=== PATIENT | female | born 1935 | race Caucasian/White ===

== ENCOUNTER 2020-02-10 10:46 | Observation (INO) | payer MEDICARE, OTHER ==
[2020-02-10 11:34] LABS: CHLORIDE,CL 101 mmol/L (98-107); SODIUM,NA 139 mmol/L (136-145)
--- NOTE | 2020-02-10 13:31 | EDM.PDOC ---
ED HPI GENERAL MEDICAL PROBLEM - General Chief Complaint: Respiratory Problem Stated Complaint: cough Time Seen by Provider: 02/10/20 11:10 Source of Information: Reports: Patient History Limitations: Reports: No Limitations - History of Present Illness INITIAL COMMENTS - FREE TEXT/NARRATIVE: Patient comes to ER with complaint of chest tightness, increased nasal congestion, and fatigue. Has been seen several times for this by [facility]. No change in symptoms despite two rounds of Zpack. Has nebs at home and notices no change in chest tightness when she uses them. Complains that she easily gets fatigued with activity. Is currently moving and is trying to transport and unload boxes. Notices that phlegm is greenish. Sometimes a bit brownish when it comes from her nose. Upon extensive questioning it was found that patient has a long history of fatigue that goes back years. She admits being encouraged by her Hand Ironer to "start oxygen" but her pride kept her from doing so. She feels that this is due to chronic cardiac issues but denies being told she had COPD. Was a smoker years ago. COPD like change noted on previous chest xray. She also has - Related Data Allergies Allergy/AdvReac Type Severity Reaction Status Date / Time dog dander Allergy Other Verified 02/10/20 11:04 grass pollen-perennial rye, Allergy Other Verified 02/10/20 11:05 standar tree and shrub pollen Allergy congestion Verified 02/10/20 11:04 amiodarone AdvReac Severe Hypotension, Verified 02/10/20 11:04 Shortness of breaath flecainide AdvReac Severe shortness Verified 02/10/20 11:04 of breath,severe hypotention Home Meds: Home Meds Acetaminophen with Codeine [Acetaminophen-Cod #3] 1 tab PO Q4H PRN 02/10/20 [ History] Albuterol Sulfate 1 vial INH QID PRN 02/10/20 [History] Apixaban [Eliquis] 5 mg PO BID 02/10/20 [History] Benzonatate 100 mg PO TID PRN 02/10/20 [History] Brimonidine Tartrate/Timolol [Combigan 0.2%-0.5% Eye Drops] 1 drop EYEBOTH BID 02/10/20 [History] Cholecalciferol (Vitamin D3) [Vitamin D3] 2,000 unit PO DAILY 02/10/20 [History] Cyanocobalamin (Vitamin B12) [Vitamin B12] 1,000 mcg IJ Q30D 02/10/20 [History] Cyclobenzaprine [Flexeril] 1 tab PO TID PRN 02/10/20 [History] Diphenoxylate HCl/Atropine [Lomotil] 1 tab PO Q6H PRN 02/10/20 [History] Fluorometholone [Fluorometholone 0.1% Ophth Susp] 1 drop EYEBOTH DAILY 02/10/20 [History] Hyoscyamine [Levsin] 0.125 mg PO Q4HR PRN 02/10/20 [History] Latanoprost [Xalatan] 2.5 ml EYEBOTH BEDTIME 02/10/20 [History] Levothyroxine [Synthroid] 50 mcg PO DAILY 02/10/20 [History] Lutein 20 mg PO DAILY 02/10/20 [History] Lutein/Minerals/Vit A,C & E [Ocuvite] 1 tab PO DAILY 02/10/20 [History] Metoprolol Tartrate 50 mg PO BID 02/10/20 [History] Nitroglycerin 0.4 mg SL ASDIRECTED PRN 02/10/20 [History] Non-Formulary Medication [NF Drug] 1 applic TOP TU02/10/20 [History] amLODIPine [Norvasc] 10 mg PO DAILY 02/10/20 [History] atorvaSTATin [Lipitor] 10 mg PO DAILY 02/10/20 [History] cycloSPORINE [Restasis Multidose] 1 drop EYEBOTH BID 02/10/20 [History] estradioL [Estradiol] 1 mg PO DAILY 02/10/20 [History] methylPREDNISolone [Medrol] 12 mg PO Q2D 02/10/20 [History] methylPREDNISolone [Methylprednisolone] 4 mg PO Q2D 02/10/20 [History] Past Medical History HEENT History: Reports: Glaucoma Cardiovascular History: Reports: Afib, CAD, High Cholesterol, Hypertension, Stents, Other (See Below) (Raynaud's Disease) Gastrointestinal History: Reports: Irritable Bowel Syndrome Genitourinary History: Reports: Other (See Below) (night time frequency) Musculoskeletal History: Reports: Other (See Below) (Polymyalgia Rheumatica) Endocrine/Metabolic History: Reports: Hypothyroidism Hematologic History: Reports: B12 Deficiency Immunologic History: Reports: Other (See Below) (environmental allergies) Social & Family History - Tobacco Use Smoking Status *Q: Former Smoker - Caffeine Use Caffeine Use: Reports: Coffee - Alcohol Use Alcohol Use History: No Alcohol Use Frequency: Rarely - Recreational Drug Use Recreational Drug Use: No Drug Use in Last 12 Months: No ED ROS GENERAL - Review of Systems Review Of Systems: See Below Constitutional: Reports: Fatigue, Other (Patient says that she can get chills/ low temp elevation from her PMR. Fatigue has been present for years. Worse over last month. Says usual temp is 97. Notes that she has been 99 at times. ) . Denies: Chills, Night Sweats, Diaphoresis, Decreased Appetite, Weight Loss, Weight Gain HEENT: Reports: Glasses, Hearing Loss (hearing on right not as good as used to be), Rhinitis, Sinus Problem (congestion/no pain complaint). Denies: Ear Discharge, Ear Pain, Eye Discharge, Eye Pain, Nosebleed, Throat Pain, Throat Swelling, Vertigo, Vision Change Respiratory: Reports: Shortness of Breath (Long standing/for years. Mild worse last month), Cough (minimal), Other (reports increased mucus after she wakes up in AMs and clears throat. Otherwise no additional mucus issues from chest rest of day). Denies: Wheezing, Pleuritic Chest Pain, Sputum, Hemoptysis Cardiovascular: Denies: Chest Pain, Blood Pressure Problem, Dyspnea on Exertion , Edema, Lightheadedness, Palpitations, PND, Syncope Endocrine: Reports: No Symptoms GI/Abdominal: Reports: Other (no acute changes. Has chronic issues with IBS/ unchanged pattern) : Reports: No Symptoms Musculoskeletal: Reports: Other (No acute changes from baseline) Skin: Reports: Other (no acute changes) Neurological: Reports: Other (no focal one sided changes). Denies: Confusion, Dizziness, Headache, Paresthesia, Tingling, Trouble Speaking, Change in Speech Psychiatric: Reports: No Symptoms Hematologic/Lymphatic: Reports: No Symptoms ED EXAM, GENERAL - Physical Exam Exam: See Below Exam Limited By: No Limitations General Appearance: Alert, WD/WN, No Apparent Distress Eye Exam: Bilateral Eye: EOMI, PERRL Ears: Normal External Exam, Normal Canal, Hearing Grossly Normal, Normal TMs Nose: No: Nasal Deformity, Nasal Swelling, Nasal Drainage Throat/Mouth: Normal Lips, Normal Oropharynx, Normal Voice, No Airway Compromise Head: Atraumatic, Normocephalic Neck: Supple, Full Range of Motion, Other (questionable small firm/tender posterior chain lymph node right vs muscle spasm) Respiratory/Chest: No Respiratory Distress, Lungs Clear, Normal Breath Sounds, No Accessory Muscle Use Cardiovascular: Regular Rate, Rhythm, No Edema, No Murmur GI/Abdominal: Normal Bowel Sounds, Soft, Non-Tender, No Distention (Female) Exam: Deferred Rectal (Female) Exam: Deferred Back Exam: No: CVA Tenderness (L), CVA Tenderness (R), Muscle Spasm, Paraspinal Tenderness, Vertebral Tenderness Extremities: Non-Tender, Normal Capillary Refill Neurological: Alert, Oriented, Normal Cognition, No Motor/Sensory Deficits Psychiatric: Normal Affect, Normal Mood Skin Exam: Warm, Dry, Intact, Normal Color Course - Orders/Labs/Meds Orders: Active Orders 24 hr Category Date Time Status Chest 2V [CR] Stat Exams 02/10/20 11:06 Taken CORONAVIRUS COVID-19 PCR PHL Stat Lab 02/10/20 12:10 Received Labs: Laboratory Tests 02/10/20 02/10/20 02/10/20 Range/Units 11:15 11:15 11:15 WBC 12.0 H (4.0-10.2) K/uL RBC 3.94 (3.77-5.09) M/uL Hgb 12.9 (11.7-15.5) g/dL Hct 39.8 (34.0-46.0) % MCV 101.0 H (84.0-98.0) fL MCH 32.7 (28.2-33.3) pg MCHC 32.4 (31.7-36.0) g/dL RDW 14.7 H (11.2-14.1) % Plt Count 247 (150-350) K/uL Neut % (Auto) 83.7 H (45.0-80.0) % Lymph % (Auto) 8.7 L (10.0-50.0) % [place] % (Auto) 6.3 (2.0-14.0) % Eos % (Auto) 1.0 (0.0-5.0) % Baso % (Auto) 0.3 (0.0-2.0) % Neut # (Auto) 10.06 H (1.40-7.00) K/uL Lymph # (Auto) 1.04 (0.50-3.50) K/uL [place] # (Auto) 0.75 (0.00-1.00) K/uL Eos # (Auto) 0.12 (0.00-0.50) K/uL Baso # (Auto) 0.03 (0.00-0.20) K/uL Sodium 139 (136-145) mmol/L Potassium 3.6 (3.5-5.1) mmol/L Chloride 101 (98-107) mmol/L Carbon Dioxide 27.4 (21.0-32.0) mmol/L BUN 16 (7-18) mg/dL Creatinine 1.03 (0.51-1.17) mg/dL Est Cr Clr Drug Dosing TNP Estimated GFR (MDRD) 51 mL/min Glucose 131 H (74-106) mg/dL Lactic Acid 2.6 H (0.4-2.0) mmol/L Calcium 8.6 (8.5-10.1) mg/dL Magnesium (1.8-2.4) mg/dL Total Bilirubin 0.7 (0.2-1.0) mg/dL AST 18 (15-37) U/L ALT 25 (12-78) U/L Alkaline Phosphatase 42 L (46-116) IU/L Total Protein 7.2 (6.4-8.2) g/dL Albumin 3.3 L (3.4-5.0) g/dL Specimen Type Urine Color Urine Appearance Urine pH (5.0-9.0) Ur Specific [place] (1.005-1.030) Urine Protein (NEGATIVE) mg/dL Urine Glucose (UA) (NEGATIVE) mg/dL Urine Ketones (NEGATIVE) mg/dL Urine Occult Blood (NEGATIVE) Urine Nitrite (NEGATIVE) Urine Bilirubin (NEGATIVE) Urine Urobilinogen (0.2-1.0) E.U./dL Ur Leukocyte Esterase (NEGATIVE) Urine RBC /HPF Urine WBC /HPF Ur Epithelial Cells /LPF Urine Bacteria (NONE TO FEW) /HPF Urine Yeast (NEGATIVE) /HPF 02/10/20 02/10/20 Range/Units 11:15 12:37 WBC (4.0-10.2) K/uL RBC (3.77-5.09) M/uL Hgb (11.7-15.5) g/dL Hct (34.0-46.0) % MCV (84.0-98.0) fL MCH (28.2-33.3) pg MCHC (31.7-36.0) g/dL RDW (11.2-14.1) % Plt Count (150-350) K/uL Neut % (Auto) (45.0-80.0) % Lymph % (Auto) (10.0-50.0) % [place] % (Auto) (2.0-14.0) % Eos % (Auto) (0.0-5.0) % Baso % (Auto) (0.0-2.0) % Neut # (Auto) (1.40-7.00) K/uL Lymph # (Auto) (0.50-3.50) K/uL [place] # (Auto) (0.00-1.00) K/uL Eos # (Auto) (0.00-0.50) K/uL Baso # (Auto) (0.00-0.20) K/uL Sodium (136-145) mmol/L Potassium (3.5-5.1) mmol/L Chloride (98-107) mmol/L Carbon Dioxide (21.0-32.0) mmol/L BUN (7-18) mg/dL Creatinine (0.51-1.17) mg/dL Est Cr Clr Drug Dosing Estimated GFR (MDRD) mL/min Glucose (74-106) mg/dL Lactic Acid (0.4-2.0) mmol/L Calcium (8.5-10.1) mg/dL Magnesium 1.8 (1.8-2.4) mg/dL Total Bilirubin (0.2-1.0) mg/dL AST (15-37) U/L ALT (12-78) U/L Alkaline Phosphatase (46-116) IU/L Total Protein (6.4-8.2) g/dL Albumin (3.4-5.0) g/dL Specimen Type Urinvoid Urine Color Yellow Urine Appearance Clear Urine pH 6.0 (5.0-9.0) Ur Specific [place] 1.020 (1.005-1.030) Urine Protein Trace H (NEGATIVE) mg/dL Urine Glucose (UA) Negative (NEGATIVE) mg/dL Urine Ketones Negative (NEGATIVE) mg/dL Urine Occult Blood Negative (NEGATIVE) Urine Nitrite Negative (NEGATIVE) Urine Bilirubin Negative (NEGATIVE) Urine Urobilinogen 0.2 (0.2-1.0) E.U./dL Ur Leukocyte Esterase Negative (NEGATIVE) Urine RBC Not seen /HPF Urine WBC Not seen /HPF Ur Epithelial Cells Moderate H /LPF Urine Bacteria Rare (NONE TO FEW) /HPF Urine Yeast Moderate H (NEGATIVE) /HPF - Radiology Interpretation Free Text/Narrative:: Chest xray shows calcified breast implants, COPD. No acute changes noted when compared to previous films from two weeks ago. No obvious focal changes suggestive of pneumonia. - Re-Assessments/Exams Free Text/Narrative Re-Assessment/Exam: 02/10/20 13:58 WBC 12 Lactic acid 2.6 Nonfocal exam. It appears that although the patient perceives her chest tightness and fatigue to be worse this past month, that these symptoms have been long standing in nature. Cannot exclude viral illness causing exacerbation of patient's chronic cardio/pulmonary issues. COPD could also be a cause of noted mild increase in lactic acid. Covid 19 testing performed given her pattern of complaints. Plan at this time is to admit to observation. Will observe patient's O2 saturation levels with ambulation to see if hypoxemia is contributing to her perceived decreased exercise tolerance. Telemetry. Will add DuoNebs to see if this is helpful with chest tightness complaint. Given the elevated Lactic acid/ mild elevation of WBC and persistent respiratory symptoms will cover patient with course of Doxy, although again she could be experiencing a viral trigger for her complaints. Departure - Departure Time of Disposition: 14:08 Disposition: Refer to Observation Condition: Good Clinical Impression: Chest tightness Fatigue Qualifiers: Fatigue type: unspecified Qualified Code(s): R53.83 - Other fatigue - Discharge Information *PRESCRIPTION DRUG MONITORING PROGRAM REVIEWED*: Not Applicable *COPY OF PRESCRIPTION DRUG MONITORING REPORT IN PATIENT SEB: Not Applicable Referrals: Linh Bishop PA-C [Primary Care Provider] - - Problem List & Annotations (1) Chest tightness SNOMED Code(s): 68360674 Code(s): R07.89 - OTHER CHEST PAIN Status: Acute Priority: High Current Visit: Yes Annotation/Comment:: One month history of increased chest tightness. No specific cough complaint. Changes consistent with COPD noted on xray. No focal specific findings per Radiology however. No change s/p Z-pack. No change with neb treatments. (2) Fatigue SNOMED Code(s): 43585468 Code(s): R53.83 - OTHER FATIGUE Status: Chronic Priority: Medium Current Visit: Yes Annotation/Comment:: Reports history of chronic fatigue that goes back "years". Recently worse over the last month per patient. Qualifiers: Fatigue type: unspecified Qualified Code(s): R53.83 - Other fatigue (3) Sinus congestion SNOMED Code(s): 02732812 Code(s): R09.81 - NASAL CONGESTION Status: Acute Priority: Medium Current Visit: Yes Annotation/Comment:: Present for approx one month. Recently worse over the last few days. No change with ZPack x2 (4) Polymyalgia rheumatica SNOMED Code(s): 62959008 Code(s): M35.3 - POLYMYALGIA RHEUMATICA Status: Chronic Priority: Low Current Visit: No Annotation/Comment:: Stable per patient (5) Irritable bowel syndrome SNOMED Code(s): 98820593 Code(s): K58.9 - IRRITABLE BOWEL SYNDROME WITHOUT DIARRHEA Status: Chronic Priority: Low Current Visit: No Annotation/Comment:: Stable per patient Qualifiers: Irritable bowel syndrome type: with diarrhea Qualified Code(s): K58.0 - Irritable bowel syndrome with diarrhea (6) Glaucoma SNOMED Code(s): 66769266 Code(s): H40.9 - UNSPECIFIED GLAUCOMA Status: Chronic Priority: Low Current Visit: No Annotation/Comment:: Stable per patient Qualifiers: Glaucoma type: unspecified (7) CAD (coronary artery disease) SNOMED Code(s): 70033952 Code(s): I25.10 - ATHSCL HEART DISEASE OF [place] CORONARY ARTERY W/O ANG PCTRS Status: Chronic Priority: Low Current Visit: No Annotation/Comment :: history of stent. Stable per patient Qualifiers: [place] vs. transplanted heart: [place] heart Associated angina: with stable angina (8) Raynauds syndrome SNOMED Code(s): 118219775 Code(s): I73.00 - RAYNAUD'S SYNDROME WITHOUT GANGRENE Status: Chronic Current Visit: Yes (9) Afib SNOMED Code(s): 85837934 Code(s): I48.91 - UNSPECIFIED ATRIAL FIBRILLATION Status: Chronic Priority: Low Current Visit: No Annotation/Comment:: Stable per pt. No report of palpitations/chest pain Qualifiers: Atrial fibrillation type: unspecified Qualified Code(s): I48.91 - Unspecified atrial fibrillation (10) Hyperlipidemia SNOMED Code(s): 83893170 Code(s): E78.5 - HYPERLIPIDEMIA, UNSPECIFIED Status: Chronic Priority: Low Current Visit: No Annotation/Comment:: Under therapy/stable per patient Qualifiers: Hyperlipidemia type: unspecified Qualified Code(s): E78.5 - Hyperlipidemia , unspecified (11) Hypertension SNOMED Code(s): 09029066 Code(s): I10 - ESSENTIAL (PRIMARY) HYPERTENSION Status: Chronic Priority : Low Current Visit: No Annotation/Comment:: Stable per patient Qualifiers: Hypertension type: essential hypertension Qualified Code(s): I10 - Essential (primary) hypertension (12) Hypothyroid SNOMED Code(s): 11375628 Code(s): E03.9 - HYPOTHYROIDISM, UNSPECIFIED Status: Chronic Priority: Low Current Visit: No Annotation/Comment:: Stable per patient Qualifiers: Hypothyroidism type: unspecified Qualified Code(s): E03.9 - Hypothyroidism , unspecified - My Orders Last 24 Hours: My Active Orders 02/10/20 11:06 Chest 2V [CR] Stat 02/10/20 12:10 CORONAVIRUS COVID-19 PCR PHL Stat - Assessment/Plan Admission H&P: Please use this note as an admission H&P Last 24 Hours: My Active Orders 02/10/20 11:06 Chest 2V [CR] Stat 02/10/20 12:10 CORONAVIRUS COVID-19 PCR PHL Stat Assessment:: as above. Stable for general supervision on observation Plan: As above. Observe overnight. Telemetry. Pulse ox check with ambulation to look for desaturation with activity. Small amount fluids/recheck lactic acid tomorrow. Start Doxy.
[2020-02-10] MEDS ORDERED: Cyclobenzaprine 10 MG Tab PO PRN (14:42)
[2020-02-10] MEDS ORDERED: Hyoscyamine 0.125 MG Tab.SL PO PRN (14:42)
[2020-02-10] MEDS ORDERED: Benzonatate 100 MG Cap PO PRN (14:42)
[2020-02-10] MEDS ORDERED: Atropine/Diphenoxylate 0.025-2.5 MG Tab PO PRN (15:00)
[2020-02-10] MEDS ORDERED: Nitroglycerin 0.4 MG Tab.SL SL PRN (15:00)
[2020-02-10] MEDS ORDERED: Acetaminophen/Codeine 300-30 MG Tab PO PRN (15:00)
[2020-02-10] MEDS: Albuterol/Ipratropium 3.0-0.5 MG/3 ML Neb Soln NEB SCH ×2 (15:41→19:41)
[2020-02-10] MEDS: Apixaban 5 MG Tab PO SCH (17:33)
[2020-02-10] MEDS: Doxycycline 100 MG Cap PO SCH (17:33)
[2020-02-10] MEDS: TIMOLOL EYEBOTH SCH (17:38)
[2020-02-10] MEDS: BRIMONIDINE TARTRATE EYEBOTH SCH (17:38)
[2020-02-10] MEDS: CYCLOSPORINE EYEBOTH SCH (17:39)
[2020-02-10] MEDS: Metoprolol Tartrate 50 MG Tab PO SCH (17:39)
[2020-02-10] MEDS ORDERED: Sodium Chloride 0.9% 500 ML IV SCH (19:45)
[2020-02-10] MEDS ORDERED: predniSONE 20 MG Tab PO ONE (20:00)
[2020-02-10] MEDS ORDERED: Latanoprost 0.005% Ophth Soln 2.5 ML Bottle EYEBOTH SCH (20:00)
[2020-02-11] MEDS ORDERED: Sodium Chloride 0.9% 250 ML IV SCH (01:15)
[2020-02-11] MEDS: Albuterol/Ipratropium 3.0-0.5 MG/3 ML Neb Soln NEB SCH ×2 (04:26→07:35)
[2020-02-11] MEDS: TIMOLOL EYEBOTH SCH (07:34)
[2020-02-11] MEDS: CYCLOSPORINE EYEBOTH SCH (07:34)
[2020-02-11] MEDS: BRIMONIDINE TARTRATE EYEBOTH SCH (07:34)
[2020-02-11] MEDS: Metoprolol Tartrate 50 MG Tab PO SCH (07:39)
[2020-02-11] MEDS: Doxycycline 100 MG Cap PO SCH (07:39)
[2020-02-11] MEDS: Apixaban 5 MG Tab PO SCH (07:40)
[2020-02-11] MEDS ORDERED: Levothyroxine 50 MCG Tab PO SCH (08:00)
[2020-02-11] MEDS ORDERED: Estradiol 1 MG Tab PO SCH (08:00)
[2020-02-11] MEDS ORDERED: amLODIPine 5 MG Tab PO SCH (08:00)
[2020-02-11] MEDS ORDERED: atorvaSTATin 10 MG Tab PO SCH (08:00)
[2020-02-11] MEDS ORDERED: FLUOROMETHOLONE 0.1% EYEBOTH SCH ×2 (08:00→12:00)
[2020-02-11 08:03] LABS: CHLORIDE,CL 104 mmol/L (98-107); SODIUM,NA 138 mmol/L (136-145)
--- NOTE | 2020-02-11 12:13 | PCM.DCSUM1 ---
Discharge Summary - Hospital Course Brief History: Patient admitted to observation due to complaints of fatigue/ ongoing URI symptoms. Diagnosis: Stroke: No - Discharge Data Discharge Date: 02/11/20 Discharge Disposition: Home, Self-Care 01 Condition: Good - Referral to Home Health Primary Care Physician: Linh Bishop PA-C - Discharge Diagnosis/Problem(s) (1) Hypoxemia SNOMED Code(s): 873416594 ICD Code: R09.02 - HYPOXEMIA Status: Chronic Priority: High Current Visit: Yes Problem Details: Patient noted to decrease to 92% with ambulation when on room air. Desats to high 80s noted overnight while she was sleeping. O2 NC at 1L started around 0100. Suspect chronic hypoxia is contributing to patient's ongoing complaints of fatigue/activity intolerance. She is reluctant to start NC O2, suspect due to vanity concerns and per self report. Long time spent encouraging her to start the O2 at night as was recommended by her nuclear physicist a few years back. PRN use during daytime. To continue to follow up closely with primary provider. (2) Dehydration SNOMED Code(s): 88180389 ICD Code: E86.0 - DEHYDRATION Status: Acute Priority: Medium Current Visit: Yes Problem Details: Suspect a degree of dehydration contributed to patient feeling poorly. Small IV bolus followed by some maintenance fluid given overnight. Elevated WBC and Lactic acid corrected to normal levels today. Patient admits that she spends most of her time moving/dealing with boxes and is not good about self care/staying hydrated. Good self care encouraged during discharge review. (3) Chest tightness SNOMED Code(s): 48731908 ICD Code: R07.89 - OTHER CHEST PAIN Status: Acute Priority: High Current Visit: Yes Problem Details: Improved today per patient. Only mild tightness at times. One month history of increased chest tightness. No specific cough complaint. Changes consistent with COPD noted on xray. No focal specific findings per Radiology however. No change s/p Z-pack. No change with neb treatments. Will continue patient on Doxy after discharge. Covid testing was performed in ER and results are pending. (4) Fatigue SNOMED Code(s): 82967788 ICD Code: R53.83 - OTHER FATIGUE Status: Chronic Priority: Medium Current Visit: Yes Problem Details: Reports history of chronic fatigue that goes back "years". Recently worse over the last month per patient. Per above, suspect a portion of this is due to chronic lowgrade hypoxemia. Also mild dehydration. Qualifiers: Fatigue type: unspecified Qualified Code(s): R53.83 - Other fatigue (5) Sinus congestion SNOMED Code(s): 85750178 ICD Code: R09.81 - NASAL CONGESTION Status: Acute Priority: Medium Current Visit: Yes Problem Details: Present for approx one month. Recently worse over the last few days. No change with ZPack x2 To observe for changes (6) Polymyalgia rheumatica SNOMED Code(s): 68481940 ICD Code: M35.3 - POLYMYALGIA RHEUMATICA Status: Chronic Priority: Low Current Visit: No Problem Details: Stable per patient (7) Irritable bowel syndrome SNOMED Code(s): 93018751 ICD Code: K58.9 - IRRITABLE BOWEL SYNDROME WITHOUT DIARRHEA Status: Chronic Priority: Low Current Visit: No Problem Details: Stable per patient Qualifiers: Irritable bowel syndrome type: with diarrhea Qualified Code(s): K58.0 - Irritable bowel syndrome with diarrhea (8) Glaucoma SNOMED Code(s): 33977551 ICD Code: H40.9 - UNSPECIFIED GLAUCOMA Status: Chronic Priority: Low Current Visit: No Problem Details: Stable per patient Qualifiers: Glaucoma type: unspecified (9) CAD (coronary artery disease) SNOMED Code(s): 12569695 ICD Code: I25.10 - ATHSCL HEART DISEASE OF [place] CORONARY ARTERY W/O ANG PCTRS Status: Chronic Priority: Low Current Visit: No Problem Details: history of stent. Stable per patient Qualifiers: [place] vs. transplanted heart: [place] heart Associated angina: with stable angina (10) Raynauds syndrome SNOMED Code(s): 109523522 ICD Code: I73.00 - RAYNAUD'S SYNDROME WITHOUT GANGRENE Status: Chronic Current Visit: Yes (11) Afib SNOMED Code(s): 88778187 ICD Code: I48.91 - UNSPECIFIED ATRIAL FIBRILLATION Status: Chronic Priority: Low Current Visit: No Problem Details: Stable per pt. No report of palpitations/chest pain Qualifiers: Atrial fibrillation type: unspecified Qualified Code(s): I48.91 - Unspecified atrial fibrillation (12) Hyperlipidemia SNOMED Code(s): 84098103 ICD Code: E78.5 - HYPERLIPIDEMIA, UNSPECIFIED Status: Chronic Priority: Low Current Visit: No Problem Details: Under therapy/stable per patient Qualifiers: Hyperlipidemia type: unspecified Qualified Code(s): E78.5 - Hyperlipidemia , unspecified (13) Hypertension SNOMED Code(s): 60203412 ICD Code: I10 - ESSENTIAL (PRIMARY) HYPERTENSION Status: Chronic Priority : Low Current Visit: No Problem Details: Stable per patient Qualifiers: Hypertension type: essential hypertension Qualified Code(s): I10 - Essential (primary) hypertension (14) Hypothyroid SNOMED Code(s): 90005578 ICD Code: E03.9 - HYPOTHYROIDISM, UNSPECIFIED Status: Chronic Priority: Low Current Visit: No Problem Details: Stable per patient Qualifiers: Hypothyroidism type: unspecified Qualified Code(s): E03.9 - Hypothyroidism , unspecified - Patient Summary/Data Hospital Course: Patient monitored by telemetry. Labs repeated after she received IV fluids. WBC/Lactic acid elevations resolved. Vital signs stable. Patient's sense of fatigue greatly improved this morning. Was noted to desaturate to high 80s on room air while sleeping, and down to 92% during ambulation. Corrected easily on 1 liter of O2 via NC. Patient would like to go home. Time spent encouraging her to utilize home O2, something which she has refused to consider for several years despite her Screen Printer Helper's recommendations. Given her significant improvement with the fluids and O2, she appears to be ok with using the home O2 at least at night. Also will work up keeping hydrated a bit better. O2 order for home O2 faxed and patient should get O2 delivered hopefully today. Will also continue Doxy course. Patient cautioned that her congestion could very likely be viral given her history and failure of ZPacks to provide improvement. Recommended that she avoid any additional antibiotics if congestion persists unless she has clear decompensation/fevers/etc. - Patient Instructions Diet: Usual Diet as Tolerated Activity: As Tolerated Driving: May Drive Today Showering/Bathing: May Shower Notify Provider of: Fever Other/Special Instructions: Follow up with your regular provider. Start the O2 at night, try 1L per min. Use it as needed during the day. Stay hydrated. See if your fatigue improves! Follow up as needed if you have sudden worsening problems. - Discharge Plan *PRESCRIPTION DRUG MONITORING PROGRAM REVIEWED*: Not Applicable *COPY OF PRESCRIPTION DRUG MONITORING REPORT IN PATIENT SEB: Not Applicable Prescriptions/Med Rec: Doxycycline [Vibramycin] 100 mg PO BID #12 cap Home Medications: Home Meds Acetaminophen with Codeine [Acetaminophen-Cod #3] 1 tab PO Q4H PRN 02/10/20 [ History] Albuterol Sulfate 1 vial INH QID PRN 02/10/20 [History] Apixaban [Eliquis] 5 mg PO BID 02/10/20 [History] Benzonatate 100 mg PO TID PRN 02/10/20 [History] Brimonidine Tartrate/Timolol [Combigan 0.2%-0.5% Eye Drops] 1 drop EYEBOTH BID 02/10/20 [History] Cholecalciferol (Vitamin D3) [Vitamin D3] 2,000 unit PO DAILY 02/10/20 [History] Cyanocobalamin (Vitamin B12) [Vitamin B12] 1,000 mcg IJ Q30D 02/10/20 [History] Cyclobenzaprine [Flexeril] 1 tab PO TID PRN 02/10/20 [History] Diphenoxylate HCl/Atropine [Lomotil] 1 tab PO Q6H PRN 02/10/20 [History] Fluorometholone [Fluorometholone 0.1% Ophth Susp] 1 drop EYEBOTH DAILY 02/10/20 [History] Hyoscyamine [Levsin] 0.125 mg PO Q4HR PRN 02/10/20 [History] Latanoprost [Xalatan] 2.5 ml EYEBOTH BEDTIME 02/10/20 [History] Levothyroxine [Synthroid] 50 mcg PO DAILY 02/10/20 [History] Lutein 20 mg PO DAILY 02/10/20 [History] Lutein/Minerals/Vit A,C & E [Ocuvite] 1 tab PO DAILY 02/10/20 [History] Metoprolol Tartrate 50 mg PO BID 02/10/20 [History] Nitroglycerin 0.4 mg SL ASDIRECTED PRN 02/10/20 [History] Non-Formulary Medication [NF Drug] 1 applic TOP TUSA 02/10/20 [History] amLODIPine [Norvasc] 10 mg PO DAILY 02/10/20 [History] atorvaSTATin [Lipitor] 10 mg PO DAILY 02/10/20 [History] cycloSPORINE [Restasis Multidose] 1 drop EYEBOTH BID 02/10/20 [History] estradioL [Estradiol] 1 mg PO DAILY 02/10/20 [History] methylPREDNISolone [Medrol] 12 mg PO Q2D 02/10/20 [History] methylPREDNISolone [Methylprednisolone] 4 mg PO Q2D 02/10/20 [History] Doxycycline [Vibramycin] 100 mg PO BID #12 cap 02/11/20 [Rx] Forms: ED Department Discharge Referrals: Linh Bishop PA-C [Primary Care Provider] - - Discharge Summary/Plan Comment DC Time >30 min.: No - General Info Date of Service: 02/11/20 Admission Dx/Problem (Free Text: Chest tightness, elevated Lactic acid/wbc, fatigue Subjective Update: Feels much better today. More energy. Chest tightness improved. Functional Status: Reports: Pain Controlled, Tolerating Diet, Ambulating, Urinating. Denies: New Symptoms - Review of Systems General: Reports: Fatigue (much improved). Denies: Fever, Malaise, Chills, Night Sweats, Appetite HEENT: Reports: Glasses, Post Nasal Drip, Sinus Congestion, Rhinitis. Denies: Ear Pain, Eye Pain, Headaches, Sore Throat, Visual Changes Pulmonary: Reports: No Symptoms. Denies: Shortness of Breath, Pleuritic Chest Pain, Cough, Sputum, Hemoptysis, Wheezing Cardiovascular: Reports: Dyspnea on Exertion, Other (mild anterior chest "tightness" at times). Denies: Chest Pain, Palpitations, Orthopnea, PND, Edema , Lightheadedness Gastrointestinal: Denies: Abdominal Pain, Constipation, Diarrhea, Difficulty Swallowing, Melena, Nausea, Vomiting Genitourinary: Reports: No Symptoms Musculoskeletal: Reports: Other (no acute changes from baseline) Skin: Reports: Bruising (forearms) Neurological: Reports: No Symptoms Psychiatric: Reports: No Symptoms - Patient Data Vitals - Most Recent: Last Vital Signs Temp 36.5 C 02/11/20 06:00 Pulse 92 02/11/20 07:39 Resp 16 02/11/20 06:00 BP 140/72 02/11/20 07:40 Pulse Ox 96 02/11/20 06:00 Weight - Most Recent: 72.575 kg I&O - Last 24 hours: Intake & Output 02/10/20 02/11/2002/10/20 22:59 06:59 14:59 Intake Total 1250 300 Output Total 500 1200 Balance -500 50 300 Lab Results - Last 24 hrs: Laboratory Results - last 24 hr 02/10/20 02/10/20 02/11/20 Range/Units 11:15 12:37 07:31 WBC (4.0-10.2) K/uL RBC (3.77-5.09) M/uL Hgb (11.7-15.5) g/dL Hct (34.0-46.0) % MCV (84.0-98.0) fL MCH (28.2-33.3) pg MCHC (31.7-36.0) g/dL RDW (11.2-14.1) % Plt Count (150-350) K/uL Neut % (Auto) (45.0-80.0) % Lymph % (Auto) (10.0-50.0) % [place] % (Auto) (2.0-14.0) % Eos % (Auto) (0.0-5.0) % Baso % (Auto) (0.0-2.0) % Neut # (Auto) (1.40-7.00) K/uL Lymph # (Auto) (0.50-3.50) K/uL [place] # (Auto) (0.00-1.00) K/uL Eos # (Auto) (0.00-0.50) K/uL Baso # (Auto) (0.00-0.20) K/uL D-Dimer, Quantitative (0-400) ng/mL Sodium (136-145) mmol/L Potassium (3.5-5.1) mmol/L Chloride (98-107) mmol/L Carbon Dioxide (21.0-32.0) mmol/L BUN (7-18) mg/dL Creatinine (0.51-1.17) mg/dL Est Cr Clr Drug Dosing mL/min Estimated GFR (MDRD) mL/min Glucose (74-106) mg/dL Lactic Acid 1.5 (0.4-2.0) mmol/L Calcium (8.5-10.1) mg/dL Magnesium 1.8 (1.8-2.4) mg/dL NT-Pro-B Natriuret Pep (0-125) pg/mL Specimen Type Urinvoid Urine Color Yellow Urine Appearance Clear Urine pH 6.0 (5.0-9.0) Ur Specific [place] 1.020 (1.005-1.030) Urine Protein Trace H (NEGATIVE) mg/dL Urine Glucose (UA) Negative (NEGATIVE) mg/dL Urine Ketones Negative (NEGATIVE) mg/dL Urine Occult Blood Negative (NEGATIVE) Urine Nitrite Negative (NEGATIVE) Urine Bilirubin Negative (NEGATIVE) Urine Urobilinogen 0.2 (0.2-1.0) E.U./dL Ur Leukocyte Esterase Negative (NEGATIVE) Urine RBC Not seen /HPF Urine WBC Not seen /HPF Ur Epithelial Cells Moderate H /LPF Urine Bacteria Rare (NONE TO FEW) /HPF Urine Yeast Moderate H (NEGATIVE) /HPF 02/11/20 02/11/20 02/11/20 Range/Units 07:31 07:31 07:31 WBC 9.5 (4.0-10.2) K/uL RBC 3.59 L (3.77-5.09) M/uL Hgb 11.8 (11.7-15.5) g/dL Hct 35.9 (34.0-46.0) % MCV 100.0 H (84.0-98.0) fL MCH 32.9 (28.2-33.3) pg MCHC 32.9 (31.7-36.0) g/dL RDW 14.4 H (11.2-14.1) % Plt Count 218 (150-350) K/uL Neut % (Auto) 88.9 H (45.0-80.0) % Lymph % (Auto) 7.5 L (10.0-50.0) % [place] % (Auto) 3.5 (2.0-14.0) % Eos % (Auto) 0.0 (0.0-5.0) % Baso % (Auto) 0.1 (0.0-2.0) % Neut # (Auto) 8.48 H (1.40-7.00) K/uL Lymph # (Auto) 0.72 (0.50-3.50) K/uL [place] # (Auto) 0.33 (0.00-1.00) K/uL Eos # (Auto) 0.00 (0.00-0.50) K/uL Baso # (Auto) 0.01 (0.00-0.20) K/uL D-Dimer, Quantitative < 100 (0-400) ng/mL Sodium 138 (136-145) mmol/L Potassium 3.8 (3.5-5.1) mmol/L Chloride 104 (98-107) mmol/L Carbon Dioxide 24.4 (21.0-32.0) mmol/L BUN 16 (7-18) mg/dL Creatinine 0.87 (0.51-1.17) mg/dL Est Cr Clr Drug Dosing 40.37 mL/min Estimated GFR (MDRD) > 60 mL/min Glucose 132 H (74-106) mg/dL Lactic Acid (0.4-2.0) mmol/L Calcium 8.5 (8.5-10.1) mg/dL Magnesium (1.8-2.4) mg/dL NT-Pro-B Natriuret Pep 1418 H (0-125) pg/mL Specimen Type Urine Color Urine Appearance Urine pH (5.0-9.0) Ur Specific [place] (1.005-1.030) Urine Protein (NEGATIVE) mg/dL Urine Glucose (UA) (NEGATIVE) mg/dL Urine Ketones (NEGATIVE) mg/dL Urine Occult Blood (NEGATIVE) Urine Nitrite (NEGATIVE) Urine Bilirubin (NEGATIVE) Urine Urobilinogen (0.2-1.0) E.U./dL Ur Leukocyte Esterase (NEGATIVE) Urine RBC /HPF Urine WBC /HPF Ur Epithelial Cells /LPF Urine Bacteria (NONE TO FEW) /HPF Urine Yeast (NEGATIVE) /HPF Med Orders - Current: Current Medications Acetaminophen/Codeine Phosphate (Tylenol With Codeine No.3 300mg/30mg) 1 tab PO Q4H PRN PRN Reason: Pain Albuterol/Ipratropium (Duoneb 3.0-0.5 Mg/3 Ml) 3 ml NEB Q6HRRT [facility] Last Admin: 02/11/20 07:35 Dose: 3 ml Amlodipine Besylate (Norvasc) 10 mg PO DAILY [facility] Last Admin: 02/11/20 07:40 Dose: 10 mg Apixaban (Eliquis) 5 mg PO BID [facility] Last Admin: 02/11/20 07:40 Dose: 5 mg Atorvastatin Calcium (Lipitor) 10 mg PO DAILY [facility] Last Admin: 02/11/20 07:39 Dose: 10 mg Benzonatate (Tessalon Perles) 100 mg PO TID PRN PRN Reason: Cough Cyclobenzaprine HCl (Flexeril) 10 mg PO TID PRN PRN Reason: Spasms Last Admin: 02/10/20 23:23 Dose: 5 mg Diphenoxylate HCl/Atropine (Lomotil 0.025-2.5 Mg) 1 tab PO Q6H PRN PRN Reason: Diarrhea Last Admin: 02/11/20 07:35 Dose: 1 tab Doxycycline Hyclate (Vibramycin) 100 mg PO BID [facility] Last Admin: 02/11/20 07:39 Dose: 100 mg Estradiol (Estradiol) 1 mg PO DAILY [facility] Last Admin: 02/11/20 07:39 Dose: 1 mg Hyoscyamine (Hyomax-Sl) 0.125 mg PO Q4HR PRN PRN Reason: IBS Sodium Chloride (Normal Saline) 500 mls @ 100 mls/hr IV ASDIRECTED [facility] Last Admin: 02/10/20 20:19 Dose: 100 mls/hr Sodium Chloride (Normal Saline) 250 mls @ 50 mls/hr IV ASDIRECTED [facility] Last Admin: 02/11/20 01:33 Dose: 50 mls/hr Latanoprost (Xalatan 0.005% Ophth Soln) 2.5 ml EYEBOTH BEDTIME [facility] Last Admin: 02/10/20 20:16 Dose: 1 drop Levothyroxine Sodium (Synthroid) 50 mcg PO DAILY [facility] Last Admin: 02/11/20 07:40 Dose: 50 mcg Methylprednisolone (Medrol) 12 mg PO Q2D [facility] Methylprednisolone (Medrol) 4 mg PO Q2D [facility] Last Admin: 02/11/20 07:46 Dose: 4 mg Metoprolol Tartrate (Lopressor) 50 mg PO BID [facility] Last Admin: 02/11/20 07:39 Dose: 50 mg Nitroglycerin (Nitrostat) 0.4 mg SL ASDIRECTED PRN PRN Reason: Chest Pain Brimonidine Tartrate /Timolol [Combigan 0 .2%-0.5% Eye Drop 1 drop EYEBOTH BID [facility] Last Admin: 02/11/20 07:34 Dose: 1 drop Cyclosporine [ (Restasis Ophth Drops) 1 drop EYEBOTH BID [facility] Last Admin: 02/11/20 07:34 Dose: 1 drop Fluorometholone 0.1% (Ophth Soln) 1 drop EYEBOTH DAILY@1200 [facility] Last Admin: 02/11/20 11:35 Dose: 1 drop Discontinued Medications Fluorometholone 0.1% (Ophth Soln) 1 drop EYEBOTH DAILY [facility] Prednisone (Prednisone) 40 mg PO ONETIME ONE Stop: 02/10/20 20:01 Last Admin: 02/10/20 20:16 Dose: 40 mg - Exam Quality Assessment: Reports: Supplemental Oxygen, DVT Prophylaxis (Chronic anticoagulation) General: Reports: Alert, Oriented, Cooperative, No Acute Distress HEENT: Reports: Pupils Equal, Pupils Reactive, EOMI, Mucous Membr. Moist/[place] Neck: Reports: Supple Lungs: Reports: Clear to Auscultation, Normal Respiratory Effort, Decreased Breath Sounds (throughout). Denies: Crackles, Rales, Rhonchi, Rub, Stridor Cardiovascular: Reports: Irregular Rhythm. Denies: No Murmurs GI/Abdominal Exam: Normal Bowel Sounds, Soft, Non-Tender, No Distention (Female) Exam: Deferred Rectal (Female) Exam: Deferred Back Exam: Denies: CVA Tenderness (L), CVA Tenderness (R), Muscle Spasm, Paraspinal Tenderness, Vertebral Tenderness Extremities: Normal Range of Motion, Non-Tender, Normal Capillary Refill, Pedal Edema (minimal) Skin: Reports: Warm, Dry, Intact, Ecchymosis (scattered) Neurological: Reports: No New Focal Deficit Psy/Mental Status: Reports: Alert, Normal Affect, Normal Mood
== END 2020-02-11 13:10 | disposition home or self-care (01) ==
LOC: LL.ED 10:46 → LL.MS 12:24 → UNDOADMOB 12:24 → LL.MS 14:37
PROVIDERS: ADMIT Emergency Medicine; ATTEND Emergency Medicine
DX: R09.02 Hypoxemia (principal); R07.89 Other chest pain; R53.83 Other fatigue; R09.81 Nasal congestion; M35.3 Polymyalgia rheumatica; J44.9 Chronic obstructive pulmonary disease, unspecified; K58.9 Irritable bowel syndrome, unspecified; H40.9 Unspecified glaucoma; I25.10 Atherosclerotic heart disease of native coronary artery without angina pectoris; E78.00 Pure hypercholesterolemia, unspecified; I10 Essential (primary) hypertension; I73.00 Raynaud's syndrome without gangrene; E03.9 Hypothyroidism, unspecified; I48.91 Unspecified atrial fibrillation; E78.5 Hyperlipidemia, unspecified; E86.0 Dehydration; Z79.899 Other long term (current) drug therapy; Z95.5 Presence of coronary angioplasty implant and graft; Z88.8 Allergy status to other drugs, medicaments and biological substances; Z87.891 Personal history of nicotine dependence; Z79.890 Hormone replacement therapy
CPT/HCPCS: 36415; 71046; 80048; 80053; 81001; 83605; 83735; 83880; 85025; 85379; 94640; 96360; 96361; 99285-25; A9270-GY; G0378; J7040; J7050; J7620-GY; U0002

== ENCOUNTER 2020-03-06 16:55 | Inpatient (IN) | payer MEDICARE, OTHER ==
--- NOTE | 2020-03-06 17:47 | EDM.PDOC ---
ED HPI GENERAL MEDICAL PROBLEM - General Chief Complaint: General Stated Complaint: nausea, weak/dizzy Time Seen by Provider: 03/06/20 17:15 Source of Information: Reports: Patient History Limitations: Reports: No Limitations - History of Present Illness INITIAL COMMENTS - FREE TEXT/NARRATIVE: Patient comes to ER with complaint of GI issues that started last Friday, 5 days ago. Initially had nausea/emesis/loose stools. Reports that diarrhea resolved. Continues to have nausea/emesis, cannot keep some of her PO intake down. Body aches/headache. Chills. Headache. Neck feels a bit stiff. Was seen in ER February 10 for SOB/respiratory complaints that had not responded to multiple [employer] rounds. Unremarkable chest xray at that time. Found to hypoxemia and sent home on home O2. She did also receive a course of Doxy to cover for potential bacterial respiratory involvement and says she had finished the Doxy before the GI symptoms had started. No other med changes. Negative Covid testing at time of admission. Unable to say if she has lost weight. Urine looks a bit darker today. Has dizziness when she gets up to ambulate. Has weakness/fatigue but this is something that she reported when she was seen last month and it has been a chronic issue as of late. Reports no emesis today. Main reason she called EMS appears to be the lightheaded complaint. Unable to perform ADLs due to weakness/lightheadedness. Recently moved into an apartment at [facility] and lives alone. - Related Data Allergies Allergy/AdvReac Type Severity Reaction Status Date / Time dog dander Allergy Other Verified 03/06/20 17:07 grass pollen-perennial rye, Allergy Other Verified 03/06/20 17:07 standar tree and shrub pollen Allergy congestion Verified 03/06/20 17:07 amiodarone AdvReac Severe Hypotension, Verified 03/06/20 17:07 Shortness of breaath flecainide AdvReac Severe shortness Verified 03/06/20 17:07 of breath,severe hypotention Home Meds: Home Meds Acetaminophen with Codeine [Acetaminophen-Cod #3] 1 tab PO Q4H PRN 02/10/20 [ History] Albuterol Sulfate 1 vial INH QID PRN 02/10/20 [History] Apixaban [Eliquis] 5 mg PO BID 02/10/20 [History] Benzonatate 100 mg PO TID PRN 02/10/20 [History] Brimonidine Tartrate/Timolol [Combigan 0.2%-0.5% Eye Drops] 1 drop EYEBOTH BID 02/10/20 [History] Cholecalciferol (Vitamin D3) [Vitamin D3] 2,000 unit PO DAILY 02/10/20 [History] Cyanocobalamin (Vitamin B12) [Vitamin B12] 1,000 mcg IJ Q30D 02/10/20 [History] Cyclobenzaprine [Flexeril] 1 tab PO TID PRN 02/10/20 [History] Diphenoxylate HCl/Atropine [Lomotil] 1 tab PO Q6H PRN 02/10/20 [History] Fluorometholone [Fluorometholone 0.1% Ophth Susp] 1 drop EYEBOTH DAILY 02/10/20 [History] Hyoscyamine [Levsin] 0.125 mg PO Q4HR PRN 02/10/20 [History] Latanoprost [Xalatan] 2.5 ml EYEBOTH BEDTIME 02/10/20 [History] Levothyroxine [Synthroid] 50 mcg PO DAILY 02/10/20 [History] Lutein 20 mg PO DAILY 02/10/20 [History] Lutein/Minerals/Vit A,C & E [Ocuvite] 1 tab PO DAILY 02/10/20 [History] Metoprolol Tartrate 50 mg PO BID 02/10/20 [History] Nitroglycerin 0.4 mg SL ASDIRECTED PRN 02/10/20 [History] Non-Formulary Medication [NF Drug] 1 applic TOP 02/10/20 [History] amLODIPine [Norvasc] 10 mg PO DAILY 02/10/20 [History] atorvaSTATin [Lipitor] 10 mg PO DAILY 02/10/20 [History] cycloSPORINE [Restasis Multidose] 1 drop EYEBOTH BID 02/10/20 [History] estradioL [Estradiol] 1 mg PO DAILY 02/10/20 [History] methylPREDNISolone [Medrol] 12 mg PO Q2D 02/10/20 [History] methylPREDNISolone [Methylprednisolone] 4 mg PO Q2D 02/10/20 [History] Doxycycline [Vibramycin] 100 mg PO BID #12 cap 02/11/20 [Rx] Past Medical History HEENT History: Reports: Glaucoma Cardiovascular History: Reports: Afib, CAD, High Cholesterol, Hypertension, Stents, Other (See Below) Respiratory History: Reports: COPD, Other (See Below) Other Respiratory History: recent bronchitis Gastrointestinal History: Reports: Irritable Bowel Syndrome Musculoskeletal History: Reports: Other (See Below) (polymyalgia rheumatica/ Raynauds) Endocrine/Metabolic History: Reports: Hypothyroidism Hematologic History: Reports: B12 Deficiency Social & Family History - Tobacco Use Smoking Status *Q: Former Smoker Years of Tobacco use: 37 Packs/Tins Daily: 1 Used Tobacco, but Quit: Yes Month/Year Tobacco Last Used: not sure of month but quit in 1991 - Caffeine Use Caffeine Use: Reports: Coffee - Recreational Drug Use Recreational Drug Use: No ED ROS GENERAL - Review of Systems Review Of Systems: See Below Constitutional: Reports: Chills, Malaise, Weakness, Fatigue, Decreased Appetite. Denies: Night Sweats, Diaphoresis HEENT: Reports: Glasses. Denies: Ear Pain, Eye Discharge, Rhinitis, Sinus Problem, Throat Pain, Throat Swelling, Vertigo, Vision Change Respiratory: Reports: Shortness of Breath (chronic, worse in the last few months , improved when placed on oxygen last admission). Denies: Wheezing, Pleuritic Chest Pain, Cough, Sputum, Hemoptysis Cardiovascular: Reports: Dyspnea on Exertion (chronic), Lightheadedness. Denies : Chest Pain, Edema, Palpitations, Syncope GI/Abdominal: Reports: Diarrhea, Decreased Appetite, Nausea, Vomiting. Denies: Abdominal Pain, Bloody Stool, Difficulty Swallowing, Distension, Hematemesis, Hematochezia : Denies: Dysuria, Flank Pain, Frequency, Hematuria, Pain, Urgency Musculoskeletal: Reports: Other (has osteoarthritis. Increased recent achiness , neck feels a bit tight but has history of cervical degeneration) Skin: Reports: No Symptoms Neurological: Reports: Dizziness, Headache, Difficulty Walking (feels dizzy when standing). Denies: Change in Speech, Gait Disturbance Psychiatric: Reports: No Symptoms ED EXAM, GENERAL - Physical Exam Exam: See Below Exam Limited By: No Limitations General Appearance: Alert, WD/WN, No Apparent Distress Eye Exam: Bilateral Eye: EOMI, PERRL Ears: Normal External Exam, Hearing Grossly Normal Nose: No: Nasal Deformity, Nasal Swelling, Nasal Drainage Throat/Mouth: Normal Lips, Normal Voice, No Airway Compromise Head: Atraumatic, Normocephalic Neck: Normal Inspection, Supple, Non-Tender, Full Range of Motion Respiratory/Chest: No Respiratory Distress, Lungs Clear, No Accessory Muscle Use , Chest Non-Tender, Decreased Breath Sounds (throughout) Cardiovascular: Regular Rate, Rhythm, No Edema, No Murmur GI/Abdominal: Soft, Non-Tender, Abnormal Bowel Sounds (decreased throughout). No: Guarding, Rigid, Rebound, Tender (Female) Exam: Deferred Rectal (Female) Exam: Deferred Back Exam: No: CVA Tenderness (L), CVA Tenderness (R), Muscle Spasm, Paraspinal Tenderness, Vertebral Tenderness Extremities: Non-Tender, No Pedal Edema, Slow Capillary Refill (3-4 seconds) Neurological: Alert, Oriented, Normal Cognition, No Motor/Sensory Deficits Psychiatric: Normal Affect, Normal Mood Skin Exam: Warm, Dry, Intact, Normal Color Course - Vital Signs Last Recorded V/S: Last Vital Signs Temp 37.1 C 03/06/20 16:57 Pulse 85 03/06/20 16:57 Resp 20 03/06/20 16:57 BP 153/76 H 03/06/20 16:57 Pulse Ox 94 L 03/06/20 16:57 - Orders/Labs/Meds Orders: Active Orders 24 hr Category Date Time Status Abdomen Series w Chest 1V [CR] Stat Exams 03/06/20 17:40 Taken CORONAVIRUS COVID-19 PCR PHL Routine Lab 03/06/20 17:40 Ordered UA W/MICROSCOPIC [URIN] Stat Lab 03/06/20 17:38 Ordered Labs: Laboratory Tests 03/06/20 03/06/20 03/06/20 Range/Units 17:40 17:40 17:50 WBC 7.9 (4.0-10.2) K/uL RBC 4.00 (3.77-5.09) M/uL Hgb 13.0 (11.7-15.5) g/dL Hct 39.9 (34.0-46.0) % MCV 99.8 H (84.0-98.0) fL MCH 32.5 (28.2-33.3) pg MCHC 32.6 (31.7-36.0) g/dL RDW 14.2 H (11.2-14.1) % Plt Count 231 (150-350) K/uL Neut % (Auto) 72.6 (45.0-80.0) % Lymph % (Auto) 13.6 (10.0-50.0) % Lynn % (Auto) 11.6 (2.0-14.0) % Eos % (Auto) 1.9 (0.0-5.0) % Baso % (Auto) 0.3 (0.0-2.0) % Neut # (Auto) 5.75 (1.40-7.00) K/uL Lymph # (Auto) 1.08 (0.50-3.50) K/uL Lynn # (Auto) 0.92 (0.00-1.00) K/uL Eos # (Auto) 0.15 (0.00-0.50) K/uL Baso # (Auto) 0.02 (0.00-0.20) K/uL ESR 46 H (0-42) mm/hr Sodium (136-145) mmol/L Potassium (3.5-5.1) mmol/L Chloride (98-107) mmol/L Carbon Dioxide (21.0-32.0) mmol/L BUN (7-18) mg/dL Creatinine (0.51-1.17) mg/dL Est Cr Clr Drug Dosing mL/min Estimated GFR (MDRD) mL/min Glucose (74-106) mg/dL Lactic Acid (0.4-2.0) mmol/L Calcium (8.5-10.1) mg/dL Magnesium (1.8-2.4) mg/dL Total Bilirubin (0.2-1.0) mg/dL AST (15-37) U/L ALT (12-78) U/L Alkaline Phosphatase (46-116) IU/L C-Reactive Protein 5.2 H (<=0.9) mg/dL NT-Pro-B Natriuret Pep (0-125) pg/mL Total Protein (6.4-8.2) g/dL Albumin (3.4-5.0) g/dL 03/06/20 03/06/20 Range/Units 17:50 17:50 WBC (4.0-10.2) K/uL RBC (3.77-5.09) M/uL Hgb (11.7-15.5) g/dL Hct (34.0-46.0) % MCV (84.0-98.0) fL MCH (28.2-33.3) pg MCHC (31.7-36.0) g/dL RDW (11.2-14.1) % Plt Count (150-350) K/uL Neut % (Auto) (45.0-80.0) % Lymph % (Auto) (10.0-50.0) % Lynn % (Auto) (2.0-14.0) % Eos % (Auto) (0.0-5.0) % Baso % (Auto) (0.0-2.0) % Neut # (Auto) (1.40-7.00) K/uL Lymph # (Auto) (0.50-3.50) K/uL Lynn # (Auto) (0.00-1.00) K/uL Eos # (Auto) (0.00-0.50) K/uL Baso # (Auto) (0.00-0.20) K/uL ESR (0-42) mm/hr Sodium 139 (136-145) mmol/L Potassium 3.2 L (3.5-5.1) mmol/L Chloride 100 (98-107) mmol/L Carbon Dioxide 25.7 (21.0-32.0) mmol/L BUN 17 (7-18) mg/dL Creatinine 0.86 (0.51-1.17) mg/dL Est Cr Clr Drug Dosing 40.55 mL/min Estimated GFR (MDRD) > 60 mL/min Glucose 93 (74-106) mg/dL Lactic Acid 1.4 (0.4-2.0) mmol/L Calcium 8.9 (8.5-10.1) mg/dL Magnesium 1.5 L (1.8-2.4) mg/dL Total Bilirubin 0.6 (0.2-1.0) mg/dL AST 25 (15-37) U/L ALT 30 (12-78) U/L Alkaline Phosphatase 68 (46-116) IU/L C-Reactive Protein (<=0.9) mg/dL NT-Pro-B Natriuret Pep 1029 H (0-125) pg/mL Total Protein 6.9 (6.4-8.2) g/dL Albumin 2.9 L (3.4-5.0) g/dL - Re-Assessments/Exams Free Text/Narrative Re-Assessment/Exam: 03/06/20 18:39 Baseline labs and chest/abdominal films requested. Normal WBC/Lactic Decreased K and Mg CRP 5.9 ProBNP 1029 Afebrile/vital signs stable. Chest xray shows no acute changes/infiltrates. No evidence of obstruction on abdominal films. Plan is to admit patient for further evaluation and treatment of dizziness/ weakness (unable to perform ADLs), Mag and K replacement, and rehydration. She complains of not feeling well overall over the last few months. Will plan to have PT and OT evaluate patient Friday. Covid 19 testing performed. UA request pending. Suspect CRP elevated due to patient's PMR history, she says this is not an unusual number for her. Departure - Departure Time of Disposition: 19:24 Disposition: Admitted As Inpatient 65 Clinical Impression: Dehydration, Hypokalemia, Hypomagnesemia, Dizziness, Weakness, Vomiting and diarrhea - Discharge Information *PRESCRIPTION DRUG MONITORING PROGRAM REVIEWED*: Not Applicable *COPY OF PRESCRIPTION DRUG MONITORING REPORT IN PATIENT SEB: Not Applicable Referrals: Linh Bishop PA-C [Primary Care Provider] - Forms: ED Department Discharge Sepsis Event Note - Evaluation Sepsis Screening Result: No Definite Risk - Focused Exam Vital Signs: Vital Signs Temp Pulse Resp BP Pulse Ox 03/06/20 16:57 37.1 C 85 20 153/76 H 94 L Date Exam was Performed: 03/06/20 Time Exam was Performed: 19:20 - Problem List & Annotations (1) Vomiting and diarrhea SNOMED Code(s): 975119601 Code(s): R11.10 - VOMITING, UNSPECIFIED; R19.7 - DIARRHEA, UNSPECIFIED Status: Acute Priority: High Current Visit: Yes Onset Date: ~03/02/20 Annotation/Comment:: Pt reports voming and diarrhea that started last week. None today however. Non-bloody per description. Observe. (2) Dehydration SNOMED Code(s): 13978310 Code(s): E86.0 - DEHYDRATION Status: Acute Priority: Medium Current Visit: Yes Annotation/Comment:: Secondary to emesis/diarrhea and decreased PO intake since last week. Will give IV fluids but with caution secondary to patient's age and concerns for potential fluid overload. (3) Dizziness SNOMED Code(s): 930068405, 633243726 Code(s): R42 - DIZZINESS AND GIDDINESS Status: Acute Priority: High Current Visit: Yes Annotation/Comment:: Patient reports lightheadedness/ dizziness when she tries to get up and walk/perform ADLs. Dehydration, low Magnesium, and viral infection may all be contributing to this. Observe for improvement/initiate IV fluid replacement as well as Mag replacement. (4) Hypokalemia SNOMED Code(s): 89091978 Code(s): E87.6 - HYPOKALEMIA Status: Acute Priority: Medium Current Visit: Yes Annotation/Comment:: Initiate replacement (5) Hypomagnesemia SNOMED Code(s): 004521457 Code(s): E83.42 - HYPOMAGNESEMIA Status: Acute Priority: High Current Visit: Yes Annotation/Comment:: IV Mag replacement ordered. (6) Weakness SNOMED Code(s): 18266929 Code(s): R53.1 - WEAKNESS Status: Acute Priority: Medium Current Visit : Yes Annotation/Comment:: Patient has not been feeling like usual self for several months. Reports worsening weakness since GI issues started last week. (7) Irritable bowel syndrome SNOMED Code(s): 58454823 Code(s): K58.9 - IRRITABLE BOWEL SYNDROME WITHOUT DIARRHEA Status: Chronic Priority: Low Current Visit: Yes Annotation/Comment:: Stable per patient , however cannot rule out as contributing factor to current GI complaints. Qualifiers: Irritable bowel syndrome type: with diarrhea Qualified Code(s): K58.0 - Irritable bowel syndrome with diarrhea (8) Polymyalgia rheumatica SNOMED Code(s): 94010682 Code(s): M35.3 - POLYMYALGIA RHEUMATICA Status: Chronic Priority: Low Current Visit: No Annotation/Comment:: Stable per patient (9) Glaucoma SNOMED Code(s): 42201613 Code(s): H40.9 - UNSPECIFIED GLAUCOMA Status: Chronic Priority: Low Current Visit: No Annotation/Comment:: Stable per patient Qualifiers: Glaucoma type: unspecified (10) CAD (coronary artery disease) SNOMED Code(s): 95337964 Code(s): I25.10 - ATHSCL HEART DISEASE OF [place] CORONARY ARTERY W/O ANG PCTRS Status: Chronic Priority: Low Current Visit: No Annotation/Comment :: history of stent. Stable per patient Qualifiers: [place] vs. transplanted heart: [place] heart Associated angina: with stable angina (11) Raynauds syndrome SNOMED Code(s): 345024215 Code(s): I73.00 - RAYNAUD'S SYNDROME WITHOUT GANGRENE Status: Chronic Current Visit: No (12) Afib SNOMED Code(s): 83189161 Code(s): I48.91 - UNSPECIFIED ATRIAL FIBRILLATION Status: Chronic Priority: Low Current Visit: No Annotation/Comment:: Stable per pt. No report of palpitations/chest pain Qualifiers: Atrial fibrillation type: unspecified Qualified Code(s): I48.91 - Unspecified atrial fibrillation (13) Hyperlipidemia SNOMED Code(s): 24536650 Code(s): E78.5 - HYPERLIPIDEMIA, UNSPECIFIED Status: Chronic Priority: Low Current Visit: No Annotation/Comment:: Under therapy/stable per patient Qualifiers: Hyperlipidemia type: unspecified Qualified Code(s): E78.5 - Hyperlipidemia , unspecified (14) Hypertension SNOMED Code(s): 69735716 Code(s): I10 - ESSENTIAL (PRIMARY) HYPERTENSION Status: Chronic Priority : Low Current Visit: No Annotation/Comment:: Stable per patient/observe trends. Qualifiers: Hypertension type: essential hypertension Qualified Code(s): I10 - Essential (primary) hypertension (15) Hypothyroid SNOMED Code(s): 42768012 Code(s): E03.9 - HYPOTHYROIDISM, UNSPECIFIED Status: Chronic Priority: Low Current Visit: No Annotation/Comment:: Stable per patient. TSH requested. Qualifiers: Hypothyroidism type: unspecified Qualified Code(s): E03.9 - Hypothyroidism , unspecified (16) Hypoxemia SNOMED Code(s): 104014457 Code(s): R09.02 - HYPOXEMIA Status: Chronic Priority: Low Current Visit : Yes Annotation/Comment:: Recent initiation of home O2 during last admission after patient observed to have chronic hypoxia that was worse at night. Suspect chronic hypoxia was contributing to patient's ongoing complaints of fatigue/activity intolerance and her Utilization Management Rn had recommended home use in past but this was refused by the patient. Observe for changes/patterns. - Problem List Review Problem List Initiated/Reviewed/Updated: Yes - My Orders Last 24 Hours: My Active Orders 03/06/20 17:38 UA W/MICROSCOPIC [URIN] Stat 03/06/20 17:40 Abdomen Series w Chest 1V [CR] Stat CORONAVIRUS COVID-19 PCR PHL Routine - Assessment/Plan Admission H&P: Please use this note as an admission H&P Last 24 Hours: My Active Orders 03/06/20 17:38 UA W/MICROSCOPIC [URIN] Stat 03/06/20 17:40 Abdomen Series w Chest 1V [CR] Stat CORONAVIRUS COVID-19 PCR PHL Routine Assessment:: as above Plan: as above. Will work towards rehydrating patient and replacement of K and Mg and see if this helps with patient's complaints and ability to perform ADLs safely. Will have PT and OT evaluate patient tomorrow. Anticipate 3 day stay while performing the above and making certain levels remain stable/patient able to tolerate PO intake.
[2020-03-06 18:17] LABS: CHLORIDE,CL 100 mmol/L (98-107); SODIUM,NA 139 mmol/L (136-145)
[2020-03-06] MEDS ORDERED: Sodium Chloride 0.9% 10 ML Syringe FLUSH PRN (19:53)
[2020-03-06] MEDS ORDERED: Sodium Chloride 0.9% 1,000 ML IV SCH (20:00)
[2020-03-06] MEDS ORDERED: Cyclobenzaprine 10 MG Tab PO PRN (20:20)
[2020-03-06] MEDS ORDERED: Nitroglycerin 0.4 MG Tab.SL SL PRN (20:20)
[2020-03-06] MEDS ORDERED: Acetaminophen/Codeine 300-30 MG Tab PO PRN (20:20)
[2020-03-06] MEDS ORDERED: Potassium Chloride 20 MEQ Tab.ER PO ONE (21:00)
[2020-03-06] MEDS: Meclizine 25 MG Tab PO SCH (21:08)
[2020-03-06] MEDS ORDERED: Hyoscyamine 0.125 MG Tab.SL SL PRN (21:21)
[2020-03-06] MEDS: RESTASIS EYEBOTH SCH (21:27)
[2020-03-06] MEDS: BRIMONIDINE TARTRATE EYEBOTH SCH (21:27)
[2020-03-06] MEDS: TIMOLOL EYEBOTH SCH (21:27)
[2020-03-06] MEDS: OPTH EYEBOTH SCH (21:27)
[2020-03-06] MEDS: GENTEAL EYEBOTH SCH (21:28)
[2020-03-06] MEDS: Latanoprost 0.005% Ophth Soln 2.5 ML Bottle**OWN MED EYEBOTH SCH (21:28)
[2020-03-06] MEDS: Ondansetron 4 MG/2 ML SDV IVPUSH PRN (21:44)
[2020-03-07] MEDS: Meclizine 25 MG Tab PO SCH ×4 (05:02→20:13)
[2020-03-07] MEDS ORDERED: Potassium Chloride 20 MEQ Tab.ER PO ONE ×3 (07:00→16:00)
[2020-03-07] MEDS: OPTH EYEBOTH SCH ×2 (08:10→17:12)
[2020-03-07] MEDS: Levothyroxine 50 MCG Tab PO SCH (08:10)
[2020-03-07] MEDS: TIMOLOL EYEBOTH SCH ×2 (08:10→17:12)
[2020-03-07] MEDS: BRIMONIDINE TARTRATE EYEBOTH SCH ×2 (08:10→17:12)
[2020-03-07] MEDS: RESTASIS EYEBOTH SCH ×2 (08:11→17:14)
[2020-03-07] MEDS: atorvaSTATin 10 MG Tab PO SCH (08:12)
[2020-03-07] MEDS: Estradiol 1 MG Tab PO SCH (08:12)
[2020-03-07] MEDS: Apixaban 5 MG Tab PO SCH ×2 (08:12→17:13)
[2020-03-07] MEDS: Atropine/Diphenoxylate 0.025-2.5 MG Tab PO SCH (08:13)
[2020-03-07] MEDS: Metoprolol Tartrate 50 MG Tab PO SCH ×2 (08:13→17:13)
[2020-03-07] MEDS: Cholecalciferol (Vitamin D3) 25 MCG Tab PO SCH (08:14)
[2020-03-07] MEDS: amLODIPine 5 MG Tab PO SCH (08:14)
[2020-03-07] MEDS: FLUOROMETHOLONE EYEBOTH SCH (11:38)
[2020-03-07] MEDS ORDERED: Acetaminophen 325 MG Tab ONE (12:30)
[2020-03-07] MEDS ORDERED: Acetaminophen 325 MG Tab PO PRN (12:30)
[2020-03-07] MEDS ORDERED: Sodium Chloride 0.9% 250 ML IV SCH (15:30)
--- NOTE | 2020-03-07 15:30 | PCM.PN ---
- General Info Date of Service: 03/07/20 Admission Dx/Problem (Free Text): Patient admitted for further evaluation of dizziness/generalized weakness/low Mag/dehydration after experiencing nausea/emesis/diarrhea for around 5 days. Difficulties performing ADLs at home. Overall has not felt like usual self for last two months per self report. Negative Covid testing last month. Subjective Update: Still has nausea off and on, especially with eating. Able to tolerate some water and jello today and feels that the jello didn't sit in her stomach for too long and seemed to move through well. No emesis or bowel movement since admission. No new complaints/changes. Functional Status: Reports: Pain Controlled, Tolerating Diet (clear liquids), Ambulating (with assistance), Urinating. Denies: New Symptoms - Review of Systems General: Reports: Weakness, Fatigue, Appetite (poor). Denies: Fever, Chills, Night Sweats HEENT: Reports: Glasses. Denies: Headaches, Sinus Congestion, Sore Throat, Rhinitis, Visual Changes Pulmonary: Denies: Shortness of Breath, Pleuritic Chest Pain, Cough, Sputum, Hemoptysis, Wheezing Cardiovascular: Reports: Dyspnea on Exertion (chronic), Lightheadedness. Denies : Chest Pain, Palpitations, Orthopnea, PND Gastrointestinal: Reports: Abdominal Pain (long standing issues with IBS, discomfort experienced over last 5 days has improved today), Decreased Appetite , Diarrhea (none since admission), Flatus, Nausea, Vomiting (none since admission). Denies: Difficulty Swallowing, Hematochezia, Melena Genitourinary: Reports: No Symptoms Musculoskeletal: Reports: Other (has general achiness/hx osteoarthritis, does not report any acute changes.) Skin: Reports: Bruising (from IVs/ADLs) Neurological: Reports: Dizziness, Difficulty Walking (needs assistance), Weakness (generalized). Denies: Confusion, Headache, Numbness, Paresthesia, Seizure, Syncope, Trouble Speaking, Change in Speech Psychiatric: Reports: No Symptoms - Patient Data Vitals - Most Recent: Last Vital Signs Temp 36.5 C 03/07/20 11:40 Pulse 78 03/07/20 11:40 Resp 16 03/07/20 11:40 BP 119/63 03/07/20 11:40 Pulse Ox 94 L 03/07/20 11:40 Weight - Most Recent: 72.575 kg I&O - Last 24 Hours: Intake & Output 03/07/20 03/07/20 03/07/20 06:59 14:59 22:59 Intake Total 1542 770 Output Total 300 350 Balance 1242 420 Lab Results Last 24 Hours: Laboratory Results - last 24 hr 03/06/20 03/06/20 03/06/20 Range/Units 17:40 17:40 17:50 WBC 7.9 (4.0-10.2) K/uL RBC 4.00 (3.77-5.09) M/uL Hgb 13.0 (11.7-15.5) g/dL Hct 39.9 (34.0-46.0) % MCV 99.8 H (84.0-98.0) fL MCH 32.5 (28.2-33.3) pg MCHC 32.6 (31.7-36.0) g/dL RDW 14.2 H (11.2-14.1) % Plt Count 231 (150-350) K/uL Neut % (Auto) 72.6 (45.0-80.0) % Lymph % (Auto) 13.6 (10.0-50.0) % [place] % (Auto) 11.6 (2.0-14.0) % Eos % (Auto) 1.9 (0.0-5.0) % Baso % (Auto) 0.3 (0.0-2.0) % Neut # (Auto) 5.75 (1.40-7.00) K/uL Lymph # (Auto) 1.08 (0.50-3.50) K/uL [place] # (Auto) 0.92 (0.00-1.00) K/uL Eos # (Auto) 0.15 (0.00-0.50) K/uL Baso # (Auto) 0.02 (0.00-0.20) K/uL ESR 46 H (0-42) mm/hr Sodium (136-145) mmol/L Potassium (3.5-5.1) mmol/L Chloride (98-107) mmol/L Carbon Dioxide (21.0-32.0) mmol/L BUN (7-18) mg/dL Creatinine (0.51-1.17) mg/dL Est Cr Clr Drug Dosing mL/min Estimated GFR (MDRD) mL/min Glucose (74-106) mg/dL Lactic Acid (0.4-2.0) mmol/L Calcium (8.5-10.1) mg/dL Magnesium (1.8-2.4) mg/dL Total Bilirubin (0.2-1.0) mg/dL AST (15-37) U/L ALT (12-78) U/L Alkaline Phosphatase (46-116) IU/L C-Reactive Protein 5.2 H (<=0.9) mg/dL NT-Pro-B Natriuret Pep (0-125) pg/mL Total Protein (6.4-8.2) g/dL Albumin (3.4-5.0) g/dL TSH, Ultra Sensitive (0.358-3.740) mIU/mL Specimen Type Urine Color Urine Appearance Urine pH (5.0-9.0) Ur Specific [place] (1.005-1.030) Urine Protein (NEGATIVE) mg/dL Urine Glucose (UA) (NEGATIVE) mg/dL Urine Ketones (NEGATIVE) mg/dL Urine Occult Blood (NEGATIVE) Urine Nitrite (NEGATIVE) Urine Bilirubin (NEGATIVE) Urine Urobilinogen (0.2-1.0) E.U./dL Ur Leukocyte Esterase (NEGATIVE) Urine RBC /HPF Urine WBC /HPF Ur Epithelial Cells /LPF Other Crystals /HPF Urine Bacteria (NONE TO FEW) /HPF Urinalysis Comment 03/06/20 03/06/20 03/06/20 Range/Units 17:50 17:50 19:52 WBC (4.0-10.2) K/uL RBC (3.77-5.09) M/uL Hgb (11.7-15.5) g/dL Hct (34.0-46.0) % MCV (84.0-98.0) fL MCH (28.2-33.3) pg MCHC (31.7-36.0) g/dL RDW (11.2-14.1) % Plt Count (150-350) K/uL Neut % (Auto) (45.0-80.0) % Lymph % (Auto) (10.0-50.0) % [place] % (Auto) (2.0-14.0) % Eos % (Auto) (0.0-5.0) % Baso % (Auto) (0.0-2.0) % Neut # (Auto) (1.40-7.00) K/uL Lymph # (Auto) (0.50-3.50) K/uL [place] # (Auto) (0.00-1.00) K/uL Eos # (Auto) (0.00-0.50) K/uL Baso # (Auto) (0.00-0.20) K/uL ESR (0-42) mm/hr Sodium 139 (136-145) mmol/L Potassium 3.2 L (3.5-5.1) mmol/L Chloride 100 (98-107) mmol/L Carbon Dioxide 25.7 (21.0-32.0) mmol/L BUN 17 (7-18) mg/dL Creatinine 0.86 (0.51-1.17) mg/dL Est Cr Clr Drug Dosing 40.55 mL/min Estimated GFR (MDRD) > 60 mL/min Glucose 93 (74-106) mg/dL Lactic Acid 1.4 (0.4-2.0) mmol/L Calcium 8.9 (8.5-10.1) mg/dL Magnesium 1.5 L (1.8-2.4) mg/dL Total Bilirubin 0.6 (0.2-1.0) mg/dL AST 25 (15-37) U/L ALT 30 (12-78) U/L Alkaline Phosphatase 68 (46-116) IU/L C-Reactive Protein (<=0.9) mg/dL NT-Pro-B Natriuret Pep 1029 H (0-125) pg/mL Total Protein 6.9 (6.4-8.2) g/dL Albumin 2.9 L (3.4-5.0) g/dL TSH, Ultra Sensitive 0.382 (0.358-3.740) mIU/mL Specimen Type Urine Color Urine Appearance Urine pH (5.0-9.0) Ur Specific [place] (1.005-1.030) Urine Protein (NEGATIVE) mg/dL Urine Glucose (UA) (NEGATIVE) mg/dL Urine Ketones (NEGATIVE) mg/dL Urine Occult Blood (NEGATIVE) Urine Nitrite (NEGATIVE) Urine Bilirubin (NEGATIVE) Urine Urobilinogen (0.2-1.0) E.U./dL Ur Leukocyte Esterase (NEGATIVE) Urine RBC /HPF Urine WBC /HPF Ur Epithelial Cells /LPF Other Crystals /HPF Urine Bacteria (NONE TO FEW) /HPF Urinalysis Comment 03/06/20 Range/Units 20:30 WBC (4.0-10.2) K/uL RBC (3.77-5.09) M/uL Hgb (11.7-15.5) g/dL Hct (34.0-46.0) % MCV (84.0-98.0) fL MCH (28.2-33.3) pg MCHC (31.7-36.0) g/dL RDW (11.2-14.1) % Plt Count (150-350) K/uL Neut % (Auto) (45.0-80.0) % Lymph % (Auto) (10.0-50.0) % [place] % (Auto) (2.0-14.0) % Eos % (Auto) (0.0-5.0) % Baso % (Auto) (0.0-2.0) % Neut # (Auto) (1.40-7.00) K/uL Lymph # (Auto) (0.50-3.50) K/uL [place] # (Auto) (0.00-1.00) K/uL Eos # (Auto) (0.00-0.50) K/uL Baso # (Auto) (0.00-0.20) K/uL ESR (0-42) mm/hr Sodium (136-145) mmol/L Potassium (3.5-5.1) mmol/L Chloride (98-107) mmol/L Carbon Dioxide (21.0-32.0) mmol/L BUN (7-18) mg/dL Creatinine (0.51-1.17) mg/dL Est Cr Clr Drug Dosing mL/min Estimated GFR (MDRD) mL/min Glucose (74-106) mg/dL Lactic Acid (0.4-2.0) mmol/L Calcium (8.5-10.1) mg/dL Magnesium (1.8-2.4) mg/dL Total Bilirubin (0.2-1.0) mg/dL AST (15-37) U/L ALT (12-78) U/L Alkaline Phosphatase (46-116) IU/L C-Reactive Protein (<=0.9) mg/dL NT-Pro-B Natriuret Pep (0-125) pg/mL Total Protein (6.4-8.2) g/dL Albumin (3.4-5.0) g/dL TSH, Ultra Sensitive (0.358-3.740) mIU/mL Specimen Type [place]rin[place]ad Urine Color Yellow Urine Appearance Cloudy Urine pH 5.5 (5.0-9.0) Ur Specific [place] >= 1.030 (1.005-1.030) Urine Protein Negative (NEGATIVE) mg/dL Urine Glucose (UA) Negative (NEGATIVE) mg/dL Urine Ketones 40 H (NEGATIVE) mg/dL Urine Occult Blood Negative (NEGATIVE) Urine Nitrite Negative (NEGATIVE) Urine Bilirubin Negative (NEGATIVE) Urine Urobilinogen 0.2 (0.2-1.0) E.U./dL Ur Leukocyte Esterase Negative (NEGATIVE) Urine RBC 0-5 /HPF Urine WBC 0-5 /HPF Ur Epithelial Cells Moderate H /LPF Other Crystals /HPF Urine Bacteria Many H (NONE TO FEW) /HPF Urinalysis Comment Med Orders - Current: Current Medications Acetaminophen (Tylenol) 650 mg PO Q6H PRN PRN Reason: Pain/Fever Last Admin: 03/07/20 12:36 Dose: 650 mg Acetaminophen/Codeine Phosphate (Tylenol With Codeine No.3 300mg/30mg) 1 tab PO Q4H PRN PRN Reason: Pain Amlodipine Besylate (Norvasc) 10 mg PO DAILY [facility] Last Admin: 03/07/20 08:14 Dose: 10 mg Apixaban (Eliquis) 5 mg PO BID [facility] Last Admin: 03/07/20 08:12 Dose: 5 mg Atorvastatin Calcium (Lipitor) 10 mg PO DAILY [facility] Last Admin: 03/07/20 08:12 Dose: 10 mg Cholecalciferol (Vitamin D3) 50 mcg PO DAILY [facility] Last Admin: 03/07/20 08:14 Dose: 50 mcg Cyclobenzaprine HCl (Flexeril) 10 mg PO TID PRN PRN Reason: Spasms Diphenoxylate HCl/Atropine (Lomotil 0.025-2.5 Mg) 1 tab PO DAILY [facility] Last Admin: 03/07/20 08:13 Dose: 1 tab Estradiol (Estradiol) 1 mg PO DAILY [facility] Last Admin: 03/07/20 08:12 Dose: 1 mg Hyoscyamine (Hyomax-Sl) 0.125 mg SL Q4H PRN PRN Reason: IBS Sodium Chloride (Normal Saline) 1,000 mls @ 75 mls/hr IV ASDIRECTED [facility] Last Admin: 03/06/20 21:23 Dose: 75 mls/hr Sodium Chloride (Normal Saline) 250 mls @ 50 mls/hr IV ASDIRECTED [facility] Magnesium Sulfate/Dextrose 1 (gm/ Premix) 100 mls @ 100 mls/hr IV ONETIME ONE Stop: 03/08/20 07:59 Latanoprost (Xalatan 0.005% Oph Soln) 0 ml EYEBOTH BEDTIME [facility] Last Admin: 03/06/20 21:28 Dose: 1 drop Levothyroxine Sodium (Synthroid) 50 mcg PO ACBREAKFAST [facility] Last Admin: 03/07/20 08:10 Dose: 50 mcg Meclizine HCl (Antivert) 25 mg PO Q6H [facility] Last Admin: 03/07/20 08:15 Dose: 25 mg Methylprednisolone (Medrol) 12 mg PO Q2D@0800 [facility] Methylprednisolone (Medrol) 4 mg PO Q2D@0800 [facility] Last Admin: 03/07/20 08:14 Dose: 4 mg Metoprolol Tartrate (Lopressor) 50 mg PO BID [facility] Last Admin: 03/07/20 08:13 Dose: 50 mg Nitroglycerin (Nitrostat) 0.4 mg SL ASDIRECTED PRN PRN Reason: Chest Pain Brimonidine Tartrate /Timolol 0.2%-0.5% Opth DropPtom 1 drop EYEBOTH BID [facility] Last Admin: 03/07/20 08:10 Dose: 1 drop RestasisOwn Med 1 drop EYEBOTH BID [facility] Last Admin: 03/07/20 08:11 Dose: 1 drop FluorometholoneOwn (Med) 1 drop EYEBOTH DAILY@1200 [facility] Last Admin: 03/07/20 11:38 Dose: 1 drop Genteal OintOwn (Med) 1 each EYEBOTH BEDTIME [facility] Last Admin: 03/06/20 21:28 Dose: 1 each Ondansetron HCl (Zofran) 4 mg IVPUSH Q6H PRN PRN Reason: Nausea/Vomiting Last Admin: 03/06/20 21:44 Dose: 4 mg Potassium Chloride (Klor-Con M20) 20 meq PO ONETIME ONE Stop: 03/07/20 16:01 Sodium Chloride (Saline Flush) 10 ml FLUSH ASDIRECTED PRN PRN Reason: Keep Vein Open Last Admin: 03/06/20 21:44 Dose: 10 ml Discontinued Medications Acetaminophen (Tylenol) Confirm Administered Dose 650 mg .ROUTE .STK-MED ONE Stop: 03/07/20 12:31 Last Admin: 03/07/20 12:36 Dose: Not Given Magnesium Sulfate/Dextrose 1 (gm/ Premix) 100 mls @ 100 mls/hr IV ONETIME ONE Stop: 03/06/20 20:59 Last Admin: 03/06/20 21:08 Dose: 100 mls/hr Magnesium Sulfate/Dextrose 1 (gm/ Premix) 100 mls @ 100 mls/hr IV ONETIME ONE Stop: 03/07/20 07:59 Last Admin: 03/07/20 08:07 Dose: 100 mls/hr Non-Formulary Medication (Nf Drug) 1 each EYEBOTH BEDTIME [facility] Potassium Chloride (Klor-Con M20) 40 meq PO ONETIME ONE Stop: 03/06/20 21:01 Last Admin: 03/06/20 21:08 Dose: 40 meq Potassium Chloride (Klor-Con M20) 20 meq PO ONETIME ONE Stop: 03/07/20 07:01 Last Admin: 03/07/20 08:09 Dose: 20 meq Potassium Chloride (Klor-Con M20) 20 meq PO ONETIME ONE Stop: 03/07/20 11:01 Last Admin: 03/07/20 11:37 Dose: 20 meq - Exam Quality Assessment: Supplemental Oxygen, DVT Prophylaxis (on Eliquis, has TEDs) General: Alert, Oriented, Cooperative, No Acute Distress HEENT: Pupils Equal, Pupils Reactive, EOMI, Mucous Membr. Moist/[place] Neck: Supple Lungs: Clear to Auscultation, Normal Respiratory Effort Cardiovascular: Regular Rate, Regular Rhythm GI/Abdominal Exam: Normal Bowel Sounds, Soft, No Distention, No Abnormal Bruit, Tender (Patient did not voice any complaints when abdomen palpated). No: Guarding, Rigid, Rebound (Female) Exam: Deferred Back Exam: No: CVA Tenderness (L), CVA Tenderness (R), Muscle Spasm, Paraspinal Tenderness, Vertebral Tenderness Extremities: Normal Range of Motion, Non-Tender, Normal Capillary Refill Skin: Warm, Dry Neurological: No New Focal Deficit Psy/Mental Status: Alert, Normal Affect, Normal Mood Sepsis Event Note - Evaluation Sepsis Screening Result: No Definite Risk - Focused Exam Vital Signs: Vital Signs Temp Pulse Pulse Resp BP BP Pulse Ox 03/07/20 11:40 36.5 C 78 16 119/63 94 L 03/07/20 08:14 149/82 H 03/07/20 08:13 86 149/82 H 03/07/20 05:03 36.2 C 61 20 127/62 96 Date Exam was Performed: 03/07/20 Time Exam was Performed: 15:24 - Problem List & Annotations (1) Vomiting and diarrhea SNOMED Code(s): 487800607 Code(s): R11.10 - VOMITING, UNSPECIFIED; R19.7 - DIARRHEA, UNSPECIFIED Status: Acute Priority: High Current Visit: Yes Onset Date: ~03/02/20 Annotation/Comment:: Pt reports voming and diarrhea that started last week. None yesterday nor today. Non-bloody per description. Observe. Zofran ordered. Still with intermittent nausea (2) Weakness SNOMED Code(s): 64136757 Code(s): R53.1 - WEAKNESS Status: Acute Priority: Medium Current Visit : Yes Annotation/Comment:: Patient has not been feeling like usual self for several months. Reports worsening weakness since GI issues started last week. (3) Dehydration SNOMED Code(s): 07058474 Code(s): E86.0 - DEHYDRATION Status: Acute Priority: Medium Current Visit: Yes Annotation/Comment:: Secondary to emesis/diarrhea and decreased PO intake since last week. UA obtained after patient received IV fluids. Concentrated/Ketones noted. Continuing IV fluids but with caution secondary to patient's age and concerns for potential fluid overload. (4) Dizziness SNOMED Code(s): 203027588, 674626070 Code(s): R42 - DIZZINESS AND GIDDINESS Status: Acute Priority: High Current Visit: Yes Annotation/Comment:: Patient reports lightheadedness/ dizziness when she tries to get up and walk/perform ADLs. Dehydration, low Magnesium, and viral infection may all be contributing to this. PT evaluated patient and notes patient unsteady moving about room and benefits from standby assist. Observe for improvement/initiate IV fluid replacement/Meclizine as well as Mag replacement. (5) Hypokalemia SNOMED Code(s): 78413458 Code(s): E87.6 - HYPOKALEMIA Status: Acute Priority: Medium Current Visit: Yes Annotation/Comment:: Initiated replacement. Recheck level this afternoon and tomorrow. (6) Hypomagnesemia SNOMED Code(s): 618974717 Code(s): E83.42 - HYPOMAGNESEMIA Status: Acute Priority: High Current Visit: Yes Annotation/Comment:: IV Mag replacement ordered. (7) Irritable bowel syndrome SNOMED Code(s): 04447580 Code(s): K58.9 - IRRITABLE BOWEL SYNDROME WITHOUT DIARRHEA Status: Chronic Priority: Low Current Visit: Yes Qualifiers: Irritable bowel syndrome type: with diarrhea Qualified Code(s): K58.0 - Irritable bowel syndrome with diarrhea Annotation/Comment:: Stable per patient, however cannot rule out as contributing factor to current GI complaints. (8) Polymyalgia rheumatica SNOMED Code(s): 47189023 Code(s): M35.3 - POLYMYALGIA RHEUMATICA Status: Chronic Priority: Low Current Visit: No Annotation/Comment:: Stable per patient (9) Glaucoma SNOMED Code(s): 99343624 Code(s): H40.9 - UNSPECIFIED GLAUCOMA Status: Chronic Priority: Low Current Visit: No Qualifiers: Glaucoma type: unspecified Annotation/Comment:: Stable per patient (10) CAD (coronary artery disease) SNOMED Code(s): 93288542 Code(s): I25.10 - ATHSCL HEART DISEASE OF [place] CORONARY ARTERY W/O ANG PCTRS Status: Chronic Priority: Low Current Visit: No Qualifiers: [place] vs. transplanted heart: [place] heart Associated angina: with stable angina Annotation/Comment:: history of stent. Stable per patient (11) Raynauds syndrome SNOMED Code(s): 922358829 Code(s): I73.00 - RAYNAUD'S SYNDROME WITHOUT GANGRENE Status: Chronic Current Visit: No (12) Afib SNOMED Code(s): 18271372 Code(s): I48.91 - UNSPECIFIED ATRIAL FIBRILLATION Status: Chronic Priority: Low Current Visit: No Qualifiers: Atrial fibrillation type: unspecified Qualified Code(s): I48.91 - Unspecified atrial fibrillation Annotation/Comment:: Stable per pt. No report of palpitations/chest pain (13) Hyperlipidemia SNOMED Code(s): 84025460 Code(s): E78.5 - HYPERLIPIDEMIA, UNSPECIFIED Status: Chronic Priority: Low Current Visit: No Qualifiers: Hyperlipidemia type: unspecified Qualified Code(s): E78.5 - Hyperlipidemia , unspecified Annotation/Comment:: Under therapy/stable per patient (14) Hypertension SNOMED Code(s): 37006818 Code(s): I10 - ESSENTIAL (PRIMARY) HYPERTENSION Status: Chronic Priority : Low Current Visit: No Qualifiers: Hypertension type: essential hypertension Qualified Code(s): I10 - Essential (primary) hypertension Annotation/Comment:: Stable per patient/observe trends. (15) Hypothyroid SNOMED Code(s): 02034773 Code(s): E03.9 - HYPOTHYROIDISM, UNSPECIFIED Status: Chronic Priority: Low Current Visit: No Qualifiers: Hypothyroidism type: unspecified Qualified Code(s): E03.9 - Hypothyroidism , unspecified Annotation/Comment:: Stable per patient. TSH requested. (16) Hypoxemia SNOMED Code(s): 358280547 Code(s): R09.02 - HYPOXEMIA Status: Chronic Priority: Low Current Visit : Yes Annotation/Comment:: Recent initiation of home O2 during last admission after patient observed to have chronic hypoxia that was worse at night. Suspect chronic hypoxia was contributing to patient's ongoing complaints of fatigue/activity intolerance and her [employer] had recommended home use in past but this was refused by the patient. Observe for changes/patterns. - Problem List Review Problem List Initiated/Reviewed/Updated: Yes - My Orders Last 24 Hours: My Active Orders 03/06/20 17:40 Abdomen Series w Chest 1V [CR] Stat CORONAVIRUS COVID-19 PCR PHL Routine 03/06/20 19:53 Patient Status [ADT] Routine Height and Weight [RC] DAILY May Shower [RC] ASDIRECTED Oxygen Therapy [RC] PRN Up With Assistance [RC] ASDIRECTED VTE/DVT Education [RC] PER UNIT ROUTINE Vital Signs [RC] Q6HR OT Evaluation and Treatment [CONS] Routine PT Evaluation and Treatment [CONS] Routine Ondansetron [Zofran] 4 mg IVPUSH Q6H PRN Sodium Chloride 0.9% [Saline Flush] 10 ml FLUSH ASDIRECTED PRN Saline Lock Insert [OM.PC] Routine Resuscitation Status Routine 03/06/20 19:56 Intake and Output [RC] 06,14,22 Pulse Oximetry [RC] PRN 03/06/20 19:57 Antiembolic Hose [OM.PC] Per Unit Routine 03/06/20 19:58 Antiembolic Devices [RC] 08,20 03/06/20 20:00 Sodium Chloride 0.9% [Normal Saline] 1,000 ml IV ASDIRECTED 03/06/20 20:08 Oxygen Therapy [RC] 2300 03/06/20 20:09 Communication Order [RC] ROUTINE 03/06/20 20:20 Acetaminophen/Codeine [Tylenol with Codeine No.3 300MG/30MG] 1 tab PO Q4H PRN Cyclobenzaprine [Flexeril] 10 mg PO TID PRN Nitroglycerin [Nitrostat] 0.4 mg SL ASDIRECTED PRN 03/06/20 20:55 Non-Formulary Medication [NF Drug] 1 each EYEBOTH BEDTIME 03/06/20 21:00 Meclizine [Antivert] 25 mg PO Q6H 03/06/20 21:09 Latanoprost [Xalatan 0.005% Ophth Soln] 0 ml EYEBOTH BEDTIME 03/06/20 21:15 Brimonidine Tartrate/Timolol [Combigan 0.2%-0.5% Eye Drops] 1 drop EYEBOTH BID cycloSPORINE [Restasis Multidose] 1 drop EYEBOTH BID 03/06/20 21:21 Hyoscyamine [Hyomax-SL] 0.125 mg SL Q4H PRN 03/07/20 07:30 Levothyroxine [Synthroid] 50 mcg PO ACBREAKFAST 03/07/20 08:00 Apixaban [Eliquis] 5 mg PO BID Atropine/Diphenoxylate [Lomotil 0.025-2.5 MG] 1 tab PO DAILY Cholecalciferol (Vitamin D3) [Vitamin D3] 50 mcg PO DAILY Metoprolol Tartrate [Lopressor] 50 mg PO BID amLODIPine [Norvasc] 10 mg PO DAILY atorvaSTATin [Lipitor] 10 mg PO DAILY estradioL 1 mg PO DAILY methylPREDNISolone [Medrol] 4 mg PO Q2D@0800 03/07/20 12:00 Fluorometholone 1 drop EYEBOTH DAILY@1200 03/07/20 12:30 Acetaminophen [Tylenol] 650 mg PO Q6H PRN 03/07/20 15:30 Sodium Chloride 0.9% @ 50 MLS/HR(250ml) Sodium Chloride 0.9% [Normal Saline] 250 ml IV ASDIRECTED 03/07/20 16:00 Potassium Chloride [Klor-Con M20] 20 meq PO ONETIME ONE 03/07/20 Breakfast Clear Liquid Diet [DIET] 03/08/20 05:11 COMPREHENSIVE METABOLIC PN,CMP [CHEM] AM MAGNESIUM [CHEM] AM 03/08/20 05:15 CBC WITH AUTO DIFF [HEME] AM 03/08/20 07:00 Magnesium Sulfate/D5W [Magnesium Sulfate in D5W 100 Premix] 1 gm Premix Bag 1 bag IV ONETIME 03/08/20 08:00 methylPREDNISolone [Medrol] 12 mg PO Q2D@0800 - Assessment Assessment:: as above. Patient noted by PT to be a bit unstable and benefitting from standby assist. Also noted patient's BP trended downward the longer she was up and standing/walking. UA finally obtained and reflected dehydration and lack of PO intake via elevated specific gravity and ketones. Patient unable to advance past jello/ clear liquids for intake but does feel that her GI symptoms are improving. W - Plan Plan:: Continue IV fluids/rate decreased to 50ml/hr. Continue to observe for changes and improvement in area of PO intake/appetite. Continue to have PT/OT see patient and observe for improvement/assess for patient safety at home performing ADLs alone. Recheck Mg/K/basic labs in AM and assess response to IV fluids and Mg/K supplementation. Anticipate discharge home possibly tomorrow or day after depending on clinical course. Given patient's age and her living alone there are concerns for safe functioning at home if weakness/dizziness continues.
[2020-03-07] MEDS ORDERED: Sodium Chloride 0.9% 1,000 ML IV SCH (16:00)
[2020-03-07] MEDS ORDERED: Non-Formulary Medication 1 Each EYEBOTH SCH (20:00)
[2020-03-07] MEDS: Latanoprost 0.005% Ophth Soln 2.5 ML Bottle**OWN MED EYEBOTH SCH (20:13)
[2020-03-07] MEDS: Ondansetron 4 MG/2 ML SDV IVPUSH PRN (20:13)
[2020-03-07] MEDS: GENTEAL EYEBOTH SCH (20:14)
[2020-03-08] MEDS: Meclizine 25 MG Tab PO SCH ×2 (02:20→08:51)
[2020-03-08] MEDS ORDERED: Potassium Chloride 20 MEQ Tab.ER PO ONE (07:00)
[2020-03-08 07:43] LABS: CHLORIDE,CL 109 mmol/L (98-107); SODIUM,NA 142 mmol/L (136-145)
[2020-03-08] MEDS: atorvaSTATin 10 MG Tab PO SCH (08:51)
[2020-03-08] MEDS: Atropine/Diphenoxylate 0.025-2.5 MG Tab PO SCH (08:51)
[2020-03-08] MEDS: Estradiol 1 MG Tab PO SCH (08:51)
[2020-03-08] MEDS: Apixaban 5 MG Tab PO SCH (08:51)
[2020-03-08] MEDS: Levothyroxine 50 MCG Tab PO SCH (08:51)
[2020-03-08] MEDS: Cholecalciferol (Vitamin D3) 25 MCG Tab PO SCH (08:51)
[2020-03-08] MEDS: TIMOLOL EYEBOTH SCH (08:53)
[2020-03-08] MEDS: RESTASIS EYEBOTH SCH (08:53)
[2020-03-08] MEDS: BRIMONIDINE TARTRATE EYEBOTH SCH (08:53)
[2020-03-08] MEDS: OPTH EYEBOTH SCH (08:53)
[2020-03-08] MEDS: Metoprolol Tartrate 50 MG Tab PO SCH (09:06)
[2020-03-08] MEDS: amLODIPine 5 MG Tab PO SCH (09:06)
--- NOTE | 2020-03-08 11:53 | PCM.DCSUM1 ---
Discharge Summary - Hospital Course Brief History: Patient admitted for evaluation and treatment of weakness, low Mg , low K, and dizziness after having vomiting and diarrhea over multiple days. Diagnosis: Stroke: No - Discharge Data Discharge Date: 03/08/20 Discharge Disposition: Home, Self-Care 01 Condition: Good - Referral to Home Health Primary Care Physician: Linh Bishop PA-C - Discharge Diagnosis/Problem(s) (1) Vomiting and diarrhea SNOMED Code(s): 679222838 ICD Code: R11.10 - VOMITING, UNSPECIFIED; R19.7 - DIARRHEA, UNSPECIFIED Status: Acute Priority: High Current Visit: Yes Onset Date: ~03/02/20 Problem Details: Pt reports vomiting and diarrhea that started last week. None observed sinde admittion. Non-bloody per description. Zofran ordered. Diet advanced as tolerated. Doing well with PO intake as of today. One episode loose stools but she attributes it to her usual IBS issues. (2) Weakness SNOMED Code(s): 95403796 ICD Code: R53.1 - WEAKNESS Status: Chronic Priority: Medium Current Visit: Yes Problem Details: Patient has not been feeling like usual self for several months. Reports worsening weakness since GI issues started last week. Has improved over course of stay. Recommended to patient referral to [facility] to see Internal Med for review of her concerns and further planning as needed. She does not like to wear home O2 during daily activities as it is cumbersome. Noted to have O2 sats in low 80s while ambulating during last admission. Suspect that hypoxemia may be contributing to her weakness and general malaise symptoms. (3) Dehydration SNOMED Code(s): 62386818 ICD Code: E86.0 - DEHYDRATION Status: Acute Priority: Medium Current Visit: Yes Problem Details: Secondary to emesis/diarrhea and decreased PO intake since last week. UA obtained after patient received IV fluids. Concentrated/Ketones noted. IV fluids given with caution secondary to patient's age and concerns for potential fluid overload. (4) Dizziness SNOMED Code(s): 308133406, 832298292 ICD Code: R42 - DIZZINESS AND GIDDINESS Status: Acute Priority: High Current Visit: Yes Problem Details: Patient reported lightheadedness/ dizziness when she tries to get up and walk/perform ADLs. Dehydration, low Magnesium, not wanting to wear home O2, and viral infection may have all contributed to this. Much improved today per patient during rounding. Will continue her on prn Meclizine after discharge. (5) Hypokalemia SNOMED Code(s): 30633760 ICD Code: E87.6 - HYPOKALEMIA Status: Acute Priority: Medium Current Visit: Yes Problem Details: Initiated replacement. Normalized level as of today (6) Hypomagnesemia SNOMED Code(s): 733268995 ICD Code: E83.42 - HYPOMAGNESEMIA Status: Acute Priority: High Current Visit: Yes Problem Details: low normal level acheived today. (7) Irritable bowel syndrome SNOMED Code(s): 59546756 ICD Code: K58.9 - IRRITABLE BOWEL SYNDROME WITHOUT DIARRHEA Status: Chronic Priority: Low Current Visit: Yes Problem Details: Stable per patient, however cannot rule out as contributing factor to current GI complaints. Qualifiers: Irritable bowel syndrome type: with diarrhea Qualified Code(s): K58.0 - Irritable bowel syndrome with diarrhea (8) Polymyalgia rheumatica SNOMED Code(s): 12077881 ICD Code: M35.3 - POLYMYALGIA RHEUMATICA Status: Chronic Priority: Low Current Visit: No Problem Details: Stable per patient. CRP 5.2, ESR 46. Patient says these are not unusual numbers for her. (9) Glaucoma SNOMED Code(s): 75895869 ICD Code: H40.9 - UNSPECIFIED GLAUCOMA Status: Chronic Priority: Low Current Visit: No Problem Details: Stable per patient Qualifiers: Glaucoma type: unspecified Laterality: unspecified laterality Qualified Code(s): H40.9 - Unspecified glaucoma (10) CAD (coronary artery disease) SNOMED Code(s): 57732044 ICD Code: I25.10 - ATHSCL HEART DISEASE OF [place] CORONARY ARTERY W/O ANG PCTRS Status: Chronic Priority: Low Current Visit: No Problem Details: history of stent. Stable per patient Qualifiers: [place] vs. transplanted heart: [place] heart Associated angina: with stable angina (11) Raynauds syndrome SNOMED Code(s): 682485893 ICD Code: I73.00 - RAYNAUD'S SYNDROME WITHOUT GANGRENE Status: Chronic Current Visit: No (12) Afib SNOMED Code(s): 02069410 ICD Code: I48.91 - UNSPECIFIED ATRIAL FIBRILLATION Status: Chronic Priority: Low Current Visit: No Problem Details: Stable per pt. No report of palpitations/chest pain Qualifiers: Atrial fibrillation type: unspecified Qualified Code(s): I48.91 - Unspecified atrial fibrillation (13) Hyperlipidemia SNOMED Code(s): 86084792 ICD Code: E78.5 - HYPERLIPIDEMIA, UNSPECIFIED Status: Chronic Priority: Low Current Visit: No Problem Details: Under therapy/stable per patient Qualifiers: Hyperlipidemia type: unspecified Qualified Code(s): E78.5 - Hyperlipidemia , unspecified (14) Hypertension SNOMED Code(s): 81385856 ICD Code: I10 - ESSENTIAL (PRIMARY) HYPERTENSION Status: Chronic Priority : Low Current Visit: No Problem Details: Stable per patient/observe trends. Qualifiers: Hypertension type: essential hypertension Qualified Code(s): I10 - Essential (primary) hypertension (15) Hypothyroid SNOMED Code(s): 19218455 ICD Code: E03.9 - HYPOTHYROIDISM, UNSPECIFIED Status: Chronic Priority: Low Current Visit: No Problem Details: Stable per patient. TSH requested. Qualifiers: Hypothyroidism type: unspecified Qualified Code(s): E03.9 - Hypothyroidism , unspecified (16) Hypoxemia SNOMED Code(s): 936901997 ICD Code: R09.02 - HYPOXEMIA Status: Chronic Priority: Low Current Visit: Yes Problem Details: Recent initiation of home O2 during last admission after patient observed to have chronic hypoxia that was worse at night. Suspect chronic hypoxia was contributing to patient's ongoing complaints of fatigue/activity intolerance and her [employer] had recommended home use in past but this was refused by the patient. Observe for changes/ patterns. - Patient Summary/Data Consults: Consultations 03/06/20 19:53 OT Evaluation and Treatment [CONS] Routine PT Evaluation and Treatment [CONS] Routine Hospital Course: Patient's nausea slowly improved. IV fluids given to help correct dehydration. Mg and K replacement given. Covid testing performed as precaution given GI complaints. Patient had negative test in January. Results pending but low suspicion for Covid at this time. No return of emesis. Dizziness improved significantly by second day of admission. Given how well she is currently doing/feeling and her ability to take PO foods and fluids well, ok for her to be discharged home. Extensive precautions reviewed. She was again encouraged to use her home O2 for support during her ADLs/general activities to see if this helps improve her feeling of not being her usual self over the past 3 months. Recommend she have her local provider refer to her to Internal Medicine to review her concerns and recommend additional evaluation/testing as needed. Patient is to follow up otherwise as needed if any additional problems/ concerns. arise. - Patient Instructions Diet: Anti-Inflammatory Activity: As Tolerated Showering/Bathing: May Shower Notify Provider of: Fever, Nausea and/or Vomiting Other/Special Instructions: Wear your oxygen if you are active and see if wearing it helps solve some of the general feeling that you have been having over the past few months of "not feeling like yourself"! Start taking Magnesium at night. Avoid taking it in the morning with your thyroid medication. Your magnesium is low and this can contribute to dizziness/muscle cramps/weakness. Follow up with your clinic and get a referral to Internal Med at [facility] so that your concerns can be reviewed and see if they have any other suggestions/ideas. Meclizine is [id number], take one tab every 6-8 hours as needed for dizziness as needed. Follow up otherwise as needed if you have new problems/concerns. Consider elimination diet to see if your IBS symptoms can be improved. - Discharge Plan *PRESCRIPTION DRUG MONITORING PROGRAM REVIEWED*: Not Applicable *COPY OF PRESCRIPTION DRUG MONITORING REPORT IN PATIENT SEB: Not Applicable Prescriptions/Med Rec: Magnesium Oxide 500 mg PO BEDTIME #30 tablet Meclizine HCl 25 mg PO ASDIRECTED PRN #50 tablet PRN Reason: Dizziness Home Medications: Home Meds Acetaminophen with Codeine [Acetaminophen-Cod #3] 1 tab PO Q4H PRN 02/10/20 [ History] Apixaban [Eliquis] 5 mg PO BID 02/10/20 [History] Brimonidine Tartrate/Timolol [Combigan 0.2%-0.5% Eye Drops] 1 drop EYEBOTH BID 02/10/20 [History] Cholecalciferol (Vitamin D3) [Vitamin D3] 2,000 unit PO DAILY 02/10/20 [History] Cyanocobalamin (Vitamin B12) [Vitamin B12] 1,000 mcg IJ Q30D 02/10/20 [History] Cyclobenzaprine [Flexeril] 1 tab PO TID PRN 02/10/20 [History] Diphenoxylate HCl/Atropine [Lomotil] 1 tab PO DAILY 02/10/20 [History] Fluorometholone [Fluorometholone 0.1% Ophth Susp] 1 drop EYEBOTH DAILY@1200 [History] Hyoscyamine [Levsin] 0.125 mg PO Q4HR PRN 02/10/20 [History] Latanoprost [Xalatan] 1 drop EYEBOTH BEDTIME 02/10/20 [History] Levothyroxine [Synthroid] 50 mcg PO DAILY 02/10/20 [History] Lutein 20 mg PO DAILY 02/10/20 [History] Lutein/Minerals/Vit A,C & E [Ocuvite] 1 tab PO DAILY 02/10/20 [History] Metoprolol Tartrate 50 mg PO BID 02/10/20 [History] Nitroglycerin 0.4 mg SL ASDIRECTED PRN 02/10/20 [History] Non-Formulary Medication [NF Drug] 1 applic TOP TU02/10/20 [History] amLODIPine [Norvasc] 10 mg PO DAILY 02/10/20 [History] atorvaSTATin [Lipitor] 10 mg PO DAILY 02/10/20 [History] cycloSPORINE [Restasis Multidose] 1 drop EYEBOTH BID 02/10/20 [History] estradioL [Estradiol] 1 mg PO DAILY 02/10/20 [History] methylPREDNISolone [Medrol] 12 mg PO Q2D@0800 02/10/20 [History] methylPREDNISolone [Methylprednisolone] 4 mg PO Q2D@0800 02/10/20 [History] Magnesium Oxide 500 mg PO BEDTIME #30 tablet 03/08/20 [Rx] Meclizine HCl 25 mg PO ASDIRECTED PRN #50 tablet 03/08/20 [Rx] Non-Formulary Medication [NF Drug] 1 each EYEBOTH BEDTIME each 03/08/20 [Rx] Oxygen Therapy Mode: Nasal Cannula Oxygen Flow Rate (L/min): 1 Patient Handouts: Ondansetron injection, Hypomagnesemia, Magnesium Sulfate injection, Dehydration, Adult, [id number] Forms: ED Department Discharge Referrals: Linh Bishop PA-C [Primary Care Provider] - - Discharge Summary/Plan Comment DC Time >30 min.: Yes (Waiting for PT to see patient/Senior bus to take pt home) - General Info Date of Service: 03/08/20 Admission Dx/Problem (Free Text: Patient admitted for further evaluation of dizziness/generalized weakness/low Mag/dehydration after experiencing nausea/emesis/diarrhea for around 5 days. Difficulties performing ADLs at home. Overall has not felt like usual self for last two months per self report. Negative Covid testing last month. Subjective Update: Dizziness improved. Still has the general feeling of less energy but that has been going on for a long time/months. She feels much improved since being seen in ER. Tolerating food. Able to get up and do ADLs more easily. Functional Status: Reports: Pain Controlled, Tolerating Diet, Ambulating, Urinating. Denies: New Symptoms - Review of Systems General: Reports: Fatigue (long standing). Denies: Fever, Malaise, Chills, Night Sweats HEENT: Reports: Glasses. Denies: Headaches, Sinus Congestion, Sore Throat, Rhinitis Pulmonary: Reports: Shortness of Breath (chronic/improves when using her O2). Denies: Pleuritic Chest Pain, Cough, Sputum, Hemoptysis, Wheezing Cardiovascular: Reports: Dyspnea on Exertion (chronic), Lightheadedness (much improved). Denies: Chest Pain, Palpitations, Edema Gastrointestinal: Reports: Diarrhea (chronic IBS issues, single episode loose stool this morning. ). Denies: Abdominal Pain, Constipation, Decreased Appetite , Difficulty Swallowing, Hematochezia, Nausea, Vomiting Genitourinary: Reports: No Symptoms Musculoskeletal: Reports: Other (no acute changes from baseline) Skin: Denies: Rash Neurological: Reports: Dizziness (improved), Weakness (improved). Denies: Confusion, Headache, Paresthesia, Seizure, Syncope, Change in Speech, Gait Disturbance - Patient Data Vitals - Most Recent: Last Vital Signs Temp 36.3 C 03/08/20 08:00 Pulse 79 03/08/20 09:06 Resp 20 03/08/20 08:00 BP 132/70 03/08/20 09:06 Pulse Ox 92 L 03/08/20 08:00 Weight - Most Recent: 72.575 kg I&O - Last 24 hours: Intake & Output 03/07/20 03/08/20 03/08/20 22:59 06:59 14:59 Intake Total 1820 793 Output Total 800 300 Balance 1020 493 Lab Results - Last 24 hrs: Laboratory Results - last 24 hr 03/07/20 03/08/20 03/08/20 Range/Units 14:55 07:15 07:15 WBC 6.7 (4.0-10.2) K/uL RBC 3.35 L (3.77-5.09) M/uL Hgb 10.9 L D (11.7-15.5) g/dL Hct 34.4 (34.0-46.0) % MCV 102.7 H (84.0-98.0) fL MCH 32.5 (28.2-33.3) pg MCHC 31.7 (31.7-36.0) g/dL RDW 14.3 H (11.2-14.1) % Plt Count 253 (150-350) K/uL Neut % (Auto) 66.2 (45.0-80.0) % Lymph % (Auto) 17.1 (10.0-50.0) % Ritchie % (Auto) 13.1 (2.0-14.0) % Eos % (Auto) 3.3 (0.0-5.0) % Baso % (Auto) 0.3 (0.0-2.0) % Neut # (Auto) 4.46 (1.40-7.00) K/uL Lymph # (Auto) 1.15 (0.50-3.50) K/uL Ritchie # (Auto) 0.88 (0.00-1.00) K/uL Eos # (Auto) 0.22 (0.00-0.50) K/uL Baso # (Auto) 0.02 (0.00-0.20) K/uL Sodium 142 (136-145) mmol/L Potassium 5.8 H* D 4.4 (3.5-5.1) mmol/L Chloride 109 H (98-107) mmol/L Carbon Dioxide 23.5 (21.0-32.0) mmol/L BUN 13 (7-18) mg/dL Creatinine 0.83 (0.51-1.17) mg/dL Est Cr Clr Drug Dosing 42.32 mL/min Estimated GFR (MDRD) > 60 mL/min Glucose 94 (74-106) mg/dL Calcium 8.3 L (8.5-10.1) mg/dL Magnesium 1.8 (1.8-2.4) mg/dL Total Bilirubin 0.4 (0.2-1.0) mg/dL AST 25 (15-37) U/L ALT 26 (12-78) U/L Alkaline Phosphatase 60 (46-116) IU/L Total Protein 6.1 L (6.4-8.2) g/dL Albumin 2.6 L (3.4-5.0) g/dL Med Orders - Current: Current Medications Acetaminophen (Tylenol) 650 mg PO Q6H PRN PRN Reason: Pain/Fever Last Admin: 03/07/20 12:36 Dose: 650 mg Acetaminophen/Codeine Phosphate (Tylenol With Codeine No.3 300mg/30mg) 1 tab PO Q4H PRN PRN Reason: Pain Amlodipine Besylate (Norvasc) 10 mg PO DAILY [facility] Last Admin: 03/08/20 09:06 Dose: 10 mg Apixaban (Eliquis) 5 mg PO BID [facility] Last Admin: 03/08/20 08:51 Dose: 5 mg Atorvastatin Calcium (Lipitor) 10 mg PO DAILY [facility] Last Admin: 03/08/20 08:51 Dose: 10 mg Cholecalciferol (Vitamin D3) 50 mcg PO DAILY [facility] Last Admin: 03/08/20 08:51 Dose: 50 mcg Cyclobenzaprine HCl (Flexeril) 10 mg PO TID PRN PRN Reason: Spasms Diphenoxylate HCl/Atropine (Lomotil 0.025-2.5 Mg) 1 tab PO DAILY [facility] Last Admin: 03/08/20 08:51 Dose: 1 tab Estradiol (Estradiol) 1 mg PO DAILY [facility] Last Admin: 03/08/20 08:51 Dose: 1 mg Hyoscyamine (Hyomax-Sl) 0.125 mg SL Q4H PRN PRN Reason: IBS Last Admin: 03/07/20 20:13 Dose: 0.125 mg Sodium Chloride (Normal Saline) 1,000 mls @ 50 mls/hr IV ASDIRECTED [facility] Last Admin: 03/07/20 15:50 Dose: 50 mls/hr Latanoprost (Xalatan 0.005% Ophth Soln) 0 ml EYEBOTH BEDTIME [facility] Last Admin: 03/07/20 20:13 Dose: 1 drop Levothyroxine Sodium (Synthroid) 50 mcg PO ACBREAKFAST [facility] Last Admin: 03/08/20 08:51 Dose: 50 mcg Meclizine HCl (Antivert) 25 mg PO Q6H [facility] Last Admin: 03/08/20 08:51 Dose: 25 mg Methylprednisolone (Medrol) 12 mg PO Q2D@0800 [facility] Last Admin: 03/08/20 08:50 Dose: 12 mg Methylprednisolone (Medrol) 4 mg PO Q2D@0800 [facility] Last Admin: 03/07/20 08:14 Dose: 4 mg Metoprolol Tartrate (Lopressor) 50 mg PO BID [facility] Last Admin: 03/08/20 09:06 Dose: 50 mg Nitroglycerin (Nitrostat) 0.4 mg SL ASDIRECTED PRN PRN Reason: Chest Pain Brimonidine Tartrate /Timolol 0.2%-0.5% Opth DropPtom 1 drop EYEBOTH BID [facility] Last Admin: 03/08/20 08:53 Dose: 1 drop RestasisOwn Med 1 drop EYEBOTH BID [facility] Last Admin: 03/08/20 08:53 Dose: 1 drop FluorometholoneOwn (Med) 1 drop EYEBOTH DAILY@1200 [facility] Last Admin: 03/07/20 11:38 Dose: 1 drop Genteal OintOwn (Med) 1 each EYEBOTH BEDTIME [facility] Last Admin: 03/07/20 20:14 Dose: 1 each Ondansetron HCl (Zofran) 4 mg IVPUSH Q6H PRN PRN Reason: Nausea/Vomiting Last Admin: 03/07/20 20:13 Dose: 4 mg Sodium Chloride (Saline Flush) 10 ml FLUSH ASDIRECTED PRN PRN Reason: Keep Vein Open Last Admin: 03/06/20 21:44 Dose: 10 ml Discontinued Medications Acetaminophen (Tylenol) Confirm Administered Dose 650 mg .ROUTE .STK-MED ONE Stop: 03/07/20 12:31 Last Admin: 03/07/20 12:36 Dose: Not Given Magnesium Sulfate/Dextrose 1 (gm/ Premix) 100 mls @ 100 mls/hr IV ONETIME ONE Stop: 03/06/20 20:59 Last Admin: 03/06/20 21:08 Dose: 100 mls/hr Sodium Chloride (Normal Saline) 1,000 mls @ 75 mls/hr IV ASDIRECTED [facility] Last Admin: 03/06/20 21:23 Dose: 75 mls/hr Magnesium Sulfate/Dextrose 1 (gm/ Premix) 100 mls @ 100 mls/hr IV ONETIME ONE Stop: 03/07/20 07:59 Last Admin: 03/07/20 08:07 Dose: 100 mls/hr Magnesium Sulfate/Dextrose 1 (gm/ Premix) 100 mls @ 100 mls/hr IV ONETIME ONE Stop: 03/08/20 07:59 Non-Formulary Medication (Nf Drug) 1 each EYEBOTH BEDTIME [facility] Potassium Chloride (Klor-Con M20) 40 meq PO ONETIME ONE Stop: 03/06/20 21:01 Last Admin: 03/06/20 21:08 Dose: 40 meq Potassium Chloride (Klor-Con M20) 20 meq PO ONETIME ONE Stop: 03/07/20 07:01 Last Admin: 03/07/20 08:09 Dose: 20 meq Potassium Chloride (Klor-Con M20) 20 meq PO ONETIME ONE Stop: 03/07/20 11:01 Last Admin: 03/07/20 11:37 Dose: 20 meq Potassium Chloride (Klor-Con M20) 20 meq PO ONETIME ONE Stop: 03/07/20 16:01 Last Admin: 03/07/20 15:45 Dose: 20 meq Potassium Chloride (Klor-Con M20) 20 meq PO ONETIME ONE Stop: 03/08/20 07:01 - Exam Quality Assessment: Reports: Supplemental Oxygen (has PRN O2 for daytime, not wearing it currently) General: Reports: Alert, Oriented, Cooperative, No Acute Distress HEENT: Reports: Pupils Equal, Pupils Reactive, EOMI, Mucous Membr. Moist/[place] Neck: Reports: Supple Lungs: Reports: Normal Respiratory Effort, Other (minimal rales left lower lateral lung) Cardiovascular: Reports: Regular Rate, Regular Rhythm GI/Abdominal Exam: Normal Bowel Sounds, Soft, Non-Tender, No Distention (Female) Exam: Deferred Rectal (Female) Exam: Deferred Back Exam: Denies: CVA Tenderness (L), CVA Tenderness (R), Muscle Spasm, Paraspinal Tenderness, Vertebral Tenderness Extremities: Non-Tender, Normal Capillary Refill Skin: Reports: Warm, Dry Neurological: Reports: No New Focal Deficit Psy/Mental Status: Reports: Alert, Normal Affect, Normal Mood
[2020-03-08] MEDS: FLUOROMETHOLONE EYEBOTH SCH (13:02)
== END 2020-03-08 14:40 | disposition home or self-care (01) | DRG 641 ==
LOC: LL.ED 16:55 → UNDOADMIN 19:28 → LL.MS 19:28
PROVIDERS: ADMIT Emergency Medicine; ATTEND Emergency Medicine
DX: R42 Dizziness and giddiness (principal); E86.0 Dehydration; E87.6 Hypokalemia; R53.1 Weakness; E83.42 Hypomagnesemia; R11.2 Nausea with vomiting, unspecified; K58.0 Irritable bowel syndrome with diarrhea; M35.3 Polymyalgia rheumatica; H40.9 Unspecified glaucoma; I25.119 Atherosclerotic heart disease of native coronary artery with unspecified angina pectoris; I48.91 Unspecified atrial fibrillation; E78.5 Hyperlipidemia, unspecified; I25.10 Atherosclerotic heart disease of native coronary artery without angina pectoris; I10 Essential (primary) hypertension; R09.02 Hypoxemia; E03.9 Hypothyroidism, unspecified; J44.9 Chronic obstructive pulmonary disease, unspecified; E53.8 Deficiency of other specified B group vitamins; I73.00 Raynaud's syndrome without gangrene; Z91.09 Other allergy status, other than to drugs and biological substances; Z88.8 Allergy status to other drugs, medicaments and biological substances; Z91.048 Other nonmedicinal substance allergy status; Z79.01 Long term (current) use of anticoagulants; Z79.890 Hormone replacement therapy; Z99.81 Dependence on supplemental oxygen; Z79.899 Other long term (current) drug therapy; Z95.5 Presence of coronary angioplasty implant and graft; Z87.891 Personal history of nicotine dependence
CPT/HCPCS: 36415; 74022; 80053; 81001; 83605; 83735; 83880; 84132; 84443; 85025; 85652; 86140; 97110-GP; 97162-GP; 97530-GP; 99285-25; A9270-GY; J2405; J3475; J7030; U0002

== ENCOUNTER 2020-11-24 04:23 | Observation (INO) | payer MEDICARE, OTHER ==
[2020-11-24] MEDS ORDERED: Lactated Ringers 1,000 ML IV ONE (04:48)
[2020-11-24] MEDS ORDERED: Ondansetron 4 MG/2 ML SDV IVPUSH ONE (04:48)
--- NOTE | 2020-11-24 04:48 | EDM.PDOC ---
ED HPI GENERAL MEDICAL PROBLEM - General Chief Complaint: Gastrointestinal Problem Stated Complaint: N/V/D Time Seen by Provider: 11/24/20 04:45 Source of Information: Reports: Patient, EMS, Old Records ([facility] EMR. No paper hospital chart available.). Denies: EMS Notes Reviewed (Not available at time of dictation) History Limitations: Reports: No Limitations - History of Present Illness INITIAL COMMENTS - FREE TEXT/NARRATIVE: Patient was brought to the emergency room via ambulance with hospice liaison accompaniment with varnish finisher placed showing atrial fibrillation with mild tachycardia but no other treatment prior to arrival. Patient does have a 2-day history of progressive nausea and emesis with about 6 watery bowel movements per day and at least 4 emeses per day with no known exposure to infection, food poisoning, etc. She did receive her first COVID-19 immunization on 11/16/2020 and has been following the safety precautions. No recent history of abdominal pain, heartburn, melena, gross hematochezia, or any food intolerance, including fatty foods, etc.. The patient also denies any recent fever, cough, wheezing, dyspnea, etc.. The patient denies any chest pain/pressure, heart flutter, orthopnea, diaphoresis, paresthesias, recent decreased exercise tolerance, or any other anginal-type symptoms, although she has been having some dizziness and borderline orthostasis secondary to her abdominal complaints as above and possible secondary dehydration. Note that she was not able to take any of her medications yesterday with some mild anorexia during that time. She denies any specific pain or discomfort. Onset: Gradual Onset Date: 11/22/20 Duration: Getting Worse, Intermittent Location: Reports: Other (No pain) Quality: Reports: Same as Previous Episode Severity: Severe Improves with: Reports: None Worsens with: Reports: None Context: Reports: Other (As above). Denies: Sick Contact, Trauma Associated Symptoms: Reports: Loss of Appetite, Nausea/Vomiting, Weakness. Denies: Confusion, Chest Pain, Cough, Diaphoresis, Fever/Chills, Headaches, Malaise, Rash, Seizure, Shortness of Breath, Syncope Treatments GROUP THERAPIST: Reports: Other (see below) (None) - Related Data Allergies Allergy/AdvReac Type Severity Reaction Status Date / Time dog dander Allergy Other Verified 11/24/20 04:25 grass pollen-perennial rye, Allergy Other Verified 11/24/20 04:25 standar tree and shrub pollen Allergy congestion Verified 11/24/20 04:25 amiodarone AdvReac Severe Hypotension, Verified 11/24/20 04:25 Shortness of breaath flecainide AdvReac Severe shortness Verified 11/24/20 04:25 of breath,severe hypotention Home Meds: Home Meds Acetaminophen with Codeine [Acetaminophen-Cod #3] 1 tab PO Q4H PRN 02/10/20 [History] Apixaban [Eliquis] 5 mg PO BID 02/10/20 [History] Brimonidine Tartrate/Timolol [Combigan 0.2%-0.5% Eye Drops] 1 drop EYEBOTH BID 02/10/20 [History] Cholecalciferol (Vitamin D3) [Vitamin D3] 2,000 unit PO DAILY 02/10/20 [History] Cyanocobalamin (Vitamin B12) [Vitamin B12] 1,000 mcg IJ Q30D 02/10/20 [History] Cyclobenzaprine [Flexeril] 1 tab PO TID PRN 02/10/20 [History] Diphenoxylate HCl/Atropine [Lomotil] 1 tab PO DAILY 02/10/20 [History] Fluorometholone [Fluorometholone 0.1% Ophth Susp] 1 drop EYEBOTH DAILY@1200 02/10/20 [History] Hyoscyamine [Levsin] 0.125 mg PO Q4HR PRN 02/10/20 [History] Latanoprost [Xalatan] 1 drop EYEBOTH BEDTIME 02/10/20 [History] Levothyroxine [Synthroid] 50 mcg PO DAILY 02/10/20 [History] Lutein 20 mg PO DAILY 02/10/20 [History] Lutein/Minerals/Vit A,C & E [Ocuvite] 1 tab PO DAILY 02/10/20 [History] Metoprolol Tartrate 50 mg PO BID 02/10/20 [History] Nitroglycerin 0.4 mg SL ASDIRECTED PRN 02/10/20 [History] Non-Formulary Medication [NF Drug] 1 applic TOP TUSA 02/10/20 [History] amLODIPine [Norvasc] 10 mg PO DAILY 02/10/20 [History] atorvaSTATin [Lipitor] 10 mg PO DAILY 02/10/20 [History] cycloSPORINE [Restasis Multidose] 1 drop EYEBOTH BID 02/10/20 [History] estradioL [Estradiol] 1 mg PO DAILY 02/10/20 [History] methylPREDNISolone [Medrol] 12 mg PO DAILY 02/10/20 [History] Magnesium Oxide 500 mg PO BEDTIME #30 tablet 03/08/20 [Rx] Meclizine HCl 25 mg PO ASDIRECTED PRN #50 tablet 03/08/20 [Rx] Non-Formulary Medication [NF Drug] 1 each EYEBOTH BEDTIME each 03/08/20 [Rx] Sertraline [Zoloft] 25 mg PO DAILY 11/24/20 [History] Past Medical History HEENT History: Reports: Allergic Rhinitis, Cataract, Glaucoma, Impaired Vision, Other (See Below). Denies: Hard of Hearing, Macular Degeneration, Retinal Detachment Other HEENT History: Dry eye syndrome. Patient wears glasses. Cardiovascular History: Reports: Afib, CAD, High Cholesterol, Hypertension, PTCA, Other (See Below). Denies: Aneurysm, Arrhythmia, Blood Clots/VTE/DVT, Cardiomyopathy, Heart Failure, Heart Murmur, OK, PVD, Stents, Syncope Other Cardiovascular History: Patient denies previous stent with only PTCA performed as below. She is not certain whether she had an OK. Respiratory History: Reports: Bronchitis, Recurrent, COPD, Intubation, Previous, Other (See Below). Denies: Asthma, Intubation, Difficult, PE, Pneumothorax, Sleep Apnea, TB Gastrointestinal History: Reports: Cholelithiasis, Chronic Diarrhea, Colon Polyp, Diverticulosis, GI Bleed, Hemorrhoids, Irritable Bowel Syndrome, Other (See Below). Denies: Celiac Disease, Fecal Incontinence, Gastritis, GERD, Hepatitis, Inflammatory Bowel Disease, Jaundice, PUD Other Gastrointestinal History: Lower GI bleed of unknown etiology in 2019 with colonoscopy performed as below. Genitourinary History: Reports: Urinary Incontinence, Other (See Below). Denies: Acute Renal Failure, Chronic Renal Insuffiency, Renal Calculus, Retention, Urinary, STD, UTI, Recurrent CAD DESIGNER DRAFTER History: Reports: Dysfunctional Uterine Bleeding, , Spontaneous . Denies: Endometriosis, Fibroids : 3 Para: 2 LMP (Approximate): Other (See Below) Other CAD DESIGNER DRAFTER History: Surgical menopause as below. SAB during first trimester requiring D&C. Otherwise, full term without complications during pregnancies or deliveries Musculoskeletal History: Reports: Arthritis (Any broken bones in the past), Back Pain, Chronic, Fracture, Osteoarthritis, Osteoporosis, Other (See Below). Denies: Amputation, Gout, RA, SLE Other Musculoskeletal History: Right foot fracture. Right thumb fracture in about 2018. Polymyalgia rheumatica. Scoliosis. Neurological History: Reports: Headaches, Chronic. Denies: Alzheimers Disease, Cerebral Aneurysms, Concussion, CVA, Head Trauma, Migraines, MS, Parkinson's, Seizure, TIA, Vertigo Psychiatric History: Reports: Anxiety, Depression. Denies: Abuse, Victim of, ADD, ADHD, Addiction, Dementia, Psych Hospitalization(s), PTSD, Suicide Attempt, Suicidal Ideation Endocrine/Metabolic History: Reports: Hypokalemia, Hypomagnesemia, Hypothyroidism, Osteopenia, Osteoporosis. Denies: Diabetes, Gestational, Diabetes, Type I, Diabetes, Type II, Diabetes Mellitus, Type 3c, IDDM, Obesity/BMI 30+ Hematologic History: Reports: Anemia, B12 Deficiency, Blood Transfusion(s), Other (See Below). Denies: Iron Deficiency Other Hematologic History: Anemia with first with transfusion in 1956. Immunologic History: Reports: Immunosuppression, Other (See Below). 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 Oncologic (Cancer) History: Reports: Basal Cell Carcinoma, Other (See Below). Denies: Breast, Cervix, Hodgkin's Lymphoma, Leukemia, Lymphoma, Malignant Melanoma, Non-Hodgkin's Lymphoma, Ovarian, Squamous Cell Carcinoma, Uterine Other Oncologic History: Basal cell carcinoma of the nose in 2014. Dermatologic History: Denies: Eczema, Psoriasis - Infectious Disease History Infectious Disease History: Reports: Chicken Pox, Measles, Rubella. Denies: C- Difficile, Meningitis, Mononucleosis, MRSA, Mumps, Novel Coronavirus, Pertussis (Whooping Cough), Rheumatic Fever, Scarlet Fever, Shingles, TB, VRE - Past Surgical History HEENT Surgical History: Reports: Adenoidectomy, Cataract Surgery, Laser Surgery, Oral Surgery, Tonsillectomy, Other (See Below). Denies: Eye Surgery, LASIK, Myringotomy w Tube(s), Naso-Sinus Surgery Other HEENT Surgeries/Procedures: Tonsillectomy and adenoidectomy in 195. Bilateral cataract surgery in 2003. [place] teeth extraction. Bilateral ocular laser treatments x6 secondary to her glaucoma. Right upper lid ptosis repair in September 2018 with bilateral repair in 2001. Cardiovascular Surgical History: Reports: Percutaneous Transluminal Angioplasty, Other (See Below). Denies: Coronary Artery Stent, Varicose Other Cardiovascular Surgeries/Procedures: PTCA x1 in 1998 with patient denying previous stent placement at that time. Respiratory Surgical History: Reports: None. Denies: Thoracentesis GI Surgical History: Reports: Appendectomy, Cholecystectomy, Colonoscopy, Polypectomy, Other (See Below). Denies: EGD, Hernia, Abdominal, Hernia, Inguinal, Hernia Repair/Other Other GI Surgeries/Procedures: Laparoscopic cholecystectomy in 2000. Last colonoscopy on 02/05/2019 with polypectomy at that time. Incidental appendectomy at time of hysterectomy as below. Female Surgical History: Reports: Breast Implant, D&C, Dilitation & Evacuation, Hysterectomy, Other (See Below). Denies: Section, Salpingo-Oophorectomy Other Female Surgeries/Procedures: Bilateral breast implants in 1966. D&C secondary to SAB. Incomplete hysterectomy secondary to dysfunctional bleeding in 1970. Endocrine Surgical History: Denies: Thyroid Biopsy Neurological Surgical History: Reports: None. Denies: C-Spine, Discectomy, Laminectomy, Lumbar Spine, Sacral Spine, Spinal Fusion, Vertebroplasty Musculoskeletal Surgical History: Reports: Carpal Tunnel, Other (See Below). Denies: Ganglion Cyst, Joint Replacement, ORIF, Shoulder Surgery Other Musculoskeletal Surgeries/Procedures:: Right carpal tunnel release in 1978. Oncologic Surgical History: Reports: None. Denies: Biopsy of Breast Dermatological Surgical History: Reports: Skin Biopsy, Other (See Below) Other Dermatological Surgeries/Procedures: Excision of basal cell carcinoma from the nose in about 2014. Removal of lipoma from the mid chest region in 2013. - Past Imaging History Past Imaging History: Reports: Angiography (1998), Holter Monitor (March 2020) Social & Family History - Family History HEENT: Reports: Macular Degeneration, Other (See Below). Denies: Glaucoma, Retinal Detachment Other HEENT Family History: Father, brother, and sisters x2 with macular degeneration. Cardiac: Reports: Aneurysm ( anything like that), Bypass, CAD, Heart Murmur, Heart Valve Replacement, High Cholesterol, Hypertension, OK, Stent, Other (See Below). Denies: Afib (Okay anybody with emphysema or asthma in the family), Arrhythmia, Blood Clots/VTE/DVT, Syncope Other Cardiac Family History: Mother with 2 previous CABGs with history of recurrent MIs with fatal OK at age 84. Father with history of CABG with history of recurrent MIs. Brother with several CABGs and MIs. Sister with valve replacement. Brother with CABG and aortic dissection in his 60s. Brother with OK and PTCA/stent in his 50s. Hypertension hyperlipidemia and siblings x6. Respiratory: Reports: None. Denies: Asthma, COPD, PE, Pneumothorax, Sleep Apnea GI: Reports: None. Denies: Celiac Disease, Cholelithiasis, Colon Polyps, GERD, GI bleed, Inflammatory Bowel Disease, Irritable Bowel Syndrome, PUD : Reports: None. Denies: Renal Calculus, Renal Disease/Insufficiency OBGYN: Reports: None. Denies: Endometriosis, Recurrent Spontaneous Musculoskeletal: Reports: None. Denies: Arthritis, Gout, Osteoarthritis, RA, SLE Neurological: Reports: CVA, Migraines, Parkinson's, Other (See Below). Denies: Alzheimers Disease, Cerebral Aneurysms, Dementia, MS, Seizure, TIA Other Neurological Family History: Sister with migraines. Father with fatal CVA at age 82. Brothers x2 with Parkinson's disease. Psychiatric: Reports: None. Denies: Abuse, Victim of, ADD, ADHD, Anxiety, Depression, Psych Hospitalization(s), Psychosis, Suicide Attempt Endocrine/Metabolic: Reports: Diabetes, type II, Obesity/MBI 30+, Other (See Below). Denies: Diabetes, Type I, Diabetes Mellitus, Type 3c, Hypothyroidism Other Endocrine/Metabolic Family History: Brother with morbid obesity and AODM. Hematologic: Reports: None. Denies: Anemia, SLE Immunologic: Reports: None. Denies: AIDS, HIV, SLE Dermatologic: Reports: None. Denies: Eczema, Psoriasis Oncologic: Reports: Thyroid, Other (See Below). Denies: Breast, Cervix, Colon, Hodgkin's Lymphoma, Leukemia, Lymphoma, Ovarian, Skin, Uterine Other Oncologic Family History: Mother with rectal cancer. Sister with multiple myeloma. Sister with thyroid cancer at age 15. - Tobacco Use Tobacco Use Within Last Twelve Months: Cigarettes Years of Tobacco use: 37 Packs/Tins Daily: 1 Packs/Tins Daily Comment: Started smoking at age 20 with brief periods of maximum use of 3 packs/day during her divorce. Used Tobacco, but Quit: Yes Smoking Cessation Information Provided To Patient: No Second Hand Smoke Exposure: No Second Hand Smoke Education Provided: No - Caffeine Use Caffeine Use: Reports: Coffee (1 cup/day), Tea (Occasional cup). Denies: Energy Drinks, Soda - Alcohol Use Alcohol Use History: Yes Days Per Week of Alcohol Use: 0 Number of Drinks Per Day: 1 Number of Drinks Per Day Comment: Once per month usually mixed drinks. No previous DWIs, problems with alcohol abuse, etc. 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 (You can do it I called) ED EXAM, GI/ABD - Physical Exam Exam: See Below Exam Limited By: No Limitations General Appearance: Alert, WD/WN, No Apparent Distress Eyes: Bilateral: Normal Appearance (No nystagmus or vertigo. The patient did not bring her glasses.), EOMI (PERRLA) Ears: Normal External Exam, Normal Canal, Hearing Grossly Normal, Normal TMs Nose: Normal Inspection, Normal Mucosa, No Blood Throat/Mouth: Normal Lips, Normal Teeth, Normal Gums, Normal Voice, No Airway Compromise. No: Normal Oropharynx (Mild dry oral mucosa), Dysphagia, Perioral Cyanosis Head: Atraumatic, Normocephalic. No: Facial Swelling, Facial Tenderness, Sinus Tenderness Neck: Supple, Non-Tender, Full Range of Motion, Carotid Bruit (Mild bilateral). No: Lymphadenopathy (L), Lymphadenopathy (R), Thyromegaly Respiratory/Chest: No Respiratory Distress, Lungs Clear, Normal Breath Sounds, No Accessory Muscle Use, Chest Non-Tender. No: Pleural Rub, Retractions Cardiovascular: Normal Peripheral Pulses, No Edema, No Gallop, No JVD, No Murmur, No Rub, Tachycardia (Mild), Irregularly Irregular. No: Gallop/S3, Gallop/S4, Friction Rub GI/Abdominal Exam: Normal Bowel Sounds, Soft, Non-Tender, No Organomegaly, No Distention, No Abnormal Bruit, No Mass, Pelvis Stable. No: Guarding (Female) Exam: Deferred Rectal (Female) Exam: Deferred Back Exam: Full Range of Motion, Other (Mild to moderate scoliosis). No: CVA Tenderness (L), CVA Tenderness (R), Muscle Spasm, Paraspinal Tenderness, Vertebral Tenderness Extremities: Normal Range of Motion, Non-Tender, No Pedal Edema, Normal Capillary Refill, Other (Mild to moderate diffuse ecchymosis on arms and legs). No: Pedal Edema, Leigh's Sign Neurological: Alert, Oriented, CN II-XII Intact, Normal Cognition, Normal Gait, Normal Reflexes (Negative Babinski's), No Motor/Sensory Deficits Psychiatric: Normal Affect, Normal Mood Skin Exam: Warm, Dry, Intact, Normal Color, No Rash, Ecchymosis (As above). No: Diaphoretic, Petechiae, Wound/Incision Lymphatic: No Adenopathy Course - Vital Signs Last Recorded V/S: Last Vital Signs Temp 36.5 C 11/24/20 04:25 Pulse 103 H 11/24/20 04:45 Resp 17 11/24/20 06:12 BP 138/62 11/24/20 06:12 Pulse Ox 100 11/24/20 06:12 Vital Signs - 24 hr 11/24/20 11/24/20 11/24/20 04:25 04:35 04:45 Temperature [ 36.5 C Oral] Pulse, 105 H 108 H 103 H Peripheral [ Pulse Oximetry] Respiratory 17 17 17 Rate Blood Pressure 113/52 L 142/78 H 121/67 [Right Upper Arm] O2 Sat by Pulse 100 99 98 Oximetry 11/24/20 11/24/20 11/24/20 05:35 05:45 06:00 Temperature [ Oral] Pulse, Peripheral [ Pulse Oximetry] Respiratory 17 18 15 Rate Blood Pressure 143/82 H 134/68 143/69 H [Right Upper Arm] O2 Sat by Pulse 100 99 100 Oximetry 11/24/20 06:12 Temperature [ Oral] Pulse, Peripheral [ Pulse Oximetry] Respiratory 17 Rate Blood Pressure 138/62 [Right Upper Arm] O2 Sat by Pulse 100 Oximetry - Orders/Labs/Meds Orders: Active Orders 24 hr Category Date Time Status Cardiac Monitoring [RC] . DIRECTED Care 11/24/20 04:55 Active Peripheral IV Care [RC] . DIRECTED Care 11/24/20 04:49 Active Nothing Per Oral Diet [DIET] Diet 11/24/20 Breakfast Active Abdomen Series w Chest 1V [CR] Stat Exams 11/24/20 04:48 Taken CORONAVIRUS COVID-19 ANTONI [MOLEC] Stat Lab 11/24/20 05:00 Received CULTURE BLOOD [BC] Stat Lab 11/24/20 04:55 Received CULTURE BLOOD [BC] Stat Lab 11/24/20 05:15 Received CULTURE URINE [RM] Stat Lab 11/24/20 04:48 Ordered UA W/MICROSCOPIC [URIN] Stat Lab 11/24/20 04:48 Ordered Sodium Chloride 0.9% [Saline Flush] Med 11/24/20 04:48 Active 10 ml FLUSH ASDIRECTED PRN Blood Culture x2 Reflex Set [OM.PC] Urgent Oth 11/24/20 04:48 Ordered Isolation [COMM] Routine Oth 11/24/20 04:44 Active Obtain Past Medical Record [OM.PC] Urgent Oth 11/24/20 04:48 Active Peripheral IV Insertion Adult [OM.PC] Stat Oth 11/24/20 04:48 Ordered Resuscitation Status Stat Resus Stat 11/24/20 04:48 Ordered Medication Orders Sodium Chloride (Saline Flush) 10 ml FLUSH ASDIRECTED PRN PRN Reason: Keep Vein Open Last Admin: 11/24/20 05:10 Dose: 10 ml Documented by: [email or web address] Labs: Laboratory Tests 11/24/20 11/24/20 11/24/20 Range/Units 04:55 04:55 04:55 WBC 8.1 (4.0-10.2) K/uL RBC 4.55 (3.77-5.09) M/uL Hgb 14.8 D (11.7-15.5) g/dL Hct 44.3 (34.0-46.0) % MCV 97.4 (84.0-98.0) fL MCH 32.5 (28.2-33.3) pg MCHC 33.4 (31.7-36.0) g/dL RDW 14.3 H (11.2-14.1) % Plt Count 232 D (150-350) K/uL Neut % (Auto) 73.0 (45.0-80.0) % Lymph % (Auto) 18.9 (10.0-50.0) % [place] % (Auto) 7.3 (2.0-14.0) % Eos % (Auto) 0.4 (0.0-5.0) % Baso % (Auto) 0.4 (0.0-2.0) % Neut # (Auto) 5.91 (1.40-7.00) K/uL Lymph # (Auto) 1.53 (0.50-3.50) K/uL [place] # (Auto) 0.59 (0.00-1.00) K/uL Eos # (Auto) 0.03 (0.00-0.50) K/uL Baso # (Auto) 0.03 (0.00-0.20) K/uL PT 10.1 (9.5-12.0) SEC INR 1.0 APTT 24.1 L (24.5-32.8) SEC Sodium (136-145) mmol/L Potassium (3.5-5.1) mmol/L Chloride (98-107) mmol/L Carbon Dioxide (21.0-32.0) mmol/L BUN (7-18) mg/dL Creatinine (0.51-1.17) mg/dL Est Cr Clr Drug Dosing mL/min Estimated GFR (MDRD) mL/min Glucose (74-106) mg/dL Lactic Acid 2.5 H (0.4-2.0) mmol/L Uric Acid (2.6-7.2) mg/dL Calcium (8.5-10.1) mg/dL Magnesium (1.8-2.4) mg/dL Total Bilirubin (0.2-1.0) mg/dL AST (15-37) U/L ALT (12-78) U/L Alkaline Phosphatase (46-116) IU/L Total Protein (6.4-8.2) g/dL Albumin (3.4-5.0) g/dL Amylase (25-115) U/L Lipase (73-393) U/L SARS-CoV-2 Ag (Rapid) (NEGATIVE) 11/24/20 Range/Units 05:00 WBC (4.0-10.2) K/uL RBC (3.77-5.09) M/uL Hgb (11.7-15.5) g/dL Hct (34.0-46.0) % MCV (84.0-98.0) fL MCH (28.2-33.3) pg MCHC (31.7-36.0) g/dL RDW (11.2-14.1) % Plt Count (150-350) K/uL Neut % (Auto) (45.0-80.0) % Lymph % (Auto) (10.0-50.0) % [place] % (Auto) (2.0-14.0) % Eos % (Auto) (0.0-5.0) % Baso % (Auto) (0.0-2.0) % Neut # (Auto) (1.40-7.00) K/uL Lymph # (Auto) (0.50-3.50) K/uL [place] # (Auto) (0.00-1.00) K/uL Eos # (Auto) (0.00-0.50) K/uL Baso # (Auto) (0.00-0.20) K/uL PT (9.5-12.0) SEC INR APTT (24.5-32.8) SEC Sodium 134 L (136-145) mmol/L Potassium 2.9 L* (3.5-5.1) mmol/L Chloride 96 L (98-107) mmol/L Carbon Dioxide 20.7 L (21.0-32.0) mmol/L BUN 22 H (7-18) mg/dL Creatinine 1.43 H (0.51-1.17) mg/dL Est Cr Clr Drug Dosing 25.41 mL/min Estimated GFR (MDRD) 35 mL/min Glucose 136 H (74-106) mg/dL Lactic Acid (0.4-2.0) mmol/L Uric Acid 7.1 (2.6-7.2) mg/dL Calcium 8.7 (8.5-10.1) mg/dL Magnesium 2.0 (1.8-2.4) mg/dL Total Bilirubin 1.1 H (0.2-1.0) mg/dL AST 24 (15-37) U/L ALT 33 (12-78) U/L Alkaline Phosphatase 84 (46-116) IU/L Total Protein 6.9 (6.4-8.2) g/dL Albumin 3.1 L (3.4-5.0) g/dL Amylase 77 (25-115) U/L Lipase 63 L (73-393) U/L SARS-CoV-2 Ag (Rapid) Negative (NEGATIVE) Blood cultures x2 were collected. Microbiology 11/24/20 05:34 Stool Occult Blood (AKOSUA) - Final Stool / Feces 11/24/20 05:00 Influenza Type A Antigen Screen - Final Nasal, Left NEGATIVE INFLUENZA A VIRUS AG REFERENCE RANGE: NEGATIVE Influenza Type B Antigen Screen - Final NEGATIVE INFLUENZA B VIRUS AG REFERENCE RANGE: NEGATIVE Hemoccult was positive Meds: Medications Generic Name Dose Route Start Last Admin Trade Name Freq PRN Reason Stop Dose Admin Sodium Chloride 10 ml 11/24/20 04:48 11/24/20 05:10 Saline Flush FLUSH 10 ml ASDIRECTED PRN Administration Keep Vein Open Discontinued Medications Generic Name Dose Route Start Last Admin Trade Name Freq PRN Reason Stop Dose Admin Lactated Ringer's 1,000 mls @ 999 mls/hr 11/24/20 04:48 11/24/20 05:10 Ringers, Lactated IV 11/24/20 05:48 999 mls/hr .BOLUS ONE Administration Ondansetron HCl 4 mg 11/24/20 04:48 11/24/20 05:10 Zofran IVPUSH 11/24/20 04:49 4 mg ONETIME ONE Administration - Radiology Interpretation Free Text/Narrative:: 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 Acute abdominal x-rays shows evidence of bilateral breast implants, moderate osteoarthritis, osteoporosis, and moderate scoliosis with no free air, fluid levels, ileus, obstruction, pulmonary infiltrates, CHF, cardiomegaly, pneumothorax, etc. Surgical clips noted in right upper quadrant consistent with previous cholecystectomy. Departure - Departure Time of Disposition: 06:30 Disposition: Refer to Observation Condition: Good Clinical Impression: Dehydration, Hypokalemia, Hypoalbuminemia, Renal insufficiency, Elevated lactic acid level, Mixed anxiety depressive disorder Afib Qualifiers: Atrial fibrillation type: unspecified chronic Qualified Code(s): I48.20 - Chronic atrial fibrillation, unspecified CAD (coronary artery disease) Qualifiers: Coronary Disease-Associated Artery/Lesion type: [place] artery [place] vs. transplanted heart: [place] heart Associated angina: without angina Qualified Code(s): I25.10 - Atherosclerotic heart disease of [place] coronary artery without angina pectoris Hypertension Qualifiers: Hypertension type: essential hypertension Qualified Code(s): I10 - Essential (primary) hypertension Hypothyroid Qualifiers: Hypothyroidism type: acquired Qualified Code(s): E03.9 - Hypothyroidism, unspecified Osteoarthritis Qualifiers: Osteoarthritis location: multiple joints Osteoarthritis type: primary Qualified Code(s): M89.49 - Other hypertrophic osteoarthropathy, multiple sites Nausea & vomiting Qualifiers: Vomiting type: unspecified Vomiting Intractability: non-intractable Qualified Code(s): R11.2 - Nausea with vomiting, unspecified - Discharge Information *PRESCRIPTION DRUG MONITORING PROGRAM REVIEWED*: Not Applicable *COPY OF PRESCRIPTION DRUG MONITORING REPORT IN PATIENT SEB: Not Applicable Sepsis Event Note (ED) - Focused Exam Vital Signs: Vital Signs Temp Pulse Resp BP Pulse Ox 11/24/20 06:12 17 138/62 100 11/24/20 06:00 15 143/69 H 100 11/24/20 05:45 18 134/68 99 11/24/20 05:35 17 143/82 H 100 11/24/20 04:45 103 H 17 121/67 98 11/24/20 04:35 108 H 17 142/78 H 99 11/24/20 04:25 36.5 C 105 H 17 113/52 L 100 - Problem List & Annotations (1) Dehydration SNOMED Code(s): 68192188 Code(s): E86.0 - DEHYDRATION Status: Acute Priority: High Current Visit: No Annotation/Comment:: Secondary to emesis/diarrhea and decreased PO intake during the last 2 days the patient has had some orthostatic type symptoms, dizziness, and probable dehydration. 1 L lactated Ringer's IV bolus initiated in the emergency room. Continue IV hydration during this hospitalization. No known exposure to infection or food poisoning. (2) Elevated lactic acid level SNOMED Code(s): 0936404 Code(s): R79.89 - OTHER SPECIFIED ABNORMAL FINDINGS OF BLOOD CHEMISTRY Status: Acute Priority: High Current Visit: Yes Onset Date: 11/24/20 Annotation/Comment:: Likely secondary to dehydration. Blood cultures x2 were drawn. IV fluids given as above. No indication for antibiotics at this time. (3) Nausea & vomiting SNOMED Code(s): 26905657 Code(s): R11.2 - NAUSEA WITH VOMITING, UNSPECIFIED Status: Chronic Priority: High Current Visit: No Onset Date: ~11/22/20 Annotation/Comment:: As above. Initial COVID-19 screen was negative with patient receiving her initial COVID-19 immunization last week as above. Possible viral GE. Note Hemoccult positive stools. Observe closely. Qualifiers: Vomiting type: unspecified Vomiting Intractability: non-intractable Qualified Code(s): R11.2 - Nausea with vomiting, unspecified (4) Osteoarthritis SNOMED Code(s): 906251864 Code(s): M19.90 - UNSPECIFIED OSTEOARTHRITIS, UNSPECIFIED SITE Status: Chronic Priority: Medium Current Visit: No Annotation/Comment:: Stable by history with no history of fall or other injury. Note history of polymyalgia rheumatica. Qualifiers: Osteoarthritis location: multiple joints Osteoarthritis type: primary Qualified Code(s): M89.49 - Other hypertrophic osteoarthropathy, multiple sites (5) Afib SNOMED Code(s): 35137321 Code(s): I48.91 - UNSPECIFIED ATRIAL FIBRILLATION Status: Chronic Priority: Medium Current Visit: No Annotation/Comment:: No history of chest pain or anginal type symptoms. Patient did miss her Eliquis yesterday. 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 Observe for now. Qualifiers: Atrial fibrillation type: unspecified chronic Qualified Code(s): I48.20 - Chronic atrial fibrillation, unspecified; I48.2 - Chronic atrial fibrillation (6) CAD (coronary artery disease) SNOMED Code(s): 58026094 Code(s): I25.10 - ATHSCL HEART DISEASE OF [place] CORONARY ARTERY W/O ANG PCTRS Status: Chronic Priority: Medium Current Visit: No Annotation/Comment:: No chest pain or anginal type symptoms. Qualifiers: Coronary Disease-Associated Artery/Lesion type: [place] artery [place] vs. transplanted heart: [place] heart Associated angina: without angina Qualified Code(s): I25.10 - Atherosclerotic heart disease of [place] coronary artery without angina pectoris (7) Hypertension SNOMED Code(s): 63878436 Code(s): I10 - ESSENTIAL (PRIMARY) HYPERTENSION Status: Chronic Priority: Medium Current Visit: No Annotation/Comment:: Stable vitals in the emergency room. Observe closely during this hospitalization. Qualifiers: Hypertension type: essential hypertension Qualified Code(s): I10 - Essential (primary) hypertension (8) Hypothyroid SNOMED Code(s): 52079710 Code(s): E03.9 - HYPOTHYROIDISM, UNSPECIFIED Status: Chronic Priority: Medium Current Visit: No Annotation/Comment:: Stable per patient with no current symptoms. Qualifiers: Hypothyroidism type: acquired Qualified Code(s): E03.9 - Hypothyroidism, unspecified (9) Hypokalemia SNOMED Code(s): 46485551 Code(s): E87.6 - HYPOKALEMIA Status: Acute Priority: Medium Current Visit: No Annotation/Comment:: IV lactated Ringer's initiated in the emergency room as above. Continue potassium supplementation during this hospitalization including both initial IV and oral supplementation. Patient will be kept on clear liquids for now secondary to her recurrent nausea and emesis, however improved symptoms prior to admission. (10) Hypoalbuminemia SNOMED Code(s): 927206678 Code(s): E88.09 - OTH DISORDERS OF PLASMA-PROTEIN METABOLISM, NEC Status: Acute Priority: Medium Current Visit: Yes Onset Date: 11/24/20 Annotation/Comment:: Observe for now (11) Renal insufficiency SNOMED Code(s): 500405854, 296607452 Code(s): N28.9 - DISORDER OF KIDNEY AND URETER, UNSPECIFIED Status: Acute Priority: Medium Current Visit: Yes Onset Date: 11/24/20 Annotation/Comment:: Newly diagnosed likely secondary to current illness and dehydration. IV fluids as above. - Problem List Review Problem List Initiated/Reviewed/Updated: Yes - My Orders Last 24 Hours: My Active Orders 11/24/20 04:44 Isolation [COMM] Routine 11/24/20 04:48 Abdomen Series w Chest 1V [CR] Stat CULTURE URINE [RM] Stat UA W/MICROSCOPIC [URIN] Stat Sodium Chloride 0.9% [Saline Flush] 10 ml FLUSH ASDIRECTED PRN Blood Culture x2 Reflex Set [OM.PC] Urgent Obtain Past Medical Record [OM.PC] Urgent Peripheral IV Insertion Adult [OM.PC] Stat Resuscitation Status Stat 11/24/20 04:49 Peripheral IV Care [RC] . DIRECTED 11/24/20 04:55 Cardiac Monitoring [RC] . DIRECTED CULTURE BLOOD [BC] Stat 11/24/20 05:00 CORONAVIRUS COVID-19 ANTONI [MOLEC] Stat 11/24/20 05:15 CULTURE BLOOD [BC] Stat 11/24/20 Breakfast Nothing Per Oral Diet [DIET] - Assessment/Plan Admission H&P: Please use this note as an admission H&P Last 24 Hours: My Active Orders 11/24/20 04:44 Isolation [COMM] Routine 11/24/20 04:48 Abdomen Series w Chest 1V [CR] Stat CULTURE URINE [RM] Stat UA W/MICROSCOPIC [URIN] Stat Sodium Chloride 0.9% [Saline Flush] 10 ml FLUSH ASDIRECTED PRN Blood Culture x2 Reflex Set [OM.PC] Urgent Obtain Past Medical Record [OM.PC] Urgent Peripheral IV Insertion Adult [OM.PC] Stat Resuscitation Status Stat 11/24/20 04:49 Peripheral IV Care [RC] . DIRECTED 11/24/20 04:55 Cardiac Monitoring [RC] . DIRECTED CULTURE BLOOD [BC] Stat 11/24/20 05:00 CORONAVIRUS COVID-19 ANTONI [MOLEC] Stat 11/24/20 05:15 CULTURE BLOOD [BC] Stat 11/24/20 Breakfast Nothing Per Oral Diet [DIET] Assessment:: As above Plan: As above. Extensive precautions were given to the patient, who is in agreement with the treatment plan. The patient will require about 3-4 days of inpatient/acute care secondary to multiple health problems as above. [facility] physician assumes care later this morning.
[2020-11-24] MEDS: Sodium Chloride 0.9% 10 ML Syringe FLUSH PRN (05:10)
[2020-11-24 05:19] LABS: CORONAVIRUS COVID-19 AG NEGATIVE (NEGATIVE)
[2020-11-24 05:21] LABS: CHLORIDE,CL 96 mmol/L (98-107); SODIUM,NA 134 mmol/L (136-145)
[2020-11-24 05:30] LABS: PTT,PARTIAL THROMBOPLSTIN TIME 24.1 SEC (24.5-32.8)
[2020-11-24] MEDS ORDERED: Acetaminophen 325 MG Tab PO PRN (06:36)
[2020-11-24] MEDS ORDERED: D5 1/2 NS w/ 40 mEq/L KCl 1,000 ML IV SCH (06:45)
[2020-11-24] MEDS ORDERED: Famotidine 20 MG/2 ML SDV IVPUSH SCH (06:45)
[2020-11-24] MEDS: Metoprolol Tartrate 50 MG Tab PO SCH ×2 (07:40→18:01)
[2020-11-24] MEDS: Hyoscyamine 0.125 MG Tab.SL SL PRN ×3 (07:41→19:57)
[2020-11-24] MEDS: atorvaSTATin 10 MG Tab PO SCH (07:41)
[2020-11-24] MEDS: Estradiol 1 MG Tab PO SCH (07:41)
[2020-11-24] MEDS: Atropine/Diphenoxylate 0.025-2.5 MG Tab PO SCH (07:41)
[2020-11-24] MEDS: amLODIPine 5 MG Tab PO SCH (07:41)
[2020-11-24] MEDS: Cholecalciferol (Vitamin D3) 25 MCG Tab PO SCH (07:41)
[2020-11-24] MEDS: Beta-Carotene (Vitamin A) w/Vitamin C & E plus Minerals Tab PO SCH (07:42)
[2020-11-24] MEDS: Sertraline 25 MG Tab PO SCH (07:42)
[2020-11-24] MEDS: Levothyroxine 50 MCG Tab PO SCH (07:42)
[2020-11-24] MEDS: Potassium Chloride 20 MEQ Tab.ER PO SCH ×3 (07:42→18:01)
[2020-11-24] MEDS: Apixaban 5 MG Tab PO SCH ×2 (07:42→18:01)
[2020-11-24] MEDS: Sodium Chloride 0.9% 10 ML Syringe FLUSH SCH ×2 (07:43→19:16)
[2020-11-24] MEDS ORDERED: Timolol Maleate 0.5% Ophth Soln 5 ML Bottle EYEBOTH SCH (08:00)
[2020-11-24] MEDS ORDERED: Non-Formulary Medication 1 Each (Lutein [Lutein] 20 MG) PO SCH (08:00)
[2020-11-24] MEDS ORDERED: Brimonidine 0.2% Ophth Soln 5 ML Bottle EYEBOTH SCH (08:00)
[2020-11-24] MEDS ORDERED: Non-Formulary Medication 1 Each (Cyclosporine [Restasis Multidose] 1 DROP) EYEBOTH SCH (08:00)
[2020-11-24] MEDS ORDERED: FLUOROMETHOLONE EYEBOTH SCH (12:00)
[2020-11-24] MEDS: FLUOROMETHOLONE 0.1% EYEBOTH SCH (12:10)
[2020-11-24] MEDS: COMBIGAN EYEBOTH SCH (18:01)
[2020-11-24] MEDS: Magnesium Oxide 400 MG Tab PO SCH (19:16)
[2020-11-24] MEDS: Latanoprost 0.005% Ophth Soln 2.5 ML Bottle EYEBOTH SCH (19:17)
[2020-11-24] MEDS ORDERED: Non-Formulary Medication 1 Each EYEBOTH SCH (20:00)
[2020-11-24] MEDS: Temazepam 15 MG Cap PO PRN (22:28)
[2020-11-25] MEDS: Ondansetron 4 MG/2 ML SDV IVPUSH PRN ×3 (01:06→15:43)
[2020-11-25] MEDS ORDERED: Non-Formulary Medication 1 Each TOP SCH (06:29)
[2020-11-25] MEDS: Famotidine 20 MG/2 ML SDV IVPUSH SCH (07:52)
[2020-11-25] MEDS: Pantoprazole 40 MG Vial IVPUSH SCH ×2 (07:52→19:08)
[2020-11-25] MEDS: Atropine/Diphenoxylate 0.025-2.5 MG Tab PO SCH (07:52)
[2020-11-25] MEDS: atorvaSTATin 10 MG Tab PO SCH (07:52)
[2020-11-25] MEDS: Levothyroxine 50 MCG Tab PO SCH (07:52)
[2020-11-25] MEDS: Estradiol 1 MG Tab PO SCH (07:53)
[2020-11-25] MEDS: Metoprolol Tartrate 50 MG Tab PO SCH ×2 (07:53→18:00)
[2020-11-25] MEDS: Cholecalciferol (Vitamin D3) 25 MCG Tab PO SCH (07:54)
[2020-11-25] MEDS: Sertraline 25 MG Tab PO SCH (07:54)
[2020-11-25] MEDS: Beta-Carotene (Vitamin A) w/Vitamin C & E plus Minerals Tab PO SCH (07:54)
[2020-11-25] MEDS: Potassium Chloride 20 MEQ Tab.ER PO SCH ×3 (07:54→18:00)
[2020-11-25] MEDS: Apixaban 5 MG Tab PO SCH ×2 (07:54→18:00)
[2020-11-25] MEDS: amLODIPine 5 MG Tab PO SCH (07:55)
[2020-11-25] MEDS: Sodium Chloride 0.9% 10 ML Syringe FLUSH SCH ×2 (07:56→19:08)
[2020-11-25] MEDS: COMBIGAN EYEBOTH SCH ×2 (07:56→18:00)
--- NOTE | 2020-11-25 09:33 | PCM.PN ---
- General Info Date of Service: 11/25/20 Subjective Update: Feels better but still not eating much Did have a normal bowel movement last PM No fever - Review of Systems Pulmonary: Reports: No Symptoms Cardiovascular: Reports: No Symptoms Gastrointestinal: Reports: Abdominal Pain, Decreased Appetite, Nausea Genitourinary: Reports: No Symptoms - Patient Data Vitals - Most Recent: Last Vital Signs Temp 97.2 F 11/25/20 07:51 Pulse 81 11/25/20 07:53 Resp 20 11/25/20 07:51 BP 148/79 H 11/25/20 07:55 Pulse Ox 92 L 11/25/20 07:51 Weight - Most Recent: 160 lb I&O - Last 24 Hours: Intake & Output 11/24/20 11/25/20 11/25/20 18:59 02:59 10:59 Intake Total 180 400 Output Total 200 Balance 180 200 Lab Results Last 24 Hours: Laboratory Results - last 24 hr 11/24/20 11/25/20 11/25/20 Range/Units 05:00 03:45 07:45 WBC (4.0-10.2) K/uL RBC (3.77-5.09) M/uL Hgb (11.7-15.5) g/dL Hct (34.0-46.0) % MCV (84.0-98.0) fL MCH (28.2-33.3) pg MCHC (31.7-36.0) g/dL RDW (11.2-14.1) % Plt Count (150-350) K/uL Neut % (Auto) (45.0-80.0) % Lymph % (Auto) (10.0-50.0) % [place] % (Auto) (2.0-14.0) % Eos % (Auto) (0.0-5.0) % Baso % (Auto) (0.0-2.0) % Neut # (Auto) (1.40-7.00) K/uL Lymph # (Auto) (0.50-3.50) K/uL [place] # (Auto) (0.00-1.00) K/uL Eos # (Auto) (0.00-0.50) K/uL Baso # (Auto) (0.00-0.20) K/uL Sodium (136-145) mmol/L Potassium (3.5-5.1) mmol/L Chloride (98-107) mmol/L Carbon Dioxide (21.0-32.0) mmol/L BUN (7-18) mg/dL Creatinine (0.51-1.17) mg/dL Est Cr Clr Drug Dosing mL/min Estimated GFR (MDRD) mL/min Glucose (74-106) mg/dL Lactic Acid 0.8 (0.4-2.0) mmol/L Calcium (8.5-10.1) mg/dL Magnesium (1.8-2.4) mg/dL Total Bilirubin (0.2-1.0) mg/dL AST (15-37) U/L ALT (12-78) U/L Alkaline Phosphatase (46-116) IU/L Total Protein (6.4-8.2) g/dL Albumin (3.4-5.0) g/dL Specimen Type Urinvoid Urine Color Yellow Urine Appearance Clear Urine pH 6.5 (5.0-9.0) Ur Specific [place] 1.010 (1.005-1.030) Urine Protein Negative (NEGATIVE) mg/dL Urine Glucose (UA) Negative (NEGATIVE) mg/dL Urine Ketones Negative (NEGATIVE) mg/dL Urine Occult Blood Trace-intact H (NEGATIVE) Urine Nitrite Negative (NEGATIVE) Urine Bilirubin Negative (NEGATIVE) Urine Urobilinogen 0.2 (0.2-1.0) E.U./dL Ur Leukocyte Esterase Negative (NEGATIVE) Urine RBC 0-5 /HPF Urine WBC 0-5 /HPF Ur Epithelial Cells Few /LPF Urine Bacteria Few (NONE TO FEW) /HPF Urine Yeast Few H (NEGATIVE) /HPF SARS-CoV-2 RNA (ANTONI) Negative (NEGATIVE) 11/25/20 11/25/20 Range/Units 07:45 07:45 WBC 9.7 (4.0-10.2) K/uL RBC 3.63 L (3.77-5.09) M/uL Hgb 11.7 D (11.7-15.5) g/dL Hct 36.5 (34.0-46.0) % MCV 100.6 H D (84.0-98.0) fL MCH 32.2 (28.2-33.3) pg MCHC 32.1 (31.7-36.0) g/dL RDW 14.3 H (11.2-14.1) % Plt Count 198 (150-350) K/uL Neut % (Auto) 85.6 H (45.0-80.0) % Lymph % (Auto) 7.5 L (10.0-50.0) % [place] % (Auto) 6.5 (2.0-14.0) % Eos % (Auto) 0.3 (0.0-5.0) % Baso % (Auto) 0.1 (0.0-2.0) % Neut # (Auto) 8.33 H (1.40-7.00) K/uL Lymph # (Auto) 0.73 (0.50-3.50) K/uL [place] # (Auto) 0.63 (0.00-1.00) K/uL Eos # (Auto) 0.03 (0.00-0.50) K/uL Baso # (Auto) 0.01 (0.00-0.20) K/uL Sodium 136 (136-145) mmol/L Potassium 4.0 (3.5-5.1) mmol/L Chloride 102 (98-107) mmol/L Carbon Dioxide 23.0 (21.0-32.0) mmol/L BUN 17 (7-18) mg/dL Creatinine 1.01 (0.51-1.17) mg/dL Est Cr Clr Drug Dosing 35.98 mL/min Estimated GFR (MDRD) 52 mL/min Glucose 93 (74-106) mg/dL Lactic Acid (0.4-2.0) mmol/L Calcium 8.4 L (8.5-10.1) mg/dL Magnesium 1.9 (1.8-2.4) mg/dL Total Bilirubin 0.7 (0.2-1.0) mg/dL AST 18 (15-37) U/L ALT 25 (12-78) U/L Alkaline Phosphatase 67 (46-116) IU/L Total Protein 6.1 L (6.4-8.2) g/dL Albumin 2.7 L (3.4-5.0) g/dL Specimen Type Urine Color Urine Appearance Urine pH (5.0-9.0) Ur Specific [place] (1.005-1.030) Urine Protein (NEGATIVE) mg/dL Urine Glucose (UA) (NEGATIVE) mg/dL Urine Ketones (NEGATIVE) mg/dL Urine Occult Blood (NEGATIVE) Urine Nitrite (NEGATIVE) Urine Bilirubin (NEGATIVE) Urine Urobilinogen (0.2-1.0) E.U./dL Ur Leukocyte Esterase (NEGATIVE) Urine RBC /HPF Urine WBC /HPF Ur Epithelial Cells /LPF Urine Bacteria (NONE TO FEW) /HPF Urine Yeast (NEGATIVE) /HPF SARS-CoV-2 RNA (ANTONI) (NEGATIVE) [place] Results Last 24 Hours: Microbiology 11/24/20 04:55 Aerobic Blood Culture - Preliminary Blood - Venous NO GROWTH AFTER 1 DAY Anaerobic Blood Culture - Preliminary NO GROWTH AFTER 1 DAY 11/24/20 05:15 Aerobic Blood Culture - Preliminary Blood - Venous - Lab Draw NO GROWTH AFTER 1 DAY Anaerobic Blood Culture - Preliminary NO GROWTH AFTER 1 DAY 11/24/20 05:34 Stool Occult Blood ([place]) - Final Stool / Feces 11/24/20 05:00 Influenza Type A Antigen Screen - Final Nasal, Left NEGATIVE INFLUENZA A VIRUS AG REFERENCE RANGE: NEGATIVE Influenza Type B Antigen Screen - Final NEGATIVE INFLUENZA B VIRUS AG REFERENCE RANGE: NEGATIVE Med Orders - Current: Current Medications Acetaminophen (Tylenol) 650 mg PO Q4H PRN PRN Reason: Pain Amlodipine Besylate (Norvasc) 10 mg PO DAILY [facility] Last Admin: 11/25/20 07:55 Dose: 10 mg Documented by: Apixaban (Eliquis) 5 mg PO BID [facility] Last Admin: 11/25/20 07:54 Dose: 5 mg Documented by: Atorvastatin Calcium (Lipitor) 10 mg PO DAILY [facility] Last Admin: 11/25/20 07:52 Dose: 10 mg Documented by: Cholecalciferol (Vitamin D3) 50 mcg PO DAILY [facility] Last Admin: 11/25/20 07:54 Dose: 50 mcg Documented by: Diphenoxylate HCl/Atropine (Lomotil 0.025-2.5 Mg) 1 tab PO DAILY [facility] Last Admin: 11/25/20 07:52 Dose: 1 tab Documented by: Estradiol (Estradiol) 1 mg PO DAILY [facility] Last Admin: 11/25/20 07:53 Dose: 1 mg Documented by: Famotidine (Pepcid) 20 mg IVPUSH Q24H [facility] Last Admin: 11/25/20 07:52 Dose: 20 mg Documented by: Hyoscyamine (Hyomax-Sl) 0.125 mg SL Q4HR PRN PRN Reason: IBS Last Admin: 11/24/20 19:57 Dose: 0.125 mg Documented by: Latanoprost (Xalatan 0.005% Ophth Soln) 0 ml EYEBOTH BEDTIME [facility] Last Admin: 11/24/20 19:17 Dose: Not Given Documented by: Levothyroxine Sodium (Synthroid) 50 mcg PO DAILY [facility] Last Admin: 11/25/20 07:52 Dose: 50 mcg Documented by: Magnesium Oxide (Magnesium Oxide) 400 mg PO BEDTIME [facility] Last Admin: 11/24/20 19:16 Dose: 400 mg Documented by: Methylprednisolone (Medrol) 12 mg PO DAILY [facility] Last Admin: 11/25/20 07:52 Dose: 12 mg Documented by: Metoprolol Tartrate (Lopressor) 50 mg PO BID [facility] Last Admin: 11/25/20 07:53 Dose: 50 mg Documented by: Multivitamins/Minerals (Prosight) 1 tab PO DAILY [facility] Last Admin: 11/25/20 07:54 Dose: 1 tab Documented by: Non-Formulary Medication (Cyclosporine [Restasis Multidose]) 1 drop EYEBOTH BID [facility] Non-Formulary Medication (Lutein [Lutein]) 20 mg PO DAILY [facility] Ondansetron HCl (Zofran) 4 mg IVPUSH Q6H PRN PRN Reason: Nausea/Vomiting Last Admin: 11/25/20 08:04 Dose: 4 mg Documented by: Pantoprazole Sodium (Protonix Iv) 40 mg IVPUSH Q12H [facility] Last Admin: 11/25/20 07:52 Dose: 40 mg Documented by: Combigan ( Brimonidine-Tomolol 0.2-0.5%) Ophth Drops 0 each EYEBOTH BID [facility] Last Admin: 11/25/20 07:56 Dose: 1 each Documented by: Fluorometholone 0.1% (Ophth Drops) 0 each EYEBOTH DAILY@1200 [facility] Last Admin: 11/24/20 12:10 Dose: 1 each Documented by: Potassium Chloride (Klor-Con M20) 20 meq PO TID [facility] Last Admin: 11/25/20 07:54 Dose: 20 meq Documented by: Sertraline HCl (Zoloft) 25 mg PO DAILY [facility] Last Admin: 11/25/20 07:54 Dose: 25 mg Documented by: Sodium Chloride (Saline Flush) 10 ml FLUSH ASDIRECTED PRN PRN Reason: Keep Vein Open Last Admin: 11/24/20 05:10 Dose: 10 ml Documented by: Sodium Chloride (Saline Flush) 10 ml FLUSH Q12HR [facility] Last Admin: 11/25/20 07:56 Dose: 10 ml Documented by: Temazepam (Restoril) 15 mg PO DAILY@2000 PRN PRN Reason: Insomnia Last Admin: 11/24/20 22:28 Dose: 15 mg Documented by: Discontinued Medications Brimonidine Tartrate (Alphagan 0.2% Ophth Soln) 0 ml EYEBOTH BID [facility] Last Admin: 11/24/20 07:50 Dose: Not Given Documented by: Famotidine (Pepcid) 20 mg IVPUSH Q24H [facility] Last Admin: 11/24/20 07:42 Dose: 20 mg Documented by: Lactated Ringer's (Ringers, Lactated) 1,000 mls @ 999 mls/hr IV .BOLUS ONE Stop: 11/24/20 05:48 Last Admin: 11/24/20 05:10 Dose: 999 mls/hr Documented by: Potassium Chloride/Dextrose/Sod Cl (D5 1/2 Ns W/ 40 Meq/L Kcl) 1,000 mls @ 100 mls/hr IV ASDIRECTED [facility] Last Admin: 11/24/20 07:43 Dose: 100 mls/hr Documented by: Non-Formulary Medication (Fluorometholone) 1 drop EYEBOTH DAILY@1200 [facility] Non-Formulary Medication (Nf Drug) each TOP TUSA [facility] Non-Formulary Medication (Nf Drug) 1 each EYEBOTH BEDTIME [facility] Ondansetron HCl (Zofran) 4 mg IVPUSH ONETIME ONE Stop: 11/24/20 04:49 Last Admin: 11/24/20 05:10 Dose: 4 mg Documented by: Timolol Maleate (Timoptic 0.5% Ophth Soln) 0 ml EYEBOTH BID [facility] Last Admin: 11/24/20 07:50 Dose: Not Given Documented by: - Exam General: Alert, Oriented Neck: Supple Lungs: Clear to Auscultation Cardiovascular: Regular Rate GI/Abdominal Exam: Soft, Non-Tender Sepsis Event Note - Evaluation Sepsis Screening Result: No Definite Risk - Focused Exam Vital Signs: Vital Signs Temp Temp Pulse Pulse Resp BP BP 11/25/20 07:55 148/79 H 11/25/20 07:53 81 148/79 H 11/25/20 07:51 97.2 F 81 20 148/79 H 11/25/20 04:00 98.1 F 82 18 143/71 H 11/25/20 01:07 97.3 F 82 15 139/59 L 11/24/20 22:29 97.3 F 81 16 121/62 Pulse Ox 11/25/20 07:55 11/25/20 07:53 11/25/20 07:51 92 L 11/25/20 04:00 98 11/25/20 01:07 93 L 11/24/20 22:29 94 L - Problem List Review Problem List Initiated/Reviewed/Updated: Yes - My Orders Last 24 Hours: My Active Orders 11/24/20 12:00 Patient's Own Medication [Ptom] 0 each EYEBOTH DAILY@1200 11/24/20 18:00 Patient's Own Medication [Ptom] 0 each EYEBOTH BID 11/25/20 Breakfast [place] Diet [DIET] - Assessment Assessment:: Imp: N/V/D - Plan Plan:: Plan: Advance diet as tolerated
[2020-11-25] MEDS: FLUOROMETHOLONE 0.1% EYEBOTH SCH (11:44)
[2020-11-25] MEDS: Sodium Chloride 0.9% 10 ML Syringe FLUSH PRN (15:43)
[2020-11-25] MEDS: Magnesium Oxide 400 MG Tab PO SCH (19:08)
[2020-11-25] MEDS: Latanoprost 0.005% Ophth Soln 2.5 ML Bottle EYEBOTH SCH (19:10)
[2020-11-25] MEDS: Temazepam 15 MG Cap PO PRN (20:06)
[2020-11-26] MEDS ORDERED: Meclizine 25 MG Tab PO PRN (07:58)
[2020-11-26] MEDS: Cholecalciferol (Vitamin D3) 25 MCG Tab PO SCH (08:21)
[2020-11-26] MEDS: Apixaban 5 MG Tab PO SCH (08:21)
[2020-11-26] MEDS: Ondansetron 4 MG/2 ML SDV IVPUSH PRN (08:21)
[2020-11-26] MEDS: Estradiol 1 MG Tab PO SCH (08:21)
[2020-11-26] MEDS: Levothyroxine 50 MCG Tab PO SCH (08:21)
[2020-11-26] MEDS: Pantoprazole 40 MG Vial IVPUSH SCH (08:21)
[2020-11-26] MEDS: atorvaSTATin 10 MG Tab PO SCH (08:21)
[2020-11-26] MEDS: Famotidine 20 MG/2 ML SDV IVPUSH SCH (08:21)
[2020-11-26] MEDS: Beta-Carotene (Vitamin A) w/Vitamin C & E plus Minerals Tab PO SCH (08:21)
[2020-11-26] MEDS: amLODIPine 5 MG Tab PO SCH (08:21)
[2020-11-26] MEDS: Sodium Chloride 0.9% 10 ML Syringe FLUSH SCH (08:21)
[2020-11-26] MEDS: Sertraline 25 MG Tab PO SCH (08:21)
[2020-11-26] MEDS: Potassium Chloride 20 MEQ Tab.ER PO SCH (08:22)
[2020-11-26] MEDS: Metoprolol Tartrate 50 MG Tab PO SCH (08:22)
[2020-11-26] MEDS: Atropine/Diphenoxylate 0.025-2.5 MG Tab PO SCH (08:22)
[2020-11-26] MEDS: COMBIGAN EYEBOTH SCH (08:26)
--- NOTE | 2020-11-26 09:13 | PCM.DCSUM1 ---
Discharge Summary - Hospital Course Free Text/Narrative:: Pt admitted with N/V?D Symptoms have improved Tolerating diet Ambulating independently Diagnosis: Stroke: No - Discharge Data Discharge Date: 11/26/20 Discharge Disposition: Home, Self-Care 01 Condition: Good - Referral to Home Health Primary Care Physician: Kenyatta Jimenez NP - Discharge Diagnosis/Problem(s) (1) Dehydration SNOMED Code(s): 29392277 ICD Code: E86.0 - DEHYDRATION Status: Acute Priority: High Current Visit: No Problem Details: Secondary to emesis/diarrhea and decreased PO intake during the last 2 days the patient has had some orthostatic type symptoms, dizziness, and probable dehydration. 1 L lactated Ringer's IV bolus initiated in the emergency room. Continue IV hydration during this h ospitalization. No known exposure to infection or food poisoning. (2) Dizziness SNOMED Code(s): 739782979, [id number] ICD Code: R42 - DIZZINESS AND GIDDINESS Status: Acute Priority: High Current Visit: No Problem Details: Patient reported lightheadedness/dizziness when she tries to get up and walk/perform ADLs. Dehydration, low Magnesium, not wanting to wear home O2, and viral infection may have all contributed to this. Much improved today per patient during rounding. Will continue her on prn Meclizine after discharge. (3) Hypokalemia SNOMED Code(s): 54881567 ICD Code: E87.6 - HYPOKALEMIA Status: Acute Priority: Medium Current Visit: No Problem Details: IV lactated Ringer's initiated in the emergency room as above. Continue potassium supplementation during this hospitalization including both initial IV and oral supplementation. Patient will be kept on clear liquids for now secondary to her recurrent nausea and emesis, however improved symptoms prior to admission. (4) Vomiting and diarrhea SNOMED Code(s): 104193057 ICD Code: R11.10 - VOMITING, UNSPECIFIED; R19.7 - DIARRHEA, UNSPECIFIED Status: Acute Priority: High Current Visit: No Onset Date: ~03/02/20 Problem Details: Pt reports vomiting and diarrhea that started last week. None observed sinde admittion. Non-bloody per description. Zofran ordered. Diet advanced as tolerated. Doing well with PO intake as of today. One episode loose stools but she attributes it to her usual IBS issues. - Patient Instructions Diet: Regular Diet as Tolerated Activity: As Tolerated Notify Provider of: Increased Pain, Nausea and/or Vomiting - Discharge Plan *PRESCRIPTION DRUG MONITORING PROGRAM REVIEWED*: Not Applicable *COPY OF PRESCRIPTION DRUG MONITORING REPORT IN PATIENT SEB: Not Applicable Home Medications: Home Meds Acetaminophen with Codeine [Acetaminophen-Cod #3] 1 tab PO Q4H PRN 02/10/20 [History] Apixaban [Eliquis] 5 mg PO BID 02/10/20 [History] Brimonidine Tartrate/Timolol [Combigan 0.2%-0.5% Eye Drops] 1 drop EYEBOTH BID 02/10/20 [History] Cholecalciferol (Vitamin D3) [Vitamin D3] 2,000 unit PO DAILY 02/10/20 [History] Cyanocobalamin (Vitamin B12) [Vitamin B12] 1,000 mcg IJ Q30D 02/10/20 [History] Cyclobenzaprine [Flexeril] 1 tab PO TID PRN 02/10/20 [History] Diphenoxylate HCl/Atropine [Lomotil] 1 tab PO DAILY 02/10/20 [History] Fluorometholone [Fluorometholone 0.1% Ophth Susp] 1 drop EYEBOTH DAILY@1200 02/10/20 [History] Hyoscyamine [Levsin] 0.125 mg PO Q4HR PRN 02/10/20 [History] Latanoprost [Xalatan] 1 drop EYEBOTH BEDTIME 02/10/20 [History] Levothyroxine [Synthroid] 50 mcg PO DAILY 02/10/20 [History] Lutein 20 mg PO DAILY 02/10/20 [History] Lutein/Minerals/Vit A,C & E [Ocuvite] 1 tab PO DAILY 02/10/20 [History] Metoprolol Tartrate 50 mg PO BID 02/10/20 [History] Nitroglycerin 0.4 mg SL ASDIRECTED PRN 02/10/20 [History] Non-Formulary Medication [NF Drug] 1 applic TOP TUSA 02/10/20 [History] amLODIPine [Norvasc] 10 mg PO DAILY 02/10/20 [History] atorvaSTATin [Lipitor] 10 mg PO DAILY 02/10/20 [History] cycloSPORINE [Restasis Multidose] 1 drop EYEBOTH BID 02/10/20 [History] estradioL [Estradiol] 1 mg PO DAILY 02/10/20 [History] methylPREDNISolone [Medrol] 12 mg PO DAILY 02/10/20 [History] Magnesium Oxide 500 mg PO BEDTIME #30 tablet 03/08/20 [Rx] Meclizine HCl 25 mg PO ASDIRECTED PRN #50 tablet 03/08/20 [Rx] Non-Formulary Medication [NF Drug] 1 each EYEBOTH BEDTIME each 03/08/20 [Rx] Sertraline [Zoloft] 25 mg PO DAILY 11/24/20 [History] Forms: ED Department Discharge Referrals: Kenyatta Jimenez, [employer] ASSIST[employer] PROFESSOR [Primary Care Provider] - - Discharge Summary/Plan Comment DC Time >30 min.: No Discharge Summary/Plan Comment: Rx Zofran 8 mg ODT One pill every 8 hours for N/V - General Info Date of Service: 11/26/20 Admission Dx/Problem (Free Text: Admitted with N/V/D and hypokalemia - Review of Systems General: Reports: Weakness HEENT: Reports: No Symptoms Pulmonary: Reports: No Symptoms Cardiovascular: Reports: No Symptoms Gastrointestinal: Reports: Nausea, Vomiting Musculoskeletal: Reports: No Symptoms Neurological: Reports: Dizziness - Patient Data Vitals - Most Recent: Last Vital Signs Temp 97.5 F 11/26/20 08:00 Pulse 78 11/26/20 08:22 Resp 20 11/26/20 08:00 BP 133/68 11/26/20 08:22 Pulse Ox 90 L 11/26/20 08:00 Weight - Most Recent: 166 lb I&O - Last 24 hours: Intake & Output 11/25/20 11/26/20 11/26/20 18:59 02:59 10:59 Intake Total 600 250 Output Total 300 300 200 Balance 300 -300 50 Lab Results - Last 24 hrs: Laboratory Results - last 24 hr 11/25/20 Range/Units 07:45 Sodium 136 (136-145) mmol/L Potassium 4.0 (3.5-5.1) mmol/L Chloride 102 (98-107) mmol/L Carbon Dioxide 23.0 (21.0-32.0) mmol/L BUN 17 (7-18) mg/dL Creatinine 1.01 (0.51-1.17) mg/dL Est Cr Clr Drug Dosing 35.98 mL/min Estimated GFR (MDRD) 52 mL/min Glucose 93 (74-106) mg/dL Calcium 8.4 L (8.5-10.1) mg/dL Magnesium 1.9 (1.8-2.4) mg/dL Total Bilirubin 0.7 (0.2-1.0) mg/dL AST 18 (15-37) U/L ALT 25 (12-78) U/L Alkaline Phosphatase 67 (46-116) IU/L Total Protein 6.1 L (6.4-8.2) g/dL Albumin 2.7 L (3.4-5.0) g/dL AKOSUA Results - Last 24 hrs: Microbiology 11/25/20 03:45 Urine Culture - Final Urine, Clean Catch MIXED BEBETO SUGGESTIVE OF CONTAMINATION. 11/24/20 04:55 Aerobic Blood Culture - Preliminary Blood - Venous NO GROWTH AFTER 2 DAYS Anaerobic Blood Culture - Preliminary NO GROWTH AFTER 2 DAYS 11/24/20 05:15 Aerobic Blood Culture - Preliminary Blood - Venous - Lab Draw NO GROWTH AFTER 2 DAYS Anaerobic Blood Culture - Preliminary NO GROWTH AFTER 2 DAYS Med Orders - Current: Current Medications Acetaminophen (Tylenol) 650 mg PO Q4H PRN PRN Reason: Pain Amlodipine Besylate (Norvasc) 10 mg PO DAILY [facility] Last Admin: 11/26/20 08:21 Dose: 10 mg Documented by: Apixaban (Eliquis) 5 mg PO BID [facility] Last Admin: 11/26/20 08:21 Dose: 5 mg Documented by: Atorvastatin Calcium (Lipitor) 10 mg PO DAILY [facility] Last Admin: 11/26/20 08:21 Dose: 10 mg Documented by: Cholecalciferol (Vitamin D3) 50 mcg PO DAILY [facility] Last Admin: 11/26/20 08:21 Dose: 50 mcg Documented by: Diphenoxylate HCl/Atropine (Lomotil 0.025-2.5 Mg) 1 tab PO DAILY [facility] Last Admin: 11/26/20 08:22 Dose: 1 tab Documented by: Estradiol (Estradiol) 1 mg PO DAILY [facility] Last Admin: 11/26/20 08:21 Dose: 1 mg Documented by: Famotidine (Pepcid) 20 mg IVPUSH Q24H [facility] Last Admin: 11/26/20 08:21 Dose: 20 mg Documented by: Hyoscyamine (Hyomax-Sl) 0.125 mg SL Q4HR PRN PRN Reason: IBS Last Admin: 11/24/20 19:57 Dose: 0.125 mg Documented by: Latanoprost (Xalatan 0.005% Ophth Soln) 0 ml EYEBOTH BEDTIME [facility] Last Admin: 11/25/20 19:10 Dose: Not Given Documented by: Levothyroxine Sodium (Synthroid) 50 mcg PO DAILY [facility] Last Admin: 11/26/20 08:21 Dose: 50 mcg Documented by: Magnesium Oxide (Magnesium Oxide) 400 mg PO BEDTIME [facility] Last Admin: 11/25/20 19:08 Dose: 400 mg Documented by: Meclizine HCl (Antivert) 25 mg PO DAILY PRN PRN Reason: Dizziness Methylprednisolone (Medrol) 12 mg PO DAILY [facility] Last Admin: 11/26/20 08:22 Dose: 12 mg Documented by: Metoprolol Tartrate (Lopressor) 50 mg PO BID [facility] Last Admin: 11/26/20 08:22 Dose: 50 mg Documented by: Multivitamins/Minerals (Prosight) 1 tab PO DAILY [facility] Last Admin: 11/26/20 08:21 Dose: 1 tab Documented by: Non-Formulary Medication (Cyclosporine [Restasis Multidose]) 1 drop EYEBOTH BID [facility] Non-Formulary Medication (Lutein [Lutein]) 20 mg PO DAILY [facility] Ondansetron HCl (Zofran) 4 mg IVPUSH Q6H PRN PRN Reason: Nausea/Vomiting Last Admin: 11/26/20 08:21 Dose: 4 mg Documented by: Pantoprazole Sodium (Protonix Iv) 40 mg IVPUSH Q12H [facility] Last Admin: 11/26/20 08:21 Dose: 40 mg Documented by: Combigan ( Brimonidine-Tomolol 0.2-0.5%) Ophth Drops 0 each EYEBOTH BID [facility] Last Admin: 11/26/20 08:26 Dose: 1 each Documented by: Fluorometholone 0.1% (Ophth Drops) 0 each EYEBOTH DAILY@1200 [facility] Last Admin: 11/25/20 11:44 Dose: 1 each Documented by: Potassium Chloride (Klor-Con M20) 20 meq PO TID [facility] Last Admin: 11/26/20 08:22 Dose: 20 meq Documented by: Sertraline HCl (Zoloft) 25 mg PO DAILY [facility] Last Admin: 11/26/20 08:21 Dose: 25 mg Documented by: Sodium Chloride (Saline Flush) 10 ml FLUSH ASDIRECTED PRN PRN Reason: Keep Vein Open Last Admin: 11/25/20 15:43 Dose: 10 ml Documented by: Sodium Chloride (Saline Flush) 10 ml FLUSH Q12HR [facility] Last Admin: 11/26/20 08:21 Dose: 10 ml Documented by: Temazepam (Restoril) 15 mg PO DAILY@2000 PRN PRN Reason: Insomnia Last Admin: 11/25/20 20:06 Dose: 15 mg Documented by: Discontinued Medications Brimonidine Tartrate (Alphagan 0.2% Ophth Soln) 0 ml EYEBOTH BID [facility] Last Admin: 11/24/20 07:50 Dose: Not Given Documented by: Famotidine (Pepcid) 20 mg IVPUSH Q24H [facility] Last Admin: 11/24/20 07:42 Dose: 20 mg Documented by: Lactated Ringer's (Ringers, Lactated) 1,000 mls @ 999 mls/hr IV .BOLUS ONE Stop: 11/24/20 05:48 Last Admin: 11/24/20 05:10 Dose: 999 mls/hr Documented by: Potassium Chloride/Dextrose/Sod Cl (D5 1/2 Ns W/ 40 Meq/L Kcl) 1,000 mls @ 100 mls/hr IV ASDIRECTED [facility] Last Admin: 11/24/20 07:43 Dose: 100 mls/hr Documented by: Non-Formulary Medication (Fluorometholone) 1 drop EYEBOTH DAILY@1200 [facility] Non-Formulary Medication (Nf Drug) each TOP TUSA [facility] Non-Formulary Medication (Nf Drug) 1 each EYEBOTH BEDTIME [facility] Ondansetron HCl (Zofran) 4 mg IVPUSH ONETIME ONE Stop: 11/24/20 04:49 Last Admin: 11/24/20 05:10 Dose: 4 mg Documented by: Timolol Maleate (Timoptic 0.5% Ophth Soln) 0 ml EYEBOTH BID [facility] Last Admin: 11/24/20 07:50 Dose: Not Given Documented by: - Exam General: Reports: Alert, Oriented Neck: Reports: Supple Lungs: Reports: Clear to Auscultation Cardiovascular: Reports: Regular Rate GI/Abdominal Exam: Soft, Non-Tender Extremities: Normal Inspection
== END 2020-11-26 10:35 | disposition home or self-care (01) ==
LOC: LL.ED 04:23 → LL.MS 06:15
PROVIDERS: ADMIT Family Medicine; ATTEND Family Medicine
DX: E86.0 Dehydration (principal); R42 Dizziness and giddiness; E87.6 Hypokalemia; R19.7 Diarrhea, unspecified; E88.09 Other disorders of plasma-protein metabolism, not elsewhere classified; N28.9 Disorder of kidney and ureter, unspecified; E78.00 Pure hypercholesterolemia, unspecified; E03.9 Hypothyroidism, unspecified; I10 Essential (primary) hypertension; I48.20 Chronic atrial fibrillation, unspecified; M81.0 Age-related osteoporosis without current pathological fracture; R74.02 Elevation of levels of lactic acid dehydrogenase [LDH]; I25.10 Atherosclerotic heart disease of native coronary artery without angina pectoris; M89.49 Other hypertrophic osteoarthropathy, multiple sites; Z20.822 Contact with and (suspected) exposure to COVID-19; Z87.891 Personal history of nicotine dependence; Z79.899 Other long term (current) drug therapy; Z90.49 Acquired absence of other specified parts of digestive tract; Z98.890 Other specified postprocedural states; Z88.8 Allergy status to other drugs, medicaments and biological substances; Z87.890 Personal history of sex reassignment
CPT/HCPCS: 36415; 74022; 80053; 81001; 82150; 82272; 83605; 83690; 83735; 84550; 85025; 85610; 85730; 87040; 87086; 87426; 87804; 96365; 96366; 96374; 96375; 96376; 99217; 99219; 99225; 99285-25; A9270-GY; C9113; G0378; J2405; J3480; J3490; J7120; J7509; U0002

== ENCOUNTER 2021-02-23 10:59 | Emergency (ER) | payer MEDICARE, OTHER ==
--- NOTE | 2021-02-23 11:14 | EDM.PDOC ---
ED HPI GENERAL MEDICAL PROBLEM - General Chief Complaint: General Stated Complaint: Dizziness, Fall at home Time Seen by Provider: 02/23/21 11:10 Source of Information: Reports: Patient, EMS, Old Records ([facility] EMR. No paper hospital chart available.). Denies: EMS Notes Reviewed (Not available at time of dictation) History Limitations: Reports: No Limitations - History of Present Illness INITIAL COMMENTS - FREE TEXT/NARRATIVE: The patient was brought to the emergency room via ambulance with county commissioner accompaniment with dressing on the right forearm placed prior to arrival. The patient has been having some nonspecific intermittent vertigo and dizziness since about 3 AM on 02/22 with occasional near falls since that time with minor fall earlier this morning at home at about 8:30 AM when she tried to move from her walker chair to the recliner. Her knees gave out and she landed on her hands and knees with no pain in these locations and no history of head injury, loss of consciousness, change in mental status, headaches, visual changes, neck/back pain, etc. She does have a left lateral leg skin tear from 1 week ago with a new skin tear on her right forearm from today's minor fall. The patient denies any chest pain/pressure, heart flutter, orthostasis, orthopnea, diaphoresis, paresthesias, recent decreased exercise tolerance, or any other anginal-type symptoms. No recent history of abdominal pain, heartburn, nausea, diarrhea, melena, gross hematochezia, or any food intolerance, including fatty foods, etc. with normal bowel movement earlier today. She denies any gross hematuria, colic, or the UTI symptoms. The patient also denies any recent fever, cough, wheezing, dyspnea, etc.. She denies any specific pain or discomfort at this time. Onset: Today, Sudden Onset Date: 02/23/21 Onset Time: 08:30 Duration: Other (No pain) Location: Reports: Upper Extremity, Right (New skin tear as above). Denies: Head, Face, Neck, Chest, Abdomen, Back, Pelvis, Upper Extremity, Left, Lower Extremity, Left (Old skin tear as above), Lower Extremity, Right Quality: Reports: Same as Previous Episode Improves with: Reports: None Worsens with: Reports: None Context: Reports: Trauma (As above). Denies: Sick Contact Associated Symptoms: Denies: Confusion, Chest Pain, Cough, cough w sputum, Diap horesis, Fever/Chills, Headaches, Malaise, Nausea/Vomiting, Seizure, Shortness of Breath, Syncope, Weakness Treatments INFORMATION BROKER: Reports: Dressing(s) - Related Data Allergies Allergy/AdvReac Type Severity Reaction Status Date / Time dog dander Allergy Other Verified 02/23/21 11:16 grass pollen-perennial rye, Allergy Other Verified 02/23/21 11:16 standar tree and shrub pollen Allergy congestion Verified 02/23/21 11:16 amiodarone AdvReac Severe Hypotension, Verified 02/23/21 11:16 Shortness of breaath flecainide AdvReac Severe shortness Verified 02/23/21 11:16 of breath,severe hypotention Home Meds: Home Meds Acetaminophen with Codeine [Acetaminophen-Cod #3] 1 tab PO Q4H PRN 02/10/20 [History] Brimonidine Tartrate/Timolol [Combigan 0.2%-0.5% Eye Drops] 1 drop EYEBOTH BID 02/10/20 [History] Cholecalciferol (Vitamin D3) [Vitamin D3] 2,000 unit PO DAILY 02/10/20 [History] Cyanocobalamin (Vitamin B12) [Vitamin B12] 1,000 mcg IJ Q30D 02/10/20 [History] Cyclobenzaprine [Flexeril] 1 tab PO TID PRN 02/10/20 [History] Fluorometholone [Fluorometholone 0.1% Ophth Susp] 1 drop EYEBOTH DAILY@1200 02/10/20 [History] Hyoscyamine [Levsin] 0.125 mg PO Q4HR PRN 02/10/20 [History] Latanoprost [Xalatan] 1 drop EYEBOTH BEDTIME 02/10/20 [History] Levothyroxine [Synthroid] 50 mcg PO DAILY 02/10/20 [History] Metoprolol Tartrate 50 mg PO BID 02/10/20 [History] Nitroglycerin 0.4 mg SL ASDIRECTED PRN 02/10/20 [History] Non-Formulary Medication [NF Drug] 1 applic TOP TUSA 02/10/20 [History] amLODIPine [Norvasc] 10 mg PO DAILY 02/10/20 [History] atorvaSTATin [Lipitor] 10 mg PO DAILY 02/10/20 [History] cycloSPORINE [Restasis Multidose] 1 drop EYEBOTH BID 02/10/20 [History] estradioL [Estradiol] 1 mg PO DAILY 02/10/20 [History] methylPREDNISolone [Medrol] 12 mg PO DAILY 02/10/20 [History] Diphenoxylate HCl/Atropine [Lomotil] 2.5 mg PO ASDIRECTED PRN 02/23/21 [History] Lutein 20 mg PO DAILY 02/23/21 [History] Lutein/Minerals/Vit A,C & E [Ocuvite] 1 tab PO DAILY 02/23/21 [History] Magnesium Oxide 500 mg PO QPM 02/23/21 [History] Meclizine HCl 25 mg PO QID PRN #30 tablet 02/23/21 [Rx] Warfarin [Coumadin] 2 mg PO DAILY 02/23/21 [History] Past Medical History HEENT History: Reports: Allergic Rhinitis, Cataract, Glaucoma, Impaired Vision, Other (See Below). Denies: Hard of Hearing, Macular Degeneration, Retinal Detachment Other HEENT History: Dry eye syndrome. Patient wears glasses. Cardiovascular History: Reports: Afib, CAD, High Cholesterol, Hypertension, PTCA, Other (See Below). Denies: Aneurysm, Arrhythmia, Blood Clots/VTE/DVT, Cardiomyopathy, Heart Failure, Heart Murmur, CO, Stents, Syncope Other Cardiovascular History: Patient denies previous stent with only PTCA performed as below. She is not certain whether she had an CO. Respiratory History: Reports: Bronchitis, Recurrent, COPD, Intubation, Previous, Other (See Below). Denies: Asthma, Intubation, Difficult, PE, Pneumonia, Recurrent, Pneumothorax, Sleep Apnea, TB Other Respiratory History: recent bronchitis Gastrointestinal History: Reports: Cholelithiasis, Chronic Diarrhea, Colon Poly p, Diverticulosis, GI Bleed, Hemorrhoids, Irritable Bowel Syndrome, Other (See Below). Denies: Celiac Disease, Chronic Constipation, Fatty Liver, Fecal Incontinence, Gastritis, GERD, Hepatitis, Hiatal Hernia, Inflammatory Bowel Disease, Jaundice, Pancreatitis, PUD Other Gastrointestinal History: Lower GI bleed of unknown etiology in 2019 with colonoscopy performed as below. Genitourinary History: Reports: Chronic Renal Insuffiency, Urinary Incontinence, Other (See Below). Denies: Acute Renal Failure, Renal Calculus, STD, UTI, Recurrent TORCH OPERATOR History: Reports: Dysfunctional Uterine Bleeding, , Spontaneous : 3 Para: 2 LMP (Approximate): Other (See Below) Other TORCH OPERATOR History: Surgical menopause as below. SAB during first trimester requiring D&C. Otherwise, full term without complications during pregnancies or deliveries Musculoskeletal History: Reports: Arthritis, Back Pain, Chronic, Fracture, Osteoarthritis, Osteoporosis, Other (See Below). Denies: Amputation, Gout, Neck Pain, Chronic, RA, SLE Other Musculoskeletal History: Right foot fracture. Right thumb fracture in about 2018. Polymyalgia rheumatica with chronic prednisone therapy. Scoliosis. Kirt's syndrome. Neurological History: Reports: Headaches, Chronic, Vertigo. Denies: Alzheimers Disease, Cerebral Aneurysms, Concussion, CVA, Head Trauma, Migraines, Neuropathy, Peripheral, Seizure, TIA Psychiatric History: Reports: Anxiety, Depression. Denies: Abuse, Victim of, ADD, ADHD, Addiction, Hallucinations, PTSD, Suicide Attempt, Suicidal Ideation Endocrine/Metabolic History: Reports: Hypokalemia, Hypomagnesemia, Hypothyroidism, Obesity/BMI 30+, Osteopenia, Osteoporosis, Other (See Below). Denies: Diabetes, Gestational, Diabetes, Type I, Diabetes, Type II, Diabetes Mellitus, Type 3c, IDDM Other Endocrine/Metabolic History: Hypoalbuminemia. Hematologic History: Reports: Anemia, B12 Deficiency, Blood Transfusion(s), Other (See Below). Denies: Iron Deficiency Other Hematologic History: Anemia with first with transfusion in 1956. Immunologic History: Reports: Immunosuppression, Other (See Below). 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 Oncologic (Cancer) History: Reports: Basal Cell Carcinoma, Other (See Below). Denies: Breast, Cervix, Colon, Hodgkin's Lymphoma, Leukemia, Lymphoma, Malignant Melanoma, Non-Hodgkin's Lymphoma, Ovarian, Squamous Cell Carcinoma, Uterine Other Oncologic History: Basal cell carcinoma of the nose in 2014. Dermatologic History: Reports: Venous Stasis Dermatitis, Other (See Below). Denies: Eczema, Psoriasis Other Dermatologic History: Skin atrophy secondary to chronic prednisone therapy. - Infectious Disease History Infectious Disease History: Reports: Chicken Pox, Measles, Rubella. Denies: C- Difficile, Meningitis, Mononucleosis, MRSA, Mumps, Novel Coronavirus (The patient did receive 2 previous COVID-19 Moderna immunization with last dose in December 2020.), Pertussis (Whooping Cough), Rheumatic Fever, RSV, Scarlet Fever, Shingles, VRE - Past Surgical History Head Surgeries/Procedures: Reports: None HEENT Surgical History: Reports: Adenoidectomy, Cataract Surgery, Laser Surgery, Oral Surgery, Tonsillectomy, Other (See Below). Denies: Eye Surgery, LASIK, Myringotomy w Tube(s), Naso-Sinus Surgery Other HEENT Surgeries/Procedures: Tonsillectomy and adenoidectomy in 1950. Bilateral cataract surgery in 2003. [place] teeth extraction. Bilateral ocular laser treatments x6 secondary to her glaucoma. Right upper lid ptosis repair in September 2018 with bilateral repair in 2001. Cardiovascular Surgical History: Reports: Percutaneous Transluminal Angioplasty, Other (See Below). Denies: Coronary Artery Bypass, Coronary Artery Stent, Varicose Other Cardiovascular Surgeries/Procedures: PTCA x1 in 1998 with patient denying previous stent placement at that time. Respiratory Surgical History: Reports: None. Denies: Thoracentesis GI Surgical History: Reports: Appendectomy, Cholecystectomy, Colonoscopy, Polypectomy, Other (See Below). Denies: EGD, Hernia, Abdominal, Hernia, Inguinal, Hernia Repair/Other Other GI Surgeries/Procedures: Laparoscopic cholecystectomy in 2000. Last colonoscopy on 02/05/2019 with polypectomy at that time. Incidental appendectomy at time of hysterectomy as below. Female Surgical History: Reports: Breast Implant, D&C, Dilitation & Evacuation, Hysterectomy, Other (See Below). Denies: Oophorectomy, Salpingo- Oophorectomy, Tubal Ligation Other Female Surgeries/Procedures: Bilateral breast implants in 1966. D&C secondary to SAB. Incomplete hysterectomy secondary to dysfunctional bleeding in 1970. Endocrine Surgical History: Reports: None. Denies: Thyroid Biopsy Neurological Surgical History: Reports: None. Denies: C-Spine, Discectomy, Laminectomy, Lumbar Spine, Sacral Spine, Spinal Fusion, Thoracic Spine, Vertebroplasty Musculoskeletal Surgical History: Reports: None, Carpal Tunnel, Other (See Below). Denies: Arthroscopic Procedure, Ganglion Cyst, Joint Replacement, ORIF, Shoulder Surgery Other Musculoskeletal Surgeries/Procedures:: Right carpal tunnel release in 1978. Oncologic Surgical History: Reports: None Dermatological Surgical History: Reports: Skin Biopsy, Other (See Below) Other Dermatological Surgeries/Procedures: Excision of basal cell carcinoma from the nose as above. - Past Imaging History Past Imaging History: Reports: Angiography (1998), Holter Monitor (March 2020) Social & Family History - Family History HEENT: Reports: Macular Degeneration, Other (See Below). Denies: Glaucoma, Retinal Detachment Other HEENT Family History: Father, brother, and sisters x2 with macular degeneration. Cardiac: Reports: Aneurysm, Bypass, CAD, Heart Murmur, Heart Valve Replacement, High Cholesterol, Hypertension, CO, Stent, Other (See Below). Denies: Afib, Arrhythmia, Heart Failure, PVD/COD, Syncope Other Cardiac Family History: Mother with 2 previous CABGs with history of recurrent MIs with fatal CO at age 84. Father with history of CABG with history of recurrent MIs. Brother with several CABGs and MIs. Sister with valve replacement. Brother with CABG and aortic dissection in his 60s. Brother with CO and PTCA/stent in his 50s. Hypertension hyperlipidemia and siblings x6. Respiratory: Reports: None. Denies: Asthma, COPD, Pneumothorax, Sleep Apnea GI: Reports: None. Denies: Celiac Disease, Cholelithiasis, Colon Polyps, GERD, GI bleed, Inflammatory Bowel Disease, Irritable Bowel Syndrome, PUD : Reports: None. Denies: Renal Calculus, Renal Disease/Insufficiency OBGYN: Reports: None. Denies: Dysfunctional uterine bleeding, Endometriosis, Fibroids, Recurrent Spontaneous Musculoskeletal: Reports: None. Denies: Arthritis, Gout, RA, SLE Neurological: Reports: CVA, Migraines, Parkinson's, Other (See Below). Denies: Alzheimers Disease, Cerebral Aneurysms, Dementia, MS, Seizure, TIA Other Neurological Family History: Sister with migraines. Father with fatal CVA at age 82. Brothers x2 with Parkinson's disease. Psychiatric: Reports: None. Denies: Abuse, Victim of, ADD, ADHD, Anxiety, Depression, Psych Hospitalization(s), PTSD, Suicide Attempt Endocrine/Metabolic: Reports: Diabetes, type II, Obesity/MBI 30+, Other (See Below). Denies: Diabetes, Gestational, Diabetes, Type I, Diabetes Mellitus, Type 3c, IDDM Other Endocrine/Metabolic Family History: Brother with morbid obesity and AODM. Hematologic: Reports: None. Denies: SLE Immunologic: Reports: None. Denies: AIDS, HIV, SLE Dermatologic: Reports: None. Denies: Eczema, Psoriasis Oncologic: Reports: Colon, Thyroid, Other (See Below). Denies: Breast, Cervix, Hodgkin's Lymphoma, Leukemia, Lymphoma, Non-Hodgkin's Lymphoma, Ovarian, Skin, Uterine Other Oncologic Family History: Mother with rectal cancer. Sister with multiple myeloma. Sister with thyroid cancer at age 15. - Tobacco Use Tobacco Use Status *Q: Former Tobacco User Tobacco Use Within Last Twelve Months: No Years of Tobacco use: 37 Packs/Tins Daily: 1 Packs/Tins Daily Comment: Started smoking at age 20 with brief periods of maximum use of 3 packs/day during her divorce. She quit smoking 1991. Used Tobacco, but Quit: Yes Smoking Cessation Information Provided To Patient: No Second Hand Smoke Exposure: No Second Hand Smoke Education Provided: No - Caffeine Use Caffeine Use: Reports: Coffee (1-2 cups/day), Tea (Occasional). Denies: Energy Drinks, Soda - Alcohol Use Alcohol Use History: Yes Days Per Week of Alcohol Use: 0 Number of Drinks Per Day: 1 Number of Drinks Per Day Comment: Usually mixed drinks once per month. No previous DWIs, problems with alcohol abuse, etc. 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 ED EXAM, GENERAL - Physical Exam Exam: See Below Exam Limited By: No Limitations General Appearance: Alert, WD/WN, No Apparent Distress, Anxious (Mild) Eye Exam: Bilateral Eye: EOMI, Normal Fundi, Normal Inspection (Patient is wearing glasses. Mild vertigo without nystagmus with head movement), PERRL Ears: Normal External Exam, Normal Canal, Hearing Grossly Normal, Normal TMs Nose: Normal Inspection, Normal Mucosa, No Blood Throat/Mouth: Normal Inspection, Normal Lips, Normal Teeth (Occasional missing teeth), Normal Gums, Normal Oropharynx, Normal Voice, No Airway Compromise. No: Dysphagia Head: Atraumatic, Normocephalic. No: Facial Swelling, Facial Tenderness, Sinus Tenderness Neck: Supple, Non-Tender, Full Range of Motion, Carotid Bruit (Mild bilateral carotid). No: Lymphadenopathy (L), Lymphadenopathy (R), Thyromegaly Respiratory/Chest: No Respiratory Distress, Lungs Clear, Normal Breath Sounds, No Accessory Muscle Use, Chest Non-Tender. No: Pleural Rub, Retractions Cardiovascular: Normal Peripheral Pulses, No Gallop, No JVD, No Murmur, No Rub, Irregularly Irregular. No: No Edema (Dependent edema as below), Gallop/S3, Gallop/S4, Friction Rub Peripheral Pulses: 2+: Radial (L), Radial (R), Dorsalis Pedis (L), Dorsalis Pedis (R) GI/Abdominal: Normal Bowel Sounds, Soft, Non-Tender, No Organomegaly, No Distention, No Abnormal Bruit, No Mass, Pelvis Stable. No: Guarding (Female) Exam: Deferred Rectal (Female) Exam: Deferred Back Exam: Normal Inspection, Full Range of Motion. No: CVA Tenderness (L), CVA Tenderness (R), Muscle Spasm Extremities: Normal Range of Motion, Non-Tender, Normal Capillary Refill, Pedal Edema (Trace+1 bilateral pedal/pretibial edema) Neurological: Alert, Oriented, CN II-XII Intact, Normal Cognition, Normal Gait, Normal Reflexes (Negative Babinski's), No Motor/Sensory Deficits Psychiatric: Anxious (Mild), Depressed Mood (Borderline) Skin Exam: Ecchymosis (Moderate diffuse lower lower extremities and hands/forearms bilaterally secondary to current Eliquis therapy with no evidence of significant acute bleeding), Rash (Moderate venous stasis dermatitis of the lower extremities bilaterally, right greater than left.), Wound/Incision (Old 3 cm in length skin tear over the left distal fibular area with no local signs of infection. New 1.5 cm skin tear over the proximal right ulna region.). No: Diaphoretic, Lymphangitis, Petechiae Lymphatic: No Adenopathy Course - Vital Signs Last Recorded V/S: Last Vital Signs Temp 36.2 C 02/23/21 11:01 Pulse 64 02/23/21 11:01 Resp 18 02/23/21 11:01 BP 142/59 H 02/23/21 11:01 Pulse Ox 93 L 02/23/21 11:01 Vital Signs - 24 hr 02/23/21 11:01 Temperature [ 36.2 C Temporal] Pulse, 64 Peripheral [ Left Pulse Oximetry] Respiratory 18 Rate Blood Pressure 142/59 H [Left Upper Arm ] O2 Sat by Pulse 93 L Oximetry - Orders/Labs/Meds Orders: Active Orders 24 hr Category Date Time Status Obtain Past Medical Record [OM.PC] Routine Oth 02/23/21 11:30 Active Labs: None Meds: Medications Discontinued Medications Generic Name Dose Route Start Last Admin Trade Name Michealq PRN Reason Stop Dose Admin Diphtheria/Tetanus/Acell Pertussis 0.5 ml 02/23/21 11:34 02/23/21 11:46 Diphtheria,Pertussis(Acell),Tetanus Vaccine 0.5 Ml Syringe IM 02/23/21 11:35 0.5 ml .ONCE ONE Administration Neomycin/Polymyxin/Bacitracin 2 each 02/23/21 11:34 02/23/21 11:39 Bacitracin/Neomycin/Polymyxin B Oint 0.9 Gm U/D Packet TOP 02/23/21 11:35 2 each ONETIME ONE Administration - Radiology Interpretation Free Text/Narrative:: None Departure - Departure Time of Disposition: 12:25 Disposition: Home, Self-Care 01 Condition: Good Clinical Impression: Mixed anxiety depressive disorder, Skin tear Labyrinthitis Qualifiers: Laterality: unspecified laterality Qualified Code(s): H83.09 - Labyrinthitis, unspecified ear CAD (coronary artery disease) Qualifiers: Coronary Disease-Associated Artery/Lesion type: [place] artery [place] vs. transplanted heart: [place] heart Associated angina: without angina Qualified Code(s): I25.10 - Atherosclerotic heart disease of [place] coronary artery without angina pectoris Afib Qualifiers: Atrial fibrillation type: unspecified chronic Qualified Code(s): I48.20 - Chronic atrial fibrillation, unspecified Hypertension Qualifiers: Hypertension type: essential hypertension Qualified Code(s): I10 - Essential (primary) hypertension Osteoarthritis Qualifiers: Osteoarthritis location: multiple joints Osteoarthritis type: primary Qualified Code(s): M89.49 - Other hypertrophic osteoarthropathy, multiple sites - Discharge Information *PRESCRIPTION DRUG MONITORING PROGRAM REVIEWED*: Not Applicable *COPY OF PRESCRIPTION DRUG MONITORING REPORT IN PATIENT SEB: Not Applicable Prescriptions: Meclizine HCl 25 mg PO QID PRN #30 tablet PRN Reason: Dizziness Instructions: Labyrinthitis, [id number] Referrals: Kenyatta Jimenez [facility] SPECIALIST [Primary Care Provider] - Forms: ED Department Discharge Additional Instructions: 1. Follow up with your regular provider in 10-14 days as needed, if symptoms persist. Bring these discharge instructions with you to that visit. 2. Antibacterial soap wash/soak with subsequent antibacterial dressing such as Neosporin, etc. as directed 2 times per day until the wound or laceration site completely heals. Keep the area clean and dry with activity restrictions as discussed. Never use hydrogen peroxide for wound care. 3. Use meclizine with discretion secondary to your current Coumadin therapy with this medicine intended only for significant symptoms of dizziness or vertigo. Dry mouth, confusion, and sedation precautions with this medication. Your Flexeril/cyclobenzaprine should not be taken on the same days that you take meclizine. 4. Continue strict fall precautions and walker use especially while you still have your dizziness. 5. Immediately after this visit verify that your cellular telephone's voicemail has been activated and is empty. Also verify that your home telephone's answering machine is operating properly and has space to receive messages. Note that it is sometimes necessary for us to be able to contact you at a later date to discuss your medical care. 6. Please remember that we are ALWAYS here for you and want to answer any questions you may have. Feel free to call the hospital any time and we call you back NAYE. Sepsis Event Note (ED) - Evaluation Sepsis Screening Result: No Definite Risk - Problem List & Annotations (1) Labyrinthitis SNOMED Code(s): 22679446 Code(s): H83.09 - LABYRINTHITIS, UNSPECIFIED EAR Status: Acute Priority: High Onset Date: 02/21/21 Annotation/Comment:: Progressive labyrinthitis with recurrent falls as above. Symptomatic relief as per discharge instructions. Dry mouth, confusion, sedation precautions were given to the patient when using this medication. Qualifiers: Laterality: unspecified laterality Qualified Code(s): H83.09 - Labyrinthi tis, unspecified ear (2) Skin tear SNOMED Code(s): 515810821 Code(s): VBH4926 - Status: Acute Priority: High Onset Date: 02/23/21 Annotation/Comment:: Neosporin dressings placed by the nurse. Wound care instructions were discussed. Note skin atrophy secondary to chronic steroid therapy. DTaP was given. (3) CAD (coronary artery disease) SNOMED Code(s): 99327287 Code(s): I25.10 - ATHSCL HEART DISEASE OF [place] CORONARY ARTERY W/O ANG PCTRS Status: Chronic Priority: Medium Annotation/Comment:: No chest pain or anginal type symptoms. Qualifiers: Coronary Disease-Associated Artery/Lesion type: [place] artery [place] vs. transplanted heart: [place] heart Associated angina: without angina Qualified Code(s): I25.10 - Atherosclerotic heart disease of [place] coronary artery without angina pectoris (4) Hypertension SNOMED Code(s): 39358925 Code(s): I10 - ESSENTIAL (PRIMARY) HYPERTENSION Status: Chronic Priority: Medium Annotation/Comment:: Stable vitals in the emergency room. Observe closely by her regular providers. Qualifiers: Hypertension type: essential hypertension Qualified Code(s): I10 - Essential (primary) hypertension (5) Osteoarthritis SNOMED Code(s): 098746085 Code(s): M19.90 - UNSPECIFIED OSTEOARTHRITIS, UNSPECIFIED SITE Status: Chronic Priority: Medium Annotation/Comment:: Stable by history with no history of other injury. Note history of polymyalgia rheumatica. Qualifiers: Osteoarthritis location: multiple joints Osteoarthritis type: primary Qualified Code(s): M89.49 - Other hypertrophic osteoarthropathy, multiple sites (6) Afib SNOMED Code(s): 09772354 Code(s): I48.91 - UNSPECIFIED ATRIAL FIBRILLATION Status: Chronic Priority: Medium Annotation/Comment:: No history of chest pain or anginal type symptoms. Patient did switch from previous Eliquis therapy back to Coumadin with therapeutic INR of 2.81-week ago by her history. Qualifiers: Atrial fibrillation type: unspecified chronic Qualified Code(s): I48.20 - Chronic atrial fibrillation, unspecified; I48.2 - Chronic atrial fibrillation - Problem List Review Problem List Initiated/Reviewed/Updated: Yes - My Orders Last 24 Hours: My Active Orders 02/23/21 11:30 Obtain Past Medical Record [OM.PC] Routine - Assessment/Plan Last 24 Hours: My Active Orders 02/23/21 11:30 Obtain Past Medical Record [OM.PC] Routine Assessment:: As above Plan: As above. Extensive precautions were given to the patient, who is in agreement with the treatment plan. See Patient Instructions for further treatment and plan.
[2021-02-23] MEDS: Bacitracin/Neomycin/Polymyxin B Oint 0.9 GM U/D Packet TOP ONE (11:39)
[2021-02-23] MEDS: Diphtheria,Pertussis(Acell),Tetanus Vaccine 0.5 ML Syringe IM ONE (11:46)
== END 2021-02-23 12:25 | disposition home or self-care (01) ==
LOC: LL.ED 10:59
DX: S51.811A Laceration without foreign body of right forearm, initial encounter (principal); M89.49 Other hypertrophic osteoarthropathy, multiple sites; I10 Essential (primary) hypertension; I48.20 Chronic atrial fibrillation, unspecified; I25.10 Atherosclerotic heart disease of native coronary artery without angina pectoris; F41.8 Other specified anxiety disorders; I48.91 Unspecified atrial fibrillation; E78.00 Pure hypercholesterolemia, unspecified; J44.9 Chronic obstructive pulmonary disease, unspecified; M19.90 Unspecified osteoarthritis, unspecified site; E03.9 Hypothyroidism, unspecified; E66.9 Obesity, unspecified; Z68.26 Body mass index [BMI] 26.0-26.9, adult; Z79.01 Long term (current) use of anticoagulants; Z87.891 Personal history of nicotine dependence; Z91.048 Other nonmedicinal substance allergy status; Z88.8 Allergy status to other drugs, medicaments and biological substances; Z79.899 Other long term (current) drug therapy; Z23 Encounter for immunization; W19.XXXA Unspecified fall, initial encounter
CPT/HCPCS: 90471; 90715; 99284; 99284-25

== ENCOUNTER 2021-05-28 16:14 | Inpatient (IN) | payer MEDICARE, OTHER ==
--- NOTE | 2021-05-28 16:22 | EDM.PDOC ---
ED HPI GENERAL MEDICAL PROBLEM - General Chief Complaint: Fever Stated Complaint: Fever, Nausea Time Seen by Provider: 05/28/21 16:18 Source of Information: Reports: Patient History Limitations: Reports: No Limitations - History of Present Illness INITIAL COMMENTS - FREE TEXT/NARRATIVE: Patient comes to ER with complaint of nausea/feverish feeling/chills today. Called EMS. Also reports loose stools/abdominal cramping. Hx IBS/says this is worse cramping that usual. No fevers. No HEENT/respiratory/UTI complaints. Lives at [facility] and in in contact with residents there. Is unaware of anyone else there being ill. - Related Data Allergies Allergy/AdvReac Type Severity Reaction Status Date / Time dog dander Allergy Other Verified 02/23/21 11:16 grass pollen-perennial rye, Allergy Other Verified 02/23/21 11:16 standar tree and shrub pollen Allergy congestion Verified 02/23/21 11:16 amiodarone AdvReac Severe Hypotension, Verified 02/23/21 11:16 Shortness of breaath flecainide AdvReac Severe shortness Verified 02/23/21 11:16 of breath,severe hypotention Home Meds: Home Meds Acetaminophen with Codeine [Acetaminophen-Cod #3] 1 tab PO Q4H PRN 02/10/20 [History] Brimonidine Tartrate/Timolol [Combigan 0.2%-0.5% Eye Drops] 1 drop EYEBOTH BID 02/10/20 [History] Cholecalciferol (Vitamin D3) [Vitamin D3] 2,000 unit PO DAILY 02/10/20 [History] Cyanocobalamin (Vitamin B12) [Vitamin B12] 1,000 mcg IJ Q30D 02/10/20 [History] Cyclobenzaprine [Flexeril] 1 tab PO TID PRN 02/10/20 [History] Fluorometholone [Fluorometholone 0.1% Ophth Susp] 1 drop EYEBOTH DAILY@1200 02/10/20 [History] Hyoscyamine [Levsin] 0.125 mg PO Q4HR PRN 02/10/20 [History] Latanoprost [Xalatan] 1 drop EYEBOTH BEDTIME 02/10/20 [History] Levothyroxine [Synthroid] 50 mcg PO DAILY 02/10/20 [History] Metoprolol Tartrate 50 mg PO BID 02/10/20 [History] Nitroglycerin 0.4 mg SL ASDIRECTED PRN 02/10/20 [History] Non-Formulary Medication [NF Drug] 1 applic TOP TUSA 02/10/20 [History] amLODIPine [Norvasc] 10 mg PO DAILY 02/10/20 [History] atorvaSTATin [Lipitor] 10 mg PO DAILY 02/10/20 [History] cycloSPORINE [Restasis Multidose] 1 drop EYEBOTH BID 02/10/20 [History] estradioL [Estradiol] 1 mg PO DAILY 02/10/20 [History] methylPREDNISolone [Medrol] 12 mg PO DAILY 02/10/20 [History] Diphenoxylate HCl/Atropine [Lomotil] 2.5 mg PO ASDIRECTED PRN 02/23/21 [History] Lutein 20 mg PO DAILY 02/23/21 [History] Lutein/Minerals/Vit A,C & E [Ocuvite] 1 tab PO DAILY 02/23/21 [History] Magnesium Oxide 500 mg PO QPM 02/23/21 [History] Meclizine HCl 25 mg PO QID PRN #30 tablet 02/23/21 [Rx] Warfarin [Coumadin] 2 mg PO DAILY 02/23/21 [History] Brinzolamide [Azopt 1% Ophth Susp] 1 drop EYEBOTH BID 05/28/21 [History] Netarsudil Mesylat/Latanoprost [Rocklatan 0.02%-0.005% Eye Drp] 1 drop EYEBOTH BEDTIME 05/28/21 [History] Past Medical History HEENT History: Reports: Allergic Rhinitis, Cataract, Glaucoma, Impaired Vision, Other (See Below). Denies: Hard of Hearing, Macular Degeneration, Retinal Detachment Other HEENT History: Dry eye syndrome. Patient wears glasses. Cardiovascular History: Reports: Afib, CAD, High Cholesterol, Hypertension, PTCA, Other (See Below). Denies: Aneurysm, Arrhythmia, Blood Clots/VTE/DVT, Cardiomyopathy, Heart Failure, Heart Murmur, IN, Stents, Syncope Other Cardiovascular History: Patient denies previous stent with only PTCA performed as below. She is not certain whether she had an IN. Respiratory History: Reports: Bronchitis, Recurrent, COPD, Intubation, Previous, Other (See Below). Denies: Asthma, Intubation, Difficult, PE, Pneumonia, Recurrent, Pneumothorax, Sleep Apnea, TB Other Respiratory History: recent bronchitis Gastrointestinal History: Reports: Cholelithiasis, Chronic Diarrhea, Colon Polyp, Diverticulosis, GI Bleed, Hemorrhoids, Irritable Bowel Syndrome, Other (See Below). Denies: Celiac Disease, Chronic Constipation, Fatty Liver, Fecal Incontinence, Gastritis, GERD, Hepatitis, Hiatal Hernia, Inflammatory Bowel Disease, Jaundice, Pancreatitis, PUD Other Gastrointestinal History: Lower GI bleed of unknown etiology in 2019 with colonoscopy performed as below. Genitourinary History: Reports: Chronic Renal Insuffiency, Urinary Incontinence, Other (See Below). Denies: Acute Renal Failure, Renal Calculus, STD, UTI, Recurrent [employer] History: Reports: Dysfunctional Uterine Bleeding, , Spontaneous Other [employer] History: Surgical menopause as below. SAB during first trimester requiring D&C. Otherwise, full term without complications during pregnancies or deliveries Musculoskeletal History: Reports: Arthritis, Back Pain, Chronic, Fracture, Osteoarthritis, Osteoporosis, Other (See Below). Denies: Amputation, Gout, Neck Pain, Chronic, RA, SLE Other Musculoskeletal History: Right foot fracture. Right thumb fracture in about 2018. Polymyalgia rheumatica with chronic prednisone therapy. Scoliosis. Kirt's syndrome. Neurological History: Reports: Headaches, Chronic, Vertigo. Denies: Alzheimers Disease, Cerebral Aneurysms, Concussion, CVA, Head Trauma, Migraines, Neuropathy, Peripheral, Seizure, TIA Psychiatric History: Reports: Anxiety, Depression. Denies: Abuse, Victim of, ADD, ADHD, Addiction, Hallucinations, PTSD, Suicide Attempt, Suicidal Ideation Endocrine/Metabolic History: Reports: Hypokalemia, Hypomagnesemia, Hypothyroidism, Obesity/BMI 30+, Osteopenia, Osteoporosis, Other (See Below). Denies: Diabetes, Gestational, Diabetes, Type I, Diabetes, Type II, Diabetes Mellitus, Type 3c, IDDM Other Endocrine/Metabolic History: Hypoalbuminemia. Hematologic History: Reports: Anemia, B12 Deficiency, Blood Transfusion(s), Other (See Below). Denies: Iron Deficiency Other Hematologic History: Anemia with first with transfusion in 1956. Immunologic History: Reports: Immunosuppression, Other (See Below). 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 Oncologic (Cancer) History: Reports: Basal Cell Carcinoma, Other (See Below). Denies: Breast, Cervix, Colon, Hodgkin's Lymphoma, Leukemia, Lymphoma, Malignant Melanoma, Non-Hodgkin's Lymphoma, Ovarian, Squamous Cell Carcinoma, Uterine Other Oncologic History: Basal cell carcinoma of the nose in 2015. Dermatologic History: Reports: Venous Stasis Dermatitis, Other (See Below). Denies: Eczema, Psoriasis Other Dermatologic History: Skin atrophy secondary to chronic prednisone therapy. - Infectious Disease History Infectious Disease History: Reports: Chicken Pox, Measles, Rubella. Denies: C- Difficile, Meningitis, Mononucleosis, MRSA, Mumps, Novel Coronavirus (The patient did receive 2 previous COVID-19 Moderna immunization with last dose in December 2020.), Pertussis (Whooping Cough), Rheumatic Fever, RSV, Scarlet Fever, Shingles, VRE - Past Surgical History Head Surgeries/Procedures: Reports: None HEENT Surgical History: Reports: Adenoidectomy, Cataract Surgery, Laser Surgery, Oral Surgery, Tonsillectomy, Other (See Below). Denies: Eye Surgery, LASIK, Myringotomy w Tube(s), Naso-Sinus Surgery Cardiovascular Surgical History: Reports: Percutaneous Transluminal Angioplasty, Other (See Below). Denies: Coronary Artery Bypass, Coronary Artery Stent, Varicose Respiratory Surgical History: Reports: None. Denies: Thoracentesis GI Surgical History: Reports: Appendectomy, Cholecystectomy, Colonoscopy, Polypectomy, Other (See Below). Denies: EGD, Hernia, Abdominal, Hernia, Inguinal, Hernia Repair/Other Female Surgical History: Reports: Breast Implant, D&C, Dilitation & Evacuation, Hysterectomy, Other (See Below). Denies: Oophorectomy, Salpingo- Oophorectomy, Tubal Ligation Endocrine Surgical History: Reports: None. Denies: Thyroid Biopsy Neurological Surgical History: Reports: None. Denies: C-Spine, Discectomy, Laminectomy, Lumbar Spine, Sacral Spine, Spinal Fusion, Thoracic Spine, Vertebroplasty Musculoskeletal Surgical History: Reports: None, Carpal Tunnel, Other (See Below). Denies: Arthroscopic Procedure, Ganglion Cyst, Joint Replacement, ORIF, Shoulder Surgery Other Dermatological Surgeries/Procedures: Excision of basal cell carcinoma from the nose as above. - Past Imaging History Past Imaging History: Reports: Angiography (1998), Holter Monitor (March 2020) Social & Family History - Family History HEENT: Reports: Macular Degeneration, Other (See Below). Denies: Glaucoma, Retinal Detachment Other HEENT Family History: Father, brother, and sisters x2 with macular degeneration. Cardiac: Reports: Aneurysm, Bypass, CAD, Heart Murmur, Heart Valve Replacement, High Cholesterol, Hypertension, IN, Stent, Other (See Below). Denies: Afib, Arrhythmia, Heart Failure, PVD/COD, Syncope Other Cardiac Family History: Mother with 2 previous CABGs with history of recurrent MIs with fatal IN at age 84. Father with history of CABG with history of recurrent MIs. Brother with several CABGs and MIs. Sister with valve replacement. Brother with CABG and aortic dissection in his 60s. Brother with IN and PTCA/stent in his 50s. Hypertension hyperlipidemia and siblings x6. Respiratory: Reports: None. Denies: Asthma, COPD, Pneumothorax, Sleep Apnea GI: Reports: None. Denies: Celiac Disease, Cholelithiasis, Colon Polyps, GERD, GI bleed, Inflammatory Bowel Disease, Irritable Bowel Syndrome, PUD : Reports: None. Denies: Renal Calculus, Renal Disease/Insufficiency OBGYN: Reports: None. Denies: Dysfunctional uterine bleeding, Endometriosis, Fibroids, Recurrent Spontaneous Musculoskeletal: Reports: None. Denies: Arthritis, Gout, RA, SLE Neurological: Reports: CVA, Migraines, Parkinson's, Other (See Below). Denies: Alzheimers Disease, Cerebral Aneurysms, Dementia, MS, Seizure, TIA Other Neurological Family History: Sister with migraines. Father with fatal CVA at age 82. Brothers x2 with Parkinson's disease. Psychiatric: Reports: None. Denies: Abuse, Victim of, ADD, ADHD, Anxiety, Depression, Psych Hospitalization(s), PTSD, Suicide Attempt Endocrine/Metabolic: Reports: Diabetes, type II, Obesity/MBI 30+, Other (See Below). Denies: Diabetes, Gestational, Diabetes, Type I, Diabetes Mellitus, Type 3c, IDDM Other Endocrine/Metabolic Family History: Brother with morbid obesity and AODM. Hematologic: Reports: None. Denies: SLE Immunologic: Reports: None. Denies: AIDS, HIV, SLE Dermatologic: Reports: None. Denies: Eczema, Psoriasis Oncologic: Reports: Colon, Thyroid, Other (See Below). Denies: Breast, Cervix, Hodgkin's Lymphoma, Leukemia, Lymphoma, Non-Hodgkin's Lymphoma, Ovarian, Skin, Uterine Other Oncologic Family History: Mother with rectal cancer. Sister with multiple myeloma. Sister with thyroid cancer at age 15. - Caffeine Use Caffeine Use: Reports: Coffee (1-2 cups/day), Tea (Occasional). 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 Denies: Melena : Reports: No Symptoms Musculoskeletal: Reports: Other (no acute changes from baseline) Skin: Reports: No Symptoms Neurological: Reports: No Symptoms Psychiatric: Reports: No Symptoms Hematologic/Lymphatic: Reports: No Symptoms ED EXAM, GENERAL - Physical Exam Exam: See Below Exam Limited By: No Limitations General Appearance: Alert, No Apparent Distress Eye Exam: Bilateral Eye: EOMI, PERRL Ears: Hearing Grossly Normal Nose: No: Nasal Deformity, Nasal Swelling, Nasal Drainage Throat/Mouth: Normal Lips, Normal Voice, No Airway Compromise Head: Atraumatic, Normocephalic Neck: Supple, Non-Tender, Full Range of Motion Respiratory/Chest: No Respiratory Distress, Lungs Clear, Normal Breath Sounds, No Accessory Muscle Use, Chest Non-Tender Cardiovascular: Regular Rate, Rhythm, No Murmur Peripheral Pulses: 2+: Radial (L), Radial (R) GI/Abdominal: Soft, Tender (lower abdomen bilat), Abnormal Bowel Sounds (diminished throughout) (Female) Exam: Deferred Rectal (Female) Exam: Deferred Back Exam: No: CVA Tenderness (L), CVA Tenderness (R), Muscle Spasm Extremities: Non-Tender, Normal Capillary Refill, Pedal Edema (bilat/2+). No: Increased Warmth, Mottled, Pallor, Redness Neurological: Alert, Oriented, Normal Cognition, Normal Gait, No Motor/Sensory Deficits Psychiatric: Normal Affect, Normal Mood Skin Exam: Warm, Dry, Intact, Normal Color Course - Vital Signs Last Recorded V/S: Last Vital Signs Temp 36.5 C 05/28/21 16:15 Pulse 90 05/28/21 17:15 Resp 18 05/28/21 17:15 BP 120/60 05/28/21 17:15 Pulse Ox 94 L 05/28/21 17:15 - Orders/Labs/Meds Orders: Active Orders 24 hr Category Date Time Status Abdomen 2V AP Flat Upright [CR] Stat Exams 05/28/21 16:38 Ordered Chest 2V [CR] Stat Exams 05/28/21 16:20 Ordered INR,PT,PROTHROMBIN TIME [COAG] Routine Lab 05/28/21 17:40 Ordered UA W/MICROSCOPIC [URIN] Stat Lab 05/28/21 16:20 Ordered Sodium Chloride 0.9% [Normal Saline] 1,000 ml Med 05/28/21 17:00 Active IV ASDIRECTED Medication Orders Sodium Chloride (Normal Saline) 1,000 mls @ 150 mls/hr IV ASDIRECTED NATHALIE Last Admin: 05/28/21 16:55 Dose: 150 mls/hr Documented by: ALEKSANDRA Labs: Laboratory Tests 05/28/21 05/28/21 05/28/21 Range/Units 16:38 16:38 16:38 WBC 9.5 (4.0-10.2) K/uL RBC 3.75 L (3.77-5.09) M/uL Hgb 12.5 (11.7-15.5) g/dL Hct 37.3 (34.0-46.0) % MCV 99.5 H (84.0-98.0) fL MCH 33.3 (28.2-33.3) pg MCHC 33.5 (31.7-36.0) g/dL RDW 16.0 H (11.2-14.1) % Plt Count 240 (150-350) K/uL Neut % (Auto) 81.6 H (45.0-80.0) % Lymph % (Auto) 9.7 L (10.0-50.0) % [place] % (Auto) 8.3 (2.0-14.0) % Eos % (Auto) 0.2 (0.0-5.0) % Baso % (Auto) 0.2 (0.0-2.0) % Neut # (Auto) 7.78 H (1.40-7.00) K/uL Lymph # (Auto) 0.93 (0.50-3.50) K/uL [place] # (Auto) 0.79 (0.00-1.00) K/uL Eos # (Auto) 0.02 (0.00-0.50) K/uL Baso # (Auto) 0.02 (0.00-0.20) K/uL Sodium 139 (136-145) mmol/L Potassium 2.7 L* (3.5-5.1) mmol/L Chloride 101 (98-107) mmol/L Carbon Dioxide 32.4 H (21.0-32.0) mmol/L Anion Gap 8.3 (7-15) meq/L BUN 17 (7-18) mg/dL Creatinine 1.08 (0.51-1.17) mg/dL Est Cr Clr Drug Dosing 33.02 mL/min Estimated GFR (MDRD) 48 mL/min Glucose 133 H (70-99) mg/dL Lactic Acid (0.4-2.0) mmol/L Calcium 8.2 L (8.5-10.1) mg/dL Magnesium 1.8 (1.8-2.4) mg/dL Total Bilirubin 0.9 (0.2-1.0) mg/dL AST 15 (15-37) U/L ALT 20 (12-78) U/L Alkaline Phosphatase 51 (46-116) IU/L Total Protein 6.6 (6.4-8.2) g/dL Albumin 2.7 L (3.4-5.0) g/dL SARS-CoV-2 RNA (ANTONI) Negative (NEGATIVE) 05/28/21 Range/Units 16:38 WBC (4.0-10.2) K/uL RBC (3.77-5.09) M/uL Hgb (11.7-15.5) g/dL Hct (34.0-46.0) % MCV (84.0-98.0) fL MCH (28.2-33.3) pg MCHC (31.7-36.0) g/dL RDW (11.2-14.1) % Plt Count (150-350) K/uL Neut % (Auto) (45.0-80.0) % Lymph % (Auto) (10.0-50.0) % [place] % (Auto) (2.0-14.0) % Eos % (Auto) (0.0-5.0) % Baso % (Auto) (0.0-2.0) % Neut # (Auto) (1.40-7.00) K/uL Lymph # (Auto) (0.50-3.50) K/uL [place] # (Auto) (0.00-1.00) K/uL Eos # (Auto) (0.00-0.50) K/uL Baso # (Auto) (0.00-0.20) K/uL Sodium (136-145) mmol/L Potassium (3.5-5.1) mmol/L Chloride (98-107) mmol/L Carbon Dioxide (21.0-32.0) mmol/L Anion Gap (7-15) meq/L BUN (7-18) mg/dL Creatinine (0.51-1.17) mg/dL Est Cr Clr Drug Dosing mL/min Estimated GFR (MDRD) mL/min Glucose (70-99) mg/dL Lactic Acid 2.2 H (0.4-2.0) mmol/L Calcium (8.5-10.1) mg/dL Magnesium (1.8-2.4) mg/dL Total Bilirubin (0.2-1.0) mg/dL AST (15-37) U/L ALT (12-78) U/L Alkaline Phosphatase (46-116) IU/L Total Protein (6.4-8.2) g/dL Albumin (3.4-5.0) g/dL SARS-CoV-2 RNA (ANTONI) (NEGATIVE) Meds: Medications Generic Name Dose Route Start Last Admin Trade Name Freq PRN Reason Stop Dose Admin Sodium Chloride 1,000 mls @ 150 mls/hr 05/28/21 17:00 05/28/21 16:55 Normal Saline IV 150 mls/hr ASDIRECTED NATHALIE Administration Discontinued Medications Generic Name Dose Route Start Last Admin Trade Name Freq PRN Reason Stop Dose Admin Loperamide HCl 2 mg 05/28/21 16:39 Loperamide 2 Mg Tab PO 05/28/21 16:40 ONETIME ONE Ondansetron HCl 4 mg 05/28/21 16:39 05/28/21 16:55 Ondansetron 4 Mg/2 Ml Sdv IVPUSH 05/28/21 16:40 4 mg ONETIME ONE Administration - Radiology Interpretation Free Text/Narrative:: Abdominal films do not show evidence of obstruction. Chest xray does not show acute process such as pneumonia. - Re-Assessments/Exams Free Text/Narrative Re-Assessment/Exam: 05/28/21 17:49 BP improved s/p IV fluids. K 2.7 Lactic 2.2 Normal WBC. Afebrile. Patient has not given UA specimen as of yet. Will admit observation for potassium correction. Uncertain if current symptoms represent an acute process such as viral gastroenteritis or if they are related to patient's IBS. Departure - Departure Time of Disposition: 17:47 Disposition: Refer to Observation Condition: Good Clinical Impression: Hypokalemia, Dehydration, Nausea Diarrhea Qualifiers: Diarrhea type: unspecified type Qualified Code(s): R19.7 - Diarrhea, unspecified - Discharge Information Referrals: Kenyatta Jimenez NP [Primary Care Provider] - Forms: ED Department Discharge Sepsis Event Note (ED) - Focused Exam Vital Signs: Vital Signs Temp Pulse Resp BP Pulse Ox 05/28/21 17:15 90 18 120/60 94 L 05/28/21 16:30 88 16 124/49 L 92 L 05/28/21 16:15 36.5 C 92 18 124/38 L 92 L - Problem List & Annotations (1) Hypokalemia SNOMED Code(s): 03801873 Code(s): E87.6 - HYPOKALEMIA Status: Acute Priority: High Current Vis it: Yes Annotation/Comment:: Initiate potassium supplementation during this hospitalization including both initial IV and oral supplementation. (2) Dehydration SNOMED Code(s): 03919761 Code(s): E86.0 - DEHYDRATION Status: Acute Priority: High Current Visit: Yes Annotation/Comment:: Minimal PO intake today accompanied by diarrhea. BP somewhat low upon arrival. Showed improvement after IV fluids. (3) Elevated lactic acid level SNOMED Code(s): 6879346 Code(s): R79.89 - OTHER SPECIFIED ABNORMAL FINDINGS OF BLOOD CHEMISTRY Status: Acute Priority: High Current Visit: Yes Onset Date: 11/24/20 Annotation/Comment:: Likely secondary to dehydration. Recheck in AM (4) Diarrhea SNOMED Code(s): 20105991 Code(s): R19.7 - DIARRHEA, UNSPECIFIED Status: Acute Priority: Medium Current Visit: Yes Annotation/Comment:: History of IBS. Uncertain if today's increased loose stools are related to IBS exacerbation or other cause such as viral gastroenteritis. Qualifiers: Diarrhea type: unspecified type Qualified Code(s): R19.7 - Diarrhea, unspecified (5) Nausea SNOMED Code(s): 109477364 Code(s): R11.0 - NAUSEA Status: Acute Priority: Medium Current Visit: Yes Annotation/Comment:: Zofran given in ER (6) Irritable bowel syndrome SNOMED Code(s): 71240312 Code(s): K58.9 - IRRITABLE BOWEL SYNDROME WITHOUT DIARRHEA Status: Chronic Priority: Medium Current Visit: Yes Annotation/Comment:: Stable per patient, however cannot rule out as contributing factor to current GI complaints. Qualifiers: Irritable bowel syndrome type: with diarrhea Qualified Code(s): K58.0 - Irritable bowel syndrome with diarrhea (7) Polymyalgia rheumatica SNOMED Code(s): 33845177 Code(s): M35.3 - POLYMYALGIA RHEUMATICA Status: Chronic Priority: Low Current Visit: No Annotation/Comment:: Stable per history (8) Glaucoma SNOMED Code(s): 26176993 Code(s): H40.9 - UNSPECIFIED GLAUCOMA Status: Chronic Priority: Low Current Visit: No Annotation/Comment:: Stable per patient Qualifiers: Glaucoma type: unspecified Laterality: unspecified laterality Qualified Code(s): H40.9 - Unspecified glaucoma (9) CAD (coronary artery disease) SNOMED Code(s): 15606545 Code(s): I25.10 - ATHSCL HEART DISEASE OF [place] CORONARY ARTERY W/O ANG PCTRS Status: Chronic Priority: Low Current Visit: No Annotation/Comment:: No chest pain or anginal type symptoms. Qualifiers: Coronary Disease-Associated Artery/Lesion type: [place] artery [place] vs. transplanted heart: [place] heart Associated angina: without angina Qualified Code(s): I25.10 - Atherosclerotic heart disease of [place] coronary artery without angina pectoris (10) Raynauds syndrome SNOMED Code(s): 528799989 Code(s): I73.00 - RAYNAUD'S SYNDROME WITHOUT GANGRENE Status: Chronic Priority: Low Current Visit: No Annotation/Comment:: Stable per history (11) Hyperlipidemia SNOMED Code(s): 33456678 Code(s): E78.5 - HYPERLIPIDEMIA, UNSPECIFIED Status: Chronic Priority: Low Current Visit: No Annotation/Comment:: Under therapy/stable per patient Qualifiers: Hyperlipidemia type: unspecified Qualified Code(s): E78.5 - Hyperlipidemia, unspecified (12) Hypertension SNOMED Code(s): 24327528 Code(s): I10 - ESSENTIAL (PRIMARY) HYPERTENSION Status: Chronic Priority: Medium Current Visit: No Annotation/Comment:: Stable vitals in the emergency room. Observe Qualifiers: Hypertension type: essential hypertension Qualified Code(s): I10 - Essential (primary) hypertension (13) Afib SNOMED Code(s): 31289569 Code(s): I48.91 - UNSPECIFIED ATRIAL FIBRILLATION Status: Chronic Priority: Medium Current Visit: No Annotation/Comment:: No history of chest pain or anginal type symptoms. Check INR/PT next labs Qualifiers: Atrial fibrillation type: unspecified chronic Qualified Code(s): I48.20 - Chronic atrial fibrillation, unspecified; I48.2 - Chronic atrial fibrillation (14) Hypothyroid SNOMED Code(s): 80827719 Code(s): E03.9 - HYPOTHYROIDISM, UNSPECIFIED Status: Chronic Priority: Low Current Visit: No Annotation/Comment:: Stable per patient with no current symptoms. Qualifiers: Hypothyroidism type: acquired Qualified Code(s): E03.9 - Hypothyroidism, unspecified (15) Osteoarthritis SNOMED Code(s): 015862125 Code(s): M19.90 - UNSPECIFIED OSTEOARTHRITIS, UNSPECIFIED SITE Status: Chronic Priority: Low Current Visit: No Annotation/Comment:: Stable by history with no history of other injury. Note history of polymyalgia rheumatica. Qualifiers: Osteoarthritis location: multiple joints Osteoarthritis type: primary Qualified Code(s): M89.49 - Other hypertrophic osteoarthropathy, multiple sites (16) Mixed anxiety depressive disorder SNOMED Code(s): 852025420 Code(s): F41.8 - OTHER SPECIFIED ANXIETY DISORDERS Status: Chronic Priority: Low Current Visit: No - My Orders Last 24 Hours: My Active Orders 05/28/21 16:20 Chest 2V [CR] Stat UA W/MICROSCOPIC [URIN] Stat 05/28/21 16:38 Abdomen 2V AP Flat Upright [CR] Stat 05/28/21 17:00 Sodium Chloride 0.9% [Normal Saline] 1,000 ml IV ASDIRECTED 05/28/21 17:40 INR,PT,PROTHROMBIN TIME [COAG] Routine - Assessment/Plan Admission H&P: Please use this note as an admission H&P Last 24 Hours: My Active Orders 05/28/21 16:20 Chest 2V [CR] Stat UA W/MICROSCOPIC [URIN] Stat 05/28/21 16:38 Abdomen 2V AP Flat Upright [CR] Stat 05/28/21 17:00 Sodium Chloride 0.9% [Normal Saline] 1,000 ml IV ASDIRECTED 05/28/21 17:40 INR,PT,PROTHROMBIN TIME [COAG] Routine Assessment:: as above. Stable and suitable for general supervision Plan: Potassium replacement. Zofran for nausea. IV fluids. Recheck labs in AM. Anticipate 1-2 day stay depending upon clinical course and response to interventions.
[2021-05-28] MEDS ORDERED: Ondansetron 4 MG/2 ML SDV IVPUSH ONE (16:39)
[2021-05-28] MEDS ORDERED: Loperamide 2 MG Tab PO ONE (16:39)
[2021-05-28] MEDS: Sodium Chloride 0.9% 1,000 ML IV SCH (16:55)
[2021-05-28 17:23] LABS: ANION GAP 8.3 meq/L (7-15)
[2021-05-28] MEDS ORDERED: Potassium Chloride Riders 10 MEQ in Premix Bag 1 BAG IV SCH (17:45)
[2021-05-28] MEDS ORDERED: Magnesium Oxide 400 MG Tab PO SCH (18:00)
[2021-05-28] MEDS ORDERED: Ondansetron 4 MG/2 ML SDV IVPUSH PRN (18:17)
[2021-05-28] MEDS ORDERED: DIPHENOXYLATE HCL PO PRN (18:20)
[2021-05-28] MEDS ORDERED: ATROPINE PO PRN (18:20)
[2021-05-28] MEDS ORDERED: Potassium Chloride 10 MEQ Tab.ER PO ONE ×3 (18:25→22:30)
[2021-05-28] MEDS ORDERED: Sodium Chloride 0.9% 1,000 ML IV ONE (18:27)
[2021-05-28] MEDS ORDERED: Pantoprazole 40 MG Vial IVPUSH ONE (18:27)
[2021-05-28] MEDS ORDERED: CYANOCOBALAMIN 1000 MCG/ML IJ SCH (18:30)
[2021-05-28] MEDS ORDERED: [UNRECOGNIZED DRUG - OTHER] IJ SCH (18:30)
[2021-05-28] MEDS ORDERED: Acetaminophen/Codeine 300-30 MG Tab PO PRN (18:43)
[2021-05-28] MEDS ORDERED: LATANOPROST EYEBOTH SCH (20:00)
[2021-05-28] MEDS ORDERED: Cyclobenzaprine 10 MG Tab PO PRN (20:22)
[2021-05-28] MEDS: Potassium Chloride Riders 10 MEQ in Premix Bag 1 BAG IV SCH ×4 (20:23→23:42)
[2021-05-28] MEDS ORDERED: Hyoscyamine 0.125 MG Tab.SL SL PRN (20:24)
[2021-05-28] MEDS ORDERED: Meclizine 25 MG Tab PO PRN (20:27)
[2021-05-28] MEDS ORDERED: Pantoprazole 40 MG Vial ONE (20:30)
[2021-05-28] MEDS ORDERED: Nitroglycerin 0.4 MG Tab.SL SL PRN (20:36)
[2021-05-28] MEDS ORDERED: Warfarin 2 MG Tab PO SCH (20:45)
[2021-05-28] MEDS: Metoprolol Tartrate 50 MG Tab PO SCH (21:16)
[2021-05-28] MEDS: AZOPT 1% EYEBOTH SCH (21:17)
[2021-05-28] MEDS: OPTH EYEBOTH SCH (21:17)
[2021-05-28] MEDS: ROCKLATAN EYEBOTH SCH (21:17)
[2021-05-28] MEDS: Temazepam 15 MG Cap PO PRN (22:57)
[2021-05-29 07:37] LABS: ANION GAP 6.8 meq/L (7-15)
[2021-05-29] MEDS ORDERED: Non-Formulary Medication 1 Each (Lutein/Minerals/Vit A,C & E [Ocuvite] 1 EACH Tablet) PO SCH (08:00)
[2021-05-29] MEDS ORDERED: CYCLOSPORINE EYEBOTH SCH (08:00)
[2021-05-29] MEDS ORDERED: Cholecalciferol (Vitamin D3) 25 MCG Tab PO SCH (08:00)
[2021-05-29] MEDS ORDERED: Non-Formulary Medication 1 Each EYEBOTH SCH (08:00)
[2021-05-29] MEDS ORDERED: [UNRECOGNIZED DRUG - OTHER] EYEBOTH SCH (08:00)
[2021-05-29] MEDS ORDERED: Non-Formulary Medication 1 Each (Lutein [Lutein] 20 MG Tablet) PO SCH (08:00)
[2021-05-29] MEDS ORDERED: AZOPT 1% EYEBOTH SCH (08:00)
[2021-05-29] MEDS ORDERED: Metoprolol Tartrate 50 MG Tab PO SCH (08:00)
[2021-05-29] MEDS: amLODIPine 5 MG Tab PO SCH (08:10)
[2021-05-29] MEDS: Levothyroxine 50 MCG Tab PO SCH (08:11)
[2021-05-29] MEDS: Metoprolol Tartrate 50 MG Tab PO SCH ×2 (08:11→18:04)
[2021-05-29] MEDS: atorvaSTATin 10 MG Tab PO SCH (08:12)
[2021-05-29] MEDS: Estradiol 1 MG Tab PO SCH (08:12)
[2021-05-29] MEDS: BRIMONIDINE TARTRATE EYEBOTH SCH ×2 (08:13→19:12)
[2021-05-29] MEDS: TIMOLOL EYEBOTH SCH ×2 (08:13→19:12)
[2021-05-29] MEDS: REFRESH OPTIVE EYEBOTH SCH (08:14)
[2021-05-29] MEDS: AZOPT 1% EYEBOTH SCH ×2 (08:14→19:12)
[2021-05-29] MEDS: CYCLOSPORINE EYEBOTH SCH ×2 (08:15→19:13)
[2021-05-29] MEDS: [UNRECOGNIZED DRUG - OTHER] EYEBOTH SCH ×2 (08:15→19:13)
[2021-05-29] MEDS: Polyvinyl Alcohol 1.4% Ophth Soln 15 ML Bottle EYEBOTH SCH (08:19)
[2021-05-29] MEDS: Sodium Chloride 0.9% 1,000 ML IV SCH ×2 (12:50→13:46)
[2021-05-29] MEDS ORDERED: Azithromycin 500 MG in Sodium Chloride 0.9% 250 ML IV SCH (15:00)
[2021-05-29] MEDS ORDERED: cefTRIAXone 1 GM in Sodium Chloride 0.9% 100 ML IV SCH (15:00)
--- NOTE | 2021-05-29 15:04 | PCM.PN ---
- General Info Date of Service: 05/29/21 Admission Dx/Problem (Free Text): Initially admitted for treatment of hypokalemia associated with diarrhea/lower abdominal cramping. Noted to have low O2 sats compared to previous visits with room air sats down to 84% with activity. Possible bronchopneumonia noted by Radiology. Functional Status: Reports: Pain Controlled, Tolerating Diet, Ambulating (with assistance) - Review of Systems General: Reports: No Symptoms HEENT: Reports: Other (no acute changes. Very poor vision) Pulmonary: Denies: Shortness of Breath, Pleuritic Chest Pain, Cough, Sputum, Hemoptysis, Wheezing Cardiovascular: Reports: Edema, Lightheadedness. Denies: Chest Pain, Palpitations, Dyspnea on Exertion, Orthopnea, PND Gastrointestinal: Reports: Abdominal Pain (improved today/chronic IBS), Diarrhea (improved), Nausea, Vomiting. Denies: Difficulty Swallowing, Melena Genitourinary: Reports: No Symptoms Musculoskeletal: Reports: Other (no acute changes from baseline) Skin: Reports: No Symptoms Neurological: Reports: Dizziness, Difficulty Walking (has been falling at home/blames the vertigo). Denies: Confusion, Headache, Change in Speech Psychiatric: Reports: No Symptoms - Patient Data Vitals - Most Recent: Last Vital Signs Temp 36.7 C 05/29/21 12:00 Pulse 77 05/29/21 12:00 Resp 20 05/29/21 12:00 BP 110/72 05/29/21 12:00 Pulse Ox 96 05/29/21 14:40 Weight - Most Recent: 72.575 kg I&O - Last 24 Hours: Intake & Output 05/28/21 05/29/21 05/29/21 22:59 06:59 14:59 Intake Total 1980 320 Output Total 900 Balance 1979 -580 Lab Results Last 24 Hours: Laboratory Results - last 24 hr 05/28/21 05/28/21 05/28/21 Range/Units 16:38 16:38 16:38 WBC 9.5 (4.0-10.2) K/uL RBC 3.75 L (3.77-5.09) M/uL Hgb 12.5 (11.7-15.5) g/dL Hct 37.3 (34.0-46.0) % MCV 99.5 H (84.0-98.0) fL MCH 33.3 (28.2-33.3) pg MCHC 33.5 (31.7-36.0) g/dL RDW 16.0 H (11.2-14.1) % Plt Count 240 (150-350) K/uL Neut % (Auto) 81.6 H (45.0-80.0) % Lymph % (Auto) 9.7 L (10.0-50.0) % Lake % (Auto) 8.3 (2.0-14.0) % Eos % (Auto) 0.2 (0.0-5.0) % Baso % (Auto) 0.2 (0.0-2.0) % Neut # (Auto) 7.78 H (1.40-7.00) K/uL Lymph # (Auto) 0.93 (0.50-3.50) K/uL Lake # (Auto) 0.79 (0.00-1.00) K/uL Eos # (Auto) 0.02 (0.00-0.50) K/uL Baso # (Auto) 0.02 (0.00-0.20) K/uL PT (9.5-12.0) SEC INR Sodium 139 (136-145) mmol/L Potassium 2.7 L* (3.5-5.1) mmol/L Chloride 101 (98-107) mmol/L Carbon Dioxide 32.4 H (21.0-32.0) mmol/L Anion Gap 8.3 (7-15) meq/L BUN 17 (7-18) mg/dL Creatinine 1.08 (0.51-1.17) mg/dL Est Cr Clr Drug Dosing 33.02 mL/min Estimated GFR (MDRD) 48 mL/min Glucose 133 H (70-99) mg/dL Lactic Acid (0.4-2.0) mmol/L Calcium 8.2 L (8.5-10.1) mg/dL Magnesium 1.8 (1.8-2.4) mg/dL Total Bilirubin 0.9 (0.2-1.0) mg/dL AST 15 (15-37) U/L ALT 20 (12-78) U/L Alkaline Phosphatase 51 (46-116) IU/L Total Protein 6.6 (6.4-8.2) g/dL Albumin 2.7 L (3.4-5.0) g/dL Specimen Type Urine Color Urine Appearance Urine pH (5.0-9.0) Ur Specific [place] (1.005-1.030) Urine Protein (NEGATIVE) mg/dL Urine Glucose (UA) (NEGATIVE) mg/dL Urine Ketones (NEGATIVE) mg/dL Urine Occult Blood (NEGATIVE) Urine Nitrite (NEGATIVE) Urine Bilirubin (NEGATIVE) Urine Urobilinogen (0.2-1.0) E.U./dL Ur Leukocyte Esterase (NEGATIVE) Urine RBC /HPF Urine WBC /HPF Ur Epithelial Cells /LPF Urine Bacteria (NONE TO FEW) /HPF SARS-CoV-2 RNA (ANTONI) Negative (NEGATIVE) 05/28/21 05/29/21 05/29/21 Range/Units 16:38 07:15 07:15 WBC (4.0-10.2) K/uL RBC (3.77-5.09) M/uL Hgb (11.7-15.5) g/dL Hct (34.0-46.0) % MCV (84.0-98.0) fL MCH (28.2-33.3) pg MCHC (31.7-36.0) g/dL RDW (11.2-14.1) % Plt Count (150-350) K/uL Neut % (Auto) (45.0-80.0) % Lymph % (Auto) (10.0-50.0) % Lake % (Auto) (2.0-14.0) % Eos % (Auto) (0.0-5.0) % Baso % (Auto) (0.0-2.0) % Neut # (Auto) (1.40-7.00) K/uL Lymph # (Auto) (0.50-3.50) K/uL [place] # (Auto) (0.00-1.00) K/uL Eos # (Auto) (0.00-0.50) K/uL Baso # (Auto) (0.00-0.20) K/uL PT 15.0 H D (9.5-12.0) SEC INR 1.5 Sodium (136-145) mmol/L Potassium (3.5-5.1) mmol/L Chloride (98-107) mmol/L Carbon Dioxide (21.0-32.0) mmol/L Anion Gap (7-15) meq/L BUN (7-18) mg/dL Creatinine (0.51-1.17) mg/dL Est Cr Clr Drug Dosing mL/min Estimated GFR (MDRD) mL/min Glucose (70-99) mg/dL Lactic Acid 2.2 H 1.0 (0.4-2.0) mmol/L Calcium (8.5-10.1) mg/dL Magnesium (1.8-2.4) mg/dL Total Bilirubin (0.2-1.0) mg/dL AST (15-37) U/L ALT (12-78) U/L Alkaline Phosphatase (46-116) IU/L Total Protein (6.4-8.2) g/dL Albumin (3.4-5.0) g/dL Specimen Type Urine Color Urine Appearance Urine pH (5.0-9.0) Ur Specific [place] (1.005-1.030) Urine Protein (NEGATIVE) mg/dL Urine Glucose (UA) (NEGATIVE) mg/dL Urine Ketones (NEGATIVE) mg/dL Urine Occult Blood (NEGATIVE) Urine Nitrite (NEGATIVE) Urine Bilirubin (NEGATIVE) Urine Urobilinogen (0.2-1.0) E.U./dL Ur Leukocyte Esterase (NEGATIVE) Urine RBC /HPF Urine WBC /HPF Ur Epithelial Cells /LPF Urine Bacteria (NONE TO FEW) /HPF SARS-CoV-2 RNA (ANTONI) (NEGATIVE) 05/29/21 05/29/21 05/29/21 Range/Units 07:15 07:15 09:30 WBC 9.0 (4.0-10.2) K/uL RBC 3.42 L (3.77-5.09) M/uL Hgb 11.1 L (11.7-15.5) g/dL Hct 35.4 (34.0-46.0) % MCV 103.5 H D (84.0-98.0) fL MCH 32.5 (28.2-33.3) pg MCHC 31.4 L (31.7-36.0) g/dL RDW 16.4 H (11.2-14.1) % Plt Count 219 (150-350) K/uL Neut % (Auto) 78.8 (45.0-80.0) % Lymph % (Auto) 12.8 (10.0-50.0) % Lake % (Auto) 7.7 (2.0-14.0) % Eos % (Auto) 0.6 (0.0-5.0) % Baso % (Auto) 0.1 (0.0-2.0) % Neut # (Auto) 7.07 H (1.40-7.00) K/uL Lymph # (Auto) 1.15 (0.50-3.50) K/uL [place] # (Auto) 0.69 (0.00-1.00) K/uL Eos # (Auto) 0.05 (0.00-0.50) K/uL Baso # (Auto) 0.01 (0.00-0.20) K/uL PT (9.5-12.0) SEC INR Sodium 140 (136-145) mmol/L Potassium 3.5 (3.5-5.1) mmol/L Chloride 105 (98-107) mmol/L Carbon Dioxide 28.2 (21.0-32.0) mmol/L Anion Gap 6.8 L (7-15) meq/L BUN 15 (7-18) mg/dL Creatinine 1.07 (0.51-1.17) mg/dL Est Cr Clr Drug Dosing 33.33 mL/min Estimated GFR (MDRD) 49 mL/min Glucose 88 (70-99) mg/dL Lactic Acid (0.4-2.0) mmol/L Calcium 7.3 L (8.5-10.1) mg/dL Magnesium (1.8-2.4) mg/dL Total Bilirubin (0.2-1.0) mg/dL AST (15-37) U/L ALT (12-78) U/L Alkaline Phosphatase (46-116) IU/L Total Protein (6.4-8.2) g/dL Albumin (3.4-5.0) g/dL Specimen Type Urinblad Urine Color Yellow Urine Appearance Clear Urine pH 7.5 (5.0-9.0) Ur Specific [place] 1.015 (1.005-1.030) Urine Protein Negative (NEGATIVE) mg/dL Urine Glucose (UA) Negative (NEGATIVE) mg/dL Urine Ketones Trace H (NEGATIVE) mg/dL Urine Occult Blood Negative (NEGATIVE) Urine Nitrite Negative (NEGATIVE) Urine Bilirubin Negative (NEGATIVE) Urine Urobilinogen 0.2 (0.2-1.0) E.U./dL Ur Leukocyte Esterase Negative (NEGATIVE) Urine RBC 0-5 /HPF Urine WBC 0-5 /HPF Ur Epithelial Cells Rare /LPF Urine Bacteria Rare (NONE TO FEW) /HPF SARS-CoV-2 RNA (ANTONI) (NEGATIVE) Med Orders - Current: Current Medications Acetaminophen/Codeine Phosphate (Acetaminophen/Codeine 300-30 Mg Tab) 1 tab PO Q4H PRN PRN Reason: Other Amlodipine Besylate (Amlodipine 5 Mg Tab) 10 mg PO DAILY [facility] Last Admin: 05/29/21 08:10 Dose: 10 mg Documented by: Artificial Tears (Polyvinyl Alcohol 1.4% Ophth Soln 15 Ml Bottle) 0 ml EYEBOTH DAILY [facility] Last Admin: 05/29/21 08:19 Dose: 1 drop Documented by: Atorvastatin Calcium (Atorvastatin 10 Mg Tab) 10 mg PO DAILY [facility] Last Admin: 05/29/21 08:12 Dose: 10 mg Documented by: Cyclobenzaprine HCl (Cyclobenzaprine 10 Mg Tab) 10 mg PO TID PRN PRN Reason: Spasms Estradiol (Estradiol 1 Mg Tab) 1 mg PO DAILY [facility] Last Admin: 05/29/21 08:12 Dose: 1 mg Documented by: Hyoscyamine (Hyoscyamine 0.125 Mg Tab.Sl) 0.125 mg SL Q4HR PRN PRN Reason: IBS Last Admin: 05/29/21 05:55 Dose: 0.125 mg Documented by: Sodium Chloride (Normal Saline) 1,000 mls @ 75 mls/hr IV ASDIRECTED [facility] Last Admin: 05/29/21 13:46 Dose: 75 mls/hr Documented by: Ceftriaxone Sodium 1 gm/ (Sodium Chloride) 100 mls @ 200 mls/hr IV Q24H [facility] Azithromycin 500 mg/ Sodium (Chloride) 250 mls @ 250 mls/hr IV Q24H [facility] Levothyroxine Sodium (Levothyroxine 50 Mcg Tab) 50 mcg PO ACBREAKFAST [facility] Last Admin: 05/29/21 08:11 Dose: 50 mcg Documented by: Meclizine HCl (Meclizine 25 Mg Tab) 25 mg PO QID PRN PRN Reason: Dizziness Methylprednisolone (Methylprednisolone 4 Mg Tab) 12 mg PO DAILY [facility] Last Admin: 05/29/21 08:10 Dose: 12 mg Documented by: Metoprolol Tartrate (Metoprolol Tartrate 50 Mg Tab) 50 mg PO BID [facility] Last Admin: 05/29/21 08:11 Dose: 50 mg Documented by: Nitroglycerin (Nitroglycerin 0.4 Mg Tab.Sl) 0.4 mg SL ASDIRECTED PRN PRN Reason: Chest Pain Brimonidine Tartrate /Timolol (Combigan 0 .2%-0.5%)Own Med 1 drop EYEBOTH BID [facility] Last Admin: 05/29/21 08:13 Dose: 1 drop Documented by: Non-Formulary Medication (Diphenoxylate Hcl/Atropine [Lomotil]) 2.5 mg PO ASDIRECTED PRN PRN Reason: Diarrhea Non-Formulary Medication (Fluorometholone) 1 drop EYEBOTH DAILY@1200 [facility] Rocklatan 0.02%-0. 005% Opth Own Med* * 1 drop EYEBOTH BEDTIME [facility] Last Admin: 05/28/21 21:17 Dose: 1 drop Documented by: Non-Formulary Medication (Non-Formulary Medication [Nf Drug]) 1 applic TOP TUSA [facility] Azopt 1% Ophth Susp* (*Own Med) 1 drop EYEBOTH BID [facility] Last Admin: 05/29/21 08:14 Dose: 1 drop Documented by: Cyclosporine Restasis 0.05% Drops Own Med 1 drop EYEBOTH BID [facility] Last Admin: 05/29/21 08:15 Dose: 1 drop Documented by: Nf Refresh Optive * (Patient Own Med) 1 each EYEBOTH DAILY [facility] Last Admin: 05/29/21 08:14 Dose: 1 each Documented by: Ondansetron HCl (Ondansetron 4 Mg/2 Ml Sdv) 4 mg IVPUSH Q6H PRN PRN Reason: Nausea/Vomiting Temazepam (Temazepam 15 Mg Cap) 15 mg PO BEDTIME PRN PRN Reason: Insomnia Last Admin: 05/28/21 22:57 Dose: 15 mg Documented by: Warfarin Sodium (Warfarin 5 Mg Tab) 5 mg PO ONETIME ONE Stop: 05/29/21 18:01 Warfarin Sodium (Warfarin 2 Mg Tab) 2 mg PO DAILY@1800 [facility] Discontinued Medications Cholecalciferol (Cholecalciferol (Vitamin D3) 25 Mcg Tab) 50 mcg PO DAILY [facility] Sodium Chloride (Normal Saline) 1,000 mls @ 150 mls/hr IV ASDIRECTED [facility] Last Admin: 05/29/21 12:50 Dose: 75 mls/hr Documented by: Potassium Chloride 10 meq/ (Premix) 50 mls @ 50 mls/hr IV Q1H [facility] Stop: 05/28/21 22:29 Last Admin: 05/28/21 23:42 Dose: 50 mls/hr Documented by: Sodium Chloride (Normal Saline) 1,000 mls @ 75 mls/hr IV .BOLUS ONE Stop: 05/29/21 07:46 Last Admin: 05/28/21 23:42 Dose: 75 mls/hr Documented by: Loperamide HCl (Loperamide 2 Mg Tab) 2 mg PO ONETIME ONE Stop: 05/28/21 16:40 Last Admin: 05/28/21 18:36 Dose: Not Given Documented by: Magnesium Oxide (Magnesium Oxide 400 Mg Tab) 400 mg PO QPM [facility] Last Admin: 05/28/21 20:34 Dose: Not Given Documented by: Metoprolol Tartrate (Metoprolol Tartrate 50 Mg Tab) 50 mg PO BID [facility] Azopt 1% Ophth Susp* (*Own Med) 1 drop EYEBOTH BID [facility] Non-Formulary Medication (Cyanocobalamin (Vitamin B12) [Vitamin B12]) 1,000 mcg IJ Q30D [facility] Last Admin: 05/29/21 06:03 Dose: Not Given Documented by: Cyclosporine Restasis 0.05% Drops Own Med 1 drop EYEBOTH BID [facility] Non-Formulary Medication (Latanoprost [Xalatan]) 1 drop EYEBOTH BEDTIME [facility] Last Admin: 05/29/21 06:03 Dose: Not Given Documented by: Non-Formulary Medication (Lutein [Lutein]) 20 mg PO DAILY [facility] Non-Formulary Medication (Lutein/Minerals/Vit A,C & E [Ocuvite]) 1 tab PO DAILY [facility] Ondansetron HCl (Ondansetron 4 Mg/2 Ml Sdv) 4 mg IVPUSH ONETIME ONE Stop: 05/28/21 16:40 Last Admin: 05/28/21 16:55 Dose: 4 mg Documented by: Pantoprazole Sodium (Pantoprazole 40 Mg Vial) 40 mg IVPUSH ONETIME ONE Stop: 05/28/21 18:28 Last Admin: 05/28/21 20:31 Dose: 40 mg Documented by: Pantoprazole Sodium (Pantoprazole 40 Mg Vial) Confirm Administered Dose 40 mg .ROUTE .STK-MED ONE Stop: 05/28/21 20:31 Last Admin: 05/28/21 20:37 Dose: Not Given Documented by: Potassium Chloride (Potassium Chloride 10 Meq Tab.Er) 10 meq PO ONETIME ONE Stop: 05/28/21 18:26 Last Admin: 05/28/21 20:23 Dose: 10 meq Documented by: Potassium Chloride (Potassium Chloride 10 Meq Tab.Er) 10 meq PO ONETIME ONE Stop: 05/28/21 20:31 Last Admin: 05/28/21 20:35 Dose: Not Given Documented by: Potassium Chloride (Potassium Chloride 10 Meq Tab.Er) 10 meq PO ONETIME ONE Stop: 05/28/21 22:31 Last Admin: 05/28/21 22:57 Dose: 10 meq Documented by: Warfarin Sodium (Warfarin 2 Mg Tab) 2 mg PO DAILY@1800 [facility] Last Admin: 05/28/21 21:17 Dose: 2 mg Documented by: - Exam Quality Assessment: Supplemental Oxygen, DVT Prophylaxis Urinary Catheter Total Time: 0Days 0Hours General: Alert, Oriented, Cooperative, No Acute Distress HEENT: Pupils Equal, Pupils Reactive, EOMI, Mucous Membr. Moist/[place] Neck: Supple Lungs: Normal Respiratory Effort, Decreased Breath Sounds (throughout), Rales (LLL). No: Rhonchi, Stridor, Wheezing Cardiovascular: Regular Rate, Regular Rhythm, No Murmurs GI/Abdominal Exam: Normal Bowel Sounds, Soft, Non-Tender, No Distention (Female) Exam: Deferred Back Exam: No: CVA Tenderness (L), CVA Tenderness (R), Muscle Spasm Extremities: Non-Tender, Normal Capillary Refill Skin: Warm, Dry Neurological: No New Focal Deficit Psy/Mental Status: Alert, Normal Affect, Normal Mood - Patient Data Lab Results Last 24 hrs: Laboratory Results - last 24 hr 05/28/21 05/28/21 05/28/21 Range/Units 16:38 16:38 16:38 WBC 9.5 (4.0-10.2) K/uL RBC 3.75 L (3.77-5.09) M/uL Hgb 12.5 (11.7-15.5) g/dL Hct 37.3 (34.0-46.0) % MCV 99.5 H (84.0-98.0) fL MCH 33.3 (28.2-33.3) pg MCHC 33.5 (31.7-36.0) g/dL RDW 16.0 H (11.2-14.1) % Plt Count 240 (150-350) K/uL Neut % (Auto) 81.6 H (45.0-80.0) % Lymph % (Auto) 9.7 L (10.0-50.0) % Lake % (Auto) 8.3 (2.0-14.0) % Eos % (Auto) 0.2 (0.0-5.0) % Baso % (Auto) 0.2 (0.0-2.0) % Neut # (Auto) 7.78 H (1.40-7.00) K/uL Lymph # (Auto) 0.93 (0.50-3.50) K/uL Lake # (Auto) 0.79 (0.00-1.00) K/uL Eos # (Auto) 0.02 (0.00-0.50) K/uL Baso # (Auto) 0.02 (0.00-0.20) K/uL PT (9.5-12.0) SEC INR Sodium 139 (136-145) mmol/L Potassium 2.7 L* (3.5-5.1) mmol/L Chloride 101 (98-107) mmol/L Carbon Dioxide 32.4 H (21.0-32.0) mmol/L Anion Gap 8.3 (7-15) meq/L BUN 17 (7-18) mg/dL Creatinine 1.08 (0.51-1.17) mg/dL Est Cr Clr Drug Dosing 33.02 mL/min Estimated GFR (MDRD) 48 mL/min Glucose 133 H (70-99) mg/dL Lactic Acid (0.4-2.0) mmol/L Calcium 8.2 L (8.5-10.1) mg/dL Magnesium 1.8 (1.8-2.4) mg/dL Total Bilirubin 0.9 (0.2-1.0) mg/dL AST 15 (15-37) U/L ALT 20 (12-78) U/L Alkaline Phosphatase 51 (46-116) IU/L Total Protein 6.6 (6.4-8.2) g/dL Albumin 2.7 L (3.4-5.0) g/dL Specimen Type Urine Color Urine Appearance Urine pH (5.0-9.0) Ur Specific [place] (1.005-1.030) Urine Protein (NEGATIVE) mg/dL Urine Glucose (UA) (NEGATIVE) mg/dL Urine Ketones (NEGATIVE) mg/dL Urine Occult Blood (NEGATIVE) Urine Nitrite (NEGATIVE) Urine Bilirubin (NEGATIVE) Urine Urobilinogen (0.2-1.0) E.U./dL Ur Leukocyte Esterase (NEGATIVE) Urine RBC /HPF Urine WBC /HPF Ur Epithelial Cells /LPF Urine Bacteria (NONE TO FEW) /HPF SARS-CoV-2 RNA (ANTONI) Negative (NEGATIVE) 05/28/21 05/29/21 05/29/21 Range/Units 16:38 07:15 07:15 WBC (4.0-10.2) K/uL RBC (3.77-5.09) M/uL Hgb (11.7-15.5) g/dL Hct (34.0-46.0) % MCV (84.0-98.0) fL MCH (28.2-33.3) pg MCHC (31.7-36.0) g/dL RDW (11.2-14.1) % Plt Count (150-350) K/uL Neut % (Auto) (45.0-80.0) % Lymph % (Auto) (10.0-50.0) % Lake % (Auto) (2.0-14.0) % Eos % (Auto) (0.0-5.0) % Baso % (Auto) (0.0-2.0) % Neut # (Auto) (1.40-7.00) K/uL Lymph # (Auto) (0.50-3.50) K/uL [place] # (Auto) (0.00-1.00) K/uL Eos # (Auto) (0.00-0.50) K/uL Baso # (Auto) (0.00-0.20) K/uL PT 15.0 H D (9.5-12.0) SEC INR 1.5 Sodium (136-145) mmol/L Potassium (3.5-5.1) mmol/L Chloride (98-107) mmol/L Carbon Dioxide (21.0-32.0) mmol/L Anion Gap (7-15) meq/L BUN (7-18) mg/dL Creatinine (0.51-1.17) mg/dL Est Cr Clr Drug Dosing mL/min Estimated GFR (MDRD) mL/min Glucose (70-99) mg/dL Lactic Acid 2.2 H 1.0 (0.4-2.0) mmol/L Calcium (8.5-10.1) mg/dL Magnesium (1.8-2.4) mg/dL Total Bilirubin (0.2-1.0) mg/dL AST (15-37) U/L ALT (12-78) U/L Alkaline Phosphatase (46-116) IU/L Total Protein (6.4-8.2) g/dL Albumin (3.4-5.0) g/dL Specimen Type Urine Color Urine Appearance Urine pH (5.0-9.0) Ur Specific [place] (1.005-1.030) Urine Protein (NEGATIVE) mg/dL Urine Glucose (UA) (NEGATIVE) mg/dL Urine Ketones (NEGATIVE) mg/dL Urine Occult Blood (NEGATIVE) Urine Nitrite (NEGATIVE) Urine Bilirubin (NEGATIVE) Urine Urobilinogen (0.2-1.0) E.U./dL Ur Leukocyte Esterase (NEGATIVE) Urine RBC /HPF Urine WBC /HPF Ur Epithelial Cells /LPF Urine Bacteria (NONE TO FEW) /HPF SARS-CoV-2 RNA (ANTONI) (NEGATIVE) 05/29/21 05/29/21 05/29/21 Range/Units 07:15 07:15 09:30 WBC 9.0 (4.0-10.2) K/uL RBC 3.42 L (3.77-5.09) M/uL Hgb 11.1 L (11.7-15.5) g/dL Hct 35.4 (34.0-46.0) % MCV 103.5 H D (84.0-98.0) fL MCH 32.5 (28.2-33.3) pg MCHC 31.4 L (31.7-36.0) g/dL RDW 16.4 H (11.2-14.1) % Plt Count 219 (150-350) K/uL Neut % (Auto) 78.8 (45.0-80.0) % Lymph % (Auto) 12.8 (10.0-50.0) % Lake % (Auto) 7.7 (2.0-14.0) % Eos % (Auto) 0.6 (0.0-5.0) % Baso % (Auto) 0.1 (0.0-2.0) % Neut # (Auto) 7.07 H (1.40-7.00) K/uL Lymph # (Auto) 1.15 (0.50-3.50) K/uL [place] # (Auto) 0.69 (0.00-1.00) K/uL Eos # (Auto) 0.05 (0.00-0.50) K/uL Baso # (Auto) 0.01 (0.00-0.20) K/uL PT (9.5-12.0) SEC INR Sodium 140 (136-145) mmol/L Potassium 3.5 (3.5-5.1) mmol/L Chloride 105 (98-107) mmol/L Carbon Dioxide 28.2 (21.0-32.0) mmol/L Anion Gap 6.8 L (7-15) meq/L BUN 15 (7-18) mg/dL Creatinine 1.07 (0.51-1.17) mg/dL Est Cr Clr Drug Dosing 33.33 mL/min Estimated GFR (MDRD) 49 mL/min Glucose 88 (70-99) mg/dL Lactic Acid (0.4-2.0) mmol/L Calcium 7.3 L (8.5-10.1) mg/dL Magnesium (1.8-2.4) mg/dL Total Bilirubin (0.2-1.0) mg/dL AST (15-37) U/L ALT (12-78) U/L Alkaline Phosphatase (46-116) IU/L Total Protein (6.4-8.2) g/dL Albumin (3.4-5.0) g/dL Specimen Type Urinblad Urine Color Yellow Urine Appearance Clear Urine pH 7.5 (5.0-9.0) Ur Specific [place] 1.015 (1.005-1.030) Urine Protein Negative (NEGATIVE) mg/dL Urine Glucose (UA) Negative (NEGATIVE) mg/dL Urine Ketones Trace H (NEGATIVE) mg/dL Urine Occult Blood Negative (NEGATIVE) Urine Nitrite Negative (NEGATIVE) Urine Bilirubin Negative (NEGATIVE) Urine Urobilinogen 0.2 (0.2-1.0) E.U./dL Ur Leukocyte Esterase Negative (NEGATIVE) Urine RBC 0-5 /HPF Urine WBC 0-5 /HPF Ur Epithelial Cells Rare /LPF Urine Bacteria Rare (NONE TO FEW) /HPF SARS-CoV-2 RNA (ANTONI) (NEGATIVE) Result Diagrams: 05/29/21 07:15 05/29/21 07:15 Sepsis Event Note - Evaluation Sepsis Screening Result: No Definite Risk - Focused Exam Vital Signs: Vital Signs Temp Pulse Pulse Resp BP BP Pulse Ox 05/29/21 14:40 05/29/21 14:05 05/29/21 12:00 36.7 C 77 20 110/72 90 L 05/29/21 08:11 75 118/74 05/29/21 08:10 118/74 05/29/21 08:00 36.6 C 75 18 118/74 94 L 05/29/21 05:03 37.0 C 79 24 H 120/50 L 90 L Pulse Ox 05/29/21 14:40 96 05/29/21 14:05 84 L 05/29/21 12:00 05/29/21 08:11 05/29/21 08:10 05/29/21 08:00 05/29/21 05:03 - Problem List & Annotations (1) Hypoxemia requiring supplemental oxygen SNOMED Code(s): 781613810 Code(s): R09.02 - HYPOXEMIA; Z99.81 - DEPENDENCE ON SUPPLEMENTAL OXYGEN Status: Chronic Priority: High Current Visit: Yes Annotation/Comment:: Patient historically has needed supplemental O2 at night. Now noted to have O2 sats mid 80s with activity during day and requiring supplemental oxygen. Suspect CHF exacerbation. Radiology notes some changes at bases that may indicate pleural effusions vs patchy bronchopneumonia, L>R. Will diurese and add Zithromax/Rocephin to cover for early community-aquired pneumonia. Patient afebrile/no elevation in WBC/no cough. (2) CHF (congestive heart failure) SNOMED Code(s): 48517934 Code(s): I50.9 - HEART FAILURE, UNSPECIFIED Status: Chronic Priority: High Current Visit: Yes Qualifiers: Heart failure chronicity: acute on chronic Annotation/Comment:: as above. Last echo 2019 which showed normal EF. ProBNP added to labs. Suspect IV fluids given in ER yesterday for dehydration may have contributed to downward trending O2 sats. (3) Subtherapeutic international normalized ratio (INR) SNOMED Code(s): 405365091, 825364311 Code(s): R79.1 - ABNORMAL COAGULATION PROFILE Status: Acute Priority: Medium Current Visit: Yes Annotation/Comment:: INR 1.5 Will add extra dose Warfarin today. Observe trend as Rocephin may also contribute to altered INR. Recheck in AM (4) Vertigo SNOMED Code(s): 138284329 Code(s): R42 - DIZZINESS AND GIDDINESS Status: Chronic Priority: Low Current Visit: Yes Annotation/Comment:: Patient has been having issues with vertigo for approx 6 months per self report. Taking Meclizine. Reports falls at home from this and "furniture surfs" to get around better. (5) Hypokalemia SNOMED Code(s): 15137894 Code(s): E87.6 - HYPOKALEMIA Status: Acute Priority: High Current Visit: Yes Annotation/Comment:: Normalized level overnight (6) Dehydration SNOMED Code(s): 27067243 Code(s): E86.0 - DEHYDRATION Status: Acute Priority: High Current Visit: Yes Annotation/Comment:: Minimal PO intake day of admission accompanied by diarrhea. BP somewhat low upon arrival. Showed improvement after IV fluids. (7) Elevated lactic acid level SNOMED Code(s): 0217684 Code(s): R79.89 - OTHER SPECIFIED ABNORMAL FINDINGS OF BLOOD CHEMISTRY Status: Acute Priority: High Current Visit: Yes Onset Date: 11/24/20 Annotation/Comment:: Likely secondary to dehydration. Normal today. (8) Diarrhea SNOMED Code(s): 62941797 Code(s): R19.7 - DIARRHEA, UNSPECIFIED Status: Acute Priority: Medium Current Visit: Yes Qualifiers: Diarrhea type: unspecified type Qualified Code(s): R19.7 - Diarrhea, unspecified Annotation/Comment:: History of IBS. Uncertain if increased loose stools on day of presentation to ER related to IBS exacerbation or other cause such as viral gastroenteritis. Patient feels improved today (9) Nausea SNOMED Code(s): 375956908 Code(s): R11.0 - NAUSEA Status: Acute Priority: Medium Current Visit: Yes Annotation/Comment:: Zofran given in ER. Improved. (10) Irritable bowel syndrome SNOMED Code(s): 38721381 Code(s): K58.9 - IRRITABLE BOWEL SYNDROME WITHOUT DIARRHEA Status: Chronic Priority: Medium Current Visit: Yes Qualifiers: Irritable bowel syndrome type: with diarrhea Qualified Code(s): K58.0 - Irritable bowel syndrome with diarrhea Annotation/Comment:: Stable per patient, however cannot rule out as contributing factor to current GI complaints. (11) Polymyalgia rheumatica SNOMED Code(s): 34320761 Code(s): M35.3 - POLYMYALGIA RHEUMATICA Status: Chronic Priority: Low C urrent Visit: No Annotation/Comment:: Stable per history (12) Glaucoma SNOMED Code(s): 20405044 Code(s): H40.9 - UNSPECIFIED GLAUCOMA Status: Chronic Priority: Low Current Visit: No Qualifiers: Glaucoma type: unspecified Laterality: unspecified laterality Qualified Code(s): H40.9 - Unspecified glaucoma Annotation/Comment:: Stable per patient (13) CAD (coronary artery disease) SNOMED Code(s): 14240612 Code(s): I25.10 - ATHSCL HEART DISEASE OF [place] CORONARY ARTERY W/O ANG PCTRS Status: Chronic Priority: Low Current Visit: No Qualifiers: Coronary Disease-Associated Artery/Lesion type: [place] artery [place] vs. transplanted heart: [place] heart Associated angina: without angina Qualified Code(s): I25.10 - Atherosclerotic heart disease of [place] coronary artery without angina pectoris Annotation/Comment:: No chest pain or anginal type symptoms. (14) Raynauds syndrome SNOMED Code(s): 939836836 Code(s): I73.00 - RAYNAUD'S SYNDROME WITHOUT GANGRENE Status: Chronic Priority: Low Current Visit: No Annotation/Comment:: Stable per history (15) Hyperlipidemia SNOMED Code(s): 30719832 Code(s): E78.5 - HYPERLIPIDEMIA, UNSPECIFIED Status: Chronic Priority: Low Current Visit: No Qualifiers: Hyperlipidemia type: unspecified Qualified Code(s): E78.5 - Hyperlipidemia, unspecified Annotation/Comment:: Under therapy/stable per patient (16) Hypertension SNOMED Code(s): 31881338 Code(s): I10 - ESSENTIAL (PRIMARY) HYPERTENSION Status: Chronic Priority: Medium Current Visit: No Qualifiers: Hypertension type: essential hypertension Qualified Code(s): I10 - Essential (primary) hypertension Annotation/Comment:: Stable vitals in the emergency room. Observe (17) Afib SNOMED Code(s): 47791426 Code(s): I48.91 - UNSPECIFIED ATRIAL FIBRILLATION Status: Chronic Priority: Medium Current Visit: No Qualifiers: Atrial fibrillation type: unspecified chronic Qualified Code(s): I48.20 - Chronic atrial fibrillation, unspecified; I48.2 - Chronic atrial fibrillation Annotation/Comment:: No history of chest pain or anginal type symptoms. Check INR/PT next labs (18) Hypothyroid SNOMED Code(s): 71643726 Code(s): E03.9 - HYPOTHYROIDISM, UNSPECIFIED Status: Chronic Priority: Low Current Visit: No Qualifiers: Hypothyroidism type: acquired Qualified Code(s): E03.9 - Hypothyroidism, unspecified Annotation/Comment:: Stable per patient with no current symptoms. (19) Osteoarthritis SNOMED Code(s): 366298878 Code(s): M19.90 - UNSPECIFIED OSTEOARTHRITIS, UNSPECIFIED SITE Status: Chronic Priority: Low Current Visit: No Qualifiers: Osteoarthritis location: multiple joints Osteoarthritis type: primary Qualified Code(s): M89.49 - Other hypertrophic osteoarthropathy, multiple sites Annotation/Comment:: Stable by history with no history of other injury. Note history of polymyalgia rheumatica. (20) Mixed anxiety depressive disorder SNOMED Code(s): 576564490 Code(s): F41.8 - OTHER SPECIFIED ANXIETY DISORDERS Status: Chronic Priority: Low Current Visit: No - Problem List Review Problem List Initiated/Reviewed/Updated: Yes - My Orders Last 24 Hours: My Active Orders 05/28/21 16:20 Chest 2V [CR] Stat 05/28/21 16:38 Abdomen 2V AP Flat Upright [CR] Stat 05/28/21 Dinner Clear Liquid Diet [DIET] 05/28/21 18:17 Oxygen Therapy [RC] 2300 Up With Assistance [RC] DAILY VTE/DVT Education [RC] DAILY Ondansetron [Zofran] 4 mg IVPUSH Q6H PRN Resuscitation Status Routine 05/28/21 18:18 Intake and Output [RC] 06,18 05/28/21 18:20 Diphenoxylate HCl/Atropine [Lomotil] 2.5 mg PO ASDIRECTED PRN 05/28/21 18:43 Acetaminophen/Codeine [Tylenol with Codeine No.3 300MG/30MG] 1 tab PO Q4H PRN 05/28/21 20:00 Brinzolamide [Azopt 1% Ophth Susp] 1 drop EYEBOTH BID Netarsudil Mesylat/Latanoprost [Rocklatan 0.02%-0.005% Eye Drp] 1 drop EYEBOTH BEDTIME 05/28/21 20:22 Cyclobenzaprine [Flexeril] 10 mg PO TID PRN 05/28/21 20:24 Hyoscyamine [Hyomax-SL] 0.125 mg SL Q4HR PRN 05/28/21 20:27 Meclizine [Antivert] 25 mg PO QID PRN 05/28/21 20:36 Nitroglycerin [Nitrostat] 0.4 mg SL ASDIRECTED PRN 05/28/21 20:45 Metoprolol Tartrate [Lopressor] 50 mg PO BID 05/28/21 22:47 Temazepam [Restoril] 15 mg PO BEDTIME PRN 05/29/21 07:30 Levothyroxine [Synthroid] 50 mcg PO ACBREAKFAST 05/29/21 08:00 Brimonidine Tartrate/Timolol [Combigan 0.2%-0.5% Eye Drops] 1 drop EYEBOTH BID Cyclosporine [Restasis Multidose] 1 drop EYEBOTH BID Non-Formulary Medication [NF Drug] 1 each EYEBOTH DAILY Polyvinyl Alcohol [LiquiTears 1.4% Ophth Soln] 0 ml EYEBOTH DAILY amLODIPine [Norvasc] 10 mg PO DAILY atorvaSTATin [Lipitor] 10 mg PO DAILY estradioL 1 mg PO DAILY methylPREDNISolone [Medrol] 12 mg PO DAILY 05/29/21 08:46 Bladder Scan [RC] ASDIRECTED 05/29/21 09:00 Spray Cementer Discontinue [Cardiac Monitoring Discontinue] [RC] Click to Ed it 05/29/21 12:00 Fluorometholone 1 drop EYEBOTH DAILY@1200 05/29/21 13:27 Sodium Chloride 0.9% [Normal Saline] 1,000 ml IV ASDIRECTED 05/29/21 14:42 Warfarin [Coumadin] 5 mg PO ONETIME ONE 05/29/21 14:54 Admission Status [Patient Status] [ADT] Routine 05/29/21 15:00 Azithromycin [Zithromax] 500 mg Sodium Chloride 0.9% [Normal Saline] 250 ml IV Q24H cefTRIAXone [Rocephin] 1 gm Sodium Chloride 0.9% [Normal Saline] 100 ml IV Q24H 05/29/21 18:20 Non-Formulary Medication [NF Drug] 1 applic TOP TUSA 05/30/21 05:00 D Dimer [D-DIMER QUANTITATIVE] [COAG] Routine LACTIC ACID [CHEM] Routine PRO B-TYPE NATRIUR PEPT,BNPPRO [CHEM] Routine TROPONIN I HIGH SENSITIVITY [CHEM] Routine 05/30/21 05:11 INR,PT,PROTHROMBIN TIME [COAG] AM 05/30/21 05:15 BASIC METABOLIC PANEL,BMP [CHEM] AM CBC WITH AUTO DIFF [HEME] AM 05/30/21 18:00 Warfarin [Coumadin] 2 mg PO DAILY@1800 - Assessment Assessment:: as above - Plan Plan:: as above. Given sharp downward trend in room air sats patient switched to inpatient status. Will cover for potential of community acquired pneumonia. There is good chance that it is secondary to CHF exacerbation intravenous fluid given overnight along with K replacement. Patient has been falling often at home over recent months due to the vertigo issue. Will have case management/PT/OT evaluate patient for ADLs/ambulation/safety at home.
[2021-05-29] MEDS ORDERED: Warfarin 5 MG Tab PO ONE (18:00)
[2021-05-29] MEDS: Temazepam 15 MG Cap PO PRN (19:54)
[2021-05-29] MEDS: ROCKLATAN EYEBOTH SCH (19:55)
[2021-05-29] MEDS: OPTH EYEBOTH SCH (19:55)
[2021-05-29] MEDS ORDERED: Atropine/Diphenoxylate 0.025-2.5 MG Tab PO PRN (20:33)
[2021-05-30] MEDS: Sodium Chloride 0.9% 1,000 ML IV SCH (02:15)
[2021-05-30] MEDS ORDERED: Furosemide 20 MG/2 ML VIAL IVPUSH SCH (08:00)
[2021-05-30 08:39] LABS: ANION GAP 8.2 meq/L (7-15)
[2021-05-30] MEDS: atorvaSTATin 10 MG Tab PO SCH (10:07)
[2021-05-30] MEDS: Estradiol 1 MG Tab PO SCH (10:08)
[2021-05-30] MEDS: Potassium Chloride 20 MEQ Tab.ER PO SCH (10:08)
[2021-05-30] MEDS: Levothyroxine 50 MCG Tab PO SCH (10:09)
[2021-05-30] MEDS: amLODIPine 5 MG Tab PO SCH (10:11)
[2021-05-30] MEDS: Metoprolol Tartrate 50 MG Tab PO SCH ×2 (10:11→17:08)
[2021-05-30] MEDS: REFRESH OPTIVE EYEBOTH SCH (10:14)
[2021-05-30] MEDS: CYCLOSPORINE EYEBOTH SCH ×2 (10:14→17:08)
[2021-05-30] MEDS: AZOPT 1% EYEBOTH SCH ×2 (10:14→17:09)
[2021-05-30] MEDS: Polyvinyl Alcohol 1.4% Ophth Soln 15 ML Bottle EYEBOTH SCH (10:14)
[2021-05-30] MEDS: [UNRECOGNIZED DRUG - OTHER] EYEBOTH SCH ×2 (10:14→17:08)
[2021-05-30] MEDS: TIMOLOL EYEBOTH SCH ×2 (10:14→17:08)
[2021-05-30] MEDS: BRIMONIDINE TARTRATE EYEBOTH SCH ×2 (10:14→17:08)
[2021-05-30] MEDS ORDERED: Iopamidol 755 Mg/ML 100 ML Bottle IVPUSH STA (13:13)
--- NOTE | 2021-05-30 13:19 | PCM.PN ---
- General Info Date of Service: 05/30/21 Admission Dx/Problem (Free Text): Initially admitted for treatment of hypokalemia associated with diarrhea/lower abdominal cramping. Noted to have low O2 sats compared to previous visits with room air sats down to 84% with activity. Possible bronchopneumonia noted by Radiology. Subjective Update: Patient's GI complaints much improved. Main complaint now is continued SOB with activity Functional Status: Reports: Pain Controlled, Tolerating Diet, Ambulating (with assistance). Denies: New Symptoms - Review of Systems General: Reports: Weakness. Denies: Fever, Chills, Night Sweats HEENT: Reports: Other (no acute changes) Pulmonary: Reports: Shortness of Breath, Cough (minimal). Denies: Pleuritic Chest Pain, Sputum, Hemoptysis, Wheezing Cardiovascular: Reports: Dyspnea on Exertion, Edema. Denies: Chest Pain, Palpitations, Orthopnea, Lightheadedness Gastrointestinal: Reports: No Symptoms Genitourinary: Reports: No Symptoms Musculoskeletal: Reports: Other (no acute changes from baseline) Skin: Reports: No Symptoms Neurological: Reports: Difficulty Walking (hx of falls), Other (no acute changes). Denies: Confusion, Change in Speech Psychiatric: Reports: No Symptoms - Patient Data Vitals - Most Recent: Last Vital Signs Temp 36.6 C 05/30/21 05:24 Pulse 71 05/30/21 10:11 Resp 16 05/30/21 05:24 BP 118/70 05/30/21 10:11 Pulse Ox 93 L 05/30/21 05:24 Weight - Most Recent: 72.575 kg I&O - Last 24 Hours: Intake & Output 05/29/21 05/30/21 05/30/21 22:59 06:59 14:59 Intake Total 1883 950 420 Output Total 200 370 300 Balance 1683 580 120 Lab Results Last 24 Hours: Laboratory Results - last 24 hr 05/30/21 05/30/21 05/30/21 Range/Units 07:35 07:35 07:35 WBC (4.0-10.2) K/uL RBC (3.77-5.09) M/uL Hgb (11.7-15.5) g/dL Hct (34.0-46.0) % MCV (84.0-98.0) fL MCH (28.2-33.3) pg MCHC (31.7-36.0) g/dL RDW (11.2-14.1) % Plt Count (150-350) K/uL Neut % (Auto) (45.0-80.0) % Lymph % (Auto) (10.0-50.0) % [place] % (Auto) (2.0-14.0) % Eos % (Auto) (0.0-5.0) % Baso % (Auto) (0.0-2.0) % Neut # (Auto) (1.40-7.00) K/uL Lymph # (Auto) (0.50-3.50) K/uL [place] # (Auto) (0.00-1.00) K/uL Eos # (Auto) (0.00-0.50) K/uL Baso # (Auto) (0.00-0.20) K/uL PT (9.5-12.0) SEC INR D-Dimer, Quantitative 429 H (0-400) ng/mL Sodium (136-145) mmol/L Potassium (3.5-5.1) mmol/L Chloride (98-107) mmol/L Carbon Dioxide (21.0-32.0) mmol/L Anion Gap (7-15) meq/L BUN (7-18) mg/dL Creatinine (0.51-1.17) mg/dL Est Cr Clr Drug Dosing mL/min Estimated GFR (MDRD) mL/min Glucose (70-99) mg/dL Lactic Acid 1.2 (0.4-2.0) mmol/L Calcium (8.5-10.1) mg/dL Troponin I High Sens 15 (<=51) ng/L NT-Pro-B Natriuret Pep 2576 H (0-125) pg/mL TSH, Ultra Sensitive (0.358-3.740) mIU/mL 05/30/21 05/30/21 05/30/21 Range/Units 07:35 07:35 07:35 WBC 7.1 (4.0-10.2) K/uL RBC 3.01 L (3.77-5.09) M/uL Hgb 9.8 L (11.7-15.5) g/dL Hct 31.0 L (34.0-46.0) % MCV 103.0 H (84.0-98.0) fL MCH 32.6 (28.2-33.3) pg MCHC 31.6 L (31.7-36.0) g/dL RDW 15.6 H (11.2-14.1) % Plt Count 219 (150-350) K/uL Neut % (Auto) 79.2 (45.0-80.0) % Lymph % (Auto) 13.0 (10.0-50.0) % [place] % (Auto) 7.1 (2.0-14.0) % Eos % (Auto) 0.4 (0.0-5.0) % Baso % (Auto) 0.3 (0.0-2.0) % Neut # (Auto) 5.61 (1.40-7.00) K/uL Lymph # (Auto) 0.92 (0.50-3.50) K/uL [place] # (Auto) 0.50 (0.00-1.00) K/uL Eos # (Auto) 0.03 (0.00-0.50) K/uL Baso # (Auto) 0.02 (0.00-0.20) K/uL PT 18.8 H (9.5-12.0) SEC INR 1.9 D-Dimer, Quantitative (0-400) ng/mL Sodium 140 (136-145) mmol/L Potassium 3.6 (3.5-5.1) mmol/L Chloride 106 (98-107) mmol/L Carbon Dioxide 25.8 (21.0-32.0) mmol/L Anion Gap 8.2 (7-15) meq/L BUN 15 (7-18) mg/dL Creatinine 0.99 (0.51-1.17) mg/dL Est Cr Clr Drug Dosing 36.02 mL/min Estimated GFR (MDRD) 53 mL/min Glucose 113 H (70-99) mg/dL Lactic Acid (0.4-2.0) mmol/L Calcium 7.4 L (8.5-10.1) mg/dL Troponin I High Sens (<=51) ng/L NT-Pro-B Natriuret Pep (0-125) pg/mL TSH, Ultra Sensitive 0.731 (0.358-3.740) mIU/mL Med Orders - Current: Current Medications Acetaminophen/Codeine Phosphate (Acetaminophen/Codeine 300-30 Mg Tab) 1 tab PO Q4H PRN PRN Reason: Other Amlodipine Besylate (Amlodipine 5 Mg Tab) 10 mg PO DAILY [facility] Last Admin: 05/30/21 10:11 Dose: 10 mg Documented by: Artificial Tears (Polyvinyl Alcohol 1.4% Ophth Soln 15 Ml Bottle) 0 ml EYEBOTH DAILY [facility] Last Admin: 05/30/21 10:14 Dose: 1 drop Documented by: Atorvastatin Calcium (Atorvastatin 10 Mg Tab) 10 mg PO DAILY [facility] Last Admin: 05/30/21 10:07 Dose: 10 mg Documented by: Cyclobenzaprine HCl (Cyclobenzaprine 10 Mg Tab) 10 mg PO TID PRN PRN Reason: Spasms Diphenoxylate HCl/Atropine (Atropine/Diphenoxylate 0.025-2.5 Mg Tab) 1 tab PO Q6H PRN PRN Reason: Diarrhea Estradiol (Estradiol 1 Mg Tab) 1 mg PO DAILY [facility] Last Admin: 05/30/21 10:08 Dose: 1 mg Documented by: Furosemide (Furosemide 20 Mg/2 Ml Vial) 40 mg IVPUSH DAILY [facility] Hyoscyamine (Hyoscyamine 0.125 Mg Tab.Sl) 0.125 mg SL Q4HR PRN PRN Reason: IBS Last Admin: 05/29/21 05:55 Dose: 0.125 mg Documented by: Ceftriaxone Sodium 1 gm/ (Sodium Chloride) 100 mls @ 200 mls/hr IV Q24H [facility] Last Admin: 05/29/21 15:10 Dose: 200 mls/hr Documented by: Azithromycin 500 mg/ Sodium (Chloride) 250 mls @ 250 mls/hr IV Q24H [facility] Last Admin: 05/29/21 16:06 Dose: 250 mls/hr Documented by: Iopamidol (Iopamidol 755 Mg/Ml 100 Ml Bottle) 100 ml IVPUSH ONETIME STA Stop: 05/30/21 13:14 Levothyroxine Sodium (Levothyroxine 50 Mcg Tab) 50 mcg PO ACBREAKFAST [facility] Last Admin: 05/30/21 10:09 Dose: 50 mcg Documented by: Meclizine HCl (Meclizine 25 Mg Tab) 25 mg PO QID PRN PRN Reason: Dizziness Methylprednisolone (Methylprednisolone 4 Mg Tab) 12 mg PO DAILY [facility] Last Admin: 05/30/21 10:08 Dose: 12 mg Documented by: Metoprolol Tartrate (Metoprolol Tartrate 50 Mg Tab) 50 mg PO BID [facility] Last Admin: 05/30/21 10:11 Dose: 50 mg Documented by: Nitroglycerin (Nitroglycerin 0.4 Mg Tab.Sl) 0.4 mg SL ASDIRECTED PRN PRN Reason: Chest Pain Brimonidine Tartrate /Timolol (Combigan 0 .2%-0.5%)Own Med 1 drop EYEBOTH BID [facility] Last Admin: 05/30/21 10:14 Dose: 1 drop Documented by: Non-Formulary Medication (Fluorometholone) 1 drop EYEBOTH DAILY@1200 [facility] Rocklatan 0.02%-0. 005% Opth Own Med* * 1 drop EYEBOTH BEDTIME [facility] Last Admin: 05/29/21 19:55 Dose: 1 drop Documented by: Non-Formulary Medication (Non-Formulary Medication [Nf Drug]) 1 applic TOP [facility] Azopt 1% Ophth Susp* (*Own Med) 1 drop EYEBOTH BID [facility] Last Admin: 05/30/21 10:14 Dose: 1 drop Documented by: Cyclosporine Restasis 0.05% Drops Own Med 1 drop EYEBOTH BID [facility] Last Admin: 05/30/21 10:14 Dose: 1 drop Documented by: Nf Refresh Optive * (Patient Own Med) 1 each EYEBOTH DAILY [facility] Last Admin: 05/30/21 10:14 Dose: 1 each Documented by: Ondansetron HCl (Ondansetron 4 Mg/2 Ml Sdv) 4 mg IVPUSH Q6H PRN PRN Reason: Nausea/Vomiting Last Admin: 05/29/21 19:55 Dose: 4 mg Documented by: Potassium Chloride (Potassium Chloride 20 Meq Tab.Er) 20 meq PO WITHBREAKFAST [facility] Last Admin: 05/30/21 10:08 Dose: 20 meq Documented by: Temazepam (Temazepam 15 Mg Cap) 15 mg PO BEDTIME PRN PRN Reason: Insomnia Last Admin: 05/29/21 19:54 Dose: 15 mg Documented by: Warfarin Sodium (Warfarin 2 Mg Tab) 2 mg PO DAILY@1800 [facility] Warfarin Sodium (Warfarin 2.5 Mg Tab) 2.5 mg PO ONETIME ONE Stop: 05/30/21 18:01 Discontinued Medications Cholecalciferol (Cholecalciferol (Vitamin D3) 25 Mcg Tab) 50 mcg PO DAILY [facility] Furosemide (Furosemide 20 Mg/2 Ml Vial) 20 mg IVPUSH DAILY [facility] Last Admin: 05/30/21 10:15 Dose: 20 mg Documented by: Sodium Chloride (Normal Saline) 1,000 mls @ 150 mls/hr IV ASDIRECTED [facility] Last Admin: 05/29/21 12:50 Dose: 75 mls/hr Documented by: Potassium Chloride 10 meq/ (Premix) 50 mls @ 50 mls/hr IV Q1H [facility] Stop: 05/28/21 22:29 Last Admin: 05/28/21 23:42 Dose: 50 mls/hr Documented by: Sodium Chloride (Normal Saline) 1,000 mls @ 75 mls/hr IV .BOLUS ONE Stop: 05/29/21 07:46 Last Admin: 05/28/21 23:42 Dose: 75 mls/hr Documented by: Sodium Chloride (Normal Saline) 1,000 mls @ 75 mls/hr IV ASDIRECTED [facility] Last Admin: 05/30/21 02:15 Dose: 75 mls/hr Documented by: Loperamide HCl (Loperamide 2 Mg Tab) 2 mg PO ONETIME ONE Stop: 05/28/21 16:40 Last Admin: 05/28/21 18:36 Dose: Not Given Documented by: Magnesium Oxide (Magnesium Oxide 400 Mg Tab) 400 mg PO QPM [facility] Last Admin: 05/28/21 20:34 Dose: Not Given Documented by: Metoprolol Tartrate (Metoprolol Tartrate 50 Mg Tab) 50 mg PO BID [facility] Azopt 1% Ophth Susp* (*Own Med) 1 drop EYEBOTH BID [facility] Non-Formulary Medication (Cyanocobalamin (Vitamin B12) [Vitamin B12]) 1,000 mcg IJ Q30D [facility] Last Admin: 05/29/21 06:03 Dose: Not Given Documented by: Cyclosporine Restasis 0.05% Drops Own Med 1 drop EYEBOTH BID [facility] Non-Formulary Medication (Diphenoxylate Hcl/Atropine [Lomotil]) 2.5 mg PO ASDIRECTED PRN PRN Reason: Diarrhea Non-Formulary Medication (Latanoprost [Xalatan]) 1 drop EYEBOTH BEDTIME [facility] Last Admin: 05/29/21 06:03 Dose: Not Given Documented by: Non-Formulary Medication (Lutein [Lutein]) 20 mg PO DAILY [facility] Non-Formulary Medication (Lutein/Minerals/Vit A,C & E [Ocuvite]) 1 tab PO DAILY [facility] Ondansetron HCl (Ondansetron 4 Mg/2 Ml Sdv) 4 mg IVPUSH ONETIME ONE Stop: 05/28/21 16:40 Last Admin: 05/28/21 16:55 Dose: 4 mg Documented by: Pantoprazole Sodium (Pantoprazole 40 Mg Vial) 40 mg IVPUSH ONETIME ONE Stop: 05/28/21 18:28 Last Admin: 05/28/21 20:31 Dose: 40 mg Documented by: Pantoprazole Sodium (Pantoprazole 40 Mg Vial) Confirm Administered Dose 40 mg .ROUTE .STK-MED ONE Stop: 05/28/21 20:31 Last Admin: 05/28/21 20:37 Dose: Not Given Documented by: Potassium Chloride (Potassium Chloride 10 Meq Tab.Er) 10 meq PO ONETIME ONE Stop: 05/28/21 18:26 Last Admin: 05/28/21 20:23 Dose: 10 meq Documented by: Potassium Chloride (Potassium Chloride 10 Meq Tab.Er) 10 meq PO ONETIME ONE Stop: 05/28/21 20:31 Last Admin: 05/28/21 20:35 Dose: Not Given Documented by: Potassium Chloride (Potassium Chloride 10 Meq Tab.Er) 10 meq PO ONETIME ONE Stop: 05/28/21 22:31 Last Admin: 05/28/21 22:57 Dose: 10 meq Documented by: Warfarin Sodium (Warfarin 2 Mg Tab) 2 mg PO DAILY@1800 [facility] Last Admin: 05/28/21 21:17 Dose: 2 mg Documented by: Warfarin Sodium (Warfarin 5 Mg Tab) 5 mg PO ONETIME ONE Stop: 05/29/21 18:01 Last Admin: 05/29/21 18:01 Dose: 5 mg Documented by: - Exam Quality Assessment: Supplemental Oxygen, DVT Prophylaxis Urinary Catheter Total Time: 0Days 0Hours General: Alert, Oriented, Cooperative, No Acute Distress HEENT: Pupils Equal, Pupils Reactive, EOMI, Mucous Membr. Moist/[place]ck: Supple Lungs: Normal Respiratory Effort, Decreased Breath Sounds, Rales (mild/bases). No: Rhonchi, Rub, Stridor, Wheezing Cardiovascular: Irregular Rhythm GI/Abdominal Exam: Normal Bowel Sounds, Soft, Non-Tender, No Distention (Female) Exam: Deferred Back Exam: No: CVA Tenderness (L), CVA Tenderness (R), Muscle Spasm Extremities: Non-Tender, Pedal Edema Skin: Warm, Dry Neurological: No New Focal Deficit Psy/Mental Status: Alert, Normal Affect, Normal Mood - Patient Data Lab Results Last 24 hrs: Laboratory Results - last 24 hr 05/30/21 05/30/21 05/30/21 Range/Units 07:35 07:35 07:35 WBC (4.0-10.2) K/uL RBC (3.77-5.09) M/uL Hgb (11.7-15.5) g/dL Hct (34.0-46.0) % MCV (84.0-98.0) fL MCH (28.2-33.3) pg MCHC (31.7-36.0) g/dL RDW (11.2-14.1) % Plt Count (150-350) K/uL Neut % (Auto) (45.0-80.0) % Lymph % (Auto) (10.0-50.0) % [place] % (Auto) (2.0-14.0) % Eos % (Auto) (0.0-5.0) % Baso % (Auto) (0.0-2.0) % Neut # (Auto) (1.40-7.00) K/uL Lymph # (Auto) (0.50-3.50) K/uL [place] # (Auto) (0.00-1.00) K/uL Eos # (Auto) (0.00-0.50) K/uL Baso # (Auto) (0.00-0.20) K/uL PT (9.5-12.0) SEC INR D-Dimer, Quantitative 429 H (0-400) ng/mL Sodium (136-145) mmol/L Potassium (3.5-5.1) mmol/L Chloride (98-107) mmol/L Carbon Dioxide (21.0-32.0) mmol/L Anion Gap (7-15) meq/L BUN (7-18) mg/dL Creatinine (0.51-1.17) mg/dL Est Cr Clr Drug Dosing mL/min Estimated GFR (MDRD) mL/min Glucose (70-99) mg/dL Lactic Acid 1.2 (0.4-2.0) mmol/L Calcium (8.5-10.1) mg/dL Troponin I High Sens 15 (<=51) ng/L NT-Pro-B Natriuret Pep 2576 H (0-125) pg/mL TSH, Ultra Sensitive (0.358-3.740) mIU/mL 05/30/21 05/30/21 05/30/21 Range/Units 07:35 07:35 07:35 WBC 7.1 (4.0-10.2) K/uL RBC 3.01 L (3.77-5.09) M/uL Hgb 9.8 L (11.7-15.5) g/dL Hct 31.0 L (34.0-46.0) % MCV 103.0 H (84.0-98.0) fL MCH 32.6 (28.2-33.3) pg MCHC 31.6 L (31.7-36.0) g/dL RDW 15.6 H (11.2-14.1) % Plt Count 219 (150-350) K/uL Neut % (Auto) 79.2 (45.0-80.0) % Lymph % (Auto) 13.0 (10.0-50.0) % [place] % (Auto) 7.1 (2.0-14.0) % Eos % (Auto) 0.4 (0.0-5.0) % Baso % (Auto) 0.3 (0.0-2.0) % Neut # (Auto) 5.61 (1.40-7.00) K/uL Lymph # (Auto) 0.92 (0.50-3.50) K/uL [place] # (Auto) 0.50 (0.00-1.00) K/uL Eos # (Auto) 0.03 (0.00-0.50) K/uL Baso # (Auto) 0.02 (0.00-0.20) K/uL PT 18.8 H (9.5-12.0) SEC INR 1.9 D-Dimer, Quantitative (0-400) ng/mL Sodium 140 (136-145) mmol/L Potassium 3.6 (3.5-5.1) mmol/L Chloride 106 (98-107) mmol/L Carbon Dioxide 25.8 (21.0-32.0) mmol/L Anion Gap 8.2 (7-15) meq/L BUN 15 (7-18) mg/dL Creatinine 0.99 (0.51-1.17) mg/dL Est Cr Clr Drug Dosing 36.02 mL/min Estimated GFR (MDRD) 53 mL/min Glucose 113 H (70-99) mg/dL Lactic Acid (0.4-2.0) mmol/L Calcium 7.4 L (8.5-10.1) mg/dL Troponin I High Sens (<=51) ng/L NT-Pro-B Natriuret Pep (0-125) pg/mL TSH, Ultra Sensitive 0.731 (0.358-3.740) mIU/mL Result Diagrams: 05/30/21 07:35 05/30/21 07:35 Sepsis Event Note - Evaluation Sepsis Screening Result: No Definite Risk - Focused Exam Vital Signs: Vital Signs Temp Pulse Pulse Resp BP BP Pulse Ox 05/30/21 10:11 71 118/70 05/30/21 05:24 36.6 C 70 16 110/70 93 L - Problem List & Annotations (1) Hypoxemia requiring supplemental oxygen SNOMED Code(s): 553315779 Code(s): R09.02 - HYPOXEMIA; Z99.81 - DEPENDENCE ON SUPPLEMENTAL OXYGEN Status: Chronic Priority: High Current Visit: Yes Annotation/Comment:: Patient historically has needed supplemental O2 at night. Now noted to have O2 sats mid 80s with activity during day and requiring supplemental oxygen. Suspect CHF exacerbation. Radiology notes some changes at bases that may indicate pleural effusions vs patchy bronchopneumonia, L>R. Will diurese and add Zithromax/Rocephin to cover for early community-aquired pneumonia. Patient afebrile/no elevation in WBC/no cough. (2) CHF (congestive heart failure) SNOMED Code(s): 83844245 Code(s): I50.9 - HEART FAILURE, UNSPECIFIED Status: Chronic Priority: High Current Visit: Yes Qualifiers: Heart failure chronicity: acute on chronic Annotation/Comment:: as above. Last echo 2019 which showed normal EF. ProBNP 2576. Suspect IV fluids given in ER yesterday for dehydration may have contributed to downward trending O2 sats and Hgb. Also receiving extra fluid in form of antibiotics. (3) Subtherapeutic international normalized ratio (INR) SNOMED Code(s): 195286352, 775796969 Code(s): R79.1 - ABNORMAL COAGULATION PROFILE Status: Acute Priority: Medium Current Visit: Yes Annotation/Comment:: INR 1.9 Will add extra dose Warfarin today. Observe trend as Rocephin may also contribute to altered INR. Recheck in AM (4) Vertigo SNOMED Code(s): 433791663 Code(s): R42 - DIZZINESS AND GIDDINESS Status: Chronic Priority: Low Current Visit: Yes Annotation/Comment:: Patient has been having issues with vertigo for approx 6 months per self report. Taking Meclizine. Reports falls at home from this and "furniture surfs" to get around better. (5) Hypokalemia SNOMED Code(s): 03768624 Code(s): E87.6 - HYPOKALEMIA Status: Acute Priority: High Current Visit: Yes Annotation/Comment:: Normalized level day 2 of stay (6) Dehydration SNOMED Code(s): 38035447 Code(s): E86.0 - DEHYDRATION Status: Acute Priority: High Current Visit: Yes Annotation/Comment:: Minimal PO intake day of admission accompanied by diarrhea. BP somewhat low upon arrival. Showed improvement after IV fluids. (7) Elevated lactic acid level SNOMED Code(s): 6426254 Code(s): R79.89 - OTHER SPECIFIED ABNORMAL FINDINGS OF BLOOD CHEMISTRY Status: Acute Priority: High Current Visit: Yes Onset Date: 11/24/20 Annotation/Comment:: Likely secondary to dehydration. Normal today. (8) Diarrhea SNOMED Code(s): 83680170 Code(s): R19.7 - DIARRHEA, UNSPECIFIED Status: Acute Priority: Medium Current Visit: Yes Qualifiers: Diarrhea type: unspecified type Qualified Code(s): R19.7 - Diarrhea, unspecified Annotation/Comment:: History of IBS. Uncertain if increased loose stools on day of presentation to ER related to IBS exacerbation or other cause such as viral gastroenteritis. Patient feels improved today (9) Nausea SNOMED Code(s): 661451549 Code(s): R11.0 - NAUSEA Status: Acute Priority: Medium Current Visit: Yes Annotation/Comment:: Zofran given in ER. Improved. (10) Irritable bowel syndrome SNOMED Code(s): 19270374 Code(s): K58.9 - IRRITABLE BOWEL SYNDROME WITHOUT DIARRHEA Status: Chronic Priority: Medium Current Visit: Yes Qualifiers: Irritable bowel syndrome type: with diarrhea Qualified Code(s): K58.0 - Irritable bowel syndrome with diarrhea Annotation/Comment:: Stable per patient, however cannot rule out as contributing factor to current GI complaints. (11) Polymyalgia rheumatica SNOMED Code(s): 91123243 Code(s): M35.3 - POLYMYALGIA RHEUMATICA Status: Chronic Priority: Low Current Visit: No Annotation/Comment:: Stable per history (12) Glaucoma SNOMED Code(s): 30518950 Code(s): H40.9 - UNSPECIFIED GLAUCOMA Status: Chronic Priority: Low Current Visit: No Qualifiers: Glaucoma type: unspecified Laterality: unspecified laterality Qualified Code(s): H40.9 - Unspecified glaucoma Annotation/Comment:: Stable per patient (13) CAD (coronary artery disease) SNOMED Code(s): 17100909 Code(s): I25.10 - ATHSCL HEART DISEASE OF [place] CORONARY ARTERY W/O ANG PCTRS Status: Chronic Priority: Low Current Visit: No Qualifiers: Coronary Disease-Associated Artery/Lesion type: [place] artery [place] vs. transplanted heart: [place] heart Associated angina: without angina Qualified Code(s): I25.10 - Atherosclerotic heart disease of [place] coronary artery with out angina pectoris Annotation/Comment:: No chest pain or anginal type symptoms. (14) Raynauds syndrome SNOMED Code(s): 333895112 Code(s): I73.00 - RAYNAUD'S SYNDROME WITHOUT GANGRENE Status: Chronic Priority: Low Current Visit: No Annotation/Comment:: Stable per history (15) Hyperlipidemia SNOMED Code(s): 41442196 Code(s): E78.5 - HYPERLIPIDEMIA, UNSPECIFIED Status: Chronic Priority: Low Current Visit: No Qualifiers: Hyperlipidemia type: unspecified Qualified Code(s): E78.5 - Hyperlipidemia, unspecified Annotation/Comment:: Under therapy/stable per patient (16) Hypertension SNOMED Code(s): 00812181 Code(s): I10 - ESSENTIAL (PRIMARY) HYPERTENSION Status: Chronic Priority: Medium Current Visit: No Qualifiers: Hypertension type: essential hypertension Qualified Code(s): I10 - Essential (primary) hypertension Annotation/Comment:: Stable vitals in the emergency room. Observe (17) Afib SNOMED Code(s): 37972195 Code(s): I48.91 - UNSPECIFIED ATRIAL FIBRILLATION Status: Chronic Priority: Medium Current Visit: No Qualifiers: Atrial fibrillation type: unspecified chronic Qualified Code(s): I48.20 - C hronic atrial fibrillation, unspecified; I48.2 - Chronic atrial fibrillation Annotation/Comment:: No history of chest pain or anginal type symptoms. Check INR/PT next labs (18) Hypothyroid SNOMED Code(s): 70491031 Code(s): E03.9 - HYPOTHYROIDISM, UNSPECIFIED Status: Chronic Priority: Low Current Visit: No Qualifiers: Hypothyroidism type: acquired Qualified Code(s): E03.9 - Hypothyroidism, unspecified Annotation/Comment:: Stable per patient with no current symptoms. (19) Osteoarthritis SNOMED Code(s): 527155740 Code(s): M19.90 - UNSPECIFIED OSTEOARTHRITIS, UNSPECIFIED SITE Status: Chronic Priority: Low Current Visit: No Qualifiers: Osteoarthritis location: multiple joints Osteoarthritis type: primary Qualified Code(s): M89.49 - Other hypertrophic osteoarthropathy, multiple sites Annotation/Comment:: Stable by history with no history of other injury. Note h istory of polymyalgia rheumatica. (20) Mixed anxiety depressive disorder SNOMED Code(s): 875003034 Code(s): F41.8 - OTHER SPECIFIED ANXIETY DISORDERS Status: Chronic Priority: Low Current Visit: No - Problem List Review Problem List Initiated/Reviewed/Updated: Yes - My Orders Last 24 Hours: My Active Orders 05/29/21 14:54 Admission Status [Patient Status] [ADT] Routine 05/29/21 15:00 Azithromycin [Zithromax] 500 mg Sodium Chloride 0.9% [Normal Saline] 250 ml IV Q24H cefTRIAXone [Rocephin] 1 gm Sodium Chloride 0.9% [Normal Saline] 100 ml IV Q24H 05/29/21 15:03 PT Evaluation and Treatment [CONS] Routine 05/29/21 15:04 OT Evaluation and Treatment [CONS] Routine 05/29/21 15:07 EKG Documentation Completion [RC] ASDIRECTED 05/29/21 18:20 Non-Formulary Medication [NF Drug] 1 applic TOP TUSA 05/29/21 20:33 Atropine/Diphenoxylate [Lomotil 0.025-2.5 MG] 1 tab PO Q6H PRN 05/30/21 08:00 Potassium Chloride [Klor-Con M20] 20 meq PO WITHBREAKFAST 05/30/21 Lunch Advance Diet Instructions [DIET] 05/30/21 13:00 OCCULT BLOOD DIAGNOSTIC [OP] Routine 05/30/21 13:01 Warfarin [Coumadin] 2.5 mg PO ONETIME ONE 05/30/21 13:10 PE Chest [Ang Chest] [CT] Routine 05/30/21 13:13 Iopamidol [Isovue-370 (76%)] 100 ml IVPUSH ONETIME STA 05/30/21 18:00 Warfarin [Coumadin] 2 mg PO DAILY@1800 05/31/21 05:11 INR,PT,PROTHROMBIN TIME [COAG] AM 05/31/21 05:15 BASIC METABOLIC PANEL,BMP [CHEM] AM CBC WITH AUTO DIFF [HEME] AM 05/31/21 08:00 Furosemide [Lasix] 40 mg IVPUSH DAILY - Assessment Assessment:: as above - Plan Plan:: as above. Given sharp downward trend in room air sats patient switched to inpatient status. Covered for potential of community acquired pneumonia. There is good chance that it is secondary to CHF exacerbation intravenous fluid given overnight along with K replacement/antibiotics. Lasix added to regimen. DDimer eleveted. Patient agreeable with CT to r/o potential PE contribution to SOB. She has had subtherapeutic INR noted as above. Currently has been urinating well with no recurrence of significant urinary retention. Patient has been falling often at home over recent months due to the vertigo issue. Will have case management/PT/OT evaluate patient for ADLs/ambulation/safety at home. Anticipate another 2-3 days inpatient care to address the above depending upon clinical course and PT/OT evaluation.
[2021-05-30] MEDS: Azithromycin 250 MG Tab PO SCH (13:48)
[2021-05-30] MEDS ORDERED: Warfarin 2.5 MG Tab PO ONE (18:00)
[2021-05-30] MEDS: OPTH EYEBOTH SCH (19:27)
[2021-05-30] MEDS: ROCKLATAN EYEBOTH SCH (19:27)
[2021-05-30] MEDS: Temazepam 15 MG Cap PO PRN (19:31)
[2021-05-30] MEDS: Sodium Chloride 0.9% 10 ML Syringe FLUSH PRN (19:45)
[2021-05-30] MEDS: FLUOROMETHOLONE EYEBOTH SCH (19:50)
[2021-05-31] MEDS: Furosemide 40 MG/4 ML VIAL IVPUSH SCH (07:49)
[2021-05-31] MEDS: amLODIPine 5 MG Tab PO SCH (07:50)
[2021-05-31] MEDS: Levothyroxine 50 MCG Tab PO SCH (07:51)
[2021-05-31] MEDS: Azithromycin 250 MG Tab PO SCH (07:51)
[2021-05-31] MEDS: Estradiol 1 MG Tab PO SCH (07:51)
[2021-05-31] MEDS: Potassium Chloride 20 MEQ Tab.ER PO SCH (07:52)
[2021-05-31] MEDS: atorvaSTATin 10 MG Tab PO SCH (07:52)
[2021-05-31] MEDS: Metoprolol Tartrate 50 MG Tab PO SCH ×2 (07:52→18:11)
[2021-05-31] MEDS: REFRESH OPTIVE EYEBOTH SCH (07:53)
[2021-05-31 08:00] LABS: ANION GAP 7.8 meq/L (7-15)
[2021-05-31] MEDS: Sodium Chloride 0.9% 10 ML Syringe FLUSH SCH ×2 (08:00→20:35)
[2021-05-31] MEDS: [UNRECOGNIZED DRUG - OTHER] EYEBOTH SCH ×2 (08:01→18:11)
[2021-05-31] MEDS: CYCLOSPORINE EYEBOTH SCH ×2 (08:01→18:11)
[2021-05-31] MEDS: TIMOLOL EYEBOTH SCH ×2 (08:03→18:09)
[2021-05-31] MEDS: BRIMONIDINE TARTRATE EYEBOTH SCH ×2 (08:03→18:09)
[2021-05-31] MEDS: AZOPT 1% EYEBOTH SCH ×2 (08:03→18:09)
[2021-05-31] MEDS: Polyvinyl Alcohol 1.4% Ophth Soln 15 ML Bottle EYEBOTH SCH (08:05)
[2021-05-31] MEDS ORDERED: Metolazone 2.5 MG Tab PO ONE (09:41)
[2021-05-31] MEDS ORDERED: Nitroglycerin 2% Oint 1 GM UD Packet TOP ONE (09:43)
[2021-05-31 10:15] LABS: PCO2 ARTERIAL,POC 31 mmHg (35-48)
--- NOTE | 2021-05-31 10:37 | PCM.PN ---
- General Info Date of Service: 05/31/21 Admission Dx/Problem (Free Text): diarrhea, hypokalemia Subjective Update: Care taken over at change of shift 9 am. Patient has been getting IV fluids, IV antibiotics and has had increased oxygen need. She is 84% on 2lpm NC. She feels more short of breath. She did have a CT PE protocol yesterday and results had not been returned as of 9 am. Patient is feeling worse. States her diarrhea is improving. has increased fatigue. Cough is noted. Was negative for covid. Did receive 40 mg IVP lasix this morning and did output 500 cc. She is DNI/DNR. Was receiving IV rocephin and azithromycin but changed to orals this am by other provider. She is on 2 lpm at home, has been on 3-4 here. - Review of Systems General: Reports: Weakness, Fatigue HEENT: Reports: No Symptoms Pulmonary: Reports: Shortness of Breath, Cough, Wheezing Cardiovascular: Reports: No Symptoms Gastrointestinal: Reports: No Symptoms. Denies: Diarrhea Genitourinary: Reports: No Symptoms Skin: Reports: No Symptoms Neurological: Reports: No Symptoms Psychiatric: Reports: No Symptoms - Patient Data Vitals - Most Recent: Last Vital Signs Temp 36.5 C 05/31/21 08:00 Pulse 92 05/31/21 08:00 Resp 20 05/31/21 08:00 BP 120/80 05/31/21 08:00 Pulse Ox 82 L 05/31/21 08:00 Weight - Most Recent: 79.878 kg I&O - Last 24 Hours: Intake & Output 05/30/21 05/31/21 05/31/21 22:59 06:59 14:59 Intake Total 2061 300 180 Output Total 600 400 500 Balance 1461 -100 -320 Lab Results Last 24 Hours: Laboratory Results - last 24 hr 05/31/21 05/31/21 05/31/21 Range/Units 07:11 07:11 07:11 WBC 7.7 (4.0-10.2) K/uL RBC 3.01 L (3.77-5.09) M/uL Hgb 9.9 L (11.7-15.5) g/dL Hct 31.0 L (34.0-46.0) % MCV 103.0 H (84.0-98.0) fL MCH 32.9 (28.2-33.3) pg MCHC 31.9 (31.7-36.0) g/dL RDW 15.6 H (11.2-14.1) % Plt Count 207 (150-350) K/uL Neut % (Auto) 79.7 (45.0-80.0) % Lymph % (Auto) 10.9 (10.0-50.0) % [place] % (Auto) 8.7 (2.0-14.0) % Eos % (Auto) 0.6 (0.0-5.0) % Baso % (Auto) 0.1 (0.0-2.0) % Neut # (Auto) 6.13 (1.40-7.00) K/uL Lymph # (Auto) 0.84 (0.50-3.50) K/uL [place] # (Auto) 0.67 (0.00-1.00) K/uL Eos # (Auto) 0.05 (0.00-0.50) K/uL Baso # (Auto) 0.01 (0.00-0.20) K/uL PT 34.6 H D (9.5-12.0) SEC INR 3.6 POC ABG pH (7.35-7.45) pH ABG pH POC ABG pCO2 (35-48) mmHg ABG pCO2 POC ABG pO2 (83-108) mmHg ABG pO2 POC ABG HCO3 (22-26) mmol/L ABG HCO3 POC ABG Total CO2 (23-27) mmol/L ABG Total CO2 POC ABG O2 Sat (95-98) % ABG O2 Saturation POC ABG Base Excess (-2-3) mmol/L ABG Base Excess O2 Delivery Device Oxygen Flow Rate Blood Gas Comments Sodium 139 (136-145) mmol/L Potassium 3.6 (3.5-5.1) mmol/L Chloride 107 (98-107) mmol/L Carbon Dioxide 24.2 (21.0-32.0) mmol/L Anion Gap 7.8 (7-15) meq/L BUN 13 (7-18) mg/dL Creatinine 1.04 (0.51-1.17) mg/dL Est Cr Clr Drug Dosing 34.29 mL/min Estimated GFR (MDRD) 50 mL/min Glucose 126 H (70-99) mg/dL Calcium 7.8 L (8.5-10.1) mg/dL 05/31/21 05/31/21 Range/Units 10:00 10:00 WBC (4.0-10.2) K/uL RBC (3.77-5.09) M/uL Hgb (11.7-15.5) g/dL Hct (34.0-46.0) % MCV (84.0-98.0) fL MCH (28.2-33.3) pg MCHC (31.7-36.0) g/dL RDW (11.2-14.1) % Plt Count (150-350) K/uL Neut % (Auto) (45.0-80.0) % Lymph % (Auto) (10.0-50.0) % [place] % (Auto) (2.0-14.0) % Eos % (Auto) (0.0-5.0) % Baso % (Auto) (0.0-2.0) % Neut # (Auto) (1.40-7.00) K/uL Lymph # (Auto) (0.50-3.50) K/uL [place] # (Auto) (0.00-1.00) K/uL Eos # (Auto) (0.00-0.50) K/uL Baso # (Auto) (0.00-0.20) K/uL PT (9.5-12.0) SEC INR POC ABG pH 7.5 H (7.35-7.45) pH ABG pH Cancelled POC ABG pCO2 31 L (35-48) mmHg ABG pCO2 Cancelled POC ABG pO2 45 L* (83-108) mmHg ABG pO2 Cancelled POC ABG HCO3 21.5 L (22-26) mmol/L ABG HCO3 Cancelled POC ABG Total CO2 22.1 L (23-27) mmol/L ABG Total CO2 Cancelled POC ABG O2 Sat 83.4 L (95-98) % ABG O2 Saturation Cancelled POC ABG Base Excess -2 (-2-3) mmol/L ABG Base Excess Cancelled O2 Delivery Device Cancelled Nasal cannula Oxygen Flow Rate Cancelled 3 Blood Gas Comments Cancelled Sodium (136-145) mmol/L Potassium (3.5-5.1) mmol/L Chloride (98-107) mmol/L Carbon Dioxide (21.0-32.0) mmol/L Anion Gap (7-15) meq/L BUN (7-18) mg/dL Creatinine (0.51-1.17) mg/dL Est Cr Clr Drug Dosing mL/min Estimated GFR (MDRD) mL/min Glucose (70-99) mg/dL Calcium (8.5-10.1) mg/dL [facility] Results Last 24 Hours: Microbiology 05/31/21 08:30 Stool Occult Blood ([facility]) - Final Stool / Feces NEGATIVE OCCULT BLOOD REFERENCE RANGE: NEGATIVE Med Orders - Current: Current Medications Acetaminophen/Codeine Phosphate (Acetaminophen/Codeine 300-30 Mg Tab) 1 tab PO Q4H PRN PRN Reason: Other Last Admin: 05/30/21 23:42 Dose: 1 tab Documented by: Albuterol (Albuterol 0.083% 2.5 Mg/3 Ml Neb Soln) 2.5 mg NEB Q4HRRT [facility] Amlodipine Besylate (Amlodipine 5 Mg Tab) 10 mg PO DAILY [facility] Last Admin: 05/31/21 07:50 Dose: 10 mg Documented by: Artificial Tears (Polyvinyl Alcohol 1.4% Ophth Soln 15 Ml Bottle) 0 ml EYEBOTH DAILY [facility] Last Admin: 05/31/21 08:05 Dose: 1 drop Documented by: Atorvastatin Calcium (Atorvastatin 10 Mg Tab) 10 mg PO DAILY [facility] Last Admin: 05/31/21 07:52 Dose: 10 mg Documented by: Azithromycin (Azithromycin 250 Mg Tab) 250 mg PO DAILY [facility] Stop: 06/01/21 08:01 Last Admin: 05/31/21 07:51 Dose: 250 mg Documented by: Cyclobenzaprine HCl (Cyclobenzaprine 10 Mg Tab) 10 mg PO TID PRN PRN Reason: Spasms Diphenoxylate HCl/Atropine (Atropine/Diphenoxylate 0.025-2.5 Mg Tab) 1 tab PO Q6H PRN PRN Reason: Diarrhea Estradiol (Estradiol 1 Mg Tab) 1 mg PO DAILY [facility] Last Admin: 05/31/21 07:51 Dose: 1 mg Documented by: Furosemide (Furosemide 40 Mg/4 Ml Vial) 40 mg IVPUSH DAILY [facility] Last Admin: 05/31/21 07:49 Dose: 40 mg Documented by: Hyoscyamine (Hyoscyamine 0.125 Mg Tab.Sl) 0.125 mg SL Q4HR PRN PRN Reason: IBS Last Admin: 05/29/21 05:55 Dose: 0.125 mg Documented by: Vancomycin HCl 1.25 gm/ Sodium (Chloride) 250 mls @ 200 mls/hr IV Q24H [facility] Levothyroxine Sodium (Levothyroxine 50 Mcg Tab) 50 mcg PO ACBREAKFAST [facility] Last Admin: 05/31/21 07:51 Dose: 50 mcg Documented by: Meclizine HCl (Meclizine 25 Mg Tab) 25 mg PO QID PRN PRN Reason: Dizziness Methylprednisolone (Methylprednisolone 4 Mg Tab) 12 mg PO DAILY [facility] Last Admin: 05/31/21 07:49 Dose: 12 mg Documented by: Metoprolol Tartrate (Metoprolol Tartrate 50 Mg Tab) 50 mg PO BID [facility] Last Admin: 05/31/21 07:52 Dose: 50 mg Documented by: Nitroglycerin (Nitroglycerin 0.4 Mg Tab.Sl) 0.4 mg SL ASDIRECTED PRN PRN Reason: Chest Pain Brimonidine Tartrate /Timolol (Combigan 0 .2%-0.5%)Own Med 1 drop EYEBOTH BID [facility] Last Admin: 05/31/21 08:03 Dose: 1 drop Documented by: Rock[place]an 0.02%-0. 005% Opth Own Med* * 1 drop EYEBOTH BEDTIME [facility] Last Admin: 05/30/21 19:27 Dose: 1 drop Documented by: Non-Formulary Medication (Non-Formulary Medication [Nf Drug]) 1 applic [facility] Azopt 1% Ophth Susp* (*Own Med) 1 drop EYEBOTH BID [facility] Last Admin: 05/31/21 08:03 Dose: 1 drop Documented by: Cyclosporine Restasis 0.05% Drops Own Med 1 drop EYEBOTH BID [facility] Last Admin: 05/31/21 08:01 Dose: 1 drop Documented by: Nf Refresh Optive * (Patient Own Med) 1 each EYEBOTH DAILY [facility] Last Admin: 05/31/21 07:53 Dose: 1 each Documented by: Ondansetron HCl (Ondansetron 4 Mg/2 Ml Sdv) 4 mg IVPUSH Q6H PRN PRN Reason: Nausea/Vomiting Last Admin: 05/29/21 19:55 Dose: 4 mg Documented by: Potassium Chloride (Potassium Chloride 20 Meq Tab.Er) 20 meq PO WITHBREAKFAST [facility] Last Admin: 05/31/21 07:52 Dose: 20 meq Documented by: Sodium Chloride (Sodium Chloride 0.9% 10 Ml Syringe) 10 ml FLUSH ASDIRECTED PRN PRN Reason: Keep Vein Open Last Admin: 05/30/21 19:45 Dose: 10 ml Documented by: Sodium Chloride (Sodium Chloride 0.9% 10 Ml Syringe) 10 ml FLUSH [facility] Last Admin: 05/31/21 08:00 Dose: 10 ml Documented by: Temazepam (Temazepam 15 Mg Cap) 15 mg PO BEDTIME PRN PRN Reason: Insomnia Last Admin: 05/30/21 19:31 Dose: 15 mg Documented by: Vancomycin HCl (Pharmacy To Dose - Vancomycin) 1 dose .XX ASDIRECTED [facility] Warfarin Sodium (Warfarin 2 Mg Tab) 2 mg PO DAILY@1800 [facility] Discontinued Medications Cholecalciferol (Cholecalciferol (Vitamin D3) 25 Mcg Tab) 50 mcg PO DAILY [facility] Furosemide (Furosemide 20 Mg/2 Ml Vial) 20 mg IVPUSH DAILY [facility] Last Admin: 05/30/21 10:15 Dose: 20 mg Documented by: Sodium Chloride (Normal Saline) 1,000 mls @ 150 mls/hr IV ASDIRECTED [facility] Last Admin: 05/29/21 12:50 Dose: 75 mls/hr Documented by: Potassium Chloride 10 meq/ (Premix) 50 mls @ 50 mls/hr IV Q1H [facility] Stop: 05/28/21 22:29 Last Admin: 05/28/21 23:42 Dose: 50 mls/hr Documented by: Sodium Chloride (Normal Saline) 1,000 mls @ 75 mls/hr IV .BOLUS ONE Stop: 05/29/21 07:46 Last Admin: 05/28/21 23:42 Dose: 75 mls/hr Documented by: Sodium Chloride (Normal Saline) 1,000 mls @ 75 mls/hr IV ASDIRECTED [facility] Last Admin: 05/30/21 02:15 Dose: 75 mls/hr Documented by: Ceftriaxone Sodium 1 gm/ (Sodium Chloride) 100 mls @ 200 mls/hr IV Q24H [facility] Last Admin: 05/29/21 15:10 Dose: 200 mls/hr Documented by: Azithromycin 500 mg/ Sodium (Chloride) 250 mls @ 250 mls/hr IV Q24H [facility] Last Admin: 05/29/21 16:06 Dose: 250 mls/hr Documented by: Iopamidol (Iopamidol 755 Mg/Ml 100 Ml Bottle) 100 ml IVPUSH ONETIME STA Stop: 05/30/21 13:14 Last Admin: 05/30/21 14:44 Dose: 100 ml Documented by: Loperamide HCl (Loperamide 2 Mg Tab) 2 mg PO ONETIME ONE Stop: 05/28/21 16:40 Last Admin: 05/28/21 18:36 Dose: Not Given Documented by: Magnesium Oxide (Magnesium Oxide 400 Mg Tab) 400 mg PO QPM [facility] Last Admin: 05/28/21 20:34 Dose: Not Given Documented by: Metolazone (Metolazone 2.5 Mg Tab) 5 mg PO ONETIME ONE Stop: 05/31/21 09:42 Last Admin: 05/31/21 10:19 Dose: 5 mg Documented by: Metoprolol Tartrate (Metoprolol Tartrate 50 Mg Tab) 50 mg PO BID [facility] Nitroglycerin (Nitroglycerin 2% Oint 1 Gm Ud Packet) 1 gm TOP ONETIME ONE Stop: 05/31/21 09:44 Last Admin: 05/31/21 10:19 Dose: 1 gm Documented by: Azopt 1% Ophth Susp* (*Own Med) 1 drop EYEBOTH BID [facility] Non-Formulary Medication (Cyanocobalamin (Vitamin B12) [Vitamin B12]) 1,000 mcg IJ Q30D [facility] Last Admin: 05/29/21 06:03 Dose: Not Given Documented by: Cyclosporine Restasis 0.05% Drops Own Med 1 drop EYEBOTH BID [facility] Non-Formulary Medication (Diphenoxylate Hcl/Atropine [Lomotil]) 2.5 mg PO ASDIRECTED PRN PRN Reason: Diarrhea Non-Formulary Medication (Fluorometholone) 1 drop EYEBOTH DAILY@1200 [facility] Last Admin: 05/30/21 19:50 Dose: Not Given Documented by: Non-Formulary Medication (Latanoprost [Xalatan]) 1 drop EYEBOTH BEDTIME [facility] Last Admin: 05/29/21 06:03 Dose: Not Given Documented by: Non-Formulary Medication (Lutein [Lutein]) 20 mg PO DAILY [facility] Non-Formulary Medication (Lutein/Minerals/Vit A,C & E [Ocuvite]) 1 tab PO DAILY [facility] Ondansetron HCl (Ondansetron 4 Mg/2 Ml Sdv) 4 mg IVPUSH ONETIME ONE Stop: 05/28/21 16:40 Last Admin: 05/28/21 16:55 Dose: 4 mg Documented by: Pantoprazole Sodium (Pantoprazole 40 Mg Vial) 40 mg IVPUSH ONETIME ONE Stop: 05/28/21 18:28 Last Admin: 05/28/21 20:31 Dose: 40 mg Documented by: Pantoprazole Sodium (Pantoprazole 40 Mg Vial) Confirm Administered Dose 40 mg .ROUTE .STK-MED ONE Stop: 05/28/21 20:31 Last Admin: 05/28/21 20:37 Dose: Not Given Documented by: Potassium Chloride (Potassium Chloride 10 Meq Tab.Er) 10 meq PO ONETIME ONE Stop: 05/28/21 18:26 Last Admin: 05/28/21 20:23 Dose: 10 meq Documented by: Potassium Chloride (Potassium Chloride 10 Meq Tab.Er) 10 meq PO ONETIME ONE Stop: 05/28/21 20:31 Last Admin: 05/28/21 20:35 Dose: Not Given Documented by: Potassium Chloride (Potassium Chloride 10 Meq Tab.Er) 10 meq PO ONETIME ONE Stop: 05/28/21 22:31 Last Admin: 05/28/21 22:57 Dose: 10 meq Documented by: Warfarin Sodium (Warfarin 2 Mg Tab) 2 mg PO DAILY@1800 [facility] Last Admin: 05/28/21 21:17 Dose: 2 mg Documented by: Warfarin Sodium (Warfarin 5 Mg Tab) 5 mg PO ONETIME ONE Stop: 05/29/21 18:01 Last Admin: 05/29/21 18:01 Dose: 5 mg Documented by: Warfarin Sodium (Warfarin 2.5 Mg Tab) 2.5 mg PO ONETIME ONE Stop: 05/30/21 18:01 Last Admin: 05/30/21 17:08 Dose: 2.5 mg Documented by: - Exam Quality Assessment: Supplemental Oxygen Urinary Catheter Total Time: 0Days 0Hours General: Alert, Oriented, Mild Distress HEENT: Pupils Equal Neck: Supple Lungs: Decreased Breath Sounds, Crackles, Wheezing (increased respiratory effort) GI/Abdominal Exam: Normal Bowel Sounds Extremities: Normal Inspection, Pedal Edema Neurological: No New Focal Deficit Psy/Mental Status: Alert Physical Findings Comments:: note for the last two days input fludis is 3200 and out put is 1854-1876, fluid overload noted. - Patient Data Lab Results Last 24 hrs: Laboratory Results - last 24 hr 05/31/21 05/31/21 05/31/21 Range/Units 07:11 07:11 07:11 WBC 7.7 (4.0-10.2) K/uL RBC 3.01 L (3.77-5.09) M/uL Hgb 9.9 L (11.7-15.5) g/dL Hct 31.0 L (34.0-46.0) % MCV 103.0 H (84.0-98.0) fL MCH 32.9 (28.2-33.3) pg MCHC 31.9 (31.7-36.0) g/dL RDW 15.6 H (11.2-14.1) % Plt Count 207 (150-350) K/uL Neut % (Auto) 79.7 (45.0-80.0) % Lymph % (Auto) 10.9 (10.0-50.0) % [place] % (Auto) 8.7 (2.0-14.0) % Eos % (Auto) 0.6 (0.0-5.0) % Baso % (Auto) 0.1 (0.0-2.0) % Neut # (Auto) 6.13 (1.40-7.00) K/uL Lymph # (Auto) 0.84 (0.50-3.50) K/uL [place] # (Auto) 0.67 (0.00-1.00) K/uL Eos # (Auto) 0.05 (0.00-0.50) K/uL Baso # (Auto) 0.01 (0.00-0.20) K/uL PT 34.6 H D (9.5-12.0) SEC INR 3.6 POC ABG pH (7.35-7.45) pH ABG pH POC ABG pCO2 (35-48) mmHg ABG pCO2 POC ABG pO2 (83-108) mmHg ABG pO2 POC ABG HCO3 (22-26) mmol/L ABG HCO3 POC ABG Total CO2 (23-27) mmol/L ABG Total CO2 POC ABG O2 Sat (95-98) % ABG O2 Saturation POC ABG Base Excess (-2-3) mmol/L ABG Base Excess O2 Delivery Device Oxygen Flow Rate Blood Gas Comments Sodium 139 (136-145) mmol/L Potassium 3.6 (3.5-5.1) mmol/L Chloride 107 (98-107) mmol/L Carbon Dioxide 24.2 (21.0-32.0) mmol/L Anion Gap 7.8 (7-15) meq/L BUN 13 (7-18) mg/dL Creatinine 1.04 (0.51-1.17) mg/dL Est Cr Clr Drug Dosing 34.29 mL/min Estimated GFR (MDRD) 50 mL/min Glucose 126 H (70-99) mg/dL Calcium 7.8 L (8.5-10.1) mg/dL 05/31/21 05/31/21 Range/Units 10:00 10:00 WBC (4.0-10.2) K/uL RBC (3.77-5.09) M/uL Hgb (11.7-15.5) g/dL Hct (34.0-46.0) % MCV (84.0-98.0) fL MCH (28.2-33.3) pg MCHC (31.7-36.0) g/dL RDW (11.2-14.1) % Plt Count (150-350) K/uL Neut % (Auto) (45.0-80.0) % Lymph % (Auto) (10.0-50.0) % [place] % (Auto) (2.0-14.0) % Eos % (Auto) (0.0-5.0) % Baso % (Auto) (0.0-2.0) % Neut # (Auto) (1.40-7.00) K/uL Lymph # (Auto) (0.50-3.50) K/uL [place] # (Auto) (0.00-1.00) K/uL Eos # (Auto) (0.00-0.50) K/uL Baso # (Auto) (0.00-0.20) K/uL PT (9.5-12.0) SEC INR POC ABG pH 7.5 H (7.35-7.45) pH ABG pH Cancelled POC ABG pCO2 31 L (35-48) mmHg ABG pCO2 Cancelled POC ABG pO2 45 L* (83-108) mmHg ABG pO2 Cancelled POC ABG HCO3 21.5 L (22-26) mmol/L ABG HCO3 Cancelled POC ABG Total CO2 22.1 L (23-27) mmol/L ABG Total CO2 Cancelled POC ABG O2 Sat 83.4 L (95-98) % ABG O2 Saturation Cancelled POC ABG Base Excess -2 (-2-3) mmol/L ABG Base Excess Cancelled O2 Delivery Device Cancelled Nasal cannula Oxygen Flow Rate Cancelled 3 Blood Gas Comments Cancelled Sodium (136-145) mmol/L Potassium (3.5-5.1) mmol/L Chloride (98-107) mmol/L Carbon Dioxide (21.0-32.0) mmol/L Anion Gap (7-15) meq/L BUN (7-18) mg/dL Creatinine (0.51-1.17) mg/dL Est Cr Clr Drug Dosing mL/min Estimated GFR (MDRD) mL/min Glucose (70-99) mg/dL Calcium (8.5-10.1) mg/dL Result Diagrams: 05/31/21 07:11 05/31/21 07:11 [facility] Results Last 24 hrs: Microbiology 05/31/21 08:30 Stool Occult Blood ([facility]) - Final Stool / Feces NEGATIVE OCCULT BLOOD REFERENCE RANGE: NEGATIVE Sepsis Event Note - Evaluation Sepsis Screening Result: Possible Sepsis Risk - Focused Exam Vital Signs: Vital Signs Temp Pulse Pulse Resp BP BP Pulse Ox 05/31/21 08:00 36.5 C 92 20 120/80 82 L 05/31/21 07:52 92 120/80 05/31/21 07:50 120/80 - Problem List & Annotations (1) Diarrhea SNOMED Code(s): 75906275 Code(s): R19.7 - DIARRHEA, UNSPECIFIED Status: Acute Priority: Medium Current Visit: Yes Qualifiers: Diarrhea type: unspecified type Qualified Code(s): R19.7 - Diarrhea, unspecified Annotation/Comment:: Improvedm more formed stools today History of IBS. Uncertain if increased loose stools on day of presentation to ER related to IBS exacerbation or other cause such as viral gastroenteritis. Patient feels improved today (2) CHF (congestive heart failure) SNOMED Code(s): 55557983 Code(s): I50.9 - HEART FAILURE, UNSPECIFIED Status: Chronic Priority: High Current Visit: Yes Qualifiers: Heart failure chronicity: acute on chronic Annotation/Comment:: Worsening with fluid overload for dehydration and antibiotics. IV lasix given for 1000 out, pleural effusions noted and hyoxia. as above. Last echo 2019 which showed normal EF. ProBNP 2576. Suspect IV fluids given in ER yesterday for dehydration may have contributed to downward trending O2 sats and Hgb. Also receiving extra fluid in form of antibiotics. (3) Hypoxemia requiring supplemental oxygen SNOMED Code(s): 007156332 Code(s): R09.02 - HYPOXEMIA; Z99.81 - DEPENDENCE ON SUPPLEMENTAL OXYGEN Status: Chronic Priority: High Current Visit: Yes Annotation/Comment:: CT scan with pleural effusions, no PE, concern for bronchitis versus aspiration. Switched from IV rocephin and azithromycin to oral. Vanocmycin added, added nebs, metazolone po and nitro paste for pulmonary edema. ABg with PaO2 of 44, Patient historically has needed supplemental O2 at night. Now noted to have O2 sats mid 80s with activity during day and requiring supplemental oxygen. Suspect CHF exacerbation. Radiology notes some changes at bases that may kaveh karis pleural effusions vs patchy bronchopneumonia, L>R. Will diurese and add Zithromax/Rocephin to cover for early community-aquired pneumonia. Patient afebrile/no elevation in WBC/no cough. - Problem List Review Problem List Initiated/Reviewed/Updated: Yes - My Orders Last 24 Hours: My Active Orders 05/31/21 09:42 RT Aerosol Therapy [RC] ASDIRECTED 05/31/21 10:10 BIPAP Adult [RT BiPAP/CPAP] [RC] ASDIRECTED 05/31/21 10:15 Pharmacy to Dose - Vancomycin 1 dose .XX ASDIRECTED 05/31/21 11:00 Vancomycin 1.25 gm Sodium Chloride 0.9% [Normal Saline (AdvBag)] 250 ml IV Q24H 05/31/21 12:00 Albuterol [Proventil Neb Soln] 2.5 mg NEB Q4HRRT - Assessment Assessment:: Diarrhea Improved Hypoxia, acue on chronic, wosening. Will try a trial of bipap, give oral dose of metazolone, already had 40 of lasix IV, may need to repeat later in day, will give albuterol nebs as needed. nitro paste on the chest to help with possibility of pulmonary edema CT scan with bilateral pleural effusions, bronchial thickening , concern for atelectasis versus aspiration, cardiomegaly, no PE, verbal report received Bronchitis versus aspiration On rocephin and zithromycin IV, given three days IV doses, changed to orals. Add vancomycin for community aquired. - Plan Plan:: 05/31 add vancomycin, metazolone, bipap to move fluid. IS a DNI, may need to repeat lasix today. Fluid overload noted. albuterol nebs as needed 05/30 as above. Given sharp downward trend in room air sats patient switched to inpatient status. Covered for potential of community acquired pneumonia. There is good chance that it is secondary to CHF exacerbation intravenous fluid given overnight along with K replacement/antibiotics. Lasix added to regimen. DDimer eleveted. Patient agreeable with CT to r/o potential PE contribution to SOB. She has had subtherapeutic INR noted as above. Currently has been urinating well with no recurrence of significant urinary retention. Patient has been falling often at home over recent months due to the vertigo issue. Will have case management/PT/OT evaluate patient for ADLs/ambulation/safety at home. Anticipate another 2-3 days inpatient care to address the above depending upon clinical course and PT/OT evaluation.
[2021-05-31] MEDS: Albuterol 0.083% 2.5 MG/3 ML Neb Soln NEB SCH ×3 (13:05→20:23)
--- NOTE | 2021-05-31 17:40 | PCM.SN.2 ---
- Free Text/Narrative Note: Patient came off the bipap at about 13:30. Feeling better, eating and talking in short phrases. Patient states that she usually uses her oxygen when she is sleeping or in bed. Prior to admisison she was in bed quite a bit due to weakness and feeling unwell. She was wearing the oxygen then. She does check her O2 sats at home off oxygen and her sats run 88-90% on room air. After coming off the bipap her O2 sats on 3 lpm were 88%. Increased flow to 5 lpm and sats are holding at 88-90%. Patient feels better other than when up with activity. Checking her fluid intake versus output since admission, patient was roughly 5000 ml up on intake from output since admission. Today she has diuresed output greater than input of 1000. Will recheck labs in the morning. check electrolytes and renal function then. CAn continue with gentle diuresis. Patient may benefit from thoracentesis if breathing difficultly continues but this would mean a transfer and patient has declined this thus far. O2 at all times. Biapap needs to re instituted if sats are 85% or less. may benefit from this at night. Continue antibiotics
[2021-05-31] MEDS: Warfarin 2 MG Tab PO SCH (18:11)
[2021-05-31] MEDS: ROCKLATAN EYEBOTH SCH (20:29)
[2021-05-31] MEDS: OPTH EYEBOTH SCH (20:29)
[2021-05-31] MEDS: Temazepam 15 MG Cap PO PRN (20:29)
[2021-06-01] MEDS: Albuterol 0.083% 2.5 MG/3 ML Neb Soln NEB SCH ×7 (00:06→23:41)
[2021-06-01] MEDS: BRIMONIDINE TARTRATE EYEBOTH SCH ×2 (07:46→17:29)
[2021-06-01] MEDS: TIMOLOL EYEBOTH SCH ×2 (07:46→17:29)
[2021-06-01] MEDS: Potassium Chloride 20 MEQ Tab.ER PO SCH (07:48)
[2021-06-01] MEDS: AZOPT 1% EYEBOTH SCH ×2 (07:48→17:33)
[2021-06-01] MEDS: Levothyroxine 50 MCG Tab PO SCH (07:48)
[2021-06-01] MEDS: Estradiol 1 MG Tab PO SCH (07:49)
[2021-06-01] MEDS: atorvaSTATin 10 MG Tab PO SCH (07:49)
[2021-06-01] MEDS: Azithromycin 250 MG Tab PO SCH (07:50)
[2021-06-01] MEDS: Sodium Chloride 0.9% 10 ML Syringe FLUSH SCH ×2 (07:51→21:28)
[2021-06-01] MEDS: Furosemide 40 MG/4 ML VIAL IVPUSH SCH (07:51)
[2021-06-01] MEDS: REFRESH OPTIVE EYEBOTH SCH (08:02)
[2021-06-01] MEDS: [UNRECOGNIZED DRUG - OTHER] EYEBOTH SCH ×2 (08:03→17:37)
[2021-06-01] MEDS: CYCLOSPORINE EYEBOTH SCH ×2 (08:03→17:37)
[2021-06-01] MEDS: Polyvinyl Alcohol 1.4% Ophth Soln 15 ML Bottle EYEBOTH SCH (08:04)
[2021-06-01] MEDS: Metoprolol Tartrate 50 MG Tab PO SCH ×2 (08:10→17:40)
[2021-06-01] MEDS: amLODIPine 5 MG Tab PO SCH (08:11)
[2021-06-01 09:28] LABS: O2 DELIVERY DEVICE NASAL CANNULA; PCO2 ARTERIAL 31 mmHG (35-45)
[2021-06-01 09:31] LABS: BASE EXCESS ARTERIAL -1 mmol/L (-2-3); BICARBONATE,ARTERIAL 21.9 mmol/L (22-26); O2 FLOW RATE 4 L/min; O2 SATURATION ARTERIAL 87 % (95-98); PO2 ARTERIAL 50 mmHG (80-105)
[2021-06-01] MEDS: Sodium Chloride 0.9% 10 ML Syringe FLUSH PRN (11:48)
--- NOTE | 2021-06-01 12:52 | PCM.PN ---
- General Info Date of Service: 06/01/21 Admission Dx/Problem (Free Text): pneumonia, dehydration, diarrhea Subjective Update: Patient did better last night. Went to bed with O2 at 5lpm NC. neb at midnight as she was feeling more short of breath. shortly after than she had sats less than 85% adn bipap was attempted. did not tolerated for long, and then sats were 88%. Allowed to keep NC on. This morning ABG is better. Feeling good, up for therapy, felt well enough to put on lipstick. Eating. Functional Status: Reports: Tolerating Diet, Ambulating - Review of Systems General: Reports: No Symptoms HEENT: Reports: No Symptoms Pulmonary: Reports: Shortness of Breath, Cough (improved from yesterday) Cardiovascular: Reports: Edema (improving from yesterday) Gastrointestinal: Reports: No Symptoms - Patient Data Vitals - Most Recent: Last Vital Signs Temp 36.4 C 06/01/21 08:00 Pulse 81 06/01/21 08:10 Resp 20 06/01/21 08:27 BP 126/60 06/01/21 08:11 Pulse Ox 92 L 06/01/21 08:27 Weight - Most Recent: 79.107 kg I&O - Last 24 Hours: Intake & Output 05/31/21 06/01/21 06/01/21 22:59 06:59 14:59 Intake Total 740 150 350 Output Total 750 Balance 740 -600 350 Lab Results Last 24 Hours: Laboratory Results - last 24 hr 06/01/21 06/01/21 06/01/21 Range/Units 07:34 07:34 09:21 PT 39.2 H (9.5-12.0) SEC INR 4.1 ABG pH 7.46 H (7.35-7.45) ABG pCO2 31 L (35-45) mmHG ABG pO2 50 L* (80-105) mmHG ABG HCO3 21.9 L (22-26) mmol/L ABG Total CO2 22 L (23-27) mmol/L ABG O2 Saturation 87 L (95-98) % ABG Base Excess -1 (-2-3) mmol/L O2 Delivery Device Nasal cannula Oxygen Flow Rate 4 L/min Magnesium 1.9 (1.8-2.4) mg/dL [facility] Results Last 24 Hours: Microbiology 05/31/21 08:30 Stool Occult Blood ([facility]) - Final Stool / Feces NEGATIVE OCCULT BLOOD REFERENCE RANGE: NEGATIVE Med Orders - Current: Current Medications Acetaminophen/Codeine Phosphate (Acetaminophen/Codeine 300-30 Mg Tab) 1 tab PO Q4H PRN PRN Reason: Other Last Admin: 05/30/21 23:42 Dose: 1 tab Documented by: Albuterol (Albuterol 0.083% 2.5 Mg/3 Ml Neb Soln) 2.5 mg NEB Q4HRRT [facility] Last Admin: 06/01/21 11:47 Dose: 2.5 mg Documented by: Amlodipine Besylate (Amlodipine 5 Mg Tab) 10 mg PO DAILY [facility] Last Admin: 06/01/21 08:11 Dose: 10 mg Documented by: Artificial Tears (Polyvinyl Alcohol 1.4% Ophth Soln 15 Ml Bottle) 0 ml EYEBOTH DAILY [facility] Last Admin: 06/01/21 08:04 Dose: 1 drop Documented by: Atorvastatin Calcium (Atorvastatin 10 Mg Tab) 10 mg PO DAILY [facility] Last Admin: 06/01/21 07:49 Dose: 10 mg Documented by: Cyclobenzaprine HCl (Cyclobenzaprine 10 Mg Tab) 10 mg PO TID PRN PRN Reason: Spasms Diphenoxylate HCl/Atropine (Atropine/Diphenoxylate 0.025-2.5 Mg Tab) 1 tab PO Q6H PRN PRN Reason: Diarrhea Estradiol (Estradiol 1 Mg Tab) 1 mg PO DAILY [facility] Last Admin: 06/01/21 07:49 Dose: 1 mg Documented by: Furosemide (Furosemide 40 Mg/4 Ml Vial) 40 mg IVPUSH DAILY [facility] Last Admin: 06/01/21 07:51 Dose: 40 mg Documented by: Hyoscyamine (Hyoscyamine 0.125 Mg Tab.Sl) 0.125 mg SL Q4HR PRN PRN Reason: IBS Last Admin: 05/29/21 05:55 Dose: 0.125 mg Documented by: Vancomycin HCl 1.25 gm/ Sodium (Chloride) 250 mls @ 200 mls/hr IV Q24H [facility] Last Admin: 06/01/21 11:41 Dose: 200 mls/hr Documented by: Levothyroxine Sodium (Levothyroxine 50 Mcg Tab) 50 mcg PO ACBREAKFAST [facility] Last Admin: 06/01/21 07:48 Dose: 50 mcg Documented by: Meclizine HCl (Meclizine 25 Mg Tab) 25 mg PO QID PRN PRN Reason: Dizziness Methylprednisolone (Methylprednisolone 4 Mg Tab) 12 mg PO DAILY [facility] Last Admin: 06/01/21 07:50 Dose: 12 mg Documented by: Metoprolol Tartrate (Metoprolol Tartrate 50 Mg Tab) 50 mg PO BID [facility] Last Admin: 06/01/21 08:10 Dose: 50 mg Documented by: Nitroglycerin (Nitroglycerin 0.4 Mg Tab.Sl) 0.4 mg SL ASDIRECTED PRN PRN Reason: Chest Pain Brimonidine Tartrate /Timolol (Combigan 0 .2%-0.5%)Own Med 1 drop EYEBOTH BID [facility] Last Admin: 06/01/21 07:46 Dose: 1 drop Documented by: latan 0.02%-0. 005% Opth Own Med* * 1 drop EYEBOTH BEDTIME [facility] Last Admin: 05/31/21 20:29 Dose: 1 drop Documented by: Non-Formulary Medication (Non-Formulary Medication [Nf Drug]) 1 applic [facility] Azopt 1% Ophth Susp* (*Own Med) 1 drop EYEBOTH BID [facility] Last Admin: 06/01/21 07:48 Dose: 1 drop Documented by: Cyclosporine Restasis 0.05% Drops Own Med 1 drop EYEBOTH BID [facility] Last Admin: 06/01/21 08:03 Dose: 1 drop Documented by: Nf Refresh Optive * (Patient Own Med) 1 each EYEBOTH DAILY [facility] Last Admin: 06/01/21 08:02 Dose: 1 each Documented by: Ondansetron HCl (Ondansetron 4 Mg/2 Ml Sdv) 4 mg IVPUSH Q6H PRN PRN Reason: Nausea/Vomiting Last Admin: 05/29/21 19:55 Dose: 4 mg Documented by: Potassium Chloride (Potassium Chloride 20 Meq Tab.Er) 20 meq PO WITHBREAKFAST [facility] Last Admin: 06/01/21 07:48 Dose: 20 meq Documented by: Sodium Chloride (Sodium Chloride 0.9% 10 Ml Syringe) 10 ml FLUSH ASDIRECTED PRN PRN Reason: Keep Vein Open Last Admin: 06/01/21 11:48 Dose: 10 ml Documented by: Sodium Chloride (Sodium Chloride 0.9% 10 Ml Syringe) 10 ml FLUSH [facility] Last Admin: 06/01/21 07:51 Dose: 10 ml Documented by: Temazepam (Temazepam 15 Mg Cap) 15 mg PO BEDTIME PRN PRN Reason: Insomnia Last Admin: 05/31/21 20:29 Dose: 15 mg Documented by: Vancomycin HCl (Pharmacy To Dose - Vancomycin) 1 dose .XX ASDIRECTED [facility] Warfarin Sodium (Warfarin 2 Mg Tab) 2 mg PO DAILY@1800 [facility] Last Admin: 05/31/21 18:11 Dose: 2 mg Documented by: Discontinued Medications Azithromycin (Azithromycin 250 Mg Tab) 250 mg PO DAILY [facility] Stop: 06/01/21 08:01 Last Admin: 06/01/21 07:50 Dose: 250 mg Documented by: Cholecalciferol (Cholecalciferol (Vitamin D3) 25 Mcg Tab) 50 mcg PO DAILY [facility] Furosemide (Furosemide 20 Mg/2 Ml Vial) 20 mg IVPUSH DAILY [facility] Last Admin: 05/30/21 10:15 Dose: 20 mg Documented by: Sodium Chloride (Normal Saline) 1,000 mls @ 150 mls/hr IV ASDIRECTED [facility] Last Admin: 05/29/21 12:50 Dose: 75 mls/hr Documented by: Potassium Chloride 10 meq/ (Premix) 50 mls @ 50 mls/hr IV Q1H [facility] Stop: 05/28/21 22:29 Last Admin: 05/28/21 23:42 Dose: 50 mls/hr Documented by: Sodium Chloride (Normal Saline) 1,000 mls @ 75 mls/hr IV .BOLUS ONE Stop: 05/29/21 07:46 Last Admin: 05/28/21 23:42 Dose: 75 mls/hr Documented by: Sodium Chloride (Normal Saline) 1,000 mls @ 75 mls/hr IV ASDIRECTED [facility] Last Admin: 05/30/21 02:15 Dose: 75 mls/hr Documented by: Ceftriaxone Sodium 1 gm/ (Sodium Chloride) 100 mls @ 200 mls/hr IV Q24H [facility] Last Admin: 05/29/21 15:10 Dose: 200 mls/hr Documented by: Azithromycin 500 mg/ Sodium (Chloride) 250 mls @ 250 mls/hr IV Q24H [facility] Last Admin: 05/29/21 16:06 Dose: 250 mls/hr Documented by: Iopamidol (Iopamidol 755 Mg/Ml 100 Ml Bottle) 100 ml IVPUSH ONETIME STA Stop: 05/30/21 13:14 Last Admin: 05/30/21 14:44 Dose: 100 ml Documented by: Loperamide HCl (Loperamide 2 Mg Tab) 2 mg PO ONETIME ONE Stop: 05/28/21 16:40 Last Admin: 05/28/21 18:36 Dose: Not Given Documented by: Magnesium Oxide (Magnesium Oxide 400 Mg Tab) 400 mg PO QPM [facility] Last Admin: 05/28/21 20:34 Dose: Not Given Documented by: Metolazone (Metolazone 2.5 Mg Tab) 5 mg PO ONETIME ONE Stop: 05/31/21 09:42 Last Admin: 05/31/21 10:19 Dose: 5 mg Documented by: Metoprolol Tartrate (Metoprolol Tartrate 50 Mg Tab) 50 mg PO BID [facility] Nitroglycerin (Nitroglycerin 2% Oint 1 Gm Ud Packet) 1 gm TOP ONETIME ONE Stop: 05/31/21 09:44 Last Admin: 05/31/21 10:19 Dose: 1 gm Documented by: Azopt 1% Ophth Susp* (*Own Med) 1 drop EYEBOTH BID [facility] Non-Formulary Medication (Cyanocobalamin (Vitamin B12) [Vitamin B12]) 1,000 mcg IJ Q30D [facility] Last Admin: 05/29/21 06:03 Dose: Not Given Documented by: Cyclosporine Restasis 0.05% Drops Own Med 1 drop EYEBOTH BID [facility] Non-Formulary Medication (Diphenoxylate Hcl/Atropine [Lomotil]) 2.5 mg PO ASDIRECTED PRN PRN Reason: Diarrhea Non-Formulary Medication (Fluorometholone) 1 drop EYEBOTH DAILY@1200 [facility] Last Admin: 05/30/21 19:50 Dose: Not Given Documented by: Non-Formulary Medication (Latanoprost [Xalatan]) 1 drop EYEBOTH BEDTIME [facility] Last Admin: 05/29/21 06:03 Dose: Not Given Documented by: Non-Formulary Medication (Lutein [Lutein]) 20 mg PO DAILY [facility] Non-Formulary Medication (Lutein/Minerals/Vit A,C & E [Ocuvite]) 1 tab PO DAILY [facility] Ondansetron HCl (Ondansetron 4 Mg/2 Ml Sdv) 4 mg IVPUSH ONETIME ONE Stop: 05/28/21 16:40 Last Admin: 05/28/21 16:55 Dose: 4 mg Documented by: Pantoprazole Sodium (Pantoprazole 40 Mg Vial) 40 mg IVPUSH ONETIME ONE Stop: 05/28/21 18:28 Last Admin: 05/28/21 20:31 Dose: 40 mg Documented by: Pantoprazole Sodium (Pantoprazole 40 Mg Vial) Confirm Administered Dose 40 mg .ROUTE .STK-MED ONE Stop: 05/28/21 20:31 Last Admin: 05/28/21 20:37 Dose: Not Given Documented by: Potassium Chloride (Potassium Chloride 10 Meq Tab.Er) 10 meq PO ONETIME ONE Stop: 05/28/21 18:26 Last Admin: 05/28/21 20:23 Dose: 10 meq Documented by: Potassium Chloride (Potassium Chloride 10 Meq Tab.Er) 10 meq PO ONETIME ONE Stop: 05/28/21 20:31 Last Admin: 05/28/21 20:35 Dose: Not Given Documented by: Potassium Chloride (Potassium Chloride 10 Meq Tab.Er) 10 meq PO ONETIME ONE Stop: 05/28/21 22:31 Last Admin: 05/28/21 22:57 Dose: 10 meq Documented by: Warfarin Sodium (Warfarin 2 Mg Tab) 2 mg PO DAILY@1800 [facility] Last Admin: 05/28/21 21:17 Dose: 2 mg Documented by: Warfarin Sodium (Warfarin 5 Mg Tab) 5 mg PO ONETIME ONE Stop: 05/29/21 18:01 Last Admin: 05/29/21 18:01 Dose: 5 mg Documented by: Warfarin Sodium (Warfarin 2.5 Mg Tab) 2.5 mg PO ONETIME ONE Stop: 05/30/21 18:01 Last Admin: 05/30/21 17:08 Dose: 2.5 mg Documented by: - Exam Quality Assessment: Supplemental Oxygen (5 lpm) Urinary Catheter Total Time: 0Days 0Hours General: Alert, Oriented, Cooperative, No Acute Distress HEENT: Pupils Equal Lungs: Normal Respiratory Effort, Crackles (very minimal bases, no wheezes, improved) Cardiovascular: Regular Rate, Regular Rhythm GI/Abdominal Exam: Normal Bowel Sounds Extremities: Pedal Edema (decreased from yesterday) - Patient Data Lab Results Last 24 hrs: Laboratory Results - last 24 hr 06/01/21 06/01/21 06/01/21 Range/Units 07:34 07:34 09:21 PT 39.2 H (9.5-12.0) SEC INR 4.1 ABG pH 7.46 H (7.35-7.45) ABG pCO2 31 L (35-45) mmHG ABG pO2 50 L* (80-105) mmHG ABG HCO3 21.9 L (22-26) mmol/L ABG Total CO2 22 L (23-27) mmol/L ABG O2 Saturation 87 L (95-98) % ABG Base Excess -1 (-2-3) mmol/L O2 Delivery Device Nasal cannula Oxygen Flow Rate 4 L/min Magnesium 1.9 (1.8-2.4) mg/dL Result Diagrams: 05/31/21 07:11 05/31/21 07:11 [facility] Results Last 24 hrs: Microbiology 05/31/21 08:30 Stool Occult Blood ([facility]) - Final Stool / Feces NEGATIVE OCCULT BLOOD REFERENCE RANGE: NEGATIVE Sepsis Event Note - Evaluation Sepsis Screening Result: Possible Sepsis Risk - Focused Exam Vital Signs: Vital Signs Temp Pulse Pulse Resp BP BP Pulse Ox 06/01/21 08:27 20 92 L 06/01/21 08:11 126/60 06/01/21 08:10 81 126/60 91 L 06/01/21 08:00 36.4 C 81 20 126/60 89 L 06/01/21 02:13 06/01/21 00:47 Pulse Ox Pulse Ox 06/01/21 08:27 06/01/21 08:11 06/01/21 08:10 06/01/21 08:00 06/01/21 02:13 88 L 06/01/21 00:47 96 - Problem List & Annotations (1) Diarrhea SNOMED Code(s): 27709669 Code(s): R19.7 - DIARRHEA, UNSPECIFIED Status: Acute Priority: Low Current Visit: Yes Qualifiers: Diarrhea type: unspecified type Qualified Code(s): R19.7 - Diarrhea, unspecified Annotation/Comment:: better Improved more formed stools today History of IBS. Uncertain if increased loose stools on day of presentation to ER related to IBS exacerbation or other cause such as viral gastroenteritis. Patient feels improved today (2) CHF (congestive heart failure) SNOMED Code(s): 19395073 Code(s): I50.9 - HEART FAILURE, UNSPECIFIED Status: Chronic Priority: High Current Visit: Yes Qualifiers: Heart failure chronicity: acute on chronic Annotation/Comment:: Improved today, output exceeded input yesterday by 1000 cc, continues today, o2 sats after pt were 92%, feels better, less short of breath. IV lasix this am. creatinine is holding well Worsening with fluid overload for dehydration and antibiotics. IV lasix given for 1000 out, pleural effusions noted and hyoxia. as above. Last echo 2019 which showed normal EF. ProBNP 2576. Suspect IV fluids given in ER yesterday for dehydration may have contributed to downward trending O2 sats and Hgb. Also receiving extra fluid in form of antibiotics. (3) Hypoxemia requiring supplemental oxygen SNOMED Code(s): 961791155 Code(s): R09.02 - HYPOXEMIA; Z99.81 - DEPENDENCE ON SUPPLEMENTAL OXYGEN Status: Chronic Priority: High Current Visit: Yes Annotation/Comment:: Improved, tolerated therapy, can maintain on 5 lpm nc. goal to keep sats above 85% on max of 5 lpm. patient does not want transfer, continue cares CT scan with pleural effusions, no PE, concern for bronchitis versus aspiration. Switched from IV rocephin and azithromycin to oral. Vanocmycin added, added nebs, metazolone po and nitro paste for pulmonary edema. ABg with PaO2 of 44, Patient historically has needed supplemental O2 at night. Now noted to have O2 sats mid 80s with activity during day and requiring supplemental oxygen. Suspect CHF exacerbation. Radiology notes some changes at bases that may indicate pleural effusions vs patchy bronchopneumonia, L>R. Will diurese and add Zithromax/Rocephin to cover for early community-aquired pneumonia. Patient afebrile/no elevation in WBC/no cough. - Problem List Review Problem List Initiated/Reviewed/Updated: Yes - My Orders Last 24 Hours: My Active Orders 05/31/21 12:00 Albuterol [Proventil Neb Soln] 2.5 mg NEB Q4HRRT 06/01/21 11:08 Incentive Spirometry [RT Incentive Spirometry] [RC] ASDIRECTED 06/02/21 05:11 BASIC METABOLIC PANEL,BMP [CHEM] AM CBC WITH AUTO DIFF [HEME] AM - Assessment Assessment:: 06/01/2021 Marked improvement from yesterday. Tolerated therapy this am and will need swing bed for rehab. O2 improved. diuresis going well without GURWINDER. Will continue to watch today, recheck electrolytes in am. when change to swingbed will stop the vancomycin. anticipate this tomorrow afternoon. Incentive spirometry started today 05/31/2021 Diarrhea Improved Hypoxia, acue on chronic, wosening. Will try a trial of bipap, give oral dose of metazolone, already had 40 of lasix IV, may need to repeat later in day, will give albuterol nebs as n eeded. nitro paste on the chest to help with possibility of pulmonary edema CT scan with bilateral pleural effusions, bronchial thickening , concern for atelectasis versus aspiration, cardiomegaly, no PE, verbal report received Bronchitis versus aspiration On rocephin and zithromycin IV, given three days IV doses, changed to orals. Add vancomycin for community aquired. - Plan Plan:: continue to watch diuresis today, move to swing bed tomorrow if all goes well 05/31 add vancomycin, metazolone, bipap to move fluid. IS a DNI, may need to repeat lasix today. Fluid overload noted. albuterol nebs as needed 05/30 as above. Given sharp downward trend in room air sats patient switched to inpatient status. Covered for potential of community acquired pneumonia. There is good chance that it is secondary to CHF exacerbation intravenous fluid given overnight along with K replacement/antibiotics. Lasix added to regimen. DDimer eleveted. Patient agreeable with CT to r/o potential PE contribution to SOB. She has had subtherapeutic INR noted as above. Currently has been urinating well with no recurrence of significant urinary retention. Patient has been falling often at home over recent months due to the vertigo issue. Will have case management/PT/OT evaluate patient for ADLs/ambulation/safety at home. Anticipate another 2-3 days inpatient care to address the above depending upon clinical course and PT/OT evaluation.
[2021-06-01] MEDS: Warfarin 2 MG Tab PO SCH (17:30)
[2021-06-01] MEDS: ROCKLATAN EYEBOTH SCH (19:52)
[2021-06-01] MEDS: OPTH EYEBOTH SCH (19:52)
[2021-06-01] MEDS: Temazepam 15 MG Cap PO PRN (19:52)
[2021-06-02] MEDS: Albuterol 0.083% 2.5 MG/3 ML Neb Soln NEB SCH ×3 (04:06→12:25)
[2021-06-02 07:36] LABS: ANION GAP 12.8 meq/L (7-15)
[2021-06-02] MEDS: Potassium Chloride 20 MEQ Tab.ER PO SCH ×2 (08:11→12:24)
[2021-06-02] MEDS: Sodium Chloride 0.9% 10 ML Syringe FLUSH SCH (08:11)
[2021-06-02] MEDS: Furosemide 40 MG/4 ML VIAL IVPUSH SCH (08:11)
[2021-06-02] MEDS: amLODIPine 5 MG Tab PO SCH (08:12)
[2021-06-02] MEDS: atorvaSTATin 10 MG Tab PO SCH (08:12)
[2021-06-02] MEDS: Estradiol 1 MG Tab PO SCH (08:12)
[2021-06-02] MEDS: Levothyroxine 50 MCG Tab PO SCH (08:12)
[2021-06-02] MEDS: Metoprolol Tartrate 50 MG Tab PO SCH (08:12)
[2021-06-02] MEDS: TIMOLOL EYEBOTH SCH (08:26)
[2021-06-02] MEDS: BRIMONIDINE TARTRATE EYEBOTH SCH (08:26)
[2021-06-02] MEDS: AZOPT 1% EYEBOTH SCH (08:27)
[2021-06-02] MEDS: [UNRECOGNIZED DRUG - OTHER] EYEBOTH SCH (08:27)
[2021-06-02] MEDS: REFRESH OPTIVE EYEBOTH SCH (08:27)
[2021-06-02] MEDS: CYCLOSPORINE EYEBOTH SCH (08:27)
[2021-06-02] MEDS: Polyvinyl Alcohol 1.4% Ophth Soln 15 ML Bottle EYEBOTH SCH (08:27)
--- NOTE | 2021-06-02 10:03 | PCM.PN ---
- General Info Date of Service: 06/02/21 Admission Dx/Problem (Free Text): dehydration, hypokalemia, pneumonia, hypoxia Subjective Update: Patient is improved, no further diarrhea. Did become fluid overloaded during her resuscitation and more hypoxic. This is improved also. Feeling better. Less work of breathing. Just need some rehabilitaiton due to extended illness. Agreeable to swingbed. Has diuresed 3.5 liter with preservation of kidney function, but some hypokalemia today. Will change IV vancomycin to oral meds and continue to watch her breathing status. Functional Status: Reports: Tolerating Diet, Ambulating. Denies: New Symptoms - Review of Systems General: Reports: Weakness HEENT: Reports: No Symptoms Pulmonary: Reports: Shortness of Breath (stable and improving) Cardiovascular: Reports: Dyspnea on Exertion (chronically, improving). Denies: Chest Pain Gastrointestinal: Reports: No Symptoms. Denies: Abdominal Pain, Diarrhea Genitourinary: Reports: No Symptoms Musculoskeletal: Reports: Other (no new symptoms) Skin: Reports: No Symptoms Neurological: Reports: No Symptoms - Patient Data Vitals - Most Recent: Last Vital Signs Temp 36.2 C 06/02/21 08:00 Pulse 62 06/02/21 08:12 Resp 20 06/02/21 08:00 BP 118/78 06/02/21 08:12 Pulse Ox 94 L 06/02/21 08:00 Weight - Most Recent: 79.107 kg I&O - Last 24 Hours: Intake & Output 06/01/21 06/02/21 06/02/21 22:59 06:59 14:59 Intake Total 1180 Output Total 800 1500 Balance 380 -1500 Lab Results Last 24 Hours: Laboratory Results - last 24 hr 06/02/21 06/02/21 06/02/21 Range/Units 06:50 06:50 06:50 WBC 7.0 (4.0-10.2) K/uL RBC 3.27 L (3.77-5.09) M/uL Hgb 10.6 L (11.7-15.5) g/dL Hct 33.0 L (34.0-46.0) % MCV 100.9 H (84.0-98.0) fL MCH 32.4 (28.2-33.3) pg MCHC 32.1 (31.7-36.0) g/dL RDW 15.1 H (11.2-14.1) % Plt Count 256 (150-350) K/uL Neut % (Auto) 72.2 (45.0-80.0) % Lymph % (Auto) 15.9 (10.0-50.0) % [place] % (Auto) 11.2 (2.0-14.0) % Eos % (Auto) 0.6 (0.0-5.0) % Baso % (Auto) 0.1 (0.0-2.0) % Neut # (Auto) 5.04 (1.40-7.00) K/uL Lymph # (Auto) 1.11 (0.50-3.50) K/uL [place] # (Auto) 0.78 (0.00-1.00) K/uL Eos # (Auto) 0.04 (0.00-0.50) K/uL Baso # (Auto) 0.01 (0.00-0.20) K/uL Sodium 141 (136-145) mmol/L Potassium 2.9 L* (3.5-5.1) mmol/L Chloride 103 (98-107) mmol/L Carbon Dioxide 28.1 (21.0-32.0) mmol/L Anion Gap 12.8 (7-15) meq/L BUN 13 (7-18) mg/dL Creatinine 1.01 (0.51-1.17) mg/dL Est Cr Clr Drug Dosing 35.31 mL/min Estimated GFR (MDRD) 52 mL/min Glucose 93 (70-99) mg/dL Calcium 8.5 (8.5-10.1) mg/dL Magnesium 1.6 L (1.8-2.4) mg/dL Med Orders - Current: Current Medications Acetaminophen/Codeine Phosphate (Acetaminophen/Codeine 300-30 Mg Tab) 1 tab PO Q4H PRN PRN Reason: Other Last Admin: 05/30/21 23:42 Dose: 1 tab Documented by: Albuterol (Albuterol 0.083% 2.5 Mg/3 Ml Neb Soln) 2.5 mg NEB Q4HRRT [facility] Last Admin: 06/02/21 08:12 Dose: 2.5 mg Documented by: Amlodipine Besylate (Amlodipine 5 Mg Tab) 10 mg PO DAILY [facility] Last Admin: 06/02/21 08:12 Dose: 10 mg Documented by: Artificial Tears (Polyvinyl Alcohol 1.4% Ophth Soln 15 Ml Bottle) 0 ml EYEBOTH DAILY [facility] Last Admin: 06/02/21 08:27 Dose: 1 drop Documented by: Atorvastatin Calcium (Atorvastatin 10 Mg Tab) 10 mg PO DAILY [facility] Last Admin: 06/02/21 08:12 Dose: 10 mg Documented by: Cyclobenzaprine HCl (Cyclobenzaprine 10 Mg Tab) 10 mg PO TID PRN PRN Reason: Spasms Diphenoxylate HCl/Atropine (Atropine/Diphenoxylate 0.025-2.5 Mg Tab) 1 tab PO Q6H PRN PRN Reason: Diarrhea Estradiol (Estradiol 1 Mg Tab) 1 mg PO DAILY [facility] Last Admin: 06/02/21 08:12 Dose: 1 mg Documented by: Furosemide (Furosemide 40 Mg/4 Ml Vial) 40 mg IVPUSH DAILY [facility] Last Admin: 06/02/21 08:11 Dose: 40 mg Documented by: Hyoscyamine (Hyoscyamine 0.125 Mg Tab.Sl) 0.125 mg SL Q4HR PRN PRN Reason: IBS Last Admin: 05/29/21 05:55 Dose: 0.125 mg Documented by: Vancomycin HCl 1.25 gm/ Sodium (Chloride) 250 mls @ 200 mls/hr IV Q24H [facility] Last Admin: 06/01/21 11:41 Dose: 200 mls/hr Documented by: Levothyroxine Sodium (Levothyroxine 50 Mcg Tab) 50 mcg PO ACBREAKFAST [facility] Last Admin: 06/02/21 08:12 Dose: 50 mcg Documented by: Meclizine HCl (Meclizine 25 Mg Tab) 25 mg PO QID PRN PRN Reason: Dizziness Methylprednisolone (Methylprednisolone 4 Mg Tab) 12 mg PO DAILY [facility] Last Admin: 06/02/21 08:12 Dose: 12 mg Documented by: Metoprolol Tartrate (Metoprolol Tartrate 50 Mg Tab) 50 mg PO BID [facility] Last Admin: 06/02/21 08:12 Dose: 50 mg Documented by: Nitroglycerin (Nitroglycerin 0.4 Mg Tab.Sl) 0.4 mg SL ASDIRECTED PRN PRN Reason: Chest Pain Brimonidine Tartrate /Timolol (Combigan 0 .2%-0.5%)Own Med 1 drop EYEBOTH BID [facility] Last Admin: 06/02/21 08:26 Dose: 1 drop Documented by: latan 0.02%-0. 005% Opth Own Med* * 1 drop EYEBOTH BEDTIME [facility] Last Admin: 06/01/21 19:52 Dose: 1 drop Documented by: Non-Formulary Medication (Non-Formulary Medication [Nf Drug]) 1 applic TOP [facility] Azopt 1% Ophth Susp* (*Own Med) 1 drop EYEBOTH BID [facility] Last Admin: 06/02/21 08:27 Dose: 1 drop Documented by: Cyclosporine Restasis 0.05% Drops Own Med 1 drop EYEBOTH BID [facility] Last Admin: 06/02/21 08:27 Dose: 1 drop Documented by: Nf Refresh Optive * (Patient Own Med) 1 each EYEBOTH DAILY [facility] Last Admin: 06/02/21 08:27 Dose: 1 each Documented by: Ondansetron HCl (Ondansetron 4 Mg/2 Ml Sdv) 4 mg IVPUSH Q6H PRN PRN Reason: Nausea/Vomiting Last Admin: 05/29/21 19:55 Dose: 4 mg Documented by: Potassium Chloride (Potassium Chloride 20 Meq Tab.Er) 40 meq PO TID [facility] Last Admin: 06/02/21 08:11 Dose: 40 meq Documented by: Sodium Chloride (Sodium Chloride 0.9% 10 Ml Syringe) 10 ml FLUSH ASDIRECTED PRN PRN Reason: Keep Vein Open Last Admin: 06/01/21 11:48 Dose: 10 ml Documented by: Sodium Chloride (Sodium Chloride 0.9% 10 Ml Syringe) 10 ml FLUSH [facility] Last Admin: 06/02/21 08:11 Dose: 10 ml Documented by: Temazepam (Temazepam 15 Mg Cap) 15 mg PO BEDTIME PRN PRN Reason: Insomnia Last Admin: 06/01/21 19:52 Dose: 15 mg Documented by: Vancomycin HCl (Pharmacy To Dose - Vancomycin) 1 dose .XX ASDIRECTED [facility] Warfarin Sodium (Warfarin 2 Mg Tab) 2 mg PO DAILY@1800 [facility] Last Admin: 06/01/21 17:30 Dose: 2 mg Documented by: Discontinued Medications Azithromycin (Azithromycin 250 Mg Tab) 250 mg PO DAILY [facility] Stop: 06/01/21 08:01 Last Admin: 06/01/21 07:50 Dose: 250 mg Documented by: Cholecalciferol (Cholecalciferol (Vitamin D3) 25 Mcg Tab) 50 mcg PO DAILY [facility] Furosemide (Furosemide 20 Mg/2 Ml Vial) 20 mg IVPUSH DAILY [facility] Last Admin: 05/30/21 10:15 Dose: 20 mg Documented by: Sodium Chloride (Normal Saline) 1,000 mls @ 150 mls/hr IV ASDIRECTED [facility] Last Admin: 05/29/21 12:50 Dose: 75 mls/hr Documented by: Potassium Chloride 10 meq/ (Premix) 50 mls @ 50 mls/hr IV Q1H [facility] Stop: 05/28/21 22:29 Last Admin: 05/28/21 23:42 Dose: 50 mls/hr Documented by: Sodium Chloride (Normal Saline) 1,000 mls @ 75 mls/hr IV .BOLUS ONE Stop: 05/29/21 07:46 Last Admin: 05/28/21 23:42 Dose: 75 mls/hr Documented by: Sodium Chloride (Normal Saline) 1,000 mls @ 75 mls/hr IV ASDIRECTED [facility] Last Admin: 05/30/21 02:15 Dose: 75 mls/hr Documented by: Ceftriaxone Sodium 1 gm/ (Sodium Chloride) 100 mls @ 200 mls/hr IV Q24H [facility] Last Admin: 05/29/21 15:10 Dose: 200 mls/hr Documented by: Azithromycin 500 mg/ Sodium (Chloride) 250 mls @ 250 mls/hr IV Q24H [facility] Last Admin: 05/29/21 16:06 Dose: 250 mls/hr Documented by: Iopamidol (Iopamidol 755 Mg/Ml 100 Ml Bottle) 100 ml IVPUSH ONETIME [facility] Stop: 05/30/21 13:14 Last Admin: 05/30/21 14:44 Dose: 100 ml Documented by: Loperamide HCl (Loperamide 2 Mg Tab) 2 mg PO ONETIME ONE Stop: 05/28/21 16:40 Last Admin: 05/28/21 18:36 Dose: Not Given Documented by: Magnesium Oxide (Magnesium Oxide 400 Mg Tab) 400 mg PO QPM [facility] Last Admin: 05/28/21 20:34 Dose: Not Given Documented by: Metolazone (Metolazone 2.5 Mg Tab) 5 mg PO ONETIME ONE Stop: 05/31/21 09:42 Last Admin: 05/31/21 10:19 Dose: 5 mg Documented by: Metoprolol Tartrate (Metoprolol Tartrate 50 Mg Tab) 50 mg PO BID [facility] Nitroglycerin (Nitroglycerin 2% Oint 1 Gm Ud Packet) 1 gm TOP ONETIME ONE Stop: 05/31/21 09:44 Last Admin: 05/31/21 10:19 Dose: 1 gm Documented by: Azopt 1% Ophth Susp* (*Own Med) 1 drop EYEBOTH BID [facility] Non-Formulary Medication (Cyanocobalamin (Vitamin B12) [Vitamin B12]) 1,000 mcg IJ Q30D [facility] Last Admin: 05/29/21 06:03 Dose: Not Given Documented by: Cyclosporine Restasis 0.05% Drops Own Med 1 drop EYEBOTH BID [facility] Non-Formulary Medication (Diphenoxylate Hcl/Atropine [Lomotil]) 2.5 mg PO ASDIRECTED PRN PRN Reason: Diarrhea Non-Formulary Medication (Fluorometholone) 1 drop EYEBOTH DAILY@1200 [facility] Last Admin: 05/30/21 19:50 Dose: Not Given Documented by: Non-Formulary Medication (Latanoprost [Xalatan]) 1 drop EYEBOTH BEDTIME [facility] Last Admin: 05/29/21 06:03 Dose: Not Given Documented by: Non-Formulary Medication (Lutein [Lutein]) 20 mg PO DAILY [facility] Non-Formulary Medication (Lutein/Minerals/Vit A,C & E [Ocuvite]) 1 tab PO DAILY [facility] Ondansetron HCl (Ondansetron 4 Mg/2 Ml Sdv) 4 mg IVPUSH ONETIME ONE Stop: 05/28/21 16:40 Last Admin: 05/28/21 16:55 Dose: 4 mg Documented by: Pantoprazole Sodium (Pantoprazole 40 Mg Vial) 40 mg IVPUSH ONETIME ONE Stop: 05/28/21 18:28 Last Admin: 05/28/21 20:31 Dose: 40 mg Documented by: Pantoprazole Sodium (Pantoprazole 40 Mg Vial) Confirm Administered Dose 40 mg .ROUTE .STK-MED ONE Stop: 05/28/21 20:31 Last Admin: 05/28/21 20:37 Dose: Not Given Documented by: Potassium Chloride (Potassium Chloride 10 Meq Tab.Er) 10 meq PO ONETIME ONE Stop: 05/28/21 18:26 Last Admin: 05/28/21 20:23 Dose: 10 meq Documented by: Potassium Chloride (Potassium Chloride 10 Meq Tab.Er) 10 meq PO ONETIME ONE Stop: 05/28/21 20:31 Last Admin: 05/28/21 20:35 Dose: Not Given Documented by: Potassium Chloride (Potassium Chloride 10 Meq Tab.Er) 10 meq PO ONETIME ONE Stop: 05/28/21 22:31 Last Admin: 05/28/21 22:57 Dose: 10 meq Documented by: Potassium Chloride (Potassium Chloride 20 Meq Tab.Er) 20 meq PO WITHBREAKFAST [facility] Last Admin: 06/01/21 07:48 Dose: 20 meq Documented by: Warfarin Sodium (Warfarin 2 Mg Tab) 2 mg PO DAILY@1800 [facility] Last Admin: 05/28/21 21:17 Dose: 2 mg Documented by: Warfarin Sodium (Warfarin 5 Mg Tab) 5 mg PO ONETIME ONE Stop: 05/29/21 18:01 Last Admin: 05/29/21 18:01 Dose: 5 mg Documented by: Warfarin Sodium (Warfarin 2.5 Mg Tab) 2.5 mg PO ONETIME ONE Stop: 05/30/21 18:01 Last Admin: 05/30/21 17:08 Dose: 2.5 mg Documented by: - Exam Quality Assessment: Supplemental Oxygen Urinary Catheter Total Time: 0Days 0Hours General: Alert, Oriented, Cooperative, No Acute Distress HEENT: Pupils Equal Neck: Supple Lungs: Clear to Auscultation, Normal Respiratory Effort, Other (crackles are improved) Cardiovascular: Regular Rate, Regular Rhythm GI/Abdominal Exam: Normal Bowel Sounds, Soft Extremities: Normal Inspection, Non-Tender, Pedal Edema (very minimal, greatly improved) Neurological: No New Focal Deficit Psy/Mental Status: Alert, Normal Affect, Normal Mood - Patient Data Lab Results Last 24 hrs: Laboratory Results - last 24 hr 06/02/21 06/02/21 06/02/21 Range/Units 06:50 06:50 06:50 WBC 7.0 (4.0-10.2) K/uL RBC 3.27 L (3.77-5.09) M/uL Hgb 10.6 L (11.7-15.5) g/dL Hct 33.0 L (34.0-46.0) % MCV 100.9 H (84.0-98.0) fL MCH 32.4 (28.2-33.3) pg MCHC 32.1 (31.7-36.0) g/dL RDW 15.1 H (11.2-14.1) % Plt Count 256 (150-350) K/uL Neut % (Auto) 72.2 (45.0-80.0) % Lymph % (Auto) 15.9 (10.0-50.0) % [place] % (Auto) 11.2 (2.0-14.0) % Eos % (Auto) 0.6 (0.0-5.0) % Baso % (Auto) 0.1 (0.0-2.0) % Neut # (Auto) 5.04 (1.40-7.00) K/uL Lymph # (Auto) 1.11 (0.50-3.50) K/uL [place] # (Auto) 0.78 (0.00-1.00) K/uL Eos # (Auto) 0.04 (0.00-0.50) K/uL Baso # (Auto) 0.01 (0.00-0.20) K/uL Sodium 141 (136-145) mmol/L Potassium 2.9 L* (3.5-5.1) mmol/L Chloride 103 (98-107) mmol/L Carbon Dioxide 28.1 (21.0-32.0) mmol/L Anion Gap 12.8 (7-15) meq/L BUN 13 (7-18) mg/dL Creatinine 1.01 (0.51-1.17) mg/dL Est Cr Clr Drug Dosing 35.31 mL/min Estimated GFR (MDRD) 52 mL/min Glucose 93 (70-99) mg/dL Calcium 8.5 (8.5-10.1) mg/dL Magnesium 1.6 L (1.8-2.4) mg/dL Result Diagrams: 06/02/21 06:50 06/02/21 06:50 Sepsis Event Note - Evaluation Sepsis Screening Result: Possible Sepsis Risk - Focused Exam Vital Signs: Vital Signs Temp Pulse Pulse Resp BP BP Pulse Ox 06/02/21 08:12 62 118/78 06/02/21 08:00 36.2 C 62 20 118/78 94 L - Problem List & Annotations (1) Diarrhea SNOMED Code(s): 84423187 Code(s): R19.7 - DIARRHEA, UNSPECIFIED Status: Acute Priority: Low Current Visit: Yes Qualifiers: Diarrhea type: unspecified type Qualified Code(s): R19.7 - Diarrhea, unspecified Annotation/Comment:: 06/02/2021 resolved better Improved more formed stools today History of IBS. Uncertain if increased loose stools on day of presentation to ER related to IBS exacerbation or other cause such as viral gastroenteritis. Ashlyn corea feels improved today (2) CHF (congestive heart failure) SNOMED Code(s): 45688356 Code(s): I50.9 - HEART FAILURE, UNSPECIFIED Status: Chronic Priority: Medium Current Visit: Yes Qualifiers: Heart failure chronicity: acute on chronic Annotation/Comment:: 06/02/2021 much improved today,. Will start back on oral doses of lasix Improved today, output exceeded input yesterday by 1000 cc, continues today, o2 sats after pt were 92%, feels better, less short of breath. IV lasix this am. creatinine is holding well Worsening with fluid overload for dehydration and antibiotics. IV lasix given for 1000 out, pleural effusions noted and hyoxia. as above. Last echo 2018 which showed normal EF. ProBNP 2576. Suspect IV fluids given in ER yesterday for dehydration may have contributed to downward trending O2 sats and Hgb. Also receiving extra fluid in form of antibiotics. (3) Hypoxemia requiring supplemental oxygen SNOMED Code(s): 348451979 Code(s): R09.02 - HYPOXEMIA; Z99.81 - DEPENDENCE ON SUPPLEMENTAL OXYGEN Status: Chronic Priority: Low Current Visit: Yes Annotation/Comment:: stable, 92% with ambulation on 3 lpm, continue to cover for bronchial pneumonia with oral augmentin and probiotic Improved, tolerated therapy, can maintain on 5 lpm nc. goal to keep sats above 85% on max of 5 lpm. patient does not want transfer, continue cares CT scan with pleural effusions, no PE, concern for bronchitis versus aspiration. Switched from IV rocephin and azithromycin to oral. Vanocmycin added, added nebs, metazolone po and nitro paste for pulmonary edema. ABg with PaO2 of 44, Patient historically has needed supplemental O2 at night. Now noted to have O2 sats mid 80s with activity during day and requiring supplemental oxygen. Suspect CHF exacerbation. Radiology notes some changes at bases that may indicate pleural effusions vs patchy bronchopneumonia, L>R. Will diurese and add Zithromax/Rocephin to cover for early community-aquired pneumonia. Patient afebrile/no elevation in WBC/no cough. (4) Hypokalemia SNOMED Code(s): 92247880 Code(s): E87.6 - HYPOKALEMIA Status: Acute Priority: High Current Visit: Yes Annotation/Comment:: 06/02/2021 Low today after aggressive diuresis. Will replace tid, magnesium is also slightly low 800 mg today, 400 mg daily and recheck on 06/04 Normalized level day 2 of stay - Problem List Review Problem List Initiated/Reviewed/Updated: Yes - My Orders Last 24 Hours: My Active Orders 06/01/21 11:08 Incentive Spirometry [RT Incentive Spirometry] [RC] ASDIRECTED 06/01/21 13:33 Weight, Daily [Height and Weight] [RC] DAILY 06/02/21 07:06 Admission Status [Patient Status] [ADT] Routine 06/02/21 08:00 Potassium Chloride [Klor-Con M20] 40 meq PO TID - Assessment Assessment:: 06/02/2021 doing better[facility]. 06/01/2021 Marked improvement from yesterday. Tolerated therapy this am and will need swing bed for rehab. O2 improved. diuresis going well without GURWINDER. Will continue to watch today, recheck electrolytes in am. when change to swingbed will stop the vancomycin. anticipate this tomorrow afternoon. Incentive spirometry started today 05/31/2021 Diarrhea Improved Hypoxia, acue on chronic, wosening. Will try a trial of bipap, give oral dose of metazolone, already had 40 of lasix IV, may need to repeat later in day, will give albuterol nebs as needed. nitro paste on the chest to help with possibility of pulmonary edema CT scan with bilateral pleural effusions, bronchial thickening , concern for atelectasis versus aspiration, cardiomegaly, no PE, verbal report received Bronchitis versus aspiration On rocephin and zithromycin IV, given three days IV doses, changed to orals. Add vancomycin for community aquired. - Plan Plan:: Please use this progess note as H& P for swingbed admission 06/02/2021 move to swing bed. hypokalemic today due to diuresis but will replace with tid potassium for the next two days and recheck friday morning. Oral augmentin for bronchialpneumonia continue to watch diuresis today, move to swing bed tomorrow if all goes well 05/31 add vancomycin, metazolone, bipap to move fluid. IS a DNI, may need to repeat lasix today. Fluid overload noted. albuterol nebs as needed 05/30 as above. Given sharp downward trend in room air sats patient switched to inpatient status. Covered for potential of community acquired pneumonia. There is good chance that it is secondary to CHF exacerbation intravenous fluid given overnight along with K replacement/antibiotics. Lasix added to regimen. DDimer elevated. Patient agreeable with CT to r/o potential PE contribution to SOB. She has had subtherapeutic INR noted as above. Currently has been urinating well with no recurrence of significant urinary retention. Patient has been falling often at home over recent months due to the vertigo issue. Will have case management/PT/OT evaluate patient for ADLs/ambulation/safety at home. Anticipate another 2-3 days inpatient care to address the above depending upon clinical course and PT/OT evaluation.
[2021-06-02] MEDS ORDERED: Magnesium Oxide 400 MG Tab PO ONE (10:16)
[2021-06-02] MEDS: Sodium Chloride 0.9% 10 ML Syringe FLUSH PRN (10:36)
== END 2021-06-02 13:25 | disposition swing bed (61) | DRG 640 ==
LOC: LL.ED 16:14 → LL.MS 18:14 → OBSVTOIN 05-29 15:00
PROVIDERS: ADMIT Nurse Practitioner Family; ATTEND Emergency Medicine
DX: E87.6 Hypokalemia (principal); J18.9 Pneumonia, unspecified organism; J44.0 Chronic obstructive pulmonary disease with (acute) lower respiratory infection; I13.0 Hypertensive heart and chronic kidney disease with heart failure and stage 1 through stage 4 chronic kidney disease, or unspecified chronic kidney disease; I48.20 Chronic atrial fibrillation, unspecified; E86.0 Dehydration; R11.0 Nausea; R09.02 Hypoxemia; I50.9 Heart failure, unspecified; K58.9 Irritable bowel syndrome, unspecified; F41.8 Other specified anxiety disorders; R79.89 Other specified abnormal findings of blood chemistry; M35.3 Polymyalgia rheumatica; H40.9 Unspecified glaucoma; I25.10 Atherosclerotic heart disease of native coronary artery without angina pectoris; Z20.822 Contact with and (suspected) exposure to COVID-19; N18.9 Chronic kidney disease, unspecified; Z66 Do not resuscitate; M81.0 Age-related osteoporosis without current pathological fracture; D63.1 Anemia in chronic kidney disease; H54.7 Unspecified visual loss; E78.00 Pure hypercholesterolemia, unspecified; R19.7 Diarrhea, unspecified; I10 Essential (primary) hypertension; E03.9 Hypothyroidism, unspecified; M19.90 Unspecified osteoarthritis, unspecified site; I73.00 Raynaud's syndrome without gangrene; I48.91 Unspecified atrial fibrillation; E78.5 Hyperlipidemia, unspecified; Z97.3 Presence of spectacles and contact lenses; Z95.5 Presence of coronary angioplasty implant and graft; Z86.010 Personal history of colon polyps; Z99.81 Dependence on supplemental oxygen; Z87.19 Personal history of other diseases of the digestive system; Z87.81 Personal history of (healed) traumatic fracture; Z86.39 Personal history of other endocrine, nutritional and metabolic disease; Z90.49 Acquired absence of other specified parts of digestive tract; Z98.890 Other specified postprocedural states; Z98.42 Cataract extraction status, left eye; R41.9 Unspecified symptoms and signs involving cognitive functions and awareness; M89.49 Other hypertrophic osteoarthropathy, multiple sites; Z88.8 Allergy status to other drugs, medicaments and biological substances; Z91.048 Other nonmedicinal substance allergy status; Z98.41 Cataract extraction status, right eye; Z79.890 Hormone replacement therapy; Z79.52 Long term (current) use of systemic steroids; Z79.899 Other long term (current) drug therapy; Z90.710 Acquired absence of both cervix and uterus; Z79.01 Long term (current) use of anticoagulants
CPT/HCPCS: 36415; 36600; 51701; 71046; 71275; 74019; 80048; 80053; 81001; 82272; 82803; 83605; 83735; 83880; 84443; 84484; 85025; 85379; 85610; 93005; 94640; 94660; 94761; 96365; 96366; 96374; 96375; 97110-GP; 97162-GP; 97165-GO; 99220; 99232; 99233; 99239; 99285-25; A9270-GY; C9113; G0378; J0456; J0696; J1940; J2405; J3370; J3480; J7030; J7050; J7509; J7613-GY; Q9967; U0002

== ENCOUNTER 2021-06-02 11:45 | Inpatient (IN) | payer MEDICARE, OTHER ==
[2021-06-02] MEDS ORDERED: guaiFENesin 100 MG/5 ML Soln 10 ML UD Cup PO PRN (13:46)
[2021-06-02] MEDS ORDERED: Ondansetron 4 MG Tab.DIS PO PRN (13:46)
[2021-06-02] MEDS ORDERED: Hyoscyamine 0.125 MG Tab.SL SL PRN (13:51)
[2021-06-02] MEDS ORDERED: Meclizine 25 MG Tab PO PRN (13:51)
[2021-06-02] MEDS ORDERED: Cyanocobalamin (Vitamin B12) 1,000 MCG/ML SDV IM SCH (18:00)
[2021-06-02] MEDS ORDERED: MAGNESIUM OXIDE 500 MG PO SCH (18:00)
[2021-06-02] MEDS: Lactobacillus Rhamnosus GG (Probiotic) Cap PO SCH (18:15)
[2021-06-02] MEDS: Potassium Chloride 20 MEQ Tab.ER PO SCH (18:16)
[2021-06-02] MEDS: Metoprolol Tartrate 50 MG Tab PO SCH (18:16)
[2021-06-02] MEDS: [UNRECOGNIZED DRUG - OTHER] EYEBOTH SCH (18:20)
[2021-06-02] MEDS: AZOPT 1% EYEBOTH SCH (19:23)
[2021-06-02] MEDS: ROCKLATAN EYEBOTH SCH (19:36)
[2021-06-02] MEDS: Amoxicillin/Clavulanate K 875-125 MG Tab PO SCH (19:36)
[2021-06-02] MEDS: Acetaminophen 325 MG Tab PO PRN (21:41)
[2021-06-03] MEDS: Acetaminophen/Codeine 300-30 MG Tab PO PRN ×2 (02:20→19:55)
[2021-06-03] MEDS ORDERED: Non-Formulary Medication 1 Each (Lutein [Lutein] 20 MG Tablet) PO SCH (08:00)
[2021-06-03] MEDS: Furosemide 20 MG Tab PO SCH ×2 (08:54→11:58)
[2021-06-03] MEDS: Cholecalciferol (Vitamin D3) 25 MCG Tab PO SCH (08:54)
[2021-06-03] MEDS: Lutein/Minerals/Vitamin C/Vitamin E Acetate Cap PO SCH (08:55)
[2021-06-03] MEDS: atorvaSTATin 10 MG Tab PO SCH (08:55)
[2021-06-03] MEDS: Potassium Chloride 20 MEQ Tab.ER PO SCH ×2 (08:55→18:28)
[2021-06-03] MEDS: Levothyroxine 50 MCG Tab PO SCH (08:55)
[2021-06-03] MEDS: Estradiol 1 MG Tab PO SCH (08:55)
[2021-06-03] MEDS: Atropine/Diphenoxylate 0.025-2.5 MG Tab PO SCH (08:55)
[2021-06-03] MEDS: Amoxicillin/Clavulanate K 875-125 MG Tab PO SCH ×2 (08:55→19:55)
[2021-06-03] MEDS: Lactobacillus Rhamnosus GG (Probiotic) Cap PO SCH ×2 (08:55→18:28)
[2021-06-03] MEDS: amLODIPine 5 MG Tab PO SCH (08:56)
[2021-06-03] MEDS: Metoprolol Tartrate 50 MG Tab PO SCH ×2 (08:58→18:28)
[2021-06-03] MEDS: AZOPT 1% EYEBOTH SCH ×2 (09:01→18:39)
[2021-06-03] MEDS: [UNRECOGNIZED DRUG - OTHER] EYEBOTH SCH ×2 (09:01→18:39)
[2021-06-03] MEDS: REFRESH OPTIVE EYEBOTH SCH (09:02)
[2021-06-03] MEDS: Acetaminophen 325 MG Tab PO PRN (11:58)
[2021-06-03] MEDS: Albuterol 0.083% 2.5 MG/3 ML Neb Soln NEB PRN ×2 (11:59→19:54)
[2021-06-03] MEDS: Warfarin 2 MG Tab PO SCH (18:28)
[2021-06-03] MEDS: Magnesium Oxide 400 MG Tab PO SCH (18:28)
[2021-06-03] MEDS: ROCKLATAN EYEBOTH SCH (19:55)
[2021-06-03] MEDS: CYCLOSPORINE 0.05% EYEBOTH SCH ×2 (21:31→21:32)
[2021-06-04] MEDS: Acetaminophen/Codeine 300-30 MG Tab PO PRN ×2 (00:01→19:58)
[2021-06-04] MEDS: AZOPT 1% EYEBOTH SCH ×2 (08:14→17:11)
[2021-06-04] MEDS: [UNRECOGNIZED DRUG - OTHER] EYEBOTH SCH ×2 (08:14→17:11)
[2021-06-04] MEDS: Amoxicillin/Clavulanate K 875-125 MG Tab PO SCH ×2 (08:14→19:41)
[2021-06-04] MEDS: Lactobacillus Rhamnosus GG (Probiotic) Cap PO SCH ×2 (08:15→17:59)
[2021-06-04] MEDS: Potassium Chloride 20 MEQ Tab.ER PO SCH ×2 (08:15→17:14)
[2021-06-04] MEDS: Estradiol 1 MG Tab PO SCH (08:15)
[2021-06-04] MEDS: Furosemide 20 MG Tab PO SCH ×2 (08:15→12:34)
[2021-06-04] MEDS: Atropine/Diphenoxylate 0.025-2.5 MG Tab PO SCH (08:15)
[2021-06-04] MEDS: atorvaSTATin 10 MG Tab PO SCH (08:15)
[2021-06-04] MEDS: REFRESH OPTIVE EYEBOTH SCH (08:16)
[2021-06-04] MEDS: Lutein/Minerals/Vitamin C/Vitamin E Acetate Cap PO SCH (08:16)
[2021-06-04] MEDS: Cholecalciferol (Vitamin D3) 25 MCG Tab PO SCH (08:16)
[2021-06-04] MEDS: amLODIPine 5 MG Tab PO SCH (08:16)
[2021-06-04] MEDS: Metoprolol Tartrate 50 MG Tab PO SCH ×2 (08:16→17:14)
[2021-06-04] MEDS: Levothyroxine 50 MCG Tab PO SCH (08:16)
[2021-06-04 08:32] LABS: ANION GAP 12.6 meq/L (7-15)
[2021-06-04] MEDS: Albuterol 0.083% 2.5 MG/3 ML Neb Soln NEB PRN ×2 (11:37→19:45)
[2021-06-04] MEDS: Atropine/Diphenoxylate 0.025-2.5 MG Tab PO PRN (12:35)
--- NOTE | 2021-06-04 13:09 | PCM.PN ---
- General Info Date of Service: 06/04/21 Subjective Update: The patient is an 86-year-old female who is seen in swing bed after being hospitalized for congestive heart failure as well as dehydration. The patient states that she is doing much better. She is starting to walk more with physical therapy. She denies any shortness of breath. She is able to walk without oxygen and his saturations have been staying 92%. Patient is acute day from the hospitalization is reviewed. Patient states prior to her hospitalizat ion she did fall hitting her left knee that does give her troubles on and off. The patient was placed on high-dose potassium for a potassium at 2.9. Patient's potassium today is noted to be 4.5 Functional Status: Reports: Pain Controlled, Tolerating Diet, Ambulating - Review of Systems General: Reports: Weakness HEENT: Reports: No Symptoms Pulmonary: Reports: No Symptoms Cardiovascular: Reports: No Symptoms Gastrointestinal: Reports: No Symptoms Genitourinary: Reports: No Symptoms Musculoskeletal: Reports: No Symptoms Skin: Reports: No Symptoms Neurological: Reports: No Symptoms Psychiatric: Reports: No Symptoms - Patient Data Vitals - Most Recent: Last Vital Signs Temp 97.7 F 06/04/21 08:00 Pulse 75 06/04/21 08:16 Resp 20 06/04/21 08:00 BP 110/70 06/04/21 08:16 Pulse Ox 90 L 06/04/21 08:00 Weight - Most Recent: 155 lb 4.8 oz I&O - Last 24 Hours: Intake & Output 06/03/21 06/04/21 06/04/21 22:59 06:59 14:59 Intake Total 1640 100 240 Output Total 2450 1000 Balance -810 -900 240 Lab Results Last 24 Hours: Laboratory Results - last 24 hr 06/04/21 06/04/21 06/04/21 Range/Units 07:55 07:55 07:55 WBC 10.7 H (4.0-10.2) K/uL RBC 3.60 L (3.77-5.09) M/uL Hgb 11.6 L (11.7-15.5) g/dL Hct 36.4 (34.0-46.0) % MCV 101.1 H (84.0-98.0) fL MCH 32.2 (28.2-33.3) pg MCHC 31.9 (31.7-36.0) g/dL RDW 15.4 H (11.2-14.1) % Plt Count 314 (150-350) K/uL Neut % (Auto) 79.8 (45.0-80.0) % Lymph % (Auto) 10.8 (10.0-50.0) % [place] % (Auto) 8.2 (2.0-14.0) % Eos % (Auto) 1.0 (0.0-5.0) % Baso % (Auto) 0.2 (0.0-2.0) % Neut # (Auto) 8.51 H (1.40-7.00) K/uL Lymph # (Auto) 1.15 (0.50-3.50) K/uL [place] # (Auto) 0.88 (0.00-1.00) K/uL Eos # (Auto) 0.11 (0.00-0.50) K/uL Baso # (Auto) 0.02 (0.00-0.20) K/uL PT 26.7 H D (9.5-12.0) SEC INR 2.7 Sodium 140 (136-145) mmol/L Potassium 4.5 D (3.5-5.1) mmol/L Chloride 102 (98-107) mmol/L Carbon Dioxide 29.9 (21.0-32.0) mmol/L Anion Gap 12.6 (7-15) meq/L BUN 20 H (7-18) mg/dL Creatinine 1.09 (0.51-1.17) mg/dL Est Cr Clr Drug Dosing 32.72 mL/min Estimated GFR (MDRD) 47 mL/min Glucose 87 (70-99) mg/dL Calcium 8.6 (8.5-10.1) mg/dL Magnesium 1.9 (1.8-2.4) mg/dL Med Orders - Current: Current Medications Acetaminophen (Acetaminophen 325 Mg Tab) 650 mg PO Q4H PRN PRN Reason: Pain (Mild 1-3)/fever Last Admin: 06/03/21 11:58 Dose: 650 mg Documented by: Acetaminophen/Codeine Phosphate (Acetaminophen/Codeine 300-30 Mg Tab) 1 tab PO Q4H PRN PRN Reason: Pain Last Admin: 06/04/21 00:01 Dose: 1 tab Documented by: Albuterol (Albuterol 0.083% 2.5 Mg/3 Ml Neb Soln) 2.5 mg NEB Q2H PRN PRN Reason: Shortness of Breath Last Admin: 06/04/21 11:37 Dose: 2.5 mg Documented by: Amlodipine Besylate (Amlodipine 5 Mg Tab) 10 mg PO DAILY [facility] Last Admin: 06/04/21 08:16 Dose: 10 mg Documented by: Amoxicillin/Clavulanate Potassium (Amoxicillin/Clavulanate K 875-125 Mg Tab) 1 tab PO Q12HR [facility] Last Admin: 06/04/21 08:14 Dose: 1 tab Documented by: Atorvastatin Calcium (Atorvastatin 10 Mg Tab) 10 mg PO DAILY [facility] Last Admin: 06/04/21 08:15 Dose: 10 mg Documented by: Cholecalciferol (Cholecalciferol (Vitamin D3) 25 Mcg Tab) 50 mcg PO DAILY [facility] Last Admin: 06/04/21 08:16 Dose: 50 mcg Documented by: Cyanocobalamin (Cyanocobalamin (Vitamin B12) 1,000 Mcg/Ml Sd) 1,000 mcg IM Q30D [facility] Last Admin: 06/02/21 18:20 Dose: 1,000 mcg Documented by: Cyclobenzaprine HCl (Cyclobenzaprine 10 Mg Tab) 10 mg PO TID PRN PRN Reason: Spasms Diphenoxylate HCl/Atropine (Atropine/Diphenoxylate 0.025-2.5 Mg Tab) 1 tab PO Q6H PRN PRN Reason: Diarrhea Last Admin: 06/04/21 12:35 Dose: 1 tab Documented by: Diphenoxylate HCl/Atropine (Atropine/Diphenoxylate 0.025-2.5 Mg Tab) 1 tab PO DAILY [facility] Last Admin: 06/04/21 08:15 Dose: 1 tab Documented by: Estradiol (Estradiol 1 Mg Tab) 1 mg PO DAILY [facility] Last Admin: 06/04/21 08:15 Dose: 1 mg Documented by: Furosemide (Furosemide 20 Mg Tab) 20 mg PO BIDDIURETIC [facility] Last Admin: 06/04/21 12:34 Dose: 20 mg Documented by: Guaifenesin (Guaifenesin 100 Mg/5 Ml Soln 10 Ml Ud Cup) 100 mg PO Q4H PRN PRN Reason: cough Hyoscyamine (Hyoscyamine 0.125 Mg Tab.Sl) 0.125 mg SL Q4H PRN PRN Reason: IBS Lactobacillus Rhamnosus (Lactobacillus Rhamnosus Gg (Probiotic) Cap) 1 cap PO BID [facility] Last Admin: 06/04/21 08:15 Dose: 1 cap Documented by: Levothyroxine Sodium (Levothyroxine 50 Mcg Tab) 50 mcg PO DAILY [facility] Last Admin: 06/04/21 08:16 Dose: 50 mcg Documented by: Magnesium Oxide (Magnesium Oxide 400 Mg Tab) 400 mg PO DAILY@1800 [facility] Last Admin: 06/03/21 18:28 Dose: 400 mg Documented by: Meclizine HCl (Meclizine 25 Mg Tab) 25 mg PO TID [facility] Methylprednisolone (Methylprednisolone 4 Mg Tab) 12 mg PO DAILY [facility] Last Admin: 06/04/21 08:16 Dose: 12 mg Documented by: Metoprolol Tartrate (Metoprolol Tartrate 50 Mg Tab) 50 mg PO BID [facility] Last Admin: 06/04/21 08:16 Dose: 50 mg Documented by: Maxx Own Med () 0 drop EYEBOTH BID [facility] Last Admin: 06/04/21 08:14 Dose: 1 drop Documented by: Azopt 1% Own Med 0 drop EYEBOTH BID [facility] Last Admin: 06/04/21 08:14 Dose: 1 drop Documented by: Saravanan Gilbert (Own Med) 0 drop EYEBOTH BEDTIME [facility] Last Admin: 06/03/21 19:55 Dose: 1 drop Documented by: Maria Luzesh Optive Gel (Drop Own Med) 0 applic EYEBOTH DAILY [facility] Last Admin: 06/04/21 08:16 Dose: 1 applic Documented by: Ondansetron HCl (Ondansetron 4 Mg Tab.Dis) 4 mg PO Q4H PRN PRN Reason: Nausea/Vomiting Potassium Chloride (Potassium Chloride 20 Meq Tab.Er) 20 meq PO BID [facility] Vit C/Vit E/Zinc/Copper/Lutein (Lutein/Minerals/Vitamin C/Vitamin E Acetate Cap) 1 each PO DAILY [facility] Last Admin: 06/04/21 08:16 Dose: 1 each Documented by: Warfarin Sodium (Warfarin 2 Mg Tab) 2 mg PO DAILY@1800 [facility] Last Admin: 06/03/21 18:28 Dose: 2 mg Documented by: Discontinued Medications Meclizine HCl (Meclizine 25 Mg Tab) 25 mg PO QID PRN PRN Reason: Dizziness Non-Formulary Medication (Cyclosporine [Restasis Multidose]) 1 drop EYEBOTH BID [facility] Last Admin: 06/03/21 21:32 Dose: Not Given Documented by: Non-Formulary Medication (Lutein [Lutein]) 20 mg PO DAILY [facility] Last Admin: 06/03/21 21:32 Dose: Not Given Documented by: Potassium Chloride (Potassium Chloride 20 Meq Tab.Er) 40 meq PO BID [facility] Last Admin: 06/04/21 08:15 Dose: 40 meq Documented by: - Exam Quality Assessment: Supplemental Oxygen General: Alert, Oriented, Cooperative, No Acute Distress Neck: Supple Lungs: Clear to Auscultation, Normal Respiratory Effort, Decreased Breath Sounds Cardiovascular: Regular Rate, Regular Rhythm, No Murmurs GI/Abdominal Exam: Normal Bowel Sounds, Soft, Non-Tender Back Exam: Normal Inspection, Full Range of Motion Extremities: Normal Inspection, Normal Range of Motion, Non-Tender, Pedal Edema (1+ pedal edema noted bilateral) Skin: Warm, Dry, Intact Neurological: No New Focal Deficit Psy/Mental Status: Alert, Normal Affect, Normal Mood - Patient Data Lab Results Last 24 hrs: Laboratory Results - last 24 hr 06/04/21 06/04/21 06/04/21 Range/Units 07:55 07:55 07:55 WBC 10.7 H (4.0-10.2) K/uL RBC 3.60 L (3.77-5.09) M/uL Hgb 11.6 L (11.7-15.5) g/dL Hct 36.4 (34.0-46.0) % MCV 101.1 H (84.0-98.0) fL MCH 32.2 (28.2-33.3) pg MCHC 31.9 (31.7-36.0) g/dL RDW 15.4 H (11.2-14.1) % Plt Count 314 (150-350) K/uL Neut % (Auto) 79.8 (45.0-80.0) % Lymph % (Auto) 10.8 (10.0-50.0) % [place] % (Auto) 8.2 (2.0-14.0) % Eos % (Auto) 1.0 (0.0-5.0) % Baso % (Auto) 0.2 (0.0-2.0) % Neut # (Auto) 8.51 H (1.40-7.00) K/uL Lymph # (Auto) 1.15 (0.50-3.50) K/uL [place] # (Auto) 0.88 (0.00-1.00) K/uL Eos # (Auto) 0.11 (0.00-0.50) K/uL Baso # (Auto) 0.02 (0.00-0.20) K/uL PT 26.7 H D (9.5-12.0) SEC INR 2.7 Sodium 140 (136-145) mmol/L Potassium 4.5 D (3.5-5.1) mmol/L Chloride 102 (98-107) mmol/L Carbon Dioxide 29.9 (21.0-32.0) mmol/L Anion Gap 12.6 (7-15) meq/L BUN 20 H (7-18) mg/dL Creatinine 1.09 (0.51-1.17) mg/dL Est Cr Clr Drug Dosing 32.72 mL/min Estimated GFR (MDRD) 47 mL/min Glucose 87 (70-99) mg/dL Calcium 8.6 (8.5-10.1) mg/dL Magnesium 1.9 (1.8-2.4) mg/dL Result Diagrams: 06/04/21 07:55 06/04/21 07:55 Sepsis Event Note - Focused Exam Vital Signs: Vital Signs Temp Pulse Pulse Resp BP BP Pulse Ox 06/04/21 08:16 75 110/70 06/04/21 08:00 97.7 F 75 20 110/70 90 L - Problem List & Annotations (1) Dehydration SNOMED Code(s): 82964828 Code(s): E86.0 - DEHYDRATION Status: Acute Priority: High Current Visit: No Annotation/Comment:: Improved, taking in adequate oral intake (2) Hypokalemia SNOMED Code(s): 55660588 Code(s): E87.6 - HYPOKALEMIA Status: Acute Priority: High Current Visit: No Annotation/Comment:: Potassium was 4.5 noted today, patient on KCL 40meq twice a day, will decrease to 20meq twice a day and recheck level in am (3) Afib SNOMED Code(s): 45058523 Code(s): I48.91 - UNSPECIFIED ATRIAL FIBRILLATION Status: Chronic Priori ty: Medium Current Visit: No Qualifiers: Annotation/Comment:: No history of chest pain or anginal type symptoms. Check INR/PT next labs (4) CHF (congestive heart failure) SNOMED Code(s): 20296907 Code(s): I50.9 - HEART FAILURE, UNSPECIFIED Status: Chronic Priority: Medium Current Visit: No Annotation/Comment:: continue on oral Lasix and monitor weights. (5) Hypertension SNOMED Code(s): 01093958 Code(s): I10 - ESSENTIAL (PRIMARY) HYPERTENSION Status: Chronic Priority: Medium Current Visit: No Annotation/Comment:: Stable vitals, continue to monitor (6) Hypoxemia requiring supplemental oxygen SNOMED Code(s): 461071648 Code(s): R09.02 - HYPOXEMIA; Z99.81 - DEPENDENCE ON SUPPLEMENTAL OXYGEN Status: Chronic Priority: Low Current Visit: No Annotation/Comment:: Improving with activities, continue to use oxygen per nasal cannula to keep O2 sats above 90% (7) Polymyalgia rheumatica SNOMED Code(s): 83573962 Code(s): M35.3 - POLYMYALGIA RHEUMATICA Status: Chronic Priority: Low Current Visit: No Annotation/Comment:: Stable per history - Problem List Review Problem List Initiated/Reviewed/Updated: Yes - My Orders Last 24 Hours: My Active Orders 06/04/21 13:01 Knee 3V Lt [CR] Routine 06/04/21 18:00 Meclizine [Antivert] 25 mg PO TID Potassium Chloride [Klor-Con M20] 20 meq PO BID 06/05/21 05:11 BASIC METABOLIC PANEL,BMP [CHEM] Routine 06/05/21 13:01 Chest 2V [CR] Routine 06/06/21 07:00 INR,PT,PROTHROMBIN TIME [COAG] Routine
[2021-06-04] MEDS: Acetaminophen 325 MG Tab PO PRN (17:08)
[2021-06-04] MEDS: Meclizine 25 MG Tab PO SCH (17:09)
[2021-06-04] MEDS: Warfarin 2 MG Tab PO SCH (17:12)
[2021-06-04] MEDS: Magnesium Oxide 400 MG Tab PO SCH (17:15)
[2021-06-04] MEDS: ROCKLATAN EYEBOTH SCH (19:44)
[2021-06-05] MEDS: REFRESH OPTIVE EYEBOTH SCH (08:01)
[2021-06-05] MEDS: [UNRECOGNIZED DRUG - OTHER] EYEBOTH SCH ×2 (08:01→17:24)
[2021-06-05] MEDS: AZOPT 1% EYEBOTH SCH ×2 (08:02→17:24)
[2021-06-05] MEDS: Amoxicillin/Clavulanate K 875-125 MG Tab PO SCH ×2 (08:06→19:53)
[2021-06-05] MEDS: amLODIPine 5 MG Tab PO SCH (08:06)
[2021-06-05] MEDS: Estradiol 1 MG Tab PO SCH (08:06)
[2021-06-05] MEDS: Metoprolol Tartrate 50 MG Tab PO SCH ×2 (08:07→17:26)
[2021-06-05] MEDS: Furosemide 20 MG Tab PO SCH ×2 (08:08→11:32)
[2021-06-05] MEDS: Meclizine 25 MG Tab PO SCH ×3 (08:08→17:24)
[2021-06-05] MEDS: atorvaSTATin 10 MG Tab PO SCH (08:09)
[2021-06-05] MEDS: Potassium Chloride 20 MEQ Tab.ER PO SCH ×2 (08:09→17:25)
[2021-06-05] MEDS: Levothyroxine 50 MCG Tab PO SCH (08:09)
[2021-06-05] MEDS: Acetaminophen 325 MG Tab PO PRN (08:11)
[2021-06-05] MEDS: Lactobacillus Rhamnosus GG (Probiotic) Cap PO SCH ×2 (08:11→17:27)
[2021-06-05] MEDS: Atropine/Diphenoxylate 0.025-2.5 MG Tab PO SCH (08:12)
[2021-06-05] MEDS: Cholecalciferol (Vitamin D3) 25 MCG Tab PO SCH (08:15)
[2021-06-05 08:30] LABS: ANION GAP 7.7 meq/L (7-15)
[2021-06-05] MEDS: Atropine/Diphenoxylate 0.025-2.5 MG Tab PO PRN ×2 (08:46→15:06)
[2021-06-05] MEDS: Lutein/Minerals/Vitamin C/Vitamin E Acetate Cap PO SCH (08:53)
[2021-06-05] MEDS: Cyclobenzaprine 10 MG Tab PO PRN (11:32)
--- NOTE | 2021-06-05 13:09 | PCM.SN.2 ---
- Free Text/Narrative Note: Lab work reviewed, potassium within normal limits. Will continue current dose. Xray of chest and knee reviewed. No changes in plan of care, patient to continue with physical therapy. Kenyatta Jimenez CNP 06/05/2021
[2021-06-05] MEDS: Warfarin 2 MG Tab PO SCH (17:25)
[2021-06-05] MEDS: Magnesium Oxide 400 MG Tab PO SCH (17:27)
[2021-06-05] MEDS: RESTASIS EYEBOTH PRN (17:37)
[2021-06-05] MEDS: Acetaminophen/Codeine 300-30 MG Tab PO PRN (19:53)
[2021-06-05] MEDS: ROCKLATAN EYEBOTH SCH (19:54)
[2021-06-06] MEDS: Cyclobenzaprine 10 MG Tab PO PRN ×2 (02:51→14:31)
[2021-06-06] MEDS: Amoxicillin/Clavulanate K 875-125 MG Tab PO SCH ×2 (07:46→19:50)
[2021-06-06] MEDS: Meclizine 25 MG Tab PO SCH ×3 (07:46→17:29)
[2021-06-06] MEDS: Estradiol 1 MG Tab PO SCH (07:47)
[2021-06-06] MEDS: Potassium Chloride 20 MEQ Tab.ER PO SCH ×2 (07:48→17:28)
[2021-06-06] MEDS: atorvaSTATin 10 MG Tab PO SCH (07:49)
[2021-06-06] MEDS: Furosemide 20 MG Tab PO SCH ×2 (07:49→12:20)
[2021-06-06] MEDS: Metoprolol Tartrate 50 MG Tab PO SCH ×2 (07:50→17:29)
[2021-06-06] MEDS: amLODIPine 5 MG Tab PO SCH (07:51)
[2021-06-06] MEDS: Levothyroxine 50 MCG Tab PO SCH (07:52)
[2021-06-06] MEDS: REFRESH OPTIVE EYEBOTH SCH (07:54)
[2021-06-06] MEDS: [UNRECOGNIZED DRUG - OTHER] EYEBOTH SCH ×2 (07:56→17:31)
[2021-06-06] MEDS: AZOPT 1% EYEBOTH SCH ×2 (07:56→17:30)
[2021-06-06] MEDS: Lactobacillus Rhamnosus GG (Probiotic) Cap PO SCH ×2 (07:57→17:30)
[2021-06-06] MEDS: Lutein/Minerals/Vitamin C/Vitamin E Acetate Cap PO SCH (07:58)
[2021-06-06] MEDS: Cholecalciferol (Vitamin D3) 25 MCG Tab PO SCH (07:59)
[2021-06-06] MEDS: Atropine/Diphenoxylate 0.025-2.5 MG Tab PO SCH (08:33)
[2021-06-06] MEDS: Atropine/Diphenoxylate 0.025-2.5 MG Tab PO PRN (16:52)
[2021-06-06] MEDS: Magnesium Oxide 400 MG Tab PO SCH (17:31)
[2021-06-06] MEDS: ROCKLATAN EYEBOTH SCH (19:50)
[2021-06-06] MEDS: Acetaminophen/Codeine 300-30 MG Tab PO PRN (19:51)
[2021-06-07] MEDS: Cyclobenzaprine 10 MG Tab PO PRN ×2 (00:16→19:28)
[2021-06-07] MEDS: Meclizine 25 MG Tab PO SCH ×3 (08:15→17:50)
[2021-06-07] MEDS: Amoxicillin/Clavulanate K 875-125 MG Tab PO SCH ×2 (08:16→19:22)
[2021-06-07] MEDS: [UNRECOGNIZED DRUG - OTHER] EYEBOTH SCH ×2 (08:17→17:47)
[2021-06-07] MEDS: Estradiol 1 MG Tab PO SCH (08:18)
[2021-06-07] MEDS: AZOPT 1% EYEBOTH SCH ×2 (08:18→17:48)
[2021-06-07] MEDS: Potassium Chloride 20 MEQ Tab.ER PO SCH ×2 (08:19→17:51)
[2021-06-07] MEDS: atorvaSTATin 10 MG Tab PO SCH (08:19)
[2021-06-07] MEDS: Furosemide 20 MG Tab PO SCH ×2 (08:20→11:43)
[2021-06-07] MEDS: Levothyroxine 50 MCG Tab PO SCH (08:21)
[2021-06-07] MEDS: amLODIPine 5 MG Tab PO SCH (08:21)
[2021-06-07] MEDS: Metoprolol Tartrate 50 MG Tab PO SCH ×2 (08:22→17:52)
[2021-06-07] MEDS: Lactobacillus Rhamnosus GG (Probiotic) Cap PO SCH ×2 (08:23→17:49)
[2021-06-07] MEDS: Cholecalciferol (Vitamin D3) 25 MCG Tab PO SCH (08:23)
[2021-06-07] MEDS: Lutein/Minerals/Vitamin C/Vitamin E Acetate Cap PO SCH (08:23)
[2021-06-07] MEDS: REFRESH OPTIVE EYEBOTH SCH (08:24)
[2021-06-07] MEDS: Atropine/Diphenoxylate 0.025-2.5 MG Tab PO SCH (08:28)
[2021-06-07] MEDS: RESTASIS EYEBOTH PRN (08:34)
[2021-06-07] MEDS: Acetaminophen 325 MG Tab PO PRN (10:14)
[2021-06-07] MEDS: Acetaminophen/Codeine 300-30 MG Tab PO PRN (12:33)
[2021-06-07] MEDS: Atropine/Diphenoxylate 0.025-2.5 MG Tab PO PRN (16:18)
[2021-06-07] MEDS: Magnesium Oxide 400 MG Tab PO SCH (17:50)
[2021-06-07] MEDS: ROCKLATAN EYEBOTH SCH (19:23)
[2021-06-08] MEDS: Atropine/Diphenoxylate 0.025-2.5 MG Tab PO PRN (00:16)
[2021-06-08] MEDS: Lutein/Minerals/Vitamin C/Vitamin E Acetate Cap PO SCH (07:55)
[2021-06-08] MEDS: Amoxicillin/Clavulanate K 875-125 MG Tab PO SCH (07:56)
[2021-06-08] MEDS: REFRESH OPTIVE EYEBOTH SCH (07:56)
[2021-06-08] MEDS: [UNRECOGNIZED DRUG - OTHER] EYEBOTH SCH (07:57)
[2021-06-08] MEDS: RESTASIS EYEBOTH PRN (07:57)
[2021-06-08] MEDS: AZOPT 1% EYEBOTH SCH (07:57)
[2021-06-08] MEDS: Meclizine 25 MG Tab PO SCH ×2 (07:58→11:01)
[2021-06-08] MEDS: Furosemide 20 MG Tab PO SCH ×2 (07:58→11:02)
[2021-06-08] MEDS: Estradiol 1 MG Tab PO SCH (07:59)
[2021-06-08] MEDS: Potassium Chloride 20 MEQ Tab.ER PO SCH (07:59)
[2021-06-08] MEDS: amLODIPine 5 MG Tab PO SCH (07:59)
[2021-06-08] MEDS: Levothyroxine 50 MCG Tab PO SCH (08:00)
[2021-06-08] MEDS: Metoprolol Tartrate 50 MG Tab PO SCH (08:00)
[2021-06-08] MEDS: atorvaSTATin 10 MG Tab PO SCH (08:00)
[2021-06-08] MEDS: Cholecalciferol (Vitamin D3) 25 MCG Tab PO SCH (08:02)
[2021-06-08] MEDS: Lactobacillus Rhamnosus GG (Probiotic) Cap PO SCH (08:03)
[2021-06-08] MEDS: Atropine/Diphenoxylate 0.025-2.5 MG Tab PO SCH (08:05)
--- NOTE | 2021-06-08 08:52 | PCM.PN ---
- General Info Date of Service: 06/08/21 Subjective Update: The patient is an 86-year-old female who is seen in swing bed after being hospitalized for congestive heart failure as well as dehydration. The patient states that she is doing much better. She is starting to walk more with physical therapy. She denies any shortness of breath. She is able to walk without oxygen and his saturations have been staying 92%. Patient is acute day from the hospitalization is reviewed. Patient states prior to her hospitalizat ion she did fall hitting her left knee that does give her troubles on and off. The patient was placed on high-dose potassium for a potassium at 2.9. Patient's potassium today is noted to be 4.5 Functional Status: Reports: Pain Controlled, Tolerating Diet, Ambulating - Review of Systems General: Reports: No Symptoms HEENT: Reports: No Symptoms Pulmonary: Reports: No Symptoms Cardiovascular: Reports: No Symptoms, Edema Gastrointestinal: Reports: No Symptoms Genitourinary: Reports: No Symptoms Musculoskeletal: Reports: Other (left knee soreness) Skin: Reports: No Symptoms Neurological: Reports: No Symptoms Psychiatric: Reports: No Symptoms - Patient Data Vitals - Most Recent: Last Vital Signs Temp 97.0 F 06/07/21 20:00 Pulse 0 L 06/08/21 08:00 Resp 16 06/07/21 20:00 BP 0/0 L 06/08/21 08:00 Pulse Ox 92 L 06/07/21 22:43 Weight - Most Recent: 167 lb 6.4 oz I&O - Last 24 Hours: Intake & Output 06/07/21 06/08/21 06/08/21 22:59 06:59 14:59 Intake Total 240 300 Balance 240 300 Lab Results Last 24 Hours: Laboratory Results - last 24 hr 06/08/21 Range/Units 07:10 INR 3.4 Med Orders - Current: Current Medications Acetaminophen (Acetaminophen 325 Mg Tab) 650 mg PO Q4H PRN PRN Reason: Pain (Mild 1-3)/fever Last Admin: 06/07/21 10:14 Dose: 650 mg Documented by: Acetaminophen/Codeine Phosphate (Acetaminophen/Codeine 300-30 Mg Tab) 1 tab PO Q4H PRN PRN Reason: Pain Last Admin: 06/07/21 12:33 Dose: 1 tab Documented by: Albuterol (Albuterol 0.083% 2.5 Mg/3 Ml Neb Soln) 2.5 mg NEB Q2H PRN PRN Reason: Shortness of Breath Last Admin: 06/04/21 19:45 Dose: 2.5 mg Documented by: Amlodipine Besylate (Amlodipine 5 Mg Tab) [address] [facility] Last Admin: 06/08/21 07:59 Dose: 10 mg Documented by: Amoxicillin/Clavulanate Potassium (Amoxicillin/Clavulanate K 875-125 Mg Tab) [address] [facility] Last Admin: 06/08/21 07:56 Dose: 1 tab Documented by: Atorvastatin Calcium (Atorvastatin 10 Mg Tab) [address] [facility] Last Admin: 06/08/21 08:00 Dose: 10 mg Documented by: Cholecalciferol (Cholecalciferol (Vitamin D3) 25 Mcg Tab) [address] [facility] Last Admin: 06/08/21 08:02 Dose: 50 mcg Documented by: Cyanocobalamin (Cyanocobalamin (Vitamin B12) 1,000 Mcg/Ml Sd) 1,[address] [facility] Last Admin: 06/02/21 18:20 Dose: 1,000 mcg Documented by: Cyclobenzaprine HCl (Cyclobenzaprine 10 Mg Tab) 10 mg PO TID PRN PRN Reason: Spasms Last Admin: 06/07/21 19:28 Dose: 10 mg Documented by: Diphenoxylate HCl/Atropine (Atropine/Diphenoxylate 0.025-2.5 Mg Tab) 1 tab PO Q6H PRN PRN Reason: Diarrhea Last Admin: 06/08/21 00:16 Dose: 1 tab Documented by: Diphenoxylate HCl/Atropine (Atropine/Diphenoxylate 0.025-2.5 Mg Tab) [address] [facility] Last Admin: 06/08/21 08:05 Dose: 1 tab Documented by: Estradiol (Estradiol 1 Mg Tab) [address] [facility] Last Admin: 06/08/21 07:59 Dose: 1 mg Documented by: Furosemide (Furosemide 20 Mg Tab) [address] [facility] Last Admin: 06/08/21 07:58 Dose: 20 mg Documented by: Guaifenesin (Guaifenesin 100 Mg/5 Ml Soln 10 Ml Ud Cup) 100 mg PO Q4H PRN PRN Reason: cough Hyoscyamine (Hyoscyamine 0.125 Mg Tab.Sl) 0.125 mg SL Q4H PRN PRN Reason: IBS Lactobacillus Rhamnosus (Lactobacillus Rhamnosus Gg (Probiotic) Cap) [address] [facility] Last Admin: 06/08/21 08:03 Dose: 1 cap Documented by: Levothyroxine Sodium (Levothyroxine 50 Mcg Tab) [address] [facility] Last Admin: 06/08/21 08:00 Dose: 50 mcg Documented by: Magnesium Oxide (Magnesium Oxide 400 Mg Tab) 400 mg PO DAILY@1800 [facility] Last Admin: 06/07/21 17:50 Dose: 400 mg Documented by: Meclizine HCl (Meclizine 25 Mg Tab) [address] [facility] Last Admin: 06/08/21 07:58 Dose: 25 mg Documented by: Methylprednisolone (Methylprednisolone 4 Mg Tab) [address] [facility] Last Admin: 06/08/21 07:59 Dose: 12 mg Documented by: Metoprolol Tartrate (Metoprolol Tartrate 50 Mg Tab) [address] [facility] Last Admin: 06/08/21 08:00 Dose: 50 mg Documented by: Maxx Own Med () [address] [facility] Last Admin: 06/08/21 07:57 Dose: 1 drop Documented by: Azopt 1% Own Med [address] [facility] Last Admin: 06/08/21 07:57 Dose: 1 drop Documented by: Saravanan Gilbert (Own Med) [address] [facility] Last Admin: 06/07/21 19:23 Dose: 1 drop Documented by: Maria Luzesh Optive Gel (Drop Own Med) [address] [facility] Last Admin: 06/08/21 07:56 Dose: 1 applic Documented by: Restasis Own Med 1 each EYEBOTH ACBREAKFASTANDBED PRN PRN Reason: dry eyes Last Admin: 06/08/21 07:57 Dose: 1 each Documented by: Ondansetron HCl (Ondansetron 4 Mg Tab.Dis) 4 mg PO Q4H PRN PRN Reason: Nausea/Vomiting Potassium Chloride (Potassium Chloride 20 Meq Tab.Er) [address] [facility] Last Admin: 06/08/21 07:59 Dose: 20 meq Documented by: Vit C/Vit E/Zinc/Copper/Lutein (Lutein/Minerals/Vitamin C/Vitamin E Acetate Cap) [address] [facility] Last Admin: 06/08/21 07:55 Dose: 1 each Documented by: Warfarin Sodium (Warfarin 1 Mg Tab) 1 mg PO DAILY@1800 [facility] Last Admin: 06/07/21 17:48 Dose: 1 mg Documented by: Discontinued Medications Meclizine HCl (Meclizine 25 Mg Tab) 25 mg PO QID PRN PRN Reason: Dizziness Non-Formulary Medication (Cyclosporine [Restasis Multidose]) [address] [facility] Last Admin: 06/03/21 21:32 Dose: Not Given Documented by: Non-Formulary Medication (Lutein [Lutein]) [address] [facility] Last Admin: 06/03/21 21:32 Dose: Not Given Documented by: Potassium Chloride (Potassium Chloride 20 Meq Tab.Er) [address] [facility] Last Admin: 06/04/21 08:15 Dose: 40 meq Documented by: Warfarin Sodium (Warfarin 2 Mg Tab) 2 mg PO DAILY@1800 [facility] Last Admin: 06/05/21 17:25 Dose: 2 mg Documented by: - Exam Quality Assessment: Supplemental Oxygen (oxygen at night at 2 liters per n/c) General: Alert, Oriented, Cooperative, No Acute Distress Neck: Supple, Trachea Midline, No JVD Lungs: Clear to Auscultation, Normal Respiratory Effort, Decreased Breath Sounds Cardiovascular: Regular Rate, Irregular Rhythm GI/Abdominal Exam: Normal Bowel Sounds, Soft, Non-Tender Back Exam: Normal Inspection Extremities: Normal Inspection, Pedal Edema (1+ pedal edema bilateral) Peripheral Pulses: 1+: Dorsalis Pedis (L), Dorsalis Pedis (R) Skin: Warm, Dry, Intact (dressings noted to left arm, no signs of infection no heron) Wound/Incisions: Healing Well Neurological: No New Focal Deficit Psy/Mental Status: Alert, Normal Affect, Normal Mood - Patient Data Lab Results Last 24 hrs: Laboratory Results - last 24 hr 06/08/21 Range/Units 07:10 INR 3.4 Result Diagrams: 06/04/21 07:55 06/05/21 07:30 Sepsis Event Note - Focused Exam Vital Signs: Vital Signs Pulse BP Pulse Ox 06/08/21 08:00 0 L 0/0 L 06/08/21 07:59 0/0 L 06/07/21 22:43 92 L - Problem List & Annotations (1) Dehydration SNOMED Code(s): 57249435 Code(s): E86.0 - DEHYDRATION Status: Acute Priority: High Current Visit: No Annotation/Comment:: Improved, taking in adequate oral intake (2) Hypokalemia SNOMED Code(s): 73406948 Code(s): E87.6 - HYPOKALEMIA Status: Acute Priority: High Current Visit: No Annotation/Comment:: Potassium monitored, potassium dosage decreased (3) Afib SNOMED Code(s): 78128606 Code(s): I48.91 - UNSPECIFIED ATRIAL FIBRILLATION Status: Chronic Priority: Medium Current Visit: No Qualifiers: Atrial fibrillation type: persistent (not longstanding) Qualified Code(s): I48.19 - Other persistent atrial fibrillation; I48.1 - Persistent atrial fibrillation Annotation/Comment:: INR checked, coumadin adjusted. (4) CHF (congestive heart failure) SNOMED Code(s): 59418065 Code(s): I50.9 - HEART FAILURE, UNSPECIFIED Status: Chronic Priority: Medium Current Visit: No Annotation/Comment:: continue on oral Lasix and monitor weights. Chest Xray done and reviewed with the patient (5) Hypertension SNOMED Code(s): 16508771 Code(s): I10 - ESSENTIAL (PRIMARY) HYPERTENSION Status: Chronic Priority: Medium Current Visit: No Annotation/Comment:: Stable vitals, continue to monitor (6) Hypoxemia requiring supplemental oxygen SNOMED Code(s): 484751832 Code(s): R09.02 - HYPOXEMIA; Z99.81 - DEPENDENCE ON SUPPLEMENTAL OXYGEN Status: Chronic Priority: Low Current Visit: No Annotation/Comment:: Improving with activities, continue to use oxygen per nasal cannula to keep O2 sats above 90% (7) Polymyalgia rheumatica SNOMED Code(s): 65734139 Code(s): M35.3 - POLYMYALGIA RHEUMATICA Status: Chronic Priority: Low Current Visit: No Annotation/Comment:: Stable per history - Problem List Review Problem List Initiated/Reviewed/Updated: Yes - Plan Plan:: 1. CHF: weights stable, continue on Lasix. Monitoring weights 2. Hypokalemia: on oral potassium, level checked 3. Atrial Fib: continue on Coumadin 4. Hypoxia: using oxygen at night only. Sats staying above 92% during the day 5. Hypertension: blood pressures monitored. Reviewed labs and chest Xray with the patient. Plans to discharge to home with home health today. She states feeling save going home but not sure how long she will be able to live on her own due to her declining eye sight. INR to be followed by anticoagulation clinic. Will continue on current medications. Kenyatta Jimenez,EMILY 06/08/2021
--- NOTE | 2021-06-08 09:09 | PCM.DCSUM1 ---
Discharge Summary - Hospital Course Free Text/Narrative:: The patient was admitted into acute hospital stay for CHF and hypoxia. She was treated aggressively with IV Lasix and oral potassium. Levels were monitored closely, patient's kidney function remained stable. Follow up chest Xray showed improvement, patient has not had fever or coughing. Oxygen saturations stable on room air when she is up and walking. The patient's weight are stable. The patient was transferred to [facility] for further strengthening with physical therapy. Diagnosis: Stroke: No - Discharge Data Discharge Date: 06/08/21 Discharge Disposition: Home, W Home Health Agency 06 Condition: Fair - Referral to Home Health Date of Face to Face Encounter: 06/08/21 ([facility]) Reason for Homebound Status: CHF, hypertension, recent hospitalization, hypoxia, Decline in eyesight due to macular degeneration Primary Care Physician: Kenyatta Jimenez NP Skilled Need: Medication management, weight monitoring due to recent CHF and desaturations, decline in eyesight - Discharge Diagnosis/Problem(s) (1) Dehydration SNOMED Code(s): 71212904 ICD Code: E86.0 - DEHYDRATION Status: Acute Priority: High Current Visit: No Problem Details: Improved, taking in adequate oral intake (2) Hypokalemia SNOMED Code(s): 76245310 ICD Code: E87.6 - HYPOKALEMIA Status: Acute Priority: High Current V isit: No Problem Details: Potassium monitored, potassium dosage decreased (3) Afib SNOMED Code(s): 70629838 ICD Code: I48.91 - UNSPECIFIED ATRIAL FIBRILLATION Status: Chronic Priority: Medium Current Visit: No Problem Details: INR checked, coumadin adjusted. Qualifiers: Atrial fibrillation type: persistent (not longstanding) Qualified Code(s): I48.19 - Other persistent atrial fibrillation; I48.1 - Persistent atrial fibrillation (4) CHF (congestive heart failure) SNOMED Code(s): 61150983 ICD Code: I50.9 - HEART FAILURE, UNSPECIFIED Status: Chronic Priority: Medium Current Visit: No Problem Details: continue on oral Lasix and monitor weights. Chest Xray done and reviewed with the patient Qualifiers: Heart failure type: unspecified Heart failure chronicity: acute on chronic Qualified Code(s): I50.9 - Heart failure, unspecified (5) Hypertension SNOMED Code(s): 58788804 ICD Code: I10 - ESSENTIAL (PRIMARY) HYPERTENSION Status: Chronic Pr iority: Medium Current Visit: No Problem Details: Stable vitals, continue to monitor Qualifiers: Hypertension type: primary hypertension Qualified Code(s): I10 - Essential (primary) hypertension (6) Hypoxemia requiring supplemental oxygen SNOMED Code(s): 746056531 ICD Code: R09.02 - HYPOXEMIA; Z99.81 - DEPENDENCE ON SUPPLEMENTAL OXYGEN Status: Chronic Priority: Low Current Visit: No Problem Details: Improving with activities, continue to use oxygen per nasal cannula to keep O2 sats above 90% (7) Polymyalgia rheumatica SNOMED Code(s): 58317776 ICD Code: M35.3 - POLYMYALGIA RHEUMATICA Status: Chronic Priority: Low Current Visit: No Problem Details: Stable per history - Patient Summary/Data Consults: Consultations 06/02/21 13:46 PT Evaluation and Treatment [CONS] Routine 06/05/21 09:32 OT Evaluation and Treatment [CONS] Routine - Patient Instructions Diet: Regular Diet as Tolerated Driving: Do Not Drive Showering/Bathing: May Shower Notify Provider of: Fever, Increased Pain, Swelling and Redness - Discharge Plan *PRESCRIPTION DRUG MONITORING PROGRAM REVIEWED*: Not Applicable *COPY OF PRESCRIPTION DRUG MONITORING REPORT IN PATIENT SEB: Not Applicable Prescriptions/Med Rec: Potassium Chloride [Klor-Con M20] 20 meq PO BID #180 tab.er Furosemide [Lasix] 20 mg PO BIDDIURETIC #180 tablet Home Medications: Home Meds Acetaminophen with Codeine [Acetaminophen-Cod #3] 1 tab PO Q4H PRN 02/10/20 [History] Brimonidine Tartrate/Timolol [Combigan 0.2%-0.5% Eye Drops] 1 drop EYEBOTH BID 02/10/20 [History] Cholecalciferol (Vitamin D3) [Vitamin D3] 2,000 unit PO DAILY 02/10/20 [History] Cyanocobalamin (Vitamin B12) [Vitamin B12] 1,000 mcg IJ Q30D 02/10/20 [History] Cyclobenzaprine [Flexeril] 1 tab PO TID PRN 02/10/20 [History] Hyoscyamine [Levsin] 0.125 mg PO Q4HR PRN 02/10/20 [History] Levothyroxine [Synthroid] 50 mcg PO DAILY 02/10/20 [History] Metoprolol Tartrate 50 mg PO BID 02/10/20 [History] Nitroglycerin 0.4 mg SL ASDIRECTED PRN 02/10/20 [History] Non-Formulary Medication [NF Drug] 1 applic TOP TUSA 02/10/20 [History] amLODIPine [Norvasc] 10 mg PO DAILY 02/10/20 [History] atorvaSTATin [Lipitor] 10 mg PO DAILY 02/10/20 [History] cycloSPORINE [Restasis Multidose] 1 drop EYEBOTH BID 02/10/20 [History] estradioL [Estradiol] 1 mg PO DAILY 02/10/20 [History] methylPREDNISolone [Medrol] 12 mg PO DAILY 02/10/20 [History] Diphenoxylate HCl/Atropine [Lomotil] 2.5 mg PO ASDIRECTED PRN 02/23/21 [History] Lutein 20 mg PO DAILY 02/23/21 [History] Lutein/Minerals/Vit A,C & E [Ocuvite] 1 tab PO DAILY 02/23/21 [History] Magnesium Oxide 500 mg PO QPM 02/23/21 [History] Meclizine HCl 25 mg PO QID PRN #30 tablet 02/23/21 [Rx] Brinzolamide [Azopt 1% Ophth Susp] 1 drop EYEBOTH BID 05/28/21 [History] Netarsudil Mesylat/Latanoprost [Rocklatan 0.02%-0.005% Eye Drp] 1 drop EYEBOTH BEDTIME 05/28/21 [History] Albuterol [Proventil Neb Soln] 2.5 mg NEB Q2H PRN neb 06/08/21 [Rx] Atropine/Diphenoxylate [Diphenoxylate-Atropine] 1 tab PO DAILY tablet 06/08/21 [Rx] Furosemide [Lasix] 20 mg PO BIDDIURETIC #180 tablet 06/08/21 [Rx] Lactobacillus Rhamnosus GG [Culturelle] 1 cap PO BID cap 06/08/21 [Rx] Magnesium Oxide 400 mg PO DAILY@1800 tablet 06/08/21 [Rx] Non-Formulary Medication [NF Drug] 1 each EYEBOTH ACBREAKFASTANDBED PRN each 06/08/21 [Rx] Ondansetron [Zofran ODT] 4 mg PO Q4H PRN tab.dis 06/08/21 [Rx] Potassium Chloride [Klor-Con M20] 20 meq PO BID #180 tab.er 06/08/21 [Rx] Warfarin [Coumadin] 1 mg PO DAILY #30 06/08/21 [Rx] Oxygen Therapy Mode: Nasal Cannula (to wear oxygen at night) - Discharge Summary/Plan Comment DC Time >30 min.: No Total # of Minutes for Discharge Time: 30 minutes Discharge Summary/Plan Comment: Patient is discharged to home with home health. The patient states she is not sure how long she will be able to stay in her apartment at [address]. She does feel safe going home today and will see how things go. Nursing to decide if the patient will need home PT/OT. INR to be check on 06/11/2021, to be drawn by home health nurse. INR clinic will follow levels. Follow up with provider in 2 weeks. Will continue on current medications. Patient to monitor weights daily, report weight gain of more than 3-5 pounds in 24 hours. Continue with oxygen at home and use at night, patient has at home already. Kenyatta Jimenez CNP 06/08/2021 - Patient Data Vitals - Most Recent: Last Vital Signs Temp 97.0 F 06/07/21 20:00 Pulse 0 L 06/08/21 08:00 Resp 16 06/07/21 20:00 BP 0/0 L 06/08/21 08:00 Pulse Ox 92 L 06/07/21 22:43 Weight - Most Recent: 167 lb 6.4 oz I&O - Last 24 hours: Intake & Output 06/07/21 06/08/21 06/08/21 22:59 06:59 14:59 Intake Total 240 300 Balance 240 300 Lab Results - Last 24 hrs: Laboratory Results - last 24 hr 06/08/21 Range/Units 07:10 INR 3.4 Med Orders - Current: Current Medications Acetaminophen (Acetaminophen 325 Mg Tab) 650 mg PO Q4H PRN PRN Reason: Pain (Mild 1-3)/fever Last Admin: 06/07/21 10:14 Dose: 650 mg Documented by: Acetaminophen/Codeine Phosphate (Acetaminophen/Codeine 300-30 Mg Tab) 1 tab PO Q4H PRN PRN Reason: Pain Last Admin: 06/07/21 12:33 Dose: 1 tab Documented by: Albuterol (Albuterol 0.083% 2.5 Mg/3 Ml Neb Soln) 2.5 mg NEB Q2H PRN PRN Reason: Shortness of Breath Last Admin: 06/04/21 19:45 Dose: 2.5 mg Documented by: Amlodipine Besylate (Amlodipine 5 Mg Tab) 10 mg PO DAILY [facility] Last Admin: 06/08/21 07:59 Dose: 10 mg Documented by: Amoxicillin/Clavulanate Potassium (Amoxicillin/Clavulanate K 875-125 Mg Tab) 1 tab PO Q12HR [facility] Last Admin: 06/08/21 07:56 Dose: 1 tab Documented by: Atorvastatin Calcium (Atorvastatin 10 Mg Tab) 10 mg PO DAILY [facility] Last Admin: 06/08/21 08:00 Dose: 10 mg Documented by: Cholecalciferol (Cholecalciferol (Vitamin D3) 25 Mcg Tab) 50 mcg PO DAILY [facility] Last Admin: 06/08/21 08:02 Dose: 50 mcg Documented by: Cyanocobalamin (Cyanocobalamin (Vitamin B12) 1,000 Mcg/Ml Sd) 1,000 mcg IM Q30D [facility] Last Admin: 06/02/21 18:20 Dose: 1,000 mcg Documented by: Cyclobenzaprine HCl (Cyclobenzaprine 10 Mg Tab) 10 mg PO TID PRN PRN Reason: Spasms Last Admin: 06/07/21 19:28 Dose: 10 mg Documented by: Diphenoxylate HCl/Atropine (Atropine/Diphenoxylate 0.025-2.5 Mg Tab) 1 tab PO Q6H PRN PRN Reason: Diarrhea Last Admin: 06/08/21 00:16 Dose: 1 tab Documented by: Diphenoxylate HCl/Atropine (Atropine/Diphenoxylate 0.025-2.5 Mg Tab) 1 tab PO DAILY [facility] Last Admin: 06/08/21 08:05 Dose: 1 tab Documented by: Estradiol (Estradiol 1 Mg Tab) 1 mg PO DAILY [facility] Last Admin: 06/08/21 07:59 Dose: 1 mg Documented by: Furosemide (Furosemide 20 Mg Tab) 20 mg PO BIDDIURETIC [facility] Last Admin: 06/08/21 07:58 Dose: 20 mg Documented by: Guaifenesin (Guaifenesin 100 Mg/5 Ml Soln 10 Ml Ud Cup) 100 mg PO Q4H PRN PRN Reason: cough Hyoscyamine (Hyoscyamine 0.125 Mg Tab.Sl) 0.125 mg SL Q4H PRN PRN Reason: IBS Lactobacillus Rhamnosus (Lactobacillus Rhamnosus Gg (Probiotic) Cap) 1 cap PO BID [facility] Last Admin: 06/08/21 08:03 Dose: 1 cap Documented by: Levothyroxine Sodium (Levothyroxine 50 Mcg Tab) 50 mcg PO DAILY [facility] Last Admin: 06/08/21 08:00 Dose: 50 mcg Documented by: Magnesium Oxide (Magnesium Oxide 400 Mg Tab) 400 mg PO DAILY@1800 [facility] Last Admin: 06/07/21 17:50 Dose: 400 mg Documented by: Meclizine HCl (Meclizine 25 Mg Tab) 25 mg PO TID [facility] Last Admin: 06/08/21 07:58 Dose: 25 mg Documented by: Methylprednisolone (Methylprednisolone 4 Mg Tab) 12 mg PO DAILY [facility] Last Admin: 06/08/21 07:59 Dose: 12 mg Documented by: Metoprolol Tartrate (Metoprolol Tartrate 50 Mg Tab) 50 mg PO BID [facility] Last Admin: 06/08/21 08:00 Dose: 50 mg Documented by: Maxx Own Med () 0 drop EYEBOTH BID [facility] Last Admin: 06/08/21 07:57 Dose: 1 drop Documented by: Azopt 1% Own Med 0 drop EYEBOTH BID [facility] Last Admin: 06/08/21 07:57 Dose: 1 drop Documented by: Saravanan Gilbert (Own Med) 0 drop EYEBOTH BEDTIME [facility] Last Admin: 06/07/21 19:23 Dose: 1 drop Documented by: Refresh Optive Gel (Drop Own Med) 0 applic EYEBOTH DAILY [facility] Last Admin: 06/08/21 07:56 Dose: 1 applic Documented by: Restasis Own Med 1 each EYEBOTH ACBREAKFASTANDBED PRN PRN Reason: dry eyes Last Admin: 06/08/21 07:57 Dose: 1 each Documented by: Ondansetron HCl (Ondansetron 4 Mg Tab.Dis) 4 mg PO Q4H PRN PRN Reason: Nausea/Vomiting Potassium Chloride (Potassium Chloride 20 Meq Tab.Er) 20 meq PO BID [facility] Last Admin: 06/08/21 07:59 Dose: 20 meq Documented by: Vit C/Vit E/Zinc/Copper/Lutein (Lutein/Minerals/Vitamin C/Vitamin E Acetate Cap) 1 each PO DAILY [facility] Last Admin: 06/08/21 07:55 Dose: 1 each Documented by: Warfarin Sodium (Warfarin 1 Mg Tab) 1 mg PO DAILY@1800 [facility] Last Admin: 06/07/21 17:48 Dose: 1 mg Documented by: Discontinued Medications Meclizine HCl (Meclizine 25 Mg Tab) 25 mg PO QID PRN PRN Reason: Dizziness Non-Formulary Medication (Cyclosporine [Restasis Multidose]) 1 drop EYEBOTH BID [facility] Last Admin: 06/03/21 21:32 Dose: Not Given Documented by: Non-Formulary Medication (Lutein [Lutein]) 20 mg PO DAILY [facility] Last Admin: 06/03/21 21:32 Dose: Not Given Documented by: Potassium Chloride (Potassium Chloride 20 Meq Tab.Er) 40 meq PO BID [facility] Last Admin: 06/04/21 08:15 Dose: 40 meq Documented by: Warfarin Sodium (Warfarin 2 Mg Tab) 2 mg PO DAILY@1800 [facility] Last Admin: 06/05/21 17:25 Dose: 2 mg Documented by:
== END 2021-06-08 11:20 | disposition home health service (06) | DRG 948 ==
LOC: LL.MS 13:36 → LL.SWG 06-04 11:06
PROVIDERS: ADMIT Physician Assistant; ATTEND Nurse Practitioner Family
DX: R53.1 Weakness (principal); I48.19 Other persistent atrial fibrillation; I11.0 Hypertensive heart disease with heart failure; I50.9 Heart failure, unspecified; E86.0 Dehydration; E87.6 Hypokalemia; Z99.81 Dependence on supplemental oxygen; M35.3 Polymyalgia rheumatica; Z79.890 Hormone replacement therapy; Z79.899 Other long term (current) drug therapy; Z79.01 Long term (current) use of anticoagulants
CPT/HCPCS: 36415; 36416; 71046; 73562-LT; 80048; 83735; 85025; 85610; 94640; 97110-GO; 97161-GP; 97166-GO; 97530-GO; 97530-GP; 97535-GO; A9270-GY; J3420; J7509; J7613-GY

== ENCOUNTER 2021-07-30 09:28 | Inpatient (IN) | payer MEDICARE, OTHER ==
[2021-07-30] MEDS ORDERED: Ondansetron 4 MG/2 ML SDV IVPUSH ONE (09:42)
[2021-07-30] MEDS ORDERED: Lactated Ringers 1,000 ML IV SCH (09:45)
[2021-07-30] MEDS: Sodium Chloride 0.9% 10 ML Syringe FLUSH PRN (09:57)
[2021-07-30] MEDS ORDERED: Iopamidol 612 MG/ML 100 ML Bottle IVPUSH STA (10:04)
--- NOTE | 2021-07-30 10:33 | EDM.PDOC ---
ED HPI GENERAL MEDICAL PROBLEM - General Chief Complaint: Gastrointestinal Problem Stated Complaint: fall, N/V/D Time Seen by Provider: 07/30/21 09:30 Source of Information: Reports: Patient, EMS History Limitations: Reports: No Limitations - History of Present Illness INITIAL COMMENTS - FREE TEXT/NARRATIVE: Pt. presents to ER with complaints of nausea, vomiting, one loose stool, and abdominal cramping. She states that she feels chilled. Pt. states that she has been experiencing this for the past 24 hours. She states that she attempted to sit on her toilet today and missed the stool, falling into her backside beside it. Pt. denies striking her head. Denies any trauma from the event. Pt. denies any chest pain, shortness of breath. No fever or chills. Denies any recent illness. Denies any melena, hematochezia, or hematemesis. Pt. has a history of IBS. Pt. was admitted with similar symptoms from 05/28/2021 until 06/02/2021. Pt. had an episode my hypoxia thought to be secondary to fluid resuscitation and was on BiPap for some time during admission. She underwent a CTA of the chest which did not show any PE. She has not recently had any CT of the abdomen or pelvis. Following her acute stay on 06/02, she was in swingbed until 06/05, then went back to her assisted living apartment. There was some question at that time as to how long the patient would be able to live independently. Onset: Today Location: Reports: Abdomen Associated Symptoms: Reports: Nausea/Vomiting, Shortness of Breath (states chonically, no worse than normal.) - Related Data Allergies Allergy/AdvReac Type Severity Reaction Status Date / Time dog dander Allergy Other Verified 07/30/21 09:29 grass pollen-perennial rye, Allergy Other Verified 07/30/21 09:29 standar tree and shrub pollen Allergy congestion Verified 07/30/21 09:29 amiodarone AdvReac Severe Hypotension, Verified 07/30/21 09:29 Shortness of breaath flecainide AdvReac Severe shortness Verified 07/30/21 09:29 of breath,severe hypotention Home Meds: Home Meds Acetaminophen with Codeine [Acetaminophen-Cod #3] 1 tab PO Q4H PRN 02/10/20 [History] Brimonidine Tartrate/Timolol [Combigan 0.2%-0.5% Eye Drops] 1 drop EYEBOTH BID 02/10/20 [History] Cholecalciferol (Vitamin D3) [Vitamin D3] 2,000 unit PO DAILY 02/10/20 [History] Cyanocobalamin (Vitamin B12) [Vitamin B12] 1,000 mcg IJ Q30D 02/10/20 [History] Cyclobenzaprine [Flexeril] 1 tab PO TID PRN 02/10/20 [History] Hyoscyamine [Levsin] 0.125 mg PO Q4HR PRN 02/10/20 [History] Levothyroxine [Synthroid] 50 mcg PO DAILY 02/10/20 [History] Metoprolol Tartrate 50 mg PO BID 02/10/20 [History] Nitroglycerin 0.4 mg SL ASDIRECTED PRN 02/10/20 [History] Non-Formulary Medication [NF Drug] 1 applic TOP TUSA 02/10/20 [History] amLODIPine [Norvasc] 10 mg PO DAILY 02/10/20 [History] atorvaSTATin [Lipitor] 10 mg PO DAILY 02/10/20 [History] cycloSPORINE [Restasis Multidose] 1 drop EYEBOTH BID 02/10/20 [History] estradioL [Estradiol] 1 mg PO DAILY 02/10/20 [History] methylPREDNISolone [Medrol] 12 mg PO DAILY 02/10/20 [History] Diphenoxylate HCl/Atropine [Lomotil] 2.5 mg PO ASDIRECTED PRN 02/23/21 [History] Lutein 20 mg PO DAILY 02/23/21 [History] Lutein/Minerals/Vit A,C & E [Ocuvite] 1 tab PO DAILY 02/23/21 [History] Magnesium Oxide 500 mg PO QPM 02/23/21 [History] Meclizine HCl 25 mg PO QID PRN #30 tablet 02/23/21 [Rx] Brinzolamide [Azopt 1% Ophth Susp] 1 drop EYEBOTH BID 05/28/21 [History] Netarsudil Mesylat/Latanoprost [Rocklatan 0.02%-0.005% Eye Drp] 1 drop EYEBOTH BEDTIME 05/28/21 [History] Albuterol [Proventil Neb Soln] 2.5 mg NEB Q2H PRN neb 06/08/21 [Rx] Atropine/Diphenoxylate [Diphenoxylate-Atropine] 1 tab PO DAILY tablet 06/08/21 [Rx] Furosemide [Lasix] 20 mg PO BIDDIURETIC #180 tablet 06/08/21 [Rx] Lactobacillus Rhamnosus GG [Culturelle] 1 cap PO BID cap 06/08/21 [Rx] Magnesium Oxide 400 mg PO DAILY@1800 tablet 06/08/21 [Rx] Non-Formulary Medication [NF Drug] 1 each EYEBOTH ACBREAKFASTANDBED PRN each 06/08/21 [Rx] Ondansetron [Zofran ODT] 4 mg PO Q4H PRN tab.dis 06/08/21 [Rx] Potassium Chloride [Klor-Con M20] 20 meq PO BID #180 tab.er 06/08/21 [Rx] Warfarin Sodium [Jantoven] 2 mg PO Q2D 07/30/21 [History] Warfarin [Coumadin] 1 mg PO Q2D 07/30/21 [History] Past Medical History HEENT History: Reports: Allergic Rhinitis, Cataract, Glaucoma, Impaired Vision, Other (See Below) Other HEENT History: Dry eye syndrome. Patient wears glasses. Cardiovascular History: Reports: Afib, CAD, High Cholesterol, Hypertension, PTCA, Other (See Below) Other Cardiovascular History: Patient denies previous stent with only PTCA performed as below. She is not certain whether she had an CO. Respiratory History: Reports: Bronchitis, Recurrent, COPD, Intubation, Previous, Other (See Below) Other Respiratory History: recent bronchitis Gastrointestinal History: Reports: Cholelithiasis, Chronic Diarrhea, Colon Polyp, Diverticulosis, GI Bleed, Hemorrhoids, Irritable Bowel Syndrome, Other (See Below) Other Gastrointestinal History: Lower GI bleed of unknown etiology in 2019 with colonoscopy performed as below. Genitourinary History: Reports: Chronic Renal Insuffiency, Urinary Incontinence, Other (See Below) [employer]IC History: Reports: Dysfunctional Uterine Bleeding, , Spontaneous Other [employer]IC History: Surgical menopause as below. SAB during first trimester requiring D&C. Otherwise, full term without complications during pregnancies or deliveries Musculoskeletal History: Reports: Arthritis, Back Pain, Chronic, Fracture, Osteoarthritis, Osteoporosis, Other (See Below) Other Musculoskeletal History: Right foot fracture. Right thumb fracture in about 2018. Polymyalgia rheumatica with chronic prednisone therapy. Scoliosis. Kirt's syndrome. Neurological History: Reports: Headaches, Chronic, Vertigo Psychiatric History: Reports: Anxiety, Depression Endocrine/Metabolic History: Reports: Hypokalemia, Hypomagnesemia, Hypothyroidism, Obesity/BMI 30+, Osteopenia, Osteoporosis, Other (See Below) Other Endocrine/Metabolic History: Hypoalbuminemia. Hematologic History: Reports: Anemia, B12 Deficiency, Blood Transfusion(s), Other (See Below) Other Hematologic History: Anemia with first with transfusion in 1955. 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 Oncologic (Cancer) History: Reports: Basal Cell Carcinoma, Other (See Below) Other Oncologic History: Basal cell carcinoma of the nose in 2014. Dermatologic History: Reports: Venous Stasis Dermatitis, Other (See Below) Other Dermatologic History: Skin atrophy secondary to chronic prednisone therapy. - Infectious Disease History Infectious Disease History: Reports: Chicken Pox, Measles, Rubella - Past Surgical History Head Surgeries/Procedures: Reports: None HEENT Surgical History: Reports: Adenoidectomy, Cataract Surgery, Laser Surgery, Oral Surgery, Tonsillectomy, Other (See Below) Other HEENT Surgeries/Procedures: Tonsillectomy and adenoidectomy in 1950. Bilateral cataract surgery in 2003. [place] teeth extraction. Bilateral ocular laser treatments x6 secondary to her glaucoma. Right upper lid ptosis repair in September 2018 with bilateral repair in 2001. Cardiovascular Surgical History: Reports: Percutaneous Transluminal Angioplasty, Other (See Below) Other Cardiovascular Surgeries/Procedures: PTCA x1 in 1998 with patient denying previous stent placement at that time. Respiratory Surgical History: Reports: None GI Surgical History: Reports: Appendectomy, Cholecystectomy, Colonoscopy, Polypectomy, Other (See Below) Other GI Surgeries/Procedures: Laparoscopic cholecystectomy in 2000. Last colonoscopy on 02/05/2019 with polypectomy at that time. Incidental appendectomy at time of hysterectomy as below. Female Surgical History: Reports: Breast Implant, D&C, Dilitation & Evacuation, Hysterectomy, Other (See Below) Other Female Surgeries/Procedures: Bilateral breast implants in 1966. D&C secondary to SAB. Incomplete hysterectomy secondary to dysfunctional bleeding in 1970. Endocrine Surgical History: Reports: None Neurological Surgical History: Reports: None Musculoskeletal Surgical History: Reports: None, Carpal Tunnel, Other (See Below) Other Musculoskeletal Surgeries/Procedures:: Right carpal tunnel release in 1978. Oncologic Surgical History: Reports: None Dermatological Surgical History: Reports: Skin Biopsy, Other (See Below) - Past Imaging History Past Imaging History: Reports: Angiography (1998), Holter Monitor (March 2020) Social & Family History - Family History HEENT: Reports: Macular Degeneration, Other (See Below) Other HEENT Family History: Father, brother, and sisters x2 with macular degeneration. Cardiac: Reports: Aneurysm, Bypass, CAD, Heart Murmur, Heart Valve Replacement, High Cholesterol, Hypertension, CO, Stent, Other (See Below) Other Cardiac Family History: Mother with 2 previous CABGs with history of recur rent MIs with fatal CO at age 84. Father with history of CABG with history of recurrent MIs. Brother with several CABGs and MIs. Sister with valve replacement. Brother with CABG and aortic dissection in his 60s. Brother with CO and PTCA/stent in his 50s. Hypertension hyperlipidemia and siblings x6. Respiratory: Reports: None GI: Reports: None : Reports: None OBGYN: Reports: None Musculoskeletal: Reports: None Neurological: Reports: CVA, Migraines, Parkinson's, Other (See Below) Other Neurological Family History: Sister with migraines. Father with fatal CVA at age 82. Brothers x2 with Parkinson's disease. Psychiatric: Reports: None Endocrine/Metabolic: Reports: Diabetes, type II, Obesity/MBI 30+, Other (See Below) Other Endocrine/Metabolic Family History: Brother with morbid obesity and AODM. Hematologic: Reports: None Immunologic: Reports: None Dermatologic: Reports: None Oncologic: Reports: Colon, Thyroid, Other (See Below) Other Oncologic Family History: Mother with rectal cancer. Sister with multiple myeloma. Sister with thyroid cancer at age 15. 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 Denies: Hematemesis, Hematochezia, Melena : Reports: No Symptoms Musculoskeletal: Reports: No Symptoms Skin: Reports: No Symptoms Neurological: Reports: No Symptoms Psychiatric: Reports: No Symptoms Hematologic/Lymphatic: Reports: No Symptoms Immunologic: Reports: No Symptoms ED EXAM, GENERAL - Physical Exam Exam: See Below Exam Limited By: No Limitations General Appearance: Alert, WD/WN, No Apparent Distress Head: Atraumatic, Normocephalic Neck: Normal Inspection, Supple, Non-Tender Respiratory/Chest: No Respiratory Distress, Lungs Clear, Normal Breath Sounds, No Accessory Muscle Use, Chest Non-Tender Cardiovascular: Normal Peripheral Pulses, No Edema, No JVD, Systolic Murmur, Irregularly Irregular Peripheral Pulses: 4+: Radial (L), Dorsalis Pedis (L) GI/Abdominal: Soft, No Distention, No Abnormal Bruit, No Mass, Tender (Female) Exam: Deferred Rectal (Female) Exam: Deferred Back Exam: Normal Inspection, Full Range of Motion Extremities: Normal Inspection, Normal Range of Motion, Non-Tender, Pedal Edema Neurological: Alert, Oriented, CN II-XII Intact, Normal Cognition, Normal Reflexes, No Motor/Sensory Deficits Psychiatric: Normal Affect, Normal Mood Skin Exam: Warm, Dry, Intact, Normal Color, No Rash Lymphatic: No Adenopathy Course - Vital Signs Last Recorded V/S: Last Vital Signs Temp 36.8 C 07/30/21 09:30 Pulse 98 07/30/21 09:45 Resp 17 07/30/21 10:45 BP 138/79 07/30/21 10:45 Pulse Ox 93 L 07/30/21 10:45 - Orders/Labs/Meds Orders: Active Orders 24 hr Category Date Time Status Patient Status [ADT] Routine ADT 07/30/21 10:50 Active Peripheral IV Care [RC] . DIRECTED Care 07/30/21 09:42 Active Abdomen Pelvis w Cont [CT] Stat Exams 07/30/21 10:00 Taken CORONAVIRUS COVID-19 ANTONI [MOLEC] Stat Lab 07/30/21 09:41 Ordered CULTURE BLOOD [BC] Stat Lab 07/30/21 09:48 Received CULTURE BLOOD [BC] Stat Lab 07/30/21 09:55 Received UA RFX AKOSUA AND CULT IF INDIC [URIN] Stat Lab 07/30/21 09:41 Ordered Lactated Ringers [Ringers, Lactated] 1,000 ml Med 07/30/21 09:45 Active IV ASDIRECTED Sodium Chloride 0.9% [Saline Flush] Med 07/30/21 09:40 Active 10 ml FLUSH ASDIRECTED PRN Blood Culture x2 Reflex Set [OM.PC] Stat Oth 07/30/21 09:41 Ordered Peripheral IV Insertion Adult [OM.PC] Routine Oth 07/30/21 09:41 Ordered Medication Orders Acetaminophen/Codeine Phosphate (Acetaminophen/Codeine 300-30 Mg Tab) 1 tab PO Q4H PRN PRN Reason: Pain Albuterol (Albuterol 0.083% 2.5 Mg/3 Ml Neb Soln) 2.5 mg INH Q2H PRN PRN Reason: Shortness of Breath Amlodipine Besylate (Amlodipine 5 Mg Tab) 10 mg PO DAILY [facility] Artificial Tears (Polyvinyl Alcohol 1.4% Ophth Soln 15 Ml Bottle) 0 ml EYEBOTH ACBREAKFASTANDBED PRN PRN Reason: dry eyes Atorvastatin Calcium (Atorvastatin 10 Mg Tab) 10 mg PO DAILY NATHALIE Cholecalciferol (Cholecalciferol (Vitamin D3) 25 Mcg Tab) 50 mcg PO DAILY NATHALIE Cyclobenzaprine HCl (Cyclobenzaprine 10 Mg Tab) 10 mg PO TID PRN PRN Reason: Spasms Estradiol (Estradiol 1 Mg Tab) 1 mg PO DAILY NATHALIE Furosemide (Furosemide 20 Mg Tab) 20 mg PO BIDDIURETIC NATHALIE Lactated Ringer's (Ringers, Lactated) 1,000 mls @ 250 mls/hr IV ASDIRECTED NATHALIE Last Admin: 07/30/21 09:57 Dose: 250 mls/hr Documented by: AGUILAR Ciprofloxacin/Dextrose 400 mg/ (Premix) 200 mls @ 200 mls/hr IV Q12H NATHALIE Metronidazole 500 mg/ Premix 100 mls @ 100 mls/hr IV Q8H NATHALIE Lactobacillus Rhamnosus (Lactobacillus Rhamnosus Gg (Probiotic) Cap) 1 cap PO BID NATHALIE Levothyroxine Sodium (Levothyroxine 50 Mcg Tab) 50 mcg PO DAILY [facility] Magnesium Oxide (Magnesium Oxide 400 Mg Tab) 400 mg PO QPM NATHALIE Meclizine HCl (Meclizine 25 Mg Tab) 25 mg PO QID PRN PRN Reason: Dizziness Methylprednisolone (Methylprednisolone 4 Mg Tab) 12 mg PO DAILY [facility] Metoprolol Tartrate (Metoprolol Tartrate 50 Mg Tab) 50 mg PO BID [facility] Non-Formulary Medication (Brimonidine Tartrate/Timolol [Combigan 0.2%-0.5% Eye Drops]) 1 drop EYEBOTH BID [facility] Brinzolamide [Azopt (1% Ophth Susp]) 1 drop EYEBOTH BID [facility] Cyclosporine [ Restasis Multidose] 0.05% 1 drop EYEBOTH BID NATHALIE Non-Formulary Medication (Hyoscyamine [Levsin]) 0.125 mg PO Q4HR PRN PRN Reason: IBS Non-Formulary Medication (Lutein [Lutein]) 20 mg PO DAILY NATHALIE Non-Formulary Medication (Lutein/Minerals/Vit A,C & E [Ocuvite]) 1 tab PO DAILY [facility] Non-Formulary Medication (Netarsudil Mesylat/Latanoprost [Rocklatan 0.02%-0.005% Eye Drp]) 1 drop EYEBOTH BEDTIME NATHALIE Non-Formulary Medication (Non-Formulary Medication [Nf Drug]) 1 applic TOP TUSA [facility] Potassium Chloride (Potassium Chloride 20 Meq Tab.Er) 20 meq PO BID [facility] Sodium Chloride (Sodium Chloride 0.9% 10 Ml Syringe) 10 ml FLUSH ASDIRECTED PRN PRN Reason: Keep Vein Open Last Admin: 07/30/21 09:57 Dose: 10 ml Documented by: AGUILAR Warfarin Sodium (Warfarin 1 Mg Tab) 1 mg PO Q2D@1800 [facility] Warfarin Sodium (Warfarin 2 Mg Tab) 2 mg PO Q2D@1800 [facility] Labs: Laboratory Tests 07/30/21 07/30/21 07/30/21 Range/Units 09:55 09:55 09:55 WBC 12.5 H (4.0-10.2) K/uL RBC 4.16 (3.77-5.09) M/uL Hgb 13.3 D (11.7-15.5) g/dL Hct 40.8 (34.0-46.0) % MCV 98.1 H D (84.0-98.0) fL MCH 32.0 (28.2-33.3) pg MCHC 32.6 (31.7-36.0) g/dL RDW 15.8 H (11.2-14.1) % Plt Count 227 D (150-350) K/uL Neut % (Auto) 87.1 H (45.0-80.0) % Lymph % (Auto) 6.9 L (10.0-50.0) % [place] % (Auto) 5.8 (2.0-14.0) % Eos % (Auto) 0.1 (0.0-5.0) % Baso % (Auto) 0.1 (0.0-2.0) % Neut # (Auto) 10.85 H (1.40-7.00) K/uL Lymph # (Auto) 0.86 (0.50-3.50) K/uL [place] # (Auto) 0.72 (0.00-1.00) K/uL Eos # (Auto) 0.01 (0.00-0.50) K/uL Baso # (Auto) 0.01 (0.00-0.20) K/uL PT 20.3 H (9.5-12.0) SEC INR 2.1 Sodium 136 (136-145) mmol/L Potassium 3.5 (3.5-5.1) mmol/L Chloride 98 (98-107) mmol/L Carbon Dioxide 23.0 (21.0-32.0) mmol/L Anion Gap 15.0 (7-15) meq/L BUN 21 H (7-18) mg/dL Creatinine 1.04 (0.51-1.17) mg/dL Est Cr Clr Drug Dosing 34.29 mL/min Estimated GFR (MDRD) 50 mL/min Glucose 169 H (70-99) mg/dL Lactic Acid (0.4-2.0) mmol/L Calcium 8.6 (8.5-10.1) mg/dL Phosphorus 2.6 (2.6-4.7) mg/dL Magnesium 2.3 (1.8-2.4) mg/dL Total Bilirubin 0.8 (0.2-1.0) mg/dL AST 20 (15-37) U/L ALT 25 (12-78) U/L Alkaline Phosphatase 65 (46-116) IU/L C-Reactive Protein 16.5 H (<=0.9) mg/dL Total Protein 7.0 (6.4-8.2) g/dL Albumin 2.9 L (3.4-5.0) g/dL TSH, Ultra Sensitive 2.133 (0.358-3.740) mIU/mL 07/30/21 Range/Units 09:55 WBC (4.0-10.2) K/uL RBC (3.77-5.09) M/uL Hgb (11.7-15.5) g/dL Hct (34.0-46.0) % MCV (84.0-98.0) fL MCH (28.2-33.3) pg MCHC (31.7-36.0) g/dL RDW (11.2-14.1) % Plt Count (150-350) K/uL Neut % (Auto) (45.0-80.0) % Lymph % (Auto) (10.0-50.0) % [place] % (Auto) (2.0-14.0) % Eos % (Auto) (0.0-5.0) % Baso % (Auto) (0.0-2.0) % Neut # (Auto) (1.40-7.00) K/uL Lymph # (Auto) (0.50-3.50) K/uL [place] # (Auto) (0.00-1.00) K/uL Eos # (Auto) (0.00-0.50) K/uL Baso # (Auto) (0.00-0.20) K/uL PT (9.5-12.0) SEC INR Sodium (136-145) mmol/L Potassium (3.5-5.1) mmol/L Chloride (98-107) mmol/L Carbon Dioxide (21.0-32.0) mmol/L Anion Gap (7-15) meq/L BUN (7-18) mg/dL Creatinine (0.51-1.17) mg/dL Est Cr Clr Drug Dosing mL/min Estimated GFR (MDRD) mL/min Glucose (70-99) mg/dL Lactic Acid 3.1 H (0.4-2.0) mmol/L Calcium (8.5-10.1) mg/dL Phosphorus (2.6-4.7) mg/dL Magnesium (1.8-2.4) mg/dL Total Bilirubin (0.2-1.0) mg/dL AST (15-37) U/L ALT (12-78) U/L Alkaline Phosphatase (46-116) IU/L C-Reactive Protein (<=0.9) mg/dL Total Protein (6.4-8.2) g/dL Albumin (3.4-5.0) g/dL TSH, Ultra Sensitive (0.358-3.740) mIU/mL Meds: Medications Generic Name Dose Route Start Last Admin Trade Name Freq PRN Reason Stop Dose Admin Acetaminophen/Codeine Phosphate 1 tab 07/30/21 13:00 Acetaminophen/Codeine 300-30 Mg Tab PO Q4H PRN Pain Albuterol 2.5 mg 07/30/21 13:00 Albuterol 0.083% 2.5 Mg/3 Ml Neb Soln INH Q2H PRN Shortness of Breath Amlodipine Besylate 10 mg 07/31/21 08:00 Amlodipine 5 Mg Tab PO DAILY NATHALIE Artificial Tears 0 ml 07/30/21 13:40 Polyvinyl Alcohol 1.4% Ophth Soln 15 Ml Bottle EYEBOTH ACBREAKFASTANDBED PRN dry eyes Atorvastatin Calcium 10 mg 07/31/21 08:00 Atorvastatin 10 Mg Tab PO DAILY NATHALIE Cholecalciferol 50 mcg 07/31/21 08:00 Cholecalciferol (Vitamin D3) 25 Mcg Tab PO DAILY NATHALIE Cyclobenzaprine HCl 10 mg 07/30/21 12:22 Cyclobenzaprine 10 Mg Tab PO TID PRN Spasms Estradiol 1 mg 07/31/21 08:00 Estradiol 1 Mg Tab PO DAILY NATHALIE Furosemide 20 mg 07/31/21 08:00 Furosemide 20 Mg Tab PO BIDDIURETIC NATHALIE Lactated Ringer's 1,000 mls @ 250 mls/hr 07/30/21 09:45 07/30/21 09:57 Ringers, Lactated IV 250 mls/hr ASDIRECTED NATHALIE Administration Ciprofloxacin/Dextrose 400 mg/ 200 mls @ 200 mls/hr 07/30/21 15:00 Premix IV Q12H NATHALIE Metronidazole 500 mg/ Premix 100 mls @ 100 mls/hr 07/30/21 14:00 IV Q8H NATHALIE Lactobacillus Rhamnosus 1 cap 07/30/21 18:00 Lactobacillus Rhamnosus Gg (Probiotic) Cap PO BID NATHALIE Levothyroxine Sodium 50 mcg 07/31/21 08:00 Levothyroxine 50 Mcg Tab PO DAILY [facility] Magnesium Oxide 400 mg 07/30/21 18:00 Magnesium Oxide 400 Mg Tab PO QPM NATHALIE Meclizine HCl 25 mg 07/30/21 12:22 Meclizine 25 Mg Tab PO QID PRN Dizziness Methylprednisolone 12 mg 07/31/21 08:00 Methylprednisolone 4 Mg Tab PO DAILY [facility] Metoprolol Tartrate 50 mg 07/30/21 18:00 Metoprolol Tartrate 50 Mg Tab PO BID NATHALIE Non-Formulary Medication 1 drop 07/30/21 18:00 Brimonidine Tartrate/Timolol [Combigan 0.2%-0.5% Eye Drops] EYEBOTH BID NATHALIE Brinzolamide [Azopt 1 drop 07/30/21 18:00 1% Ophth Susp] EYEBOTH BID [facility] Cyclosporine [ 1 drop 07/30/21 18:00 Restasis Multidose] EYEBOTH 0.05% BID NATHALIE Non-Formulary Medication 0.125 mg 07/30/21 12:22 Hyoscyamine [Levsin] PO Q4HR PRN IBS Non-Formulary Medication 20 mg 07/31/21 08:00 Lutein [Lutein] PO DAILY NATHALIE Non-Formulary Medication 1 tab 07/31/21 08:00 Lutein/Minerals/Vit A,C & E [Ocuvite] PO DAILY NATHALIE Non-Formulary Medication 1 drop 07/30/21 20:00 Netarsudil Mesylat/Latanoprost [Rocklatan 0.02%-0.005% Eye Drp] EYEBOTH BEDTIME NATHALIE Non-Formulary Medication 1 applic 07/31/21 12:22 Non-Formulary Medication [Nf Drug] TOP [facility] Potassium Chloride 20 meq 07/30/21 18:00 Potassium Chloride 20 Meq Tab.Er PO BID [facility] Sodium Chloride 10 ml 07/30/21 09:40 07/30/21 09:57 Sodium Chloride 0.9% 10 Ml Syringe FLUSH 10 ml ASDIRECTED PRN Administration Keep Vein Open Warfarin Sodium 1 mg 07/30/21 18:00 Warfarin 1 Mg Tab PO Q2D@1800 [facility] Warfarin Sodium 2 mg 07/31/21 18:00 Warfarin 2 Mg Tab PO Q2D@1800 [facility] Discontinued Medications Generic Name Dose Route Start Last Admin Trade Name Freq PRN Reason Stop Dose Admin Iopamidol 100 ml 07/30/21 10:04 07/30/21 11:20 Iopamidol 612 Mg/Ml 100 Ml Bottle IVPUSH 07/30/21 10:05 100 ml ONETIME STA Administration Ondansetron HCl 4 mg 07/30/21 09:42 07/30/21 09:57 Ondansetron 4 Mg/2 Ml Sdv IVPUSH 07/30/21 09:43 4 mg ONETIME ONE Administration - Radiology Interpretation Free Text/Narrative:: CT abdomen and pelvis with contrast was ordered. Apparently there was some issue with the contrast injection and none was injected into the patient. There was evidence of very early diverticulitis. No perforation, abscess. Common bile duct mildly enlarged. Gallbladder absent. Departure - Departure Time of Disposition: 13:00 Disposition: Admitted As Inpatient 65 Clinical Impression: Diverticulitis, Dehydration Nausea & vomiting Qualifiers: Vomiting type: unspecified Vomiting Intractability: non-intractable Qualified Code(s): R11.2 - Nausea with vomiting, unspecified - Discharge Information Sepsis Event Note (ED) - Focused Exam Vital Signs: Vital Signs Temp Pulse Resp BP Pulse Ox 07/30/21 10:45 17 138/79 93 L 07/30/21 09:45 98 17 174/68 H 96 07/30/21 09:30 36.8 C 99 23 H 176/66 H 96 - Problem List Review Problem List Initiated/Reviewed/Updated: Yes - My Orders Last 24 Hours: My Active Orders 07/30/21 09:40 Sodium Chloride 0.9% [Saline Flush] 10 ml FLUSH ASDIRECTED PRN 07/30/21 09:41 CORONAVIRUS COVID-19 ANTONI [MOLEC] Stat UA RFX AKOSUA AND CULT IF INDIC [URIN] Stat Blood Culture x2 Reflex Set [OM.PC] Stat Peripheral IV Insertion Adult [OM.PC] Routine 07/30/21 09:42 Peripheral IV Care [RC] . DIRECTED 07/30/21 09:45 Lactated Ringers [Ringers, Lactated] 1,000 ml IV ASDIRECTED 07/30/21 09:48 CULTURE BLOOD [BC] Stat 07/30/21 09:55 CULTURE BLOOD [BC] Stat 07/30/21 10:00 Abdomen Pelvis w Cont [CT] Stat 07/30/21 10:50 Patient Status [ADT] Routine - Assessment/Plan Last 24 Hours: My Active Orders 07/30/21 09:40 Sodium Chloride 0.9% [Saline Flush] 10 ml FLUSH ASDIRECTED PRN 07/30/21 09:41 CORONAVIRUS COVID-19 ANTONI [MOLEC] Stat UA RFX AKOSUA AND CULT IF INDIC [URIN] Stat Blood Culture x2 Reflex Set [OM.PC] Stat Peripheral IV Insertion Adult [OM.PC] Routine 07/30/21 09:42 Peripheral IV Care [RC] . DIRECTED 07/30/21 09:45 Lactated Ringers [Ringers, Lactated] 1,000 ml IV ASDIRECTED 07/30/21 09:48 CULTURE BLOOD [BC] Stat 07/30/21 09:55 CULTURE BLOOD [BC] Stat 07/30/21 10:00 Abdomen Pelvis w Cont [CT] Stat 07/30/21 10:50 Patient Status [ADT] Routine Plan: Pt. admitted acute. She is a code 2, DNR/DNI. She will be judiciously fluid resuscitated at approx. 125ml/hr for a liter. She was started on cipro 500mg BID and flagyl 500mg TID. Nausea and vomiting much improved post zofran. She is being allowed to eat and states that she feels hungry. PT,OT and case management to see. Pt. with assistance. I and O. vitals Q 4 hours. Will continue her current dose of coumadin; she is currently therapeutic.
[2021-07-30] MEDS ORDERED: Meclizine 25 MG Tab PO PRN (12:22)
[2021-07-30] MEDS ORDERED: Cyclobenzaprine 10 MG Tab PO PRN (12:22)
[2021-07-30] MEDS ORDERED: Albuterol 0.083% 2.5 MG/3 ML Neb Soln INH PRN (13:00)
[2021-07-30] MEDS ORDERED: Polyvinyl Alcohol 1.4% Ophth Soln 15 ML Bottle EYEBOTH PRN (13:40)
[2021-07-30] MEDS: metroNIDAZOLE/Normal Saline 500 MG in Premix Bag 1 BAG IV SCH ×2 (13:59→22:13)
[2021-07-30] MEDS ORDERED: Hyoscyamine 0.125 MG Tab.SL SL PRN (14:17)
[2021-07-30] MEDS: Ciprofloxacin in D5W 400 MG in Premix Bag 1 BAG IV SCH ×2 (15:13)
[2021-07-30] MEDS: Potassium Chloride 20 MEQ Tab.ER PO SCH (17:07)
[2021-07-30] MEDS: Lactobacillus Rhamnosus GG (Probiotic) Cap PO SCH (17:08)
[2021-07-30] MEDS: Magnesium Oxide 400 MG Tab PO SCH (17:08)
[2021-07-30] MEDS: Metoprolol Tartrate 50 MG Tab PO SCH (17:09)
[2021-07-30] MEDS: CYCLOSPORINE 0.05% EYEBOTH SCH (17:10)
[2021-07-30] MEDS: BRINZOLAMIDE EYEBOTH SCH (17:10)
[2021-07-30] MEDS: Lactated Ringers 1,000 ML IV SCH (17:35)
[2021-07-30] MEDS ORDERED: Magnesium Oxide 400 MG Tab PO SCH (18:00)
[2021-07-30] MEDS: Acetaminophen/Codeine 300-30 MG Tab PO PRN (19:20)
[2021-07-30] MEDS ORDERED: Non-Formulary Medication 1 Each (Netarsudil Mesylat/Latanoprost [Rocklatan 0.02%-0.005% Ey EYEBOTH SCH (20:00)
[2021-07-31] MEDS: Acetaminophen/Codeine 300-30 MG Tab PO PRN ×4 (03:19→21:16)
[2021-07-31] MEDS: Ciprofloxacin in D5W 400 MG in Premix Bag 1 BAG IV SCH ×4 (03:20→16:15)
[2021-07-31] MEDS: Lactated Ringers 1,000 ML IV SCH (03:20)
[2021-07-31] MEDS: metroNIDAZOLE/Normal Saline 500 MG in Premix Bag 1 BAG IV SCH ×3 (05:54→21:17)
[2021-07-31 07:52] LABS: ANION GAP 12.8 meq/L (7-15)
[2021-07-31] MEDS ORDERED: Non-Formulary Medication 1 Each (Lutein [Lutein] 20 MG Tablet) PO SCH (08:00)
[2021-07-31] MEDS: BRINZOLAMIDE EYEBOTH SCH ×2 (08:19→18:05)
[2021-07-31] MEDS: Cholecalciferol (Vitamin D3) 25 MCG Tab PO SCH (08:21)
[2021-07-31] MEDS: Lutein/Minerals/Vitamin C/Vitamin E Acetate Cap PO SCH (08:22)
[2021-07-31] MEDS: Lactobacillus Rhamnosus GG (Probiotic) Cap PO SCH ×2 (08:22→17:56)
[2021-07-31] MEDS: Sertraline 25 MG Tab PO SCH (08:22)
[2021-07-31] MEDS: Levothyroxine 50 MCG Tab PO SCH (08:22)
[2021-07-31] MEDS: Metoprolol Tartrate 50 MG Tab PO SCH ×2 (08:22→18:02)
[2021-07-31] MEDS: Potassium Chloride 20 MEQ Tab.ER PO SCH ×2 (08:22→18:01)
[2021-07-31] MEDS: Estradiol 1 MG Tab PO SCH (08:22)
[2021-07-31] MEDS: amLODIPine 5 MG Tab PO SCH (08:23)
[2021-07-31] MEDS: Furosemide 20 MG Tab PO SCH ×2 (08:23→12:31)
[2021-07-31] MEDS: atorvaSTATin 10 MG Tab PO SCH (08:23)
[2021-07-31] MEDS: CYCLOSPORINE 0.05% EYEBOTH SCH ×2 (08:23→18:06)
[2021-07-31] MEDS ORDERED: Warfarin 2.5 MG Tab PO ONE (12:19)
[2021-07-31] MEDS: Polyvinyl Alcohol 1.4% Ophth Soln 15 ML Bottle EYEBOTH SCH ×3 (12:32→19:37)
[2021-07-31] MEDS: [UNRECOGNIZED DRUG - OTHER] EYEBOTH SCH ×2 (13:40→19:37)
--- NOTE | 2021-07-31 13:42 | PCM.PN ---
- General Info Date of Service: 07/31/21 Admission Dx/Problem (Free Text): Patient admitted for further evaluation after presenting to ER with history of fall in bathroom/GI complaints. Suspected diverticulitis on CT. Subjective Update: Complains of usual dizziness. No acute complaints at this time. Functional Status: Reports: Pain Controlled, Tolerating Diet. Denies: New Symptoms - Review of Systems General: Reports: Malaise, Chills. Denies: Fever HEENT: Reports: Other (no acute changes) Pulmonary: Reports: Other (no acute changes) Cardiovascular: Reports: Edema (chronic/lower extremity), Lightheadedness. Denies: Chest Pain, Palpitations Gastrointestinal: Denies: Abdominal Pain, Constipation, Decreased Appetite, Diarrhea, Difficulty Swallowing, Nausea, Vomiting Genitourinary: Reports: No Symptoms Musculoskeletal: Reports: Other (increased discomfort right lower back) Skin: Reports: Other (no acute changes) Neurological: Reports: Dizziness (chronic), Difficulty Walking (chronic). Denies: Trouble Speaking, Change in Speech Psychiatric: Reports: No Symptoms - Patient Data Vitals - Most Recent: Last Vital Signs Temp 37.1 C 07/31/21 08:00 Pulse 83 07/31/21 08:22 Resp 16 07/31/21 08:00 BP 146/56 H 07/31/21 08:23 Pulse Ox 92 L 07/31/21 08:00 Weight - Most Recent: 73.028 kg I&O - Last 24 Hours: Intake & Output 07/30/21 07/31/21 07/31/21 22:59 06:59 14:59 Intake Total 942 1400 240 Output Total 300 900 250 Balance 642 500 -10 Lab Results Last 24 Hours: Laboratory Results - last 24 hr 07/30/21 07/30/21 07/30/21 Range/Units 12:32 14:55 16:30 WBC (4.0-10.2) K/uL RBC (3.77-5.09) M/uL Hgb (11.7-15.5) g/dL Hct (34.0-46.0) % MCV (84.0-98.0) fL MCH (28.2-33.3) pg MCHC (31.7-36.0) g/dL RDW (11.2-14.1) % Plt Count (150-350) K/uL Neut % (Auto) (45.0-80.0) % Lymph % (Auto) (10.0-50.0) % Lassen % (Auto) (2.0-14.0) % Eos % (Auto) (0.0-5.0) % Baso % (Auto) (0.0-2.0) % Neut # (Auto) (1.40-7.00) K/uL Lymph # (Auto) (0.50-3.50) K/uL Lassen # (Auto) (0.00-1.00) K/uL Eos # (Auto) (0.00-0.50) K/uL Baso # (Auto) (0.00-0.20) K/uL PT (9.5-12.0) SEC INR Sodium (136-145) mmol/L Potassium (3.5-5.1) mmol/L Chloride (98-107) mmol/L Carbon Dioxide (21.0-32.0) mmol/L Anion Gap (7-15) meq/L BUN (7-18) mg/dL Creatinine (0.51-1.17) mg/dL Est Cr Clr Drug Dosing mL/min Estimated GFR (MDRD) mL/min Glucose (70-99) mg/dL Lactic Acid 2.4 H (0.4-2.0) mmol/L Calcium (8.5-10.1) mg/dL Total Bilirubin (0.2-1.0) mg/dL AST (15-37) U/L ALT (12-78) U/L Alkaline Phosphatase (46-116) IU/L NT-Pro-B Natriuret Pep (0-125) pg/mL Total Protein (6.4-8.2) g/dL Albumin (3.4-5.0) g/dL Specimen Type Urincc Urine Color Yellow Urine Appearance Clear Urine pH 6.0 (5.0-9.0) Ur Specific Bartley 1.015 (1.005-1.030) Urine Protein Trace H (NEGATIVE) mg/dL Urine Glucose (UA) Negative (NEGATIVE) mg/dL Urine Ketones 15 H (NEGATIVE) mg/dL Urine Occult Blood Negative (NEGATIVE) Urine Nitrite Negative (NEGATIVE) Urine Bilirubin Small H (NEGATIVE) Urine Urobilinogen 0.2 (0.2-1.0) E.U./dL Ur Leukocyte Esterase Negative (NEGATIVE) Urine RBC 0-5 /HPF Urine WBC 0-5 /HPF Ur Epithelial Cells Moderate H /LPF Urine Bacteria Moderate H (NONE TO FEW) /HPF SARS-CoV-2 RNA (ANTONI) Negative (NEGATIVE) 07/31/21 07/31/21 07/31/21 Range/Units 07:12 07:12 07:12 WBC 6.7 (4.0-10.2) K/uL RBC 3.14 L (3.77-5.09) M/uL Hgb 9.9 L D (11.7-15.5) g/dL Hct 31.5 L (34.0-46.0) % MCV 100.3 H (84.0-98.0) fL MCH 31.5 (28.2-33.3) pg MCHC 31.4 L (31.7-36.0) g/dL RDW 15.9 H (11.2-14.1) % Plt Count 186 (150-350) K/uL Neut % (Auto) 78.7 (45.0-80.0) % Lymph % (Auto) 12.6 (10.0-50.0) % Lassen % (Auto) 7.7 (2.0-14.0) % Eos % (Auto) 0.8 (0.0-5.0) % Baso % (Auto) 0.2 (0.0-2.0) % Neut # (Auto) 5.25 (1.40-7.00) K/uL Lymph # (Auto) 0.84 (0.50-3.50) K/uL Lassen # (Auto) 0.51 (0.00-1.00) K/uL Eos # (Auto) 0.05 (0.00-0.50) K/uL Baso # (Auto) 0.01 (0.00-0.20) K/uL PT 16.5 H (9.5-12.0) SEC INR 1.7 Sodium 138 (136-145) mmol/L Potassium 3.3 L (3.5-5.1) mmol/L Chloride 102 (98-107) mmol/L Carbon Dioxide 26.5 (21.0-32.0) mmol/L Anion Gap 12.8 (7-15) meq/L BUN 15 (7-18) mg/dL Creatinine 0.92 (0.51-1.17) mg/dL Est Cr Clr Drug Dosing 38.77 mL/min Estimated GFR (MDRD) 58 mL/min Glucose 96 (70-99) mg/dL Lactic Acid (0.4-2.0) mmol/L Calcium 7.8 L (8.5-10.1) mg/dL Total Bilirubin 0.6 (0.2-1.0) mg/dL AST 16 (15-37) U/L ALT 17 (12-78) U/L Alkaline Phosphatase 46 (46-116) IU/L NT-Pro-B Natriuret Pep (0-125) pg/mL Total Protein 5.2 L (6.4-8.2) g/dL Albumin 1.9 L (3.4-5.0) g/dL Specimen Type Urine Color Urine Appearance Urine pH (5.0-9.0) Ur Specific Bart[place] (1.005-1.030) Urine Protein (NEGATIVE) mg/dL Urine Glucose (UA) (NEGATIVE) mg/dL Urine Ketones (NEGATIVE) mg/dL Urine Occult Blood (NEGATIVE) Urine Nitrite (NEGATIVE) Urine Bilirubin (NEGATIVE) Urine Urobilinogen (0.2-1.0) E.U./dL Ur Leukocyte Esterase (NEGATIVE) Urine RBC /HPF Urine WBC /HPF Ur Epithelial Cells /LPF Urine Bacteria (NONE TO FEW) /HPF SARS-CoV-2 RNA (ANTONI) (NEGATIVE) 07/31/21 Range/Units 07:12 WBC (4.0-10.2) K/uL RBC (3.77-5.09) M/uL Hgb (11.7-15.5) g/dL Hct (34.0-46.0) % MCV (84.0-98.0) fL MCH (28.2-33.3) pg MCHC (31.7-36.0) g/dL RDW (11.2-14.1) % Plt Count (150-350) K/uL Neut % (Auto) (45.0-80.0) % Lymph % (Auto) (10.0-50.0) % Lassen % (Auto) (2.0-14.0) % Eos % (Auto) (0.0-5.0) % Baso % (Auto) (0.0-2.0) % Neut # (Auto) (1.40-7.00) K/uL Lymph # (Auto) (0.50-3.50) K/uL Lassen # (Auto) (0.00-1.00) K/uL Eos # (Auto) (0.00-0.50) K/uL Baso # (Auto) (0.00-0.20) K/uL PT (9.5-12.0) SEC INR Sodium (136-145) mmol/L Potassium (3.5-5.1) mmol/L Chloride (98-107) mmol/L Carbon Dioxide (21.0-32.0) mmol/L Anion Gap (7-15) meq/L BUN (7-18) mg/dL Creatinine (0.51-1.17) mg/dL Est Cr Clr Drug Dosing mL/min Estimated GFR (MDRD) mL/min Glucose (70-99) mg/dL Lactic Acid (0.4-2.0) mmol/L Calcium (8.5-10.1) mg/dL Total Bilirubin (0.2-1.0) mg/dL AST (15-37) U/L ALT (12-78) U/L Alkaline Phosphatase (46-116) IU/L NT-Pro-B Natriuret Pep 2048 H (0-125) pg/mL Total Protein (6.4-8.2) g/dL Albumin (3.4-5.0) g/dL Specimen Type Urine Color Urine Appearance Urine pH (5.0-9.0) Ur Specific [place] (1.005-1.030) Urine Protein (NEGATIVE) mg/dL Urine Glucose (UA) (NEGATIVE) mg/dL Urine Ketones (NEGATIVE) mg/dL Urine Occult Blood (NEGATIVE) Urine Nitrite (NEGATIVE) Urine Bilirubin (NEGATIVE) Urine Urobilinogen (0.2-1.0) E.U./dL Ur Leukocyte Esterase (NEGATIVE) Urine RBC /HPF Urine WBC /HPF Ur Epithelial Cells /LPF Urine Bacteria (NONE TO FEW) /HPF SARS-CoV-2 RNA (ANTONI) (NEGATIVE) [place] Results Last 24 Hours: Microbiology 07/30/21 09:55 Aerobic Blood Culture - Preliminary Blood - Venous NO GROWTH AFTER 1 DAY 07/30/21 09:48 Aerobic Blood Culture - Preliminary Blood - Venous - Lab Draw NO GROWTH AFTER 1 DAY Anaerobic Blood Culture - Preliminary NO GROWTH AFTER 1 DAY Med Orders - Current: Current Medications Acetaminophen/Codeine Phosphate (Acetaminophen/Codeine 300-30 Mg Tab) 1 tab PO Q4H PRN PRN Reason: Pain Last Admin: 07/31/21 13:33 Dose: 1 tab Documented by: Albuterol (Albuterol 0.083% 2.5 Mg/3 Ml Neb Soln) 2.5 mg INH Q2H PRN PRN Reason: Shortness of Breath Amlodipine Besylate (Amlodipine 5 Mg Tab) 10 mg PO DAILY [facility] Last Admin: 07/31/21 08:23 Dose: 10 mg Documented by: Artificial Tears (Polyvinyl Alcohol 1.4% Ophth Soln 15 Ml Bottle) 0 ml EYEBOTH QID NATHALIE Last Admin: 07/31/21 12:32 Dose: 1 drop Documented by: Atorvastatin Calcium (Atorvastatin 10 Mg Tab) 10 mg PO DAILY [facility] Last Admin: 07/31/21 08:23 Dose: 10 mg Documented by: Cholecalciferol (Cholecalciferol (Vitamin D3) 25 Mcg Tab) 50 mcg PO DAILY NATHALIE Last Admin: 07/31/21 08:21 Dose: 50 mcg Documented by: Estradiol (Estradiol 1 Mg Tab) 1 mg PO DAILY NATHAILE Last Admin: 07/31/21 08:22 Dose: 1 mg Documented by: Furosemide (Furosemide 20 Mg Tab) 20 mg PO BIDDIURETIC [facility] Last Admin: 07/31/21 12:31 Dose: 20 mg Documented by: Hyoscyamine (Hyoscyamine 0.125 Mg Tab.Sl) 0.125 mg SL DAILY PRN PRN Reason: IBS Last Admin: 07/31/21 05:59 Dose: 0.125 mg Documented by: Ciprofloxacin/Dextrose 400 mg/ (Premix) 200 mls @ 200 mls/hr IV Q12H NATHALIE Last Admin: 07/31/21 03:20 Dose: 200 mls/hr Documented by: Metronidazole 500 mg/ Premix 100 mls @ 100 mls/hr IV Q8H NATHALIE Last Admin: 07/31/21 13:35 Dose: 100 mls/hr Documented by: Lactated Ringer's (Ringers, Lactated) 1,000 mls @ 100 mls/hr IV ASDIRECTED [facility] Last Admin: 07/31/21 03:20 Dose: 100 mls/hr Documented by: Lactobacillus Rhamnosus (Lactobacillus Rhamnosus Gg (Probiotic) Cap) 1 cap PO BID [facility] Last Admin: 07/31/21 08:22 Dose: 1 cap Documented by: Levothyroxine Sodium (Levothyroxine 50 Mcg Tab) 50 mcg PO DAILY [facility] Last Admin: 07/31/21 08:22 Dose: 50 mcg Documented by: Magnesium Oxide (Magnesium Oxide 400 Mg Tab) 400 mg PO QPM [facility] Last Admin: 07/30/21 17:08 Dose: 400 mg Documented by: Meclizine HCl (Meclizine 25 Mg Tab) 25 mg PO QID PRN PRN Reason: Dizziness Methylprednisolone (Methylprednisolone 4 Mg Tab) 12 mg PO Q2D [facility] Methylprednisolone (Methylprednisolone 4 Mg Tab) 6 mg PO Q2D [facility] Last Admin: 07/31/21 08:29 Dose: 6 mg Documented by: Metoprolol Tartrate (Metoprolol Tartrate 50 Mg Tab) 50 mg PO BID [facility] Last Admin: 07/31/21 08:22 Dose: 50 mg Documented by: Brinzolamide [Azopt (1% Ophth Susp]) 1 drop EYEBOTH BID [facility] Last Admin: 07/31/21 08:19 Dose: 1 drop Documented by: Cyclosporine [ Restasis Multidose] 0.05% 1 drop EYEBOTH BID [facility] Last Admin: 07/31/21 08:23 Dose: 1 drop Documented by: Non-Formulary Medication (Lutein [Lutein]) 20 mg PO DAILY [facility] Non-Formulary Medication (Non-Formulary Medication [Nf Drug]) 1 applic [facility] Rocklatan Ophth Soln 0 each EYEBOTH BEDTIME [facility] Combigan D Ophth (Soln) 0 each EYEBOTH TID@0800,1400,2000 [facility] Potassium Chloride (Potassium Chloride 20 Meq Tab.Er) 20 meq PO BID [facility] Last Admin: 07/31/21 08:22 Dose: 20 meq Documented by: Sertraline HCl (Sertraline 25 Mg Tab) 25 mg PO DAILY [facility] Last Admin: 07/31/21 08:22 Dose: 25 mg Documented by: Sodium Chloride (Sodium Chloride 0.9% 10 Ml Syringe) 10 ml FLUSH ASDIRECTED PRN PRN Reason: Keep Vein Open Last Admin: 07/30/21 09:57 Dose: 10 ml Documented by: Vit C/Vit E/Zinc/Copper/Lutein (Lutein/Minerals/Vitamin C/Vitamin E Acetate Cap) 1 each PO DAILY [facility] Last Admin: 07/31/21 08:22 Dose: 1 each Documented by: Warfarin Sodium (Warfarin 1 Mg Tab) 1 mg PO Q2D@1800 NATHALIE Last Admin: 07/30/21 17:09 Dose: 1 mg Documented by: Warfarin Sodium (Warfarin 2 Mg Tab) 2 mg PO Q2D@1800 NATHALIE Discontinued Medications Artificial Tears (Polyvinyl Alcohol 1.4% Ophth Soln 15 Ml Bottle) 0 ml EYEBOTH ACBREAKFASTANDBED PRN PRN Reason: dry eyes Cyclobenzaprine HCl (Cyclobenzaprine 10 Mg Tab) 10 mg PO TID PRN PRN Reason: Spasms Lactated Ringer's (Ringers, Lactated) 1,000 mls @ 250 mls/hr IV ASDIRECTED [facility] Last Admin: 07/30/21 09:57 Dose: 250 mls/hr Documented by: Iopamidol (Iopamidol 612 Mg/Ml 100 Ml Bottle) 100 ml IVPUSH ONETIME STA Stop: 07/30/21 10:05 Last Admin: 07/30/21 11:20 Dose: 100 ml Documented by: Ondansetron HCl (Ondansetron 4 Mg/2 Ml Sdv) 4 mg IVPUSH ONETIME ONE Stop: 07/30/21 09:43 Last Admin: 07/30/21 09:57 Dose: 4 mg Documented by: Warfarin Sodium (Warfarin 2.5 Mg Tab) 2.5 mg PO ONETIME ONE Stop: 07/31/21 12:20 Last Admin: 07/31/21 13:34 Dose: 2.5 mg Documented by: - Exam Quality Assessment: Supplemental Oxygen, DVT Prophylaxis General: Alert, Oriented, Cooperative, No Acute Distress HEENT: Pupils Equal, Pupils Reactive, EOMI Neck: Supple Lungs: Other (minimal crackles at bases). No: Rhonchi, Stridor Cardiovascular: Irregular Rhythm GI/Abdominal Exam: Normal Bowel Sounds, Soft, Non-Tender, No Distention (Female) Exam: Deferred Back Exam: Paraspinal Tenderness (right low back). No: CVA Tenderness (L), CVA Tenderness (R) Extremities: Non-Tender, Pedal Edema Skin: Warm, Dry Neurological: No New Focal Deficit Psy/Mental Status: Alert, Normal Affect, Normal Mood - Patient Data Lab Results Last 24 hrs: Laboratory Results - last 24 hr 07/30/21 07/30/21 07/30/21 Range/Units 12:32 14:55 16:30 WBC (4.0-10.2) K/uL RBC (3.77-5.09) M/uL Hgb (11.7-15.5) g/dL Hct (34.0-46.0) % MCV (84.0-98.0) fL MCH (28.2-33.3) pg MCHC (31.7-36.0) g/dL RDW (11.2-14.1) % Plt Count (150-350) K/uL Neut % (Auto) (45.0-80.0) % Lymph % (Auto) (10.0-50.0) % Lassen % (Auto) (2.0-14.0) % Eos % (Auto) (0.0-5.0) % Baso % (Auto) (0.0-2.0) % Neut # (Auto) (1.40-7.00) K/uL Lymph # (Auto) (0.50-3.50) K/uL Lassen # (Auto) (0.00-1.00) K/uL Eos # (Auto) (0.00-0.50) K/uL Baso # (Auto) (0.00-0.20) K/uL PT (9.5-12.0) SEC INR Sodium (136-145) mmol/L Potassium (3.5-5.1) mmol/L Chloride (98-107) mmol/L Carbon Dioxide (21.0-32.0) mmol/L Anion Gap (7-15) meq/L BUN (7-18) mg/dL Creatinine (0.51-1.17) mg/dL Est Cr Clr Drug Dosing mL/min Estimated GFR (MDRD) mL/min Glucose (70-99) mg/dL Lactic Acid 2.4 H (0.4-2.0) mmol/L Calcium (8.5-10.1) mg/dL Total Bilirubin (0.2-1.0) mg/dL AST (15-37) U/L ALT (12-78) U/L Alkaline Phosphatase (46-116) IU/L NT-Pro-B Natriuret Pep (0-125) pg/mL Total Protein (6.4-8.2) g/dL Albumin (3.4-5.0) g/dL Specimen Type Urincc Urine Color Yellow Urine Appearance Clear Urine pH 6.0 (5.0-9.0) Ur Specific [place] 1.015 (1.005-1.030) Urine Protein Trace H (NEGATIVE) mg/dL Urine Glucose (UA) Negative (NEGATIVE) mg/dL Urine Ketones 15 H (NEGATIVE) mg/dL Urine Occult Blood Negative (NEGATIVE) Urine Nitrite Negative (NEGATIVE) Urine Bilirubin Small H (NEGATIVE) Urine Urobilinogen 0.2 (0.2-1.0) E.U./dL Ur Leukocyte Esterase Negative (NEGATIVE) Urine RBC 0-5 /HPF Urine WBC 0-5 /HPF Ur Epithelial Cells Moderate H /LPF Urine Bacteria Moderate H (NONE TO FEW) /HPF SARS-CoV-2 RNA (ANTONI) Negative (NEGATIVE) 07/31/21 07/31/21 07/31/21 Range/Units 07:12 07:12 07:12 WBC 6.7 (4.0-10.2) K/uL RBC 3.14 L (3.77-5.09) M/uL Hgb 9.9 L D (11.7-15.5) g/dL Hct 31.5 L (34.0-46.0) % MCV 100.3 H (84.0-98.0) fL MCH 31.5 (28.2-33.3) pg MCHC 31.4 L (31.7-36.0) g/dL RDW 15.9 H (11.2-14.1) % Plt Count 186 (150-350) K/uL Neut % (Auto) 78.7 (45.0-80.0) % Lymph % (Auto) 12.6 (10.0-50.0) % Lassen % (Auto) 7.7 (2.0-14.0) % Eos % (Auto) 0.8 (0.0-5.0) % Baso % (Auto) 0.2 (0.0-2.0) % Neut # (Auto) 5.25 (1.40-7.00) K/uL Lymph # (Auto) 0.84 (0.50-3.50) K/uL Lassen # (Auto) 0.51 (0.00-1.00) K/uL Eos # (Auto) 0.05 (0.00-0.50) K/uL Baso # (Auto) 0.01 (0.00-0.20) K/uL PT 16.5 H (9.5-12.0) SEC INR 1.7 Sodium 138 (136-145) mmol/L Potassium 3.3 L (3.5-5.1) mmol/L Chloride 102 (98-107) mmol/L Carbon Dioxide 26.5 (21.0-32.0) mmol/L Anion Gap 12.8 (7-15) meq/L BUN 15 (7-18) mg/dL Creatinine 0.92 (0.51-1.17) mg/dL Est Cr Clr Drug Dosing 38.77 mL/min Estimated GFR (MDRD) 58 mL/min Glucose 96 (70-99) mg/dL Lactic Acid (0.4-2.0) mmol/L Calcium 7.8 L (8.5-10.1) mg/dL Total Bilirubin 0.6 (0.2-1.0) mg/dL AST 16 (15-37) U/L ALT 17 (12-78) U/L Alkaline Phosphatase 46 (46-116) IU/L NT-Pro-B Natriuret Pep (0-125) pg/mL Total Protein 5.2 L (6.4-8.2) g/dL Albumin 1.9 L (3.4-5.0) g/dL Specimen Type Urine Color Urine Appearance Urine pH (5.0-9.0) Ur Specific [place] (1.005-1.030) Urine Protein (NEGATIVE) mg/dL Urine Glucose (UA) (NEGATIVE) mg/dL Urine Ketones (NEGATIVE) mg/dL Urine Occult Blood (NEGATIVE) Urine Nitrite (NEGATIVE) Urine Bilirubin (NEGATIVE) Urine Urobilinogen (0.2-1.0) E.U./dL Ur Leukocyte Esterase (NEGATIVE) Urine RBC /HPF Urine WBC /HPF Ur Epithelial Cells /LPF Urine Bacteria (NONE TO FEW) /HPF SARS-CoV-2 RNA (ANTONI) (NEGATIVE) 07/31/21 Range/Units 07:12 WBC (4.0-10.2) K/uL RBC (3.77-5.09) M/uL Hgb (11.7-15.5) g/dL Hct (34.0-46.0) % MCV (84.0-98.0) fL MCH (28.2-33.3) pg MCHC (31.7-36.0) g/dL RDW (11.2-14.1) % Plt Count (150-350) K/uL Neut % (Auto) (45.0-80.0) % Lymph % (Auto) (10.0-50.0) % Lassen % (Auto) (2.0-14.0) % Eos % (Auto) (0.0-5.0) % Baso % (Auto) (0.0-2.0) % Neut # (Auto) (1.40-7.00) K/uL Lymph # (Auto) (0.50-3.50) K/uL Lassen # (Auto) (0.00-1.00) K/uL Eos # (Auto) (0.00-0.50) K/uL Baso # (Auto) (0.00-0.20) K/uL PT (9.5-12.0) SEC INR Sodium (136-145) mmol/L Potassium (3.5-5.1) mmol/L Chloride (98-107) mmol/L Carbon Dioxide (21.0-32.0) mmol/L Anion Gap (7-15) meq/L BUN (7-18) mg/dL Creatinine (0.51-1.17) mg/dL Est Cr Clr Drug Dosing mL/min Estimated GFR (MDRD) mL/min Glucose (70-99) mg/dL Lactic Acid (0.4-2.0) mmol/L Calcium (8.5-10.1) mg/dL Total Bilirubin (0.2-1.0) mg/dL AST (15-37) U/L ALT (12-78) U/L Alkaline Phosphatase (46-116) IU/L NT-Pro-B Natriuret Pep 2048 H (0-125) pg/mL Total Protein (6.4-8.2) g/dL Albumin (3.4-5.0) g/dL Specimen Type Urine Color Urine Appearance Urine pH (5.0-9.0) Ur Specific [place]ley (1.005-1.030) Urine Protein (NEGATIVE) mg/dL Urine Glucose (UA) (NEGATIVE) mg/dL Urine Ketones (NEGATIVE) mg/dL Urine Occult Blood (NEGATIVE) Urine Nitrite (NEGATIVE) Urine Bilirubin (NEGATIVE) Urine Urobilinogen (0.2-1.0) E.U./dL Ur Leukocyte Esterase (NEGATIVE) Urine RBC /HPF Urine WBC /HPF Ur Epithelial Cells /LPF Urine Bacteria (NONE TO FEW) /HPF SARS-CoV-2 RNA (ANTONI) (NEGATIVE) Result Diagrams: 07/31/21 07:12 07/31/21 07:12 [place] Results Last 24 hrs: Microbiology 07/30/21 09:55 Aerobic Blood Culture - Preliminary Blood - Venous NO GROWTH AFTER 1 DAY 07/30/21 09:48 Aerobic Blood Culture - Preliminary Blood - Venous - Lab Draw NO GROWTH AFTER 1 DAY Anaerobic Blood Culture - Preliminary NO GROWTH AFTER 1 DAY Sepsis Event Note - Evaluation Sepsis Screening Result: No Definite Risk - Focused Exam Vital Signs: Vital Signs Temp Pulse Pulse Resp BP BP Pulse Ox 07/31/21 08:23 146/56 H 07/31/21 08:22 83 146/56 H 07/31/21 08:00 37.1 C 83 16 146/56 H 92 L 07/31/21 03:27 36.8 C 73 16 140/65 93 L - Problem List & Annotations (1) Diverticulitis SNOMED Code(s): 268477439 Code(s): K57.92 - DVTRCLI OF INTEST, PART UNSP, W/O PERF OR ABSCESS W/O BLEED Status: Acute Priority: High Current Visit: Yes Annotation/Comment:: Patient noted to have changes suggestive of diverticulitis on CT study. Started on Cipro/Flagyl. WBC normalized today. Abdominal pain resolved per patient. (2) Nausea & vomiting SNOMED Code(s): 44188634 Code(s): R11.2 - NAUSEA WITH VOMITING, UNSPECIFIED Status: Acute Priority: High Current Visit: Yes Onset Date: ~07/30/21 Qualifiers: Vomiting type: unspecified Vomiting Intractability: non-intractable Qualified Code(s): R11.2 - Nausea with vomiting, unspecified Annotation/Comment:: Patient complains of 4 episodes emesis on day she presented to ER. (3) Anemia SNOMED Code(s): 973965912 Code(s): D64.9 - ANEMIA, UNSPECIFIED Status: Chronic Priority: Medium Current Visit: Yes Qualifiers: Anemia type: unspecified type Qualified Code(s): D64.9 - Anemia, unspecified Annotation/Comment:: Has had varied Hgb in past. Labs ordered for further evaluation, including stool for occult blood. Noted to drop from 13.3 to 9.9 since admission. Suspect this is mostly a dilutional effect from IV meds, recheck in AM. (4) Vertigo SNOMED Code(s): 573278685 Code(s): R42 - DIZZINESS AND GIDDINESS Status: Chronic Priority: Medium Current Visit: No Annotation/Comment:: Patient has been having issues with vertigo this past year per self report. Taking Meclizine. Reports multiple falls at home from this and "furniture surfs" to get around better. (5) Subtherapeutic international normalized ratio (INR) SNOMED Code(s): 070470980, 603721613 Code(s): R79.1 - ABNORMAL COAGULATION PROFILE Status: Acute Priority: Med ium Current Visit: No Annotation/Comment:: INR 1.9 Will add extra dose Warfarin today. Observe trend as antibiotics may cause elevation of INR (6) Afib SNOMED Code(s): 15970029 Code(s): I48.91 - UNSPECIFIED ATRIAL FIBRILLATION Status: Chronic Priority: Medium Current Visit: No Qualifiers: Atrial fibrillation type: persistent (not longstanding) Qualified Code(s): I48.19 - Other persistent atrial fibrillation; I48.1 - Persistent atrial fibrillation Annotation/Comment:: INR checked, coumadin adjusted. (7) CAD (coronary artery disease) SNOMED Code(s): 78184779 Code(s): I25.10 - ATHSCL HEART DISEASE OF [place] CORONARY ARTERY W/O ANG P SHIRT CLOSER Status: Chronic Priority: Low Current Visit: No Qualifiers: Coronary Disease-Associated Artery/Lesion type: [place] artery [place] vs. transplanted heart: [place] heart Associated angina: without angina Qualified Code(s): I25.10 - Atherosclerotic heart disease of [place] coronary artery without angina pectoris Annotation/Comment:: No chest pain or anginal type symptoms. (8) CHF (congestive heart failure) SNOMED Code(s): 63865188 Code(s): I50.9 - HEART FAILURE, UNSPECIFIED Status: Chronic Priority: Medium Current Visit: No Qualifiers: Heart failure type: unspecified Heart failure chronicity: acute on chronic Qualified Code(s): I50.9 - Heart failure, unspecified Annotation/Comment:: observe for changes as she is receiving IV anbiotics. IV lasix ordered. (9) Glaucoma SNOMED Code(s): 19199683 Code(s): H40.9 - UNSPECIFIED GLAUCOMA Status: Chronic Priority: Low Cur rent Visit: No Qualifiers: Glaucoma type: unspecified Laterality: unspecified laterality Qualified Code(s): H40.9 - Unspecified glaucoma Annotation/Comment:: Stable per patient (10) Hyperlipidemia SNOMED Code(s): 25046728 Code(s): E78.5 - HYPERLIPIDEMIA, UNSPECIFIED Status: Chronic Priority: Low Current Visit: No Qualifiers: Hyperlipidemia type: unspecified Qualified Code(s): E78.5 - Hyperlipidemia, unspecified Annotation/Comment:: Under therapy/stable per patient (11) Hypertension SNOMED Code(s): 43663319 Code(s): I10 - ESSENTIAL (PRIMARY) HYPERTENSION Status: Chronic Priority: Medium Current Visit: No Qualifiers: Hypertension type: primary hypertension Qualified Code(s): I10 - Essential (primary) hypertension Annotation/Comment:: Stable vitals, continue to monitor (12) Hypothyroid SNOMED Code(s): 23651390 Code(s): E03.9 - HYPOTHYROIDISM, UNSPECIFIED Status: Chronic Priority: Low Current Visit: No Qualifiers: Hypothyroidism type: acquired Qualified Code(s): E03.9 - Hypothyroidism, unspecified Annotation/Comment:: Stable per patient with no current symptoms. (13) Hypoxemia requiring supplemental oxygen SNOMED Code(s): 559161894 Code(s): R09.02 - HYPOXEMIA; Z99.81 - DEPENDENCE ON SUPPLEMENTAL OXYGEN Status: Chronic Priority: Low Current Visit: No Annotation/Comment:: Improving with activities, continue to use oxygen per nasal cannula to keep O2 sats above 90% (14) Irritable bowel syndrome SNOMED Code(s): 53066078 Code(s): K58.9 - IRRITABLE BOWEL SYNDROME WITHOUT DIARRHEA Status: Chronic Priority: Medium Current Visit: Yes Qualifiers: Irritable bowel syndrome type: with diarrhea Qualified Code(s): K58.0 - Irritable bowel syndrome with diarrhea Annotation/Comment:: Stable per patient, however cannot rule out as contributing factor to current GI complaints. (15) Mixed anxiety depressive disorder SNOMED Code(s): 320619975 Code(s): F41.8 - OTHER SPECIFIED ANXIETY DISORDERS Status: Chronic Priority: Low Current Visit: No (16) Osteoarthritis SNOMED Code(s): 579675644 Code(s): M19.90 - UNSPECIFIED OSTEOARTHRITIS, UNSPECIFIED SITE Status: Chronic Priority: Low Current Visit: No Qualifiers: Osteoarthritis location: multiple joints Osteoarthritis type: primary Qualified Code(s): M89.49 - Other hypertrophic osteoarthropathy, multiple sites Annotation/Comment:: Stable by history with no history of other injury. Note history of polymyalgia rheumatica. (17) Polymyalgia rheumatica SNOMED Code(s): 92119315 Code(s): M35.3 - POLYMYALGIA RHEUMATICA Status: Chronic Priority: Low Current Visit: No Annotation/Comment:: Stable per history (18) Raynauds syndrome SNOMED Code(s): 573572171 Code(s): I73.00 - RAYNAUD'S SYNDROME WITHOUT GANGRENE Status: Chronic Priority: Low Current Visit: No Annotation/Comment:: Stable per history (19) Weakness SNOMED Code(s): 34438408 Code(s): R53.1 - WEAKNESS Status: Chronic Priority: Medium Current Visit: No Annotation/Comment:: Patient has not been feeling like usual self for several months. Reports worsening weakness since GI issues started last week. Has improved over course of stay. Recommended to patient referral to [facility] to see Internal Med for review of her concerns and further planning as needed. She does not like to wear home O2 during daily activities as it is cumbersome. Noted to have O2 sats in low 80s while ambulating during last admission. Suspect that hypoxemia may be contributing to her weakness and g eneral malaise symptoms. - Problem List Review Problem List Initiated/Reviewed/Updated: Yes - My Orders Last 24 Hours: My Active Orders 07/31/21 12:15 H PYLORI STOOL ANTIGEN [MREF] Routine OCCULT BLOOD DIAGNOSTIC [OP] Routine 08/01/21 05:11 COMPREHENSIVE METABOLIC PN,CMP [CHEM] AM FERRITIN [CHEM] AM IRON PNL (FE, TIBC, DEVONTE, %SAT) [REF] Routine LACTIC ACID [CHEM] AM RETICULOCYTE COUNT [REF] Routine VITAMIN B12 [CHEM] AM 08/01/21 05:15 CBC WITH AUTO DIFF [HEME] AM - Assessment Assessment:: as above - Plan Plan:: as above. Noted that patient's story changed today during rounds. Now denies any diarrhea or abdominal pain yesterday prior to presenting to ER. This contradicts what she told admitting provider. Only complains of emesis yesterday. Will have PT and OT evaluate patient. Uncertain if she would be a go od fit for assisted living given her falls/noncompliance with medications/difficulty with ADLs. Patient may need to consider NH placement. Current plan is to continue medication for suspected diverticulitis and see what opinion is from PT/OT. Suspect patient will qualify for swing bed and this nura l help determine best placement situation for her. She appears to be no longer safe at home on her own. Noted by case management that patient's home had multiple areas of stool/diarrhea throughout both on floor and on furniture. Anticipate another 2-3 days inpatient care and probable transfer to Swing/switch to oral medications at that time.
[2021-07-31] MEDS: Magnesium Oxide 400 MG Tab PO SCH (17:56)
[2021-07-31] MEDS ORDERED: Warfarin 2 MG Tab PO SCH (18:00)
[2021-07-31] MEDS: ROCKLATAN EYEBOTH SCH (19:38)
[2021-07-31] MEDS: Sodium Chloride 0.9% 10 ML Syringe FLUSH PRN (21:17)
[2021-08-01] MEDS: Ciprofloxacin in D5W 400 MG in Premix Bag 1 BAG IV SCH ×4 (03:37→14:55)
[2021-08-01] MEDS: Sodium Chloride 0.9% 10 ML Syringe FLUSH PRN ×3 (03:38→22:19)
[2021-08-01] MEDS: Acetaminophen/Codeine 300-30 MG Tab PO PRN (04:40)
[2021-08-01] MEDS: metroNIDAZOLE/Normal Saline 500 MG in Premix Bag 1 BAG IV SCH ×3 (06:18→22:18)
[2021-08-01 08:05] LABS: ANION GAP 7.8 meq/L (7-15)
[2021-08-01] MEDS: [UNRECOGNIZED DRUG - OTHER] EYEBOTH SCH ×3 (08:25→19:14)
[2021-08-01] MEDS: CYCLOSPORINE 0.05% EYEBOTH SCH ×2 (08:30→18:06)
[2021-08-01] MEDS: BRINZOLAMIDE EYEBOTH SCH ×2 (08:30→18:03)
[2021-08-01] MEDS: Polyvinyl Alcohol 1.4% Ophth Soln 15 ML Bottle EYEBOTH SCH ×4 (08:40→19:14)
[2021-08-01] MEDS: Lactobacillus Rhamnosus GG (Probiotic) Cap PO SCH ×2 (08:42→18:01)
[2021-08-01] MEDS: Potassium Chloride 20 MEQ Tab.ER PO SCH ×3 (08:42→18:01)
[2021-08-01] MEDS: Levothyroxine 50 MCG Tab PO SCH (08:44)
[2021-08-01] MEDS: Metoprolol Tartrate 50 MG Tab PO SCH ×2 (08:44→18:01)
[2021-08-01] MEDS: Furosemide 20 MG Tab PO SCH ×2 (08:44→12:37)
[2021-08-01] MEDS: amLODIPine 5 MG Tab PO SCH (08:44)
[2021-08-01] MEDS: atorvaSTATin 10 MG Tab PO SCH (08:45)
[2021-08-01] MEDS: Cholecalciferol (Vitamin D3) 25 MCG Tab PO SCH (08:45)
[2021-08-01] MEDS: Lutein/Minerals/Vitamin C/Vitamin E Acetate Cap PO SCH (08:45)
[2021-08-01] MEDS: Estradiol 1 MG Tab PO SCH (08:45)
[2021-08-01 08:46] VITALS: BP 0/0
[2021-08-01] MEDS: Sertraline 25 MG Tab PO SCH (08:46)
--- NOTE | 2021-08-01 09:16 | PCM.PN ---
- General Info Date of Service: 08/01/21 Admission Dx/Problem (Free Text): Patient admitted for further evaluation after presenting to ER with history of fall in bathroom/GI complaints. Suspected diverticulitis on CT. Subjective Update: Complains of usual dizziness. No acute complaints at this time. Feels 'back to baseline' Functional Status: Reports: Pain Controlled, Tolerating Diet, Ambulating (not well, needs assistance), Urinating. Denies: New Symptoms - Review of Systems General: Reports: No Symptoms HEENT: Reports: No Symptoms Pulmonary: Reports: No Symptoms Cardiovascular: Reports: Edema. Denies: Chest Pain, Palpitations, Dyspnea on Ex ertion, Orthopnea Gastrointestinal: Reports: No Symptoms. Denies: Abdominal Pain, Constipation, Diarrhea, Nausea, Vomiting Genitourinary: Reports: No Symptoms Musculoskeletal: Reports: Other (No acute changes from baseline) Skin: Reports: Other (scattered bruises/healing abrasions) Neurological: Reports: Dizziness (chronic), Difficulty Walking (chronic/worsened due to dizziness), Weakness (chronic). Denies: Trouble Speaking, Change in Speech Psychiatric: Reports: No Symptoms - Patient Data Vitals - Most Recent: Last Vital Signs Temp 36.5 C 07/31/21 20:00 Pulse 0 L 08/01/21 08:44 Resp 14 07/31/21 20:00 BP 0/0 L 08/01/21 08:44 Pulse Ox 94 L 07/31/21 20:00 Weight - Most Recent: 73.028 kg I&O - Last 24 Hours: Intake & Output 07/31/21 08/01/21 08/01/21 22:59 06:59 14:59 Intake Total 1182 300 Output Total 700 Balance 482 300 Lab Results Last 24 Hours: Laboratory Results - last 24 hr 07/31/21 08/01/21 08/01/21 Range/Units 07:12 06:59 06:59 WBC (4.0-10.2) K/uL RBC (3.77-5.09) M/uL Hgb (11.7-15.5) g/dL Hct (34.0-46.0) % MCV (84.0-98.0) fL MCH (28.2-33.3) pg MCHC (31.7-36.0) g/dL RDW (11.2-14.1) % Plt Count (150-350) K/uL Neut % (Auto) (45.0-80.0) % Lymph % (Auto) (10.0-50.0) % [place] % (Auto) (2.0-14.0) % Eos % (Auto) (0.0-5.0) % Baso % (Auto) (0.0-2.0) % Neut # (Auto) (1.40-7.00) K/uL Lymph # (Auto) (0.50-3.50) K/uL [place] # (Auto) (0.00-1.00) K/uL Eos # (Auto) (0.00-0.50) K/uL Baso # (Auto) (0.00-0.20) K/uL PT 16.3 H (9.5-12.0) SEC INR 1.6 Sodium 137 (136-145) mmol/L Potassium 4.2 (3.5-5.1) mmol/L Chloride 104 (98-107) mmol/L Carbon Dioxide 25.2 (21.0-32.0) mmol/L Anion Gap 7.8 (7-15) meq/L BUN 15 (7-18) mg/dL Creatinine 0.94 (0.51-1.17) mg/dL Est Cr Clr Drug Dosing 37.94 mL/min Estimated GFR (MDRD) 56 mL/min Glucose 120 H (70-99) mg/dL Lactic Acid (0.4-2.0) mmol/L Calcium 7.9 L (8.5-10.1) mg/dL Iron (50-175) ug/dL TIBC (250-450) ug/dL % Saturation Ferritin (8-388) ng/mL Total Bilirubin 0.4 (0.2-1.0) mg/dL AST 14 L (15-37) U/L ALT 19 (12-78) U/L Alkaline Phosphatase 44 L (46-116) IU/L NT-Pro-B Natriuret Pep 2048 H (0-125) pg/mL Total Protein 5.4 L (6.4-8.2) g/dL Albumin 2.1 L (3.4-5.0) g/dL Vitamin B12 1007 H (193-986) pg/mL 08/01/21 08/01/21 08/01/21 Range/Units 06:59 06:59 06:59 WBC 6.9 (4.0-10.2) K/uL RBC 2.97 L (3.77-5.09) M/uL Hgb 9.6 L (11.7-15.5) g/dL Hct 30.0 L (34.0-46.0) % MCV 101.0 H (84.0-98.0) fL MCH 32.3 (28.2-33.3) pg MCHC 32.0 (31.7-36.0) g/dL RDW 15.8 H (11.2-14.1) % Plt Count 182 (150-350) K/uL Neut % (Auto) 77.2 (45.0-80.0) % Lymph % (Auto) 14.0 (10.0-50.0) % [place] % (Auto) 8.1 (2.0-14.0) % Eos % (Auto) 0.6 (0.0-5.0) % Baso % (Auto) 0.1 (0.0-2.0) % Neut # (Auto) 5.36 (1.40-7.00) K/uL Lymph # (Auto) 0.97 (0.50-3.50) K/uL [place] # (Auto) 0.56 (0.00-1.00) K/uL Eos # (Auto) 0.04 (0.00-0.50) K/uL Baso # (Auto) 0.01 (0.00-0.20) K/uL PT (9.5-12.0) SEC INR Sodium (136-145) mmol/L Potassium (3.5-5.1) mmol/L Chloride (98-107) mmol/L Carbon Dioxide (21.0-32.0) mmol/L Anion Gap (7-15) meq/L BUN (7-18) mg/dL Creatinine (0.51-1.17) mg/dL Est Cr Clr Drug Dosing mL/min Estimated GFR (MDRD) mL/min Glucose (70-99) mg/dL Lactic Acid 1.7 (0.4-2.0) mmol/L Calcium (8.5-10.1) mg/dL Iron 61 (50-175) ug/dL TIBC 242 L (250-450) ug/dL % Saturation 25.08049 Ferritin 306 (8-388) ng/mL Total Bilirubin (0.2-1.0) mg/dL AST (15-37) U/L ALT (12-78) U/L Alkaline Phosphatase (46-116) IU/L NT-Pro-B Natriuret Pep (0-125) pg/mL Total Protein (6.4-8.2) g/dL Albumin (3.4-5.0) g/dL Vitamin B12 (193-986) pg/mL [facility] Results Last 24 Hours: Microbiology 07/30/21 09:55 Aerobic Blood Culture - Preliminary Blood - Venous NO GROWTH AFTER 1 DAY 07/30/21 09:48 Aerobic Blood Culture - Preliminary Blood - Venous - Lab Draw NO GROWTH AFTER 1 DAY Anaerobic Blood Culture - Preliminary NO GROWTH AFTER 1 DAY Med Orders - Current: Current Medications Acetaminophen/Codeine Phosphate (Acetaminophen/Codeine 300-30 Mg Tab) 1 tab PO Q4H PRN PRN Reason: Pain Last Admin: 08/01/21 04:40 Dose: 1 tab Documented by: Albuterol (Albuterol 0.083% 2.5 Mg/3 Ml Neb Soln) 2.5 mg INH Q2H PRN PRN Reason: Shortness of Breath Amlodipine Besylate (Amlodipine 5 Mg Tab) 10 mg PO DAILY [facility] Last Admin: 08/01/21 08:44 Dose: 10 mg Documented by: Artificial Tears (Polyvinyl Alcohol 1.4% Ophth Soln 15 Ml Bottle) 0 ml EYEBOTH QID [facility] Last Admin: 08/01/21 08:40 Dose: 1 drop Documented by: Atorvastatin Calcium (Atorvastatin 10 Mg Tab) 10 mg PO DAILY [facility] Last Admin: 08/01/21 08:45 Dose: 10 mg Documented by: Cholecalciferol (Cholecalciferol (Vitamin D3) 25 Mcg Tab) 50 mcg PO DAILY [facility] Last Admin: 08/01/21 08:45 Dose: 50 mcg Documented by: Estradiol (Estradiol 1 Mg Tab) 1 mg PO DAILY [facility] Last Admin: 08/01/21 08:45 Dose: 1 mg Documented by: Furosemide (Furosemide 20 Mg Tab) 20 mg PO BIDDIURETIC [facility] Last Admin: 08/01/21 08:44 Dose: 20 mg Documented by: Hyoscyamine (Hyoscyamine 0.125 Mg Tab.Sl) 0.125 mg SL DAILY PRN PRN Reason: IBS Last Admin: 07/31/21 05:59 Dose: 0.125 mg Documented by: Ciprofloxacin/Dextrose 400 mg/ (Premix) 200 mls @ 200 mls/hr IV Q12H [facility] Last Admin: 08/01/21 03:37 Dose: 200 mls/hr Documented by: Metronidazole 500 mg/ Premix 100 mls @ 100 mls/hr IV Q8H [facility] Last Admin: 08/01/21 06:18 Dose: 100 mls/hr Documented by: Lactobacillus Rhamnosus (Lactobacillus Rhamnosus Gg (Probiotic) Cap) 1 cap PO BID [facility] Last Admin: 08/01/21 08:42 Dose: 1 cap Documented by: Levothyroxine Sodium (Levothyroxine 50 Mcg Tab) 50 mcg PO DAILY [facility] Last Admin: 08/01/21 08:44 Dose: 50 mcg Documented by: Magnesium Oxide (Magnesium Oxide 400 Mg Tab) 400 mg PO QPM [facility] Last Admin: 07/31/21 17:56 Dose: 400 mg Documented by: Meclizine HCl (Meclizine 25 Mg Tab) 25 mg PO QID PRN PRN Reason: Dizziness Methylprednisolone (Methylprednisolone 4 Mg Tab) 12 mg PO Q2D [facility] Last Admin: 08/01/21 08:51 Dose: 12 mg Documented by: Methylprednisolone (Methylprednisolone 4 Mg Tab) 6 mg PO Q2D [facility] Last Admin: 07/31/21 08:29 Dose: 6 mg Documented by: Metoprolol Tartrate (Metoprolol Tartrate 50 Mg Tab) 50 mg PO BID [facility] Last Admin: 08/01/21 08:44 Dose: 50 mg Documented by: Brinzolamide [Azopt (1% Ophth Susp]) 1 drop EYEBOTH BID [facility] Last Admin: 08/01/21 08:30 Dose: 1 drop Documented by: Cyclosporine [ Restasis Multidose] 0.05% 1 drop EYEBOTH BID [facility] Last Admin: 08/01/21 08:30 Dose: 1 drop Documented by: Non-Formulary Medication (Lutein [Lutein]) 20 mg PO DAILY [facility] Non-Formulary Medication (Non-Formulary Medication [Nf Drug]) [facility] each EYEBOTH BEDTIME [facility] Last Admin: 07/31/21 19:38 Dose: 1 each Documented by: Nick Gilbert (Soln) 0 each EYEBOTH TID@0800,1400,2000 [facility] Last Admin: 08/01/21 08:25 Dose: 1 each Documented by: Potassium Chloride (Potassium Chloride 20 Meq Tab.Er) 20 meq PO TID [facility] Last Admin: 08/01/21 08:42 Dose: 20 meq Documented by: Sertraline HCl (Sertraline 25 Mg Tab) 25 mg PO DAILY [facility] Last Admin: 08/01/21 08:46 Dose: 25 mg Documented by: Sodium Chloride (Sodium Chloride 0.9% 10 Ml Syringe) 10 ml FLUSH ASDIRECTED PRN PRN Reason: Keep Vein Open Last Admin: 08/01/21 06:18 Dose: 10 ml Documented by: Vit C/Vit E/Zinc/Copper/Lutein (Lutein/Minerals/Vitamin C/Vitamin E Acetate Cap) 1 each PO DAILY [facility] Last Admin: 08/01/21 08:45 Dose: 1 each Documented by: Warfarin Sodium (Warfarin 1 Mg Tab) 1 mg PO Q2D@1800 [facility] Last Admin: 07/30/21 17:09 Dose: 1 mg Documented by: Warfarin Sodium (Warfarin 2 Mg Tab) 2 mg PO Q2D@1800 [facility] Last Admin: 07/31/21 17:59 Dose: 2 mg Documented by: Discontinued Medications Artificial Tears (Polyvinyl Alcohol 1.4% Ofelia Solsylvia 15 Ml Bottle) 0 ml EYEBOTH ACBREAKFASTANDBED PRN PRN Reason: dry eyes Cyclobenzaprine HCl (Cyclobenzaprine 10 Mg Tab) 10 mg PO TID PRN PRN Reason: Spasms Lactated Ringer's (Ringers, Lactated) 1,000 mls @ 250 mls/hr IV ASDIRECTED [facility] Last Admin: 07/30/21 09:57 Dose: 250 mls/hr Documented by: Lactated Ringer's (Ringers, Lactated) 1,000 mls @ 100 mls/hr IV ASDIRECTED [facility] Last Admin: 07/31/21 03:20 Dose: 100 mls/hr Documented by: Iopamidol (Iopamidol 612 Mg/Ml 100 Ml Bottle) 100 ml IVPUSH ONETIME STA Stop: 07/30/21 10:05 Last Admin: 07/30/21 11:20 Dose: 100 ml Documented by: Ondansetron HCl (Ondansetron 4 Mg/2 Ml Sdv) 4 mg IVPUSH ONETIME ONE Stop: 07/30/21 09:43 Last Admin: 07/30/21 09:57 Dose: 4 mg Documented by: Potassium Chloride (Potassium Chloride 20 Meq Tab.Er) 20 meq PO BID [facility] Last Admin: 07/31/21 08:22 Dose: 20 meq Documented by: Warfarin Sodium (Warfarin 2.5 Mg Tab) 2.5 mg PO ONETIME ONE Stop: 07/31/21 12:20 Last Admin: 07/31/21 13:34 Dose: 2.5 mg Documented by: - Exam Quality Assessment: DVT Prophylaxis (On Warfarin) General: Alert, Oriented ( ), Cooperative, No Acute Distress HEENT: Pupils Equal, Pupils Reactive, EOMI, Mucous Membr. Moist/[place] Neck: Supple Lungs: Normal Respiratory Effort, Crackles (faint/bases bilateral). No: Rhonchi, Rub, Stridor, Wheezing Cardiovascular: Irregular Rhythm GI/Abdominal Exam: Normal Bowel Sounds, Soft, Non-Tender, No Distention (Female) Exam: Deferred Back Exam: No: CVA Tenderness (L), CVA Tenderness (R), Muscle Spasm Extremities: Non-Tender, Pedal Edema Skin: Warm, Dry, Ecchymosis (scattered), Other (healing abrasion/skin tear right lower leg) Wound/Incisions: Healing Well Neurological: No New Focal Deficit Psy/Mental Status: Alert, Normal Affect - Patient Data Lab Results Last 24 hrs: Laboratory Results - last 24 hr 07/31/21 08/01/21 08/01/21 Range/Units 07:12 06:59 06:59 WBC (4.0-10.2) K/uL RBC (3.77-5.09) M/uL Hgb (11.7-15.5) g/dL Hct (34.0-46.0) % MCV (84.0-98.0) fL MCH (28.2-33.3) pg MCHC (31.7-36.0) g/dL RDW (11.2-14.1) % Plt Count (150-350) K/uL Neut % (Auto) (45.0-80.0) % Lymph % (Auto) (10.0-50.0) % [place] % (Auto) (2.0-14.0) % Eos % (Auto) (0.0-5.0) % Baso % (Auto) (0.0-2.0) % Neut # (Auto) (1.40-7.00) K/uL Lymph # (Auto) (0.50-3.50) K/uL [place] # (Auto) (0.00-1.00) K/uL Eos # (Auto) (0.00-0.50) K/uL Baso # (Auto) (0.00-0.20) K/uL PT 16.3 H (9.5-12.0) SEC INR 1.6 Sodium 137 (136-145) mmol/L Potassium 4.2 (3.5-5.1) mmol/L Chloride 104 (98-107) mmol/L Carbon Dioxide 25.2 (21.0-32.0) mmol/L Anion Gap 7.8 (7-15) meq/L BUN 15 (7-18) mg/dL Creatinine 0.94 (0.51-1.17) mg/dL Est Cr Clr Drug Dosing 37.94 mL/min Estimated GFR (MDRD) 56 mL/min Glucose 120 H (70-99) mg/dL Lactic Acid (0.4-2.0) mmol/L Calcium 7.9 L (8.5-10.1) mg/dL Iron (50-175) ug/dL TIBC (250-450) ug/dL % Saturation Ferritin (8-388) ng/mL Total Bilirubin 0.4 (0.2-1.0) mg/dL AST 14 L (15-37) U/L ALT 19 (12-78) U/L Alkaline Phosphatase 44 L (46-116) IU/L NT-Pro-B Natriuret Pep 2048 H (0-125) pg/mL Total Protein 5.4 L (6.4-8.2) g/dL Albumin 2.1 L (3.4-5.0) g/dL Vitamin B12 1007 H (193-986) pg/mL 08/01/21 08/01/21 08/01/21 Range/Units 06:59 06:59 06:59 WBC 6.9 (4.0-10.2) K/uL RBC 2.97 L (3.77-5.09) M/uL Hgb 9.6 L (11.7-15.5) g/dL Hct 30.0 L (34.0-46.0) % MCV 101.0 H (84.0-98.0) fL MCH 32.3 (28.2-33.3) pg MCHC 32.0 (31.7-36.0) g/dL RDW 15.8 H (11.2-14.1) % Plt Count 182 (150-350) K/uL Neut % (Auto) 77.2 (45.0-80.0) % Lymph % (Auto) 14.0 (10.0-50.0) % [place] % (Auto) 8.1 (2.0-14.0) % Eos % (Auto) 0.6 (0.0-5.0) % Baso % (Auto) 0.1 (0.0-2.0) % Neut # (Auto) 5.36 (1.40-7.00) K/uL Lymph # (Auto) 0.97 (0.50-3.50) K/uL [place] # (Auto) 0.56 (0.00-1.00) K/uL Eos # (Auto) 0.04 (0.00-0.50) K/uL Baso # (Auto) 0.01 (0.00-0.20) K/uL PT (9.5-12.0) SEC INR Sodium (136-145) mmol/L Potassium (3.5-5.1) mmol/L Chloride (98-107) mmol/L Carbon Dioxide (21.0-32.0) mmol/L Anion Gap (7-15) meq/L BUN (7-18) mg/dL Creatinine (0.51-1.17) mg/dL Est Cr Clr Drug Dosing mL/min Estimated GFR (MDRD) mL/min Glucose (70-99) mg/dL Lactic Acid 1.7 (0.4-2.0) mmol/L Calcium (8.5-10.1) mg/dL Iron 61 (50-175) ug/dL TIBC 242 L (250-450) ug/dL % Saturation 25.97760 Ferritin 306 (8-388) ng/mL Total Bilirubin (0.2-1.0) mg/dL AST (15-37) U/L ALT (12-78) U/L Alkaline Phosphatase (46-116) IU/L NT-Pro-B Natriuret Pep (0-125) pg/mL Total Protein (6.4-8.2) g/dL Albumin (3.4-5.0) g/dL Vitamin B12 (193-986) pg/mL Result Diagrams: 08/01/21 06:59 08/01/21 06:59 [place] Results Last 24 hrs: Microbiology 07/30/21 09:55 Aerobic Blood Culture - Preliminary Blood - Venous NO GROWTH AFTER 1 DAY 07/30/21 09:48 Aerobic Blood Culture - Preliminary Blood - Venous - Lab Draw NO GROWTH AFTER 1 DAY Anaerobic Blood Culture - Preliminary NO GROWTH AFTER 1 DAY Sepsis Event Note - Evaluation Sepsis Screening Result: No Definite Risk - Focused Exam Vital Signs: Vital Signs Pulse BP 08/01/21 08:44 0 L 0/0 L - Problem List & Annotations (1) Diverticulitis SNOMED Code(s): 434797804 Code(s): K57.92 - DVTRCLI OF INTEST, PART UNSP, W/O PERF OR ABSCESS W/O BLEED Status: Acute Priority: High Current Visit: Yes Annotation/Comment:: Patient noted to have changes suggestive of diverticulitis on CT study. Started on Cipro/Flagyl. WBC normalized. Abdominal pain resolved per patient. No vomiting/diarrhea (2) Nausea & vomiting SNOMED Code(s): 26628904 Code(s): R11.2 - NAUSEA WITH VOMITING, UNSPECIFIED Status: Acute Priority: High Current Visit: Yes Onset Date: ~07/30/21 Qualifiers: Vomiting type: unspecified Vomiting Intractability: non-intractable Qualified Code(s): R11.2 - Nausea with vomiting, unspecified Annotation/Comment:: Patient complains of 4 episodes emesis on day she presented to ER. (3) Anemia SNOMED Code(s): 909780533 Code(s): D64.9 - ANEMIA, UNSPECIFIED Status: Chronic Priority: Medium Current Visit: Yes Qualifiers: Anemia type: unspecified type Qualified Code(s): D64.9 - Anemia, unspecified Annotation/Comment:: Has had varied Hgb in past. Labs ordered for further evaluation, including stool for occult blood. Noted to drop from 13.3 to 9.9 si nce admission. Suspect drop is mostly a dilutional effect from IV meds. Lab studies suggest pattern of anemia of chronic disease. (4) Vertigo SNOMED Code(s): 601724864 Code(s): R42 - DIZZINESS AND GIDDINESS Status: Chronic Priority: Medium Current Visit: No Annotation/Comment:: Patient has been having issues with vertigo this past year per self report. Taking Meclizine. Reports multiple falls at home from this and "furniture surfs" to get around better. (5) Subtherapeutic international normalized ratio (INR) SNOMED Code(s): 350408786, 059222474 Code(s): R79.1 - ABNORMAL COAGULATION PROFILE Status: Acute Priority: Medium Current Visit: No Annotation/Comment:: INR 1.6 Will add extra dose Warfarin today. Observe trend as antibiotics may cause elevation of INR (6) Afib SNOMED Code(s): 44541664 Code(s): I48.91 - UNSPECIFIED ATRIAL FIBRILLATION Status: Chronic Priority: Medium Current Visit: No Qualifiers: Atrial fibrillation type: persistent (not longstanding) Qualified Code(s): I48.19 - Other persistent atrial fibrillation; I48.1 - Persistent atrial fibrillation Annotation/Comment:: INR checked, coumadin adjusted. (7) CAD (coronary artery disease) SNOMED Code(s): 81427774 Code(s): I25.10 - ATHSCL HEART DISEASE OF [place] CORONARY ARTERY W/O ANG PCTRS Status: Chronic Priority: Low Current Visit: No Qualifiers: Coronary Disease-Associated Artery/Lesion type: [place] artery [place] vs. transplanted heart: [place] heart Associated angina: without angina Qualified Code(s): I25.10 - Atherosclerotic heart disease of [place] coronary artery without angina pectoris Annotation/Comment:: No chest pain or anginal type symptoms. (8) CHF (congestive heart failure) SNOMED Code(s): 04236301 Code(s): I50.9 - HEART FAILURE, UNSPECIFIED Status: Chronic Priority: Medium Current Visit: No Qualifiers: Heart failure type: unspecified Heart failure chronicity: acute on chronic Qualified Code(s): I50.9 - Heart failure, unspecified Annotation/Comment:: observe for changes as she is receiving IV anbiotics. IV lasix ordered. (9) Glaucoma SNOMED Code(s): 80040619 Code(s): H40.9 - UNSPECIFIED GLAUCOMA Status: Chronic Priority: Low Current Visit: No Qualifiers: Glaucoma type: unspecified Laterality: unspecified laterality Qualified Code(s): H40.9 - Unspecified glaucoma Annotation/Comment:: Stable per patient (10) Hyperlipidemia SNOMED Code(s): 85462163 Code(s): E78.5 - HYPERLIPIDEMIA, UNSPECIFIED Status: Chronic Priority: Low Current Visit: No Qualifiers: Hyperlipidemia type: unspecified Qualified Code(s): E78.5 - Hyperlipidemia, unspecified Annotation/Comment:: Under therapy/stable per patient (11) Hypertension SNOMED Code(s): 79115389 Code(s): I10 - ESSENTIAL (PRIMARY) HYPERTENSION Status: Chronic Priority: Medium Current Visit: No Qualifiers: Hypertension type: primary hypertension Qualified Code(s): I10 - Essential (primary) hypertension Annotation/Comment:: Stable vitals, continue to monitor (12) Hypothyroid SNOMED Code(s): 58082109 Code(s): E03.9 - HYPOTHYROIDISM, UNSPECIFIED Status: Chronic Priority: Low Current Visit: No Qualifiers: Hypothyroidism type: acquired Qualified Code(s): E03.9 - Hypothyroidism, unspecified Annotation/Comment:: Stable per patient with no current symptoms. (13) Hypoxemia requiring supplemental oxygen SNOMED Code(s): 327508836 Code(s): R09.02 - HYPOXEMIA; Z99.81 - DEPENDENCE ON SUPPLEMENTAL OXYGEN Status: Chronic Priority: Low Current Visit: No Annotation/Comment:: Improving with activities, continue to use oxygen per nasal cannula to keep O2 sats above 90% (14) Irritable bowel syndrome SNOMED Code(s): 62486367 Code(s): K58.9 - IRRITABLE BOWEL SYNDROME WITHOUT DIARRHEA Status: Chronic Priority: Medium Current Visit: Yes Qualifiers: Irritable bowel syndrome type: with diarrhea Qualified Code(s): K58.0 - Irritable bowel syndrome with diarrhea Annotation/Comment:: Stable per patient, however cannot rule out as contributing factor to current GI complaints. 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 Note history of polymyalgia rheumatica. (17) Polymyalgia rheumatica SNOMED Code(s): 16891135 Code(s): M35.3 - POLYMYALGIA RHEUMATICA Status: Chronic Priority: Low Current Visit: No Annotation/Comment:: Stable per history (18) Raynauds syndrome SNOMED Code(s): 616968621 Code(s): I73.00 - RAYNAUD'S SYNDROME WITHOUT GANGRENE Status: Chronic Priority: Low Current Visit: No Annotation/Comment:: Stable per history (19) Weakness SNOMED Code(s): 13168987 Code(s): R53.1 - WEAKNESS Status: Chronic Priority: Medium Current Visit: No Annotation/Comment:: Patient has not been feeling like usual self for several months. Reports worsening weakness since GI issues started last week. Has improved over course of stay. Recommended to patient referral to [place] to see Internal Med for review of her concerns and further planning as needed. She does not like to wear home O2 during daily activities as it is cumbersome. Noted to have O2 sats in low 80s while ambulating during last admission. Suspect that hypoxemia may be contributing to her weakness and general malaise symptoms. - Problem List Review Problem List Initiated/Reviewed/Updated: Yes - My Orders Last 24 Hours: My Active Orders 07/31/21 12:15 H PYLORI STOOL ANTIGEN [MREF] Routine OCCULT BLOOD DIAGNOSTIC [OP] Routine 07/31/21 13:37 Consult to Occupational Therapy [OT Evaluation and Treatment] [CONS] Routine PT Evaluation and Treatment [CONS] Routine 07/31/21 14:16 Lumbar Spine 2 or 3V [CR] Routine 07/31/21 18:00 Potassium Chloride [Klor-Con M20] 20 meq PO TID 08/01/21 06:59 RETICULOCYTE COUNT [REF] Routine - Assessment Assessment:: as above - Plan Plan:: as above. Noted that patient's story changed today during rounds. Now denies any diarrhea or abdominal pain yesterday prior to presenting to ER. This contradicts what she told admitting provider. Only complains of emesis yesterday. Will have PT and OT evaluate patient. Uncertain if she would be a good fit for assisted living given her falls/noncompliance with medications/difficulty with ADLs. Patient may need to consider NH placement. Current plan is to continue medication for suspected diverticulitis and see what opinion is from PT/OT. Suspect patient will qualify for swing bed and this will help determine best placement situation for her. She appears to be no longer safe at home on her own. Noted by case management that patient's home had multiple areas of stool/diarrhea throughout both on floor and on furniture. Anticipate another 2-3 days inpatient care and probable transfer to Swing/switch to oral medications at that time. 08/01 Continues to do better. PT to eval patient today. Anticipate patient will transfer to swing bed on for continued PT/OT while we determine best placement scenario and have an appropriate bed open up at outside facility.
[2021-08-01] MEDS ORDERED: Warfarin 5 MG Tab PO ONE (18:00)
[2021-08-01] MEDS: Magnesium Oxide 400 MG Tab PO SCH (18:01)
[2021-08-01] MEDS: ROCKLATAN EYEBOTH SCH (19:14)
[2021-08-01 20:10] VITALS: PULSE 77
[2021-08-01] MEDS ORDERED: Temazepam 15 MG Cap PO PRN (22:33)
[2021-08-02] MEDS: Ciprofloxacin in D5W 400 MG in Premix Bag 1 BAG IV SCH ×4 (03:39→15:28)
[2021-08-02] MEDS: Sodium Chloride 0.9% 10 ML Syringe FLUSH PRN (03:39)
[2021-08-02] MEDS: metroNIDAZOLE/Normal Saline 500 MG in Premix Bag 1 BAG IV SCH ×2 (06:30→15:28)
[2021-08-02] MEDS: [UNRECOGNIZED DRUG - OTHER] EYEBOTH SCH ×2 (07:36→13:34)
[2021-08-02] MEDS: BRINZOLAMIDE EYEBOTH SCH (07:37)
[2021-08-02] MEDS: Polyvinyl Alcohol 1.4% Ophth Soln 15 ML Bottle EYEBOTH SCH ×2 (07:37→12:12)
[2021-08-02] MEDS: Potassium Chloride 20 MEQ Tab.ER PO SCH ×2 (07:37→12:12)
[2021-08-02] MEDS: CYCLOSPORINE 0.05% EYEBOTH SCH (07:37)
[2021-08-02] MEDS: Estradiol 1 MG Tab PO SCH (07:37)
[2021-08-02] MEDS: Lactobacillus Rhamnosus GG (Probiotic) Cap PO SCH (07:37)
[2021-08-02] MEDS: Furosemide 20 MG Tab PO SCH ×2 (07:38→12:12)
[2021-08-02] MEDS: Metoprolol Tartrate 50 MG Tab PO SCH (07:38)
[2021-08-02] MEDS: atorvaSTATin 10 MG Tab PO SCH (07:39)
[2021-08-02] MEDS: Levothyroxine 50 MCG Tab PO SCH (07:40)
[2021-08-02] MEDS: Sertraline 25 MG Tab PO SCH (07:40)
[2021-08-02] MEDS: Cholecalciferol (Vitamin D3) 25 MCG Tab PO SCH (07:40)
[2021-08-02] MEDS: Lutein/Minerals/Vitamin C/Vitamin E Acetate Cap PO SCH (07:40)
[2021-08-02] MEDS: amLODIPine 5 MG Tab PO SCH (07:44)
--- NOTE | 2021-08-02 15:17 | PCM.DCSUM1 ---
Discharge Summary - Hospital Course Brief History: Patient admitted for treatment of suspected diverticulitis. Hx falls/weakness. Diagnosis: Stroke: No - Discharge Data Discharge Date: 08/02/21 Discharge Disposition: DC/Tfer W/I Hosp To Swing 61 Condition: Good - Referral to Home Health Primary Care Physician: Kenyatta Jimenez NP - Discharge Diagnosis/Problem(s) (1) Diverticulitis SNOMED Code(s): 461964952 ICD Code: K57.92 - DVTRCLI OF INTEST, PART UNSP, W/O PERF OR ABSCESS W/O B LEED Status: Acute Priority: High Current Visit: Yes Problem Details: Patient noted to have changes suggestive of diverticulitis on CT study. Started on Cipro/Flagyl. WBC normalized. Abdominal pain resolved per patient. No vomiting/diarrhea noted by staff. Change to oral medications planned today. (2) Nausea & vomiting SNOMED Code(s): 33410350 ICD Code: R11.2 - NAUSEA WITH VOMITING, UNSPECIFIED Status: Acute Priority: High Current Visit: Yes Onset Date: ~07/30/21 Problem Details: Patient complains of 4 episodes emesis on day she presented to ER. Qualifiers: Vomiting type: unspecified Vomiting Intractability: non-intractable Qualified Code(s): R11.2 - Nausea with vomiting, unspecified (3) Deficit in activities of daily living (ADL) SNOMED Code(s): 778627893 ICD Code: Z78.9 - OTHER SPECIFIED HEALTH STATUS Status: Chronic Priority: High Current Visit: Yes Problem Details: Patient does not appear to be safe living at home given multiple medical concerns, ongoing dizziness episodes, and deconditioning. Noted to have multiple areas of stool on the floor/bed when case management visited her home. Per case management, patient's siblings also have concerns in this area and feel patient would be better with placement in skilled nursng facility. Pt is interested in assisted living, however there are staff concerns that her level of need will exceed that level of care. (4) Anemia SNOMED Code(s): 108248914 ICD Code: D64.9 - ANEMIA, UNSPECIFIED Status: Chronic Priority: Medium Current Visit: Yes Problem Details: Has had varied Hgb in past. Labs ordered for further evaluation, including stool for occult blood. Noted to drop from 13.3 to 9.9 since admission. Suspect drop is mostly a dilutional effect from IV meds. Lab studies suggest pattern of anemia of chronic disease. Qualifiers: Anemia type: unspecified type Qualified Code(s): D64.9 - Anemia, unspecified (5) Vertigo SNOMED Code(s): 256838962 ICD Code: R42 - DIZZINESS AND GIDDINESS Status: Chronic Priority: Medium Current Visit: No Problem Details: Patient has been having issues with vertigo this past year per self report. Taking Meclizine. Reports multiple falls at home from this and "furniture surfs" to get around better. (6) Subtherapeutic international normalized ratio (INR) SNOMED Code(s): 199173022, 583634597 ICD Code: R79.1 - ABNORMAL COAGULATION PROFILE Status: Acute Priority: Medium Current Visit: No Problem Details: Subtherapeutic at time of admission. Uncertain as to patient compliance with medications at home. Currently therapeutic. (7) Afib SNOMED Code(s): 06715900 ICD Code: I48.91 - UNSPECIFIED ATRIAL FIBRILLATION Status: Chronic Priority: Medium Current Visit: No Problem Details: INR checked, coumadin adjusted. Qualifiers: Atrial fibrillation type: persistent (not longstanding) Qualified Code(s): I48.19 - Other persistent atrial fibrillation; I48.1 - Persistent atrial fibrillation (8) CAD (coronary artery disease) SNOMED Code(s): 64942048 ICD Code: I25.10 - ATHSCL HEART DISEASE OF [place] CORONARY ARTERY W/O ANG PCTRS Status: Chronic Priority: Low Current Visit: No Problem Details: No chest pain or anginal type symptoms. Qualifiers: Coronary Disease-Associated Artery/Lesion type: [place] artery [place] vs. transplanted heart: [place] heart Associated angina: without angina Qualified Code(s): I25.10 - Atherosclerotic heart disease of [place] coronary artery without angina pectoris (9) CHF (congestive heart failure) SNOMED Code(s): 00111694 ICD Code: I50.9 - HEART FAILURE, UNSPECIFIED Status: Chronic Priority: Medium Current Visit: No Problem Details: observe for changes as she is receiving IV anbiotics. IV lasix ordered. Qualifiers: Heart failure type: unspecified Heart failure chronicity: acute on chronic Qualified Code(s): I50.9 - Heart failure, unspecified (10) Glaucoma SNOMED Code(s): 45118334 ICD Code: H40.9 - UNSPECIFIED GLAUCOMA Status: Chronic Priority: Low C urrent Visit: No Problem Details: Stable per patient Qualifiers: Glaucoma type: unspecified Laterality: unspecified laterality Qualified Code(s): H40.9 - Unspecified glaucoma (11) Hyperlipidemia SNOMED Code(s): 74640181 ICD Code: E78.5 - HYPERLIPIDEMIA, UNSPECIFIED Status: Chronic Priority: Low Current Visit: No Problem Details: Under therapy/stable per patient Qualifiers: Hyperlipidemia type: unspecified Qualified Code(s): E78.5 - Hyperlipidemia, unspecified (12) Hypertension SNOMED Code(s): 12145897 ICD Code: I10 - ESSENTIAL (PRIMARY) HYPERTENSION Status: Chronic Priority: Medium Current Visit: No Problem Details: Stable vitals, continue to monitor Qualifiers: Hypertension type: primary hypertension Qualified Code(s): I10 - Essential (primary) hypertension (13) Hypothyroid SNOMED Code(s): 37521374 ICD Code: E03.9 - HYPOTHYROIDISM, UNSPECIFIED Status: Chronic Priority: Low Current Visit: No Problem Details: Stable per patient with no current symptoms. Qualifiers: Hypothyroidism type: acquired Qualified Code(s): E03.9 - Hypothyroidism, unspecified (14) Hypoxemia requiring supplemental oxygen SNOMED Code(s): 518094495 ICD Code: R09.02 - HYPOXEMIA; Z99.81 - DEPENDENCE ON SUPPLEMENTAL OXYGEN Status: Chronic Priority: Low Current Visit: No Problem Details: Improving with activities, continue to use oxygen per nasal cannula to keep O2 sats above 90% (15) Irritable bowel syndrome SNOMED Code(s): 75379785 ICD Code: K58.9 - IRRITABLE BOWEL SYNDROME WITHOUT DIARRHEA Status: Chronic Priority: Medium Current Visit: Yes Problem Details: Stable per patient, however cannot rule out as contributing factor to current GI complaints. 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 Note history of polymyalgia rheumatica. Qualifiers: Osteoarthritis location: multiple joints Osteoarthritis type: primary Qualified Code(s): M89.49 - Other hypertrophic osteoarthropathy, multiple sites (18) Polymyalgia rheumatica SNOMED Code(s): 00669550 ICD Code: M35.3 - POLYMYALGIA RHEUMATICA Status: Chronic Priority: Low Current Visit: No Problem Details: Stable per history (19) Raynauds syndrome SNOMED Code(s): 580896833 ICD Code: I73.00 - RAYNAUD'S SYNDROME WITHOUT GANGRENE Status: Chronic Priority: Low Current Visit: No Problem Details: Stable per history (20) Weakness SNOMED Code(s): 81021834 ICD Code: R53.1 - WEAKNESS Status: Chronic Priority: Medium Current V isit: No Problem Details: Patient has not been feeling like usual self for several months. Reports worsening weakness since GI issues started last week. Has improved over course of stay but still deconditioned and was needing assistance with most ADLs. Patient does have nocturnal supplemental O2. She does not like to wear home O2 during daily activities as it is cumbersome. Noted to have O2 sats in low 80s while ambulating during last admission. Suspect that hypoxemia may be contributing to her weakness and general malaise symptoms. - Patient Summary/Data Consults: Consultations 07/30/21 14:22 Consult to Case Management/[place] Lab Technician [CONS] Routine 07/31/21 13:37 Consult to Occupational Therapy [OT Evaluation and Treatment] [CONS] Routine PT Evaluation and Treatment [CONS] Routine Hospital Course: Pt's abdominal pain complaint quickly improved on IV antibiotics. No further emesis noted. Patient had originally complained of loose stools during ER visit but later denied any issues with diarrhea or abdominal pain. Noted to have stool throughout her home when case management visited home looking for patient's medications. Due to this/patient's weakness and deconditioning/hx of ongoing frequent falls and dizziness, it was felt that patient could not safely return home and live on own. Also concerns for noncompliance with medications. PT/OT consulted. Patient assessed and felt qualified for swing bed and ongoing PT/OT. Plan at this time is to have her swing and see how much she can gain in strength and ability to perform ADLs. It is suspected that she will need either skilled NH placement or, if she improves significantly, assisted living. Case management will continue to work with patient and her family in regards with this. Will continue patient on oral medications for a few more days to finish up course of treatment for diverticulitis. - Discharge Plan Home Medications: Home Meds Acetaminophen with Codeine [Acetaminophen-Cod #3] 1 tab PO Q6H PRN 02/10/20 [History] Brimonidine Tartrate/Timolol [Combigan 0.2%-0.5% Eye Drops] 1 drop EYEBOTH TID 02/10/20 [History] Cholecalciferol (Vitamin D3) [Vitamin D3] 2,000 unit PO DAILY 02/10/20 [History] Cyanocobalamin (Vitamin B12) [Vitamin B12] 1,000 mcg IJ Q30D 02/10/20 [History] Hyoscyamine [Levsin] 0.125 mg PO DAILY PRN 02/10/20 [History] Levothyroxine [Synthroid] 50 mcg PO DAILY 02/10/20 [History] Metoprolol Tartrate 50 mg PO BID 02/10/20 [History] Nitroglycerin 0.4 mg SL ASDIRECTED PRN 02/10/20 [History] Non-Formulary Medication [NF Drug] 1 applic TOP TUSA 02/10/20 [History] amLODIPine [Norvasc] 10 mg PO DAILY 02/10/20 [History] atorvaSTATin [Lipitor] 10 mg PO DAILY 02/10/20 [History] cycloSPORINE [Restasis Multidose] 1 drop EYEBOTH BID 02/10/20 [History] estradioL [Estradiol] 1 mg PO DAILY 02/10/20 [History] methylPREDNISolone [Medrol] 12 mg PO Q48H 02/10/20 [History] Diphenoxylate HCl/Atropine [Lomotil] 2.5 mg PO QID PRN 02/23/21 [History] Lutein 20 mg PO DAILY 02/23/21 [History] Lutein/Minerals/Vit A,C & E [Ocuvite] 1 tab PO DAILY 02/23/21 [History] Meclizine HCl 25 mg PO QID PRN #30 tablet 02/23/21 [Rx] Brinzolamide [Azopt 1% Ophth Susp] 1 drop EYEBOTH BID 05/28/21 [History] Netarsudil Mesylat/Latanoprost [Rocklatan 0.02%-0.005% Eye Drp] 1 drop EYEBOTH BEDTIME 05/28/21 [History] Albuterol [Proventil Neb Soln] 2.5 mg NEB Q2H PRN neb 06/08/21 [Rx] Furosemide [Lasix] 20 mg PO BIDDIURETIC #180 tablet 06/08/21 [Rx] Lactobacillus Rhamnosus GG [Culturelle] 1 cap PO BID cap 06/08/21 [Rx] Magnesium Oxide 400 mg PO DAILY@1800 tablet 06/08/21 [Rx] Ondansetron [Zofran ODT] 4 mg PO Q4H PRN tab.dis 06/08/21 [Rx] Potassium Chloride [Klor-Con M20] 20 meq PO BID #180 tab.er 06/08/21 [Rx] Carboxymethylcellulose Sodium [Artificial Tears] 1 ml EYEBOTH QID 07/30/21 [History] Sertraline [Zoloft] 1 tab PO DAILY 07/30/21 [History] Warfarin Sodium [Jantoven] 2 mg PO Q2D 07/30/21 [History] Warfarin [Coumadin] 1 mg PO Q2D 07/30/21 [History] methylPREDNISolone [Methylprednisolone] 6 mg PO Q48H 07/30/21 [History] Fish Oil/[place]-3 Fatty Acids [Fish Oil 1,000 MG] 1 cap PO BID 07/31/21 [History] Forms: ED Department Discharge Referrals: Kenyatta Jimenez NP [Primary Care Provider] - - Discharge Summary/Plan Comment DC Time >30 min.: No Total # of Minutes for Discharge Time: 45 - General Info Date of Service: 08/02/21 Admission Dx/Problem (Free Text: Patient admitted for further evaluation after presenting to ER with history of fall in bathroom/GI complaints. Suspected diverticulitis on CT. Subjective Update: Complains of usual dizziness. No acute complaints at this time. Feels 'back to baseline' Functional Status: Reports: Pain Controlled, Tolerating Diet, Ambulating (improved today, did get to bathroom on own), Urinating. Denies: New Symptoms - Review of Systems General: Reports: Weakness (chronic). Denies: Fever, Malaise, Chills, Night Sweats HEENT: Reports: Other (no acute changes) Pulmonary: Reports: No Symptoms Cardiovascular: Reports: No Symptoms, Other (has not been complaining of dizzy episodes today) Gastrointestinal: Reports: No Symptoms Genitourinary: Reports: No Symptoms Musculoskeletal: Reports: Other (no acute changes from baseline) Skin: Reports: Other (multiple areas of bruises/healing skin tears) Neurological: Reports: Difficulty Walking (hx falls/intermittent dizzy spells), Weakness (chronic). Denies: Numbness, Trouble Speaking, Change in Speech Psychiatric: Reports: No Symptoms - Patient Data Vitals - Most Recent: Last Vital Signs Temp 36.6 C 08/01/21 20:00 Pulse 77 08/02/21 07:38 Resp 17 08/01/21 20:00 BP 0/0 L 08/02/21 07:44 Pulse Ox 92 L 08/01/21 20:00 Weight - Most Recent: 79.107 kg I&O - Last 24 hours: Intake & Output 08/02/21 08/02/21 08/02/21 06:59 14:59 22:59 Intake Total 400 540 Output Total 900 Balance -500 540 Lab Results - Last 24 hrs: Laboratory Results - last 24 hr 08/01/21 08/02/21 Range/Units 06:59 08:05 Absolute Retic 0.0858 (0.0200-0.1000) x10-6 ul Percent Retic 3.0 H (0.3-2.2) % Immature Retic Fraction 29.2 H (3.0-15.9) % Retic Hgb Equivalent 35.1 (31.9-38.5) pg INR 2.7 AKOSUA Results - Last 24 hrs: Microbiology 07/30/21 09:55 Aerobic Blood Culture - Preliminary Blood - Venous NO GROWTH AFTER 3 DAYS 07/30/21 09:48 Aerobic Blood Culture - Preliminary Blood - Venous - Lab Draw NO GROWTH AFTER 3 DAYS Anaerobic Blood Culture - Preliminary NO GROWTH AFTER 3 DAYS 07/31/21 09:00 Stool Occult Blood (AKOSUA) - Final Stool / Feces NEGATIVE OCCULT BLOOD REFERENCE RANGE: NEGATIVE Med Orders - Current: Current Medications Acetaminophen/Codeine Phosphate (Acetaminophen/Codeine 300-30 Mg Tab) 1 tab PO Q4H PRN PRN Reason: Pain Last Admin: 08/01/21 04:40 Dose: 1 tab Documented by: Albuterol (Albuterol 0.083% 2.5 Mg/3 Ml Neb Soln) 2.5 mg INH Q2H PRN PRN Reason: Shortness of Breath Amlodipine Besylate (Amlodipine 5 Mg Tab) 10 mg PO DAILY [facility] Last Admin: 08/02/21 07:44 Dose: 10 mg Documented by: Artificial Tears (Polyvinyl Alcohol 1.4% Ophth Soln 15 Ml Bottle) 0 ml EYEBOTH QID [facility] Last Admin: 08/02/21 12:12 Dose: 1 drop Documented by: Atorvastatin Calcium (Atorvastatin 10 Mg Tab) 10 mg PO DAILY [facility] Last Admin: 08/02/21 07:39 Dose: 10 mg Documented by: Cholecalciferol (Cholecalciferol (Vitamin D3) 25 Mcg Tab) 50 mcg PO DAILY [facility] Last Admin: 08/02/21 07:40 Dose: 50 mcg Documented by: Estradiol (Estradiol 1 Mg Tab) 1 mg PO DAILY [facility] Last Admin: 08/02/21 07:37 Dose: 1 mg Documented by: Furosemide (Furosemide 20 Mg Tab) 20 mg PO BIDDIURETIC [facility] Last Admin: 08/02/21 12:12 Dose: 20 mg Documented by: Hyoscyamine (Hyoscyamine 0.125 Mg Tab.Sl) 0.125 mg SL DAILY PRN PRN Reason: IBS Last Admin: 07/31/21 05:59 Dose: 0.125 mg Documented by: Ciprofloxacin/Dextrose 400 mg/ (Premix) 200 mls @ 200 mls/hr IV Q12H [facility] Last Admin: 08/02/21 03:39 Dose: 200 mls/hr Documented by: Metronidazole 500 mg/ Premix 100 mls @ 100 mls/hr IV Q8H [facility] Last Admin: 08/02/21 06:30 Dose: 100 mls/hr Documented by: Lactobacillus Rhamnosus (Lactobacillus Rhamnosus Gg (Probiotic) Cap) 1 cap PO BID [facility] Last Admin: 08/02/21 07:37 Dose: 1 cap Documented by: Levothyroxine Sodium (Levothyroxine 50 Mcg Tab) 50 mcg PO DAILY [facility] Last Admin: 08/02/21 07:40 Dose: 50 mcg Documented by: Magnesium Oxide (Magnesium Oxide 400 Mg Tab) 400 mg PO QPM [facility] Last Admin: 08/01/21 18:01 Dose: 400 mg Documented by: Meclizine HCl (Meclizine 25 Mg Tab) 25 mg PO QID PRN PRN Reason: Dizziness Methylprednisolone (Methylprednisolone 4 Mg Tab) 12 mg PO Q2D [facility] Last Admin: 08/01/21 08:51 Dose: 12 mg Documented by: Methylprednisolone (Methylprednisolone 4 Mg Tab) 6 mg PO Q2D [facility] Last Admin: 08/02/21 07:45 Dose: 6 mg Documented by: Metoprolol Tartrate (Metoprolol Tartrate 50 Mg Tab) 50 mg PO BID [facility] Last Admin: 08/02/21 07:38 Dose: 50 mg Documented by: Brinzolamide [Azopt (1% Ophth Susp]) 1 drop EYEBOTH BID [facility] Last Admin: 08/02/21 07:37 Dose: 1 drop Documented by: Cyclosporine [ Restasis Multidose] 0.05% 1 drop EYEBOTH BID [facility] Last Admin: 08/02/21 07:37 Dose: 1 drop Documented by: Non-Formulary Medication (Lutein [Lutein]) 20 mg PO DAILY [facility] Non-Formulary Medication (Non-Formulary Medication [Nf Drug]) 1 applic TOP [facility] Soln 0 each EYEBOTH BEDTIME [facility] Last Admin: 08/01/21 19:14 Dose: 1 each Documented by: Nick Gilbert (Soln) 0 each EYEBOTH TID@0800,1400,2000 [facility] Last Admin: 08/02/21 13:34 Dose: 1 each Documented by: Potassium Chloride (Potassium Chloride 20 Meq Tab.Er) 20 meq PO TID [facility] Last Admin: 08/02/21 12:12 Dose: 20 meq Documented by: Sertraline HCl (Sertraline 25 Mg Tab) 25 mg PO DAILY [facility] Last Admin: 08/02/21 07:40 Dose: 25 mg Documented by: Sodium Chloride (Sodium Chloride 0.9% 10 Ml Syringe) 10 ml FLUSH ASDIRECTED PRN PRN Reason: Keep Vein Open Last Admin: 08/02/21 03:39 Dose: 10 ml Documented by: Temazepam (Temazepam 15 Mg Cap) 15 mg PO BEDTIME PRN PRN Reason: Insomnia Last Admin: 08/01/21 23:18 Dose: 15 mg Documented by: Vit C/Vit E/Zinc/Copper/Lutein (Lutein/Minerals/Vitamin C/Vitamin E Acetate Cap) 1 each PO DAILY [facility] Last Admin: 08/02/21 07:40 Dose: 1 each Documented by: Warfarin Sodium (Warfarin 1 Mg Tab) 1 mg PO Q2D@1800 [facility] Last Admin: 07/30/21 17:09 Dose: 1 mg Documented by: Warfarin Sodium (Warfarin 2 Mg Tab) 2 mg PO Q2D@1800 [facility] Last Admin: 07/31/21 17:59 Dose: 2 mg Documented by: Discontinued Medications Artificial Tears (Polyvinyl Alcohol 1.4% Ophth Soln 15 Ml Bottle) 0 ml EYEBOTH ACBREAKFASTANDBED PRN PRN Reason: dry eyes Cyclobenzaprine HCl (Cyclobenzaprine 10 Mg Tab) 10 mg PO TID PRN PRN Reason: Spasms Lactated Ringer's (Ringers, Lactated) 1,000 mls @ 250 mls/hr IV ASDIRECTED [facility] Last Admin: 07/30/21 09:57 Dose: 250 mls/hr Documented by: Lactated Ringer's (Ringers, Lactated) 1,000 mls @ 100 mls/hr IV ASDIRECTED [facility] Last Admin: 07/31/21 03:20 Dose: 100 mls/hr Documented by: Iopamidol (Iopamidol 612 Mg/Ml 100 Ml Bottle) 100 ml IVPUSH ONETIME STA Stop: 07/30/21 10:05 Last Admin: 07/30/21 11:20 Dose: 100 ml Documented by: Ondansetron HCl (Ondansetron 4 Mg/2 Ml Sdv) 4 mg IVPUSH ONETIME ONE Stop: 07/30/21 09:43 Last Admin: 07/30/21 09:57 Dose: 4 mg Documented by: Potassium Chloride (Potassium Chloride 20 Meq Tab.Er) 20 meq PO BID [facility] Last Admin: 07/31/21 08:22 Dose: 20 meq Documented by: Warfarin Sodium (Warfarin 2.5 Mg Tab) 2.5 mg PO ONETIME ONE Stop: 07/31/21 12:20 Last Admin: 07/31/21 13:34 Dose: 2.5 mg Documented by: Warfarin Sodium (Warfarin 5 Mg Tab) 5 mg PO ONETIME ONE Stop: 08/01/21 18:01 Last Admin: 08/01/21 18:01 Dose: 5 mg Documented by: - Exam Quality Assessment: Reports: Supplemental Oxygen (PRN and at night), DVT Prophylaxis General: Reports: Alert, Oriented, Cooperative, No Acute Distress HEENT: Reports: Pupils Equal, Pupils Reactive, EOMI, Mucous Membr. Moist/[place] Neck: Reports: Supple Lungs: Reports: Normal Respiratory Effort, Crackles (mild/bases). Denies: Rhonchi, Rub, Stridor, Wheezing Cardiovascular: Reports: Irregular Rhythm GI/Abdominal Exam: Normal Bowel Sounds, Soft, Non-Tender, No Distention (Female) Exam: Deferred Rectal (Female) Exam: Deferred Back Exam: Denies: CVA Tenderness (L), CVA Tenderness (R), Muscle Spasm, Paraspinal Tenderness, Vertebral Tenderness Extremities: Non-Tender, Normal Capillary Refill, Pedal Edema (stable) Skin: Reports: Warm, Ecchymosis, Other (healing abrasions/skin tears) Wound/Incisions: Reports: Healing Well Neurological: Reports: No New Focal Deficit, Strength Equal Bilateral Psy/Mental Status: Reports: Alert, Normal Affect, Normal Mood
== END 2021-08-02 16:10 | disposition swing bed (61) | DRG 392 ==
LOC: LL.ED 09:28 → LL.MS 11:39
PROVIDERS: ADMIT Physician Assistant; ATTEND Physician Assistant
DX: K57.92 Diverticulitis of intestine, part unspecified, without perforation or abscess without bleeding (principal); E86.0 Dehydration; R11.2 Nausea with vomiting, unspecified; K57.32 Diverticulitis of large intestine without perforation or abscess without bleeding; I48.19 Other persistent atrial fibrillation; I13.0 Hypertensive heart and chronic kidney disease with heart failure and stage 1 through stage 4 chronic kidney disease, or unspecified chronic kidney disease; D64.9 Anemia, unspecified; R42 Dizziness and giddiness; I25.10 Atherosclerotic heart disease of native coronary artery without angina pectoris; I50.9 Heart failure, unspecified; E78.5 Hyperlipidemia, unspecified; I12.9 Hypertensive chronic kidney disease with stage 1 through stage 4 chronic kidney disease, or unspecified chronic kidney disease; Z20.822 Contact with and (suspected) exposure to COVID-19; E03.9 Hypothyroidism, unspecified; Z66 Do not resuscitate; R09.02 Hypoxemia; K58.0 Irritable bowel syndrome with diarrhea; F41.8 Other specified anxiety disorders; N18.9 Chronic kidney disease, unspecified; F32.9 Major depressive disorder, single episode, unspecified; M89.49 Other hypertrophic osteoarthropathy, multiple sites; M35.3 Polymyalgia rheumatica; I73.00 Raynaud's syndrome without gangrene; H54.7 Unspecified visual loss; F41.9 Anxiety disorder, unspecified; F32.A Depression, unspecified; M81.0 Age-related osteoporosis without current pathological fracture; E66.9 Obesity, unspecified; J30.9 Allergic rhinitis, unspecified; H40.9 Unspecified glaucoma; H04.129 Dry eye syndrome of unspecified lacrimal gland; I48.91 Unspecified atrial fibrillation; E78.00 Pure hypercholesterolemia, unspecified; J44.9 Chronic obstructive pulmonary disease, unspecified; R32 Unspecified urinary incontinence; M19.90 Unspecified osteoarthritis, unspecified site; G89.29 Other chronic pain; M54.9 Dorsalgia, unspecified; Z68.29 Body mass index [BMI] 29.0-29.9, adult; Z78.9 Other specified health status; Z79.1 Long term (current) use of non-steroidal anti-inflammatories (NSAID); Z99.81 Dependence on supplemental oxygen; Z91.09 Other allergy status, other than to drugs and biological substances; Z88.8 Allergy status to other drugs, medicaments and biological substances; Z79.890 Hormone replacement therapy; Z79.899 Other long term (current) drug therapy; Z98.890 Other specified postprocedural states; Z98.41 Cataract extraction status, right eye; Z98.42 Cataract extraction status, left eye; Z98.61 Coronary angioplasty status; Z90.49 Acquired absence of other specified parts of digestive tract; Z90.710 Acquired absence of both cervix and uterus; Z87.19 Personal history of other diseases of the digestive system; Z85.828 Personal history of other malignant neoplasm of skin; Z91.048 Other nonmedicinal substance allergy status; Z79.01 Long term (current) use of anticoagulants; Z79.52 Long term (current) use of systemic steroids
CPT/HCPCS: 36415; 36416; 72100; 74177; 80053; 81001; 82272; 82607; 82728; 83540; 83550; 83605; 83735; 83880; 84100; 84443; 85025; 85046; 85610; 86140; 87040; 87338; 97162-GP; 99285-25; A9270-GY; J0744; J2405; J3490; J7120; J7509; Q9967; U0002

== ENCOUNTER 2021-08-02 11:01 | Inpatient (IN) | payer MEDICARE, OTHER ==
[2021-08-02] MEDS ORDERED: Meclizine 25 MG Tab PO PRN (15:51)
[2021-08-02] MEDS ORDERED: Sodium Chloride 0.9% 10 ML Syringe FLUSH PRN (15:51)
[2021-08-02] MEDS ORDERED: Hyoscyamine 0.125 MG Tab.SL SL PRN (15:51)
[2021-08-02] MEDS ORDERED: Albuterol 0.083% 2.5 MG/3 ML Neb Soln INH PRN (16:00)
[2021-08-02] MEDS ORDERED: Acetaminophen/Codeine 300-30 MG Tab PO PRN (16:00)
[2021-08-02] MEDS: Polyvinyl Alcohol 1.4% Ophth Soln 15 ML Bottle EYEBOTH SCH ×2 (16:00→19:22)
[2021-08-02] MEDS ORDERED: Nitroglycerin 0.4 MG Tab.SL SL PRN (16:08)
--- NOTE | 2021-08-02 16:10 | PCM.SN.2 ---
- Free Text/Narrative Note: Given complete resolution of GI complaints/afebrile and has had formed stool....will d/c antibiotic coverage at this time. Time Documentation
[2021-08-02] MEDS: BRINZOLAMIDE EYEBOTH SCH (17:14)
[2021-08-02] MEDS: Cyclosporine [Restasis Multidose] EYEBOTH SCH (17:14)
[2021-08-02] MEDS: Metoprolol Tartrate 50 MG Tab PO SCH (17:15)
[2021-08-02] MEDS: Potassium Chloride 20 MEQ Tab.ER PO SCH (17:15)
[2021-08-02] MEDS: Lactobacillus Rhamnosus GG (Probiotic) Cap PO SCH (17:15)
[2021-08-02] MEDS: Magnesium Oxide 400 MG Tab PO SCH (17:15)
[2021-08-02] MEDS: TIMOLOL EYEBOTH SCH (19:22)
[2021-08-02] MEDS: ROCKLATAN EYEBOTH SCH (19:22)
[2021-08-02] MEDS: BRIMONIDINE EYEBOTH SCH (19:22)
[2021-08-02] MEDS: Temazepam 15 MG Cap PO PRN (20:42)
[2021-08-03] MEDS ORDERED: Non-Formulary Medication 1 Each (Lutein [Lutein] 20 MG) PO SCH (08:00)
[2021-08-03] MEDS: Cyclosporine [Restasis Multidose] EYEBOTH SCH ×2 (09:51→17:45)
[2021-08-03] MEDS: Sertraline 25 MG Tab PO SCH (09:52)
[2021-08-03] MEDS: Cholecalciferol (Vitamin D3) 25 MCG Tab PO SCH (09:54)
[2021-08-03] MEDS: Metoprolol Tartrate 50 MG Tab PO SCH ×2 (09:54→17:40)
[2021-08-03] MEDS: Lactobacillus Rhamnosus GG (Probiotic) Cap PO SCH ×2 (09:54→17:40)
[2021-08-03] MEDS: Furosemide 20 MG Tab PO SCH ×2 (09:54→11:11)
[2021-08-03] MEDS: Estradiol 1 MG Tab PO SCH (09:54)
[2021-08-03] MEDS: Levothyroxine 50 MCG Tab PO SCH (09:55)
[2021-08-03] MEDS: Potassium Chloride 20 MEQ Tab.ER PO SCH ×3 (09:55→17:40)
[2021-08-03] MEDS: atorvaSTATin 10 MG Tab PO SCH (09:55)
[2021-08-03] MEDS: amLODIPine 5 MG Tab PO SCH (09:55)
[2021-08-03] MEDS: Lutein/Minerals/Vitamin C/Vitamin E Acetate Cap PO SCH (09:56)
[2021-08-03] MEDS: TIMOLOL EYEBOTH SCH ×3 (10:00→22:07)
[2021-08-03] MEDS: BRIMONIDINE EYEBOTH SCH ×3 (10:00→22:07)
[2021-08-03] MEDS: BRINZOLAMIDE EYEBOTH SCH ×2 (10:08→17:44)
[2021-08-03] MEDS: Polyvinyl Alcohol 1.4% Ophth Soln 15 ML Bottle EYEBOTH SCH ×4 (10:08→22:08)
[2021-08-03] MEDS: Magnesium Oxide 400 MG Tab PO SCH (17:40)
[2021-08-03] MEDS: ROCKLATAN EYEBOTH SCH (22:07)
[2021-08-03] MEDS: Temazepam 15 MG Cap PO PRN (22:08)
[2021-08-04] MEDS: Potassium Chloride 20 MEQ Tab.ER PO SCH ×3 (08:31→17:40)
[2021-08-04] MEDS: Furosemide 20 MG Tab PO SCH ×2 (08:31→12:21)
[2021-08-04] MEDS: Estradiol 1 MG Tab PO SCH (08:31)
[2021-08-04] MEDS: Lactobacillus Rhamnosus GG (Probiotic) Cap PO SCH ×2 (08:31→17:39)
[2021-08-04] MEDS: Lutein/Minerals/Vitamin C/Vitamin E Acetate Cap PO SCH (08:31)
[2021-08-04] MEDS: Polyvinyl Alcohol 1.4% Ophth Soln 15 ML Bottle EYEBOTH SCH ×4 (08:31→19:20)
[2021-08-04] MEDS: Sertraline 25 MG Tab PO SCH (08:31)
[2021-08-04] MEDS: TIMOLOL EYEBOTH SCH ×3 (08:32→19:20)
[2021-08-04] MEDS: BRIMONIDINE EYEBOTH SCH ×3 (08:32→19:20)
[2021-08-04] MEDS: atorvaSTATin 10 MG Tab PO SCH (08:32)
[2021-08-04] MEDS: Levothyroxine 50 MCG Tab PO SCH (08:32)
[2021-08-04] MEDS: Cholecalciferol (Vitamin D3) 25 MCG Tab PO SCH (08:32)
[2021-08-04] MEDS: Cyclosporine [Restasis Multidose] EYEBOTH SCH ×2 (08:33→17:42)
[2021-08-04] MEDS: BRINZOLAMIDE EYEBOTH SCH ×2 (08:33→17:42)
[2021-08-04] MEDS: amLODIPine 5 MG Tab PO SCH (08:40)
[2021-08-04] MEDS: Metoprolol Tartrate 50 MG Tab PO SCH ×2 (08:40→17:39)
[2021-08-04] MEDS ORDERED: Non-Formulary Medication 1 Each (Non-Formulary Medication [Nf Drug] 1 APPLIC) TOP SCH (12:22)
[2021-08-04] MEDS: Magnesium Oxide 400 MG Tab PO SCH (17:40)
[2021-08-04] MEDS: ROCKLATAN EYEBOTH SCH (19:20)
[2021-08-04] MEDS: Temazepam 15 MG Cap PO PRN (20:32)
[2021-08-05] MEDS: BRIMONIDINE EYEBOTH SCH ×3 (09:13→19:15)
[2021-08-05] MEDS: Estradiol 1 MG Tab PO SCH (09:13)
[2021-08-05] MEDS: Cyclosporine [Restasis Multidose] EYEBOTH SCH ×2 (09:13→17:56)
[2021-08-05] MEDS: TIMOLOL EYEBOTH SCH ×3 (09:13→19:15)
[2021-08-05] MEDS: BRINZOLAMIDE EYEBOTH SCH ×2 (09:13→17:56)
[2021-08-05] MEDS: Polyvinyl Alcohol 1.4% Ophth Soln 15 ML Bottle EYEBOTH SCH ×4 (09:13→19:15)
[2021-08-05] MEDS: Lutein/Minerals/Vitamin C/Vitamin E Acetate Cap PO SCH (09:13)
[2021-08-05] MEDS: Lactobacillus Rhamnosus GG (Probiotic) Cap PO SCH ×2 (09:14→17:56)
[2021-08-05] MEDS: Sertraline 25 MG Tab PO SCH (09:14)
[2021-08-05] MEDS: atorvaSTATin 10 MG Tab PO SCH (09:14)
[2021-08-05] MEDS: Levothyroxine 50 MCG Tab PO SCH (09:14)
[2021-08-05] MEDS: Metoprolol Tartrate 50 MG Tab PO SCH ×2 (09:15→17:56)
[2021-08-05] MEDS: Cholecalciferol (Vitamin D3) 25 MCG Tab PO SCH (09:15)
[2021-08-05] MEDS: amLODIPine 5 MG Tab PO SCH (09:15)
[2021-08-05] MEDS: Furosemide 20 MG Tab PO SCH ×2 (09:15→11:57)
[2021-08-05] MEDS: Potassium Chloride 20 MEQ Tab.ER PO SCH ×3 (09:47→17:57)
--- NOTE | 2021-08-05 12:20 | PCM.PN ---
- General Info Date of Service: 08/05/21 Functional Status: Reports: Pain Controlled, Tolerating Diet, Ambulating - Review of Systems General: Reports: Weakness HEENT: Reports: No Symptoms Pulmonary: Reports: No Symptoms Cardiovascular: Reports: No Symptoms Gastrointestinal: Reports: No Symptoms Genitourinary: Reports: No Symptoms Musculoskeletal: Reports: Joint Pain Skin: Reports: Bruising Neurological: Reports: No Symptoms Psychiatric: Reports: No Symptoms - Patient Data Vitals - Most Recent: Last Vital Signs Temp 98.4 F 08/05/21 09:22 Pulse 92 08/05/21 09:22 Resp 20 08/05/21 09:22 BP 0/0 L 08/05/21 09:15 Pulse Ox 91 L 08/05/21 09:22 Weight - Most Recent: 174 lb 9.6 oz I&O - Last 24 Hours: Intake & Output 08/04/21 08/05/21 08/05/21 22:59 06:59 14:59 Intake Total 120 100 Balance 120 100 Lab Results Last 24 Hours: Laboratory Results - last 24 hr 08/05/21 Range/Units 08:20 PT 36.2 H D (9.5-12.0) SEC INR 3.8 Med Orders - Current: Current Medications Acetaminophen/Codeine Phosphate (Acetaminophen/Codeine 300-30 Mg Tab) 1 tab PO Q4H PRN PRN Reason: Pain Last Admin: 08/05/21 09:45 Dose: 1 tab Documented by: Albuterol (Albuterol 0.083% 2.5 Mg/3 Ml Neb Soln) 2.5 mg INH Q2H PRN PRN Reason: Shortness of Breath Amlodipine Besylate (Amlodipine 5 Mg Tab) 10 mg PO DAILY [facility] Last Admin: 08/05/21 09:15 Dose: 10 mg Documented by: Artificial Tears (Polyvinyl Alcohol 1.4% Ophth Soln 15 Ml Bottle) 1 ml EYEBOTH QID [facility] Last Admin: 08/05/21 11:57 Dose: 1 drop Documented by: Atorvastatin Calcium (Atorvastatin 10 Mg Tab) 10 mg PO DAILY [facility] Last Admin: 08/05/21 09:14 Dose: 10 mg Documented by: Cholecalciferol (Cholecalciferol (Vitamin D3) 25 Mcg Tab) 50 mcg PO DAILY [facility] Last Admin: 08/05/21 09:15 Dose: 50 mcg Documented by: Estradiol (Estradiol 1 Mg Tab) 1 mg PO DAILY [facility] Last Admin: 08/05/21 09:13 Dose: 1 mg Documented by: Furosemide (Furosemide 20 Mg Tab) 20 mg PO BIDDIURETIC [facility] Last Admin: 08/05/21 11:57 Dose: 20 mg Documented by: Hyoscyamine (Hyoscyamine 0.125 Mg Tab.Sl) 0.125 mg SL DAILY PRN PRN Reason: IBS Lactobacillus Rhamnosus (Lactobacillus Rhamnosus Gg (Probiotic) Cap) 1 cap PO BID [facility] Last Admin: 08/05/21 09:14 Dose: 1 cap Documented by: Levothyroxine Sodium (Levothyroxine 50 Mcg Tab) 50 mcg PO DAILY [facility] Last Admin: 08/05/21 09:14 Dose: 50 mcg Documented by: Magnesium Oxide (Magnesium Oxide 400 Mg Tab) 400 mg PO QPM [facility] Last Admin: 08/04/21 17:40 Dose: 400 mg Documented by: Meclizine HCl (Meclizine 25 Mg Tab) 25 mg PO QID PRN PRN Reason: Dizziness Methylprednisolone (Methylprednisolone 4 Mg Tab) 12 mg PO Q2D [facility] Last Admin: 08/05/21 09:15 Dose: 12 mg Documented by: Methylprednisolone (Methylprednisolone 4 Mg Tab) 6 mg PO Q2D [facility] Last Admin: 08/04/21 08:36 Dose: 6 mg Documented by: Metoprolol Tartrate (Metoprolol Tartrate 50 Mg Tab) 50 mg PO BID [facility] Last Admin: 08/05/21 09:15 Dose: 50 mg Documented by: Nitroglycerin (Nitroglycerin 0.4 Mg Tab.Sl) 0.4 mg SL Q5M PRN PRN Reason: Chest Pain Brinzolamide [Azopt (1% Ophth Susp]) 1 drop EYEBOTH BID [facility] Last Admin: 08/05/21 09:13 Dose: 1 drop Documented by: Cyclosporine [ (Restasis Multidose]) 1 drop EYEBOTH BID [facility] Last Admin: 08/05/21 09:13 Dose: 1 drop Documented by: Non-Formulary Medication (Lutein [Lutein]) 20 mg PO DAILY [facility] Non-Formulary Medication (Non-Formulary Medication [Nf Drug]) [facility] 1 each EYEBOTH BEDTIME [facility] Last Admin: 08/04/21 19:20 Dose: 1 each Documented by: Nick Goel 1 each EYEBOTH TID@0800,1400,2000 [facility] Last Admin: 08/05/21 09:13 Dose: 1 each Documented by: Potassium Chloride (Potassium Chloride 20 Meq Tab.Er) 20 meq PO TID [facility] Last Admin: 08/05/21 11:57 Dose: 20 meq Documented by: Sertraline HCl (Sertraline 25 Mg Tab) 25 mg PO DAILY [facility] Last Admin: 08/05/21 09:14 Dose: 25 mg Documented by: Temazepam (Temazepam 15 Mg Cap) 15 mg PO BEDTIME PRN PRN Reason: Insomnia Last Admin: 08/04/21 20:32 Dose: 15 mg Documented by: Vit C/Vit E/Zinc/Copper/Lutein (Lutein/Minerals/Vitamin C/Vitamin E Acetate Cap) 1 each PO DAILY [facility] Last Admin: 08/05/21 09:13 Dose: 1 each Documented by: Warfarin Sodium (Warfarin 1 Mg Tab) 3 mg PO DAILY@1800 [facility] Last Admin: 08/02/21 17:15 Dose: 3 mg Documented by: - Exam Quality Assessment: Supplemental Oxygen, Skin Breakdown General: Alert, Oriented, Cooperative, No Acute Distress Neck: Supple Lungs: Decreased Breath Sounds, Crackles, Rales (scattered crackles noted to left lower lobe) GI/Abdominal Exam: Normal Bowel Sounds, Soft, Non-Tender Back Exam: Normal Inspection Extremities: Pedal Edema Peripheral Pulses: 1+: Dorsalis Pedis (L), Dorsalis Pedis (R) Skin: Warm, Dry, Intact, Other (skin breakdown noted on extremities upper and lower bilateral) Neurological: No New Focal Deficit Psy/Mental Status: Alert, Normal Affect, Normal Mood - Patient Data Lab Results Last 24 hrs: Laboratory Results - last 24 hr 08/05/21 Range/Units 08:20 PT 36.2 H D (9.5-12.0) SEC INR 3.8 Sepsis Event Note - Focused Exam Vital Signs: Vital Signs Temp Pulse Pulse Resp BP Pulse Ox 08/05/21 09:22 98.4 F 92 20 91 L 08/05/21 09:15 77 0/0 L - Problem List & Annotations (1) Subtherapeutic international normalized ratio (INR) SNOMED Code(s): 220083731, 744848759 Code(s): R79.1 - ABNORMAL COAGULATION PROFILE Status: Acute Priority: Medium Current Visit: No Annotation/Comment:: Subtherapeutic at this time, recheck INR tomorrow. Hold coumadin (2) Afib SNOMED Code(s): 82185197 Code(s): I48.91 - UNSPECIFIED ATRIAL FIBRILLATION Status: Chronic Priority: Medium Current Visit: No Qualifiers: Annotation/Comment:: INR checked, coumadin adjusted. (3) Hypoxemia requiring supplemental oxygen SNOMED Code(s): 371354043 Code(s): R09.02 - HYPOXEMIA; Z99.81 - DEPENDENCE ON SUPPLEMENTAL OXYGEN Status: Chronic Priority: Low Current Visit: No Annotation/Comment:: continue to use oxygen per nasal cannula to keep O2 sats above 90% (4) Mixed anxiety depressive disorder SNOMED Code(s): 350242548 Code(s): F41.8 - OTHER SPECIFIED ANXIETY DISORDERS Status: Chronic Priority: Low Current Visit: No (5) Polymyalgia rheumatica SNOMED Code(s): 92236259 Code(s): M35.3 - POLYMYALGIA RHEUMATICA Status: Chronic Priority: Low Current Visit: No Annotation/Comment:: Stable per history (6) Weakness SNOMED Code(s): 60865149 Code(s): R53.1 - WEAKNESS Status: Chronic Priority: Medium Current Visit: No Annotation/Comment:: Suspect that hypoxemia may be contributing to her weakness and general malaise symptoms. Continue on oxygen as needed - Problem List Review Problem List Initiated/Reviewed/Updated: Yes - Plan Plan:: 08/05/2021 1. Generalized weakness: continue in physical therapy 2. PMR: continue on steroids, she is on chronic steroid usage 3. Hypoxemia: continue on oxygen supplement 4. Atrial fibrillation: rate controlled and on coumadin, monitoring INRs. Patient has been running elevated Talked with the patient in regards to group home placement care home vs independent living such as [facility]. She prefers to check out [facility] however she does not have any one to help her at this time. Will check with rn case management to see what options are for the patient. Reviewed physical therapy notes. Patient states not thinking she can return home to her apartment she is needing help due to weakness , frequent falls, and lack of eyesight. Continue on current medications and recheck INR in am. Kenyatta Jimenez, MEILY
[2021-08-05] MEDS: Magnesium Oxide 400 MG Tab PO SCH (17:56)
[2021-08-05] MEDS: ROCKLATAN EYEBOTH SCH (19:15)
[2021-08-05] MEDS: Temazepam 15 MG Cap PO PRN (20:05)
[2021-08-06] MEDS: BRIMONIDINE EYEBOTH SCH ×3 (08:01→20:15)
[2021-08-06] MEDS: Cyclosporine [Restasis Multidose] EYEBOTH SCH ×2 (08:01→17:07)
[2021-08-06] MEDS: BRINZOLAMIDE EYEBOTH SCH ×2 (08:01→17:07)
[2021-08-06] MEDS: atorvaSTATin 10 MG Tab PO SCH (08:01)
[2021-08-06] MEDS: TIMOLOL EYEBOTH SCH ×3 (08:01→20:15)
[2021-08-06] MEDS: Potassium Chloride 20 MEQ Tab.ER PO SCH ×3 (08:02→17:07)
[2021-08-06] MEDS: Levothyroxine 50 MCG Tab PO SCH (08:02)
[2021-08-06] MEDS: Lutein/Minerals/Vitamin C/Vitamin E Acetate Cap PO SCH (08:03)
[2021-08-06] MEDS: Lactobacillus Rhamnosus GG (Probiotic) Cap PO SCH ×2 (08:03→17:07)
[2021-08-06] MEDS: Metoprolol Tartrate 50 MG Tab PO SCH ×2 (08:04→17:06)
[2021-08-06] MEDS: amLODIPine 5 MG Tab PO SCH (08:04)
[2021-08-06] MEDS: Estradiol 1 MG Tab PO SCH (08:05)
[2021-08-06] MEDS: Furosemide 20 MG Tab PO SCH ×2 (08:05→11:36)
[2021-08-06] MEDS: Cholecalciferol (Vitamin D3) 25 MCG Tab PO SCH (08:05)
[2021-08-06] MEDS: Sertraline 25 MG Tab PO SCH (08:06)
[2021-08-06] MEDS: Polyvinyl Alcohol 1.4% Ophth Soln 15 ML Bottle EYEBOTH SCH ×4 (08:06→20:14)
[2021-08-06] MEDS: Magnesium Oxide 400 MG Tab PO SCH (17:23)
[2021-08-06] MEDS: ROCKLATAN EYEBOTH SCH (20:14)
[2021-08-06] MEDS: Temazepam 15 MG Cap PO PRN (20:17)
[2021-08-07] MEDS: Lutein/Minerals/Vitamin C/Vitamin E Acetate Cap PO SCH (07:43)
[2021-08-07] MEDS: Cholecalciferol (Vitamin D3) 25 MCG Tab PO SCH (07:43)
[2021-08-07] MEDS: Potassium Chloride 20 MEQ Tab.ER PO SCH ×3 (07:43→17:05)
[2021-08-07] MEDS: Lactobacillus Rhamnosus GG (Probiotic) Cap PO SCH ×2 (07:43→17:04)
[2021-08-07] MEDS: Estradiol 1 MG Tab PO SCH (07:43)
[2021-08-07] MEDS: atorvaSTATin 10 MG Tab PO SCH (07:44)
[2021-08-07] MEDS: Sertraline 25 MG Tab PO SCH (07:44)
[2021-08-07] MEDS: Furosemide 20 MG Tab PO SCH ×2 (07:44→17:02)
[2021-08-07] MEDS: Levothyroxine 50 MCG Tab PO SCH (07:47)
[2021-08-07] MEDS: BRINZOLAMIDE EYEBOTH SCH ×2 (07:48→17:03)
[2021-08-07] MEDS: Cyclosporine [Restasis Multidose] EYEBOTH SCH ×2 (07:49→17:03)
[2021-08-07] MEDS: Polyvinyl Alcohol 1.4% Ophth Soln 15 ML Bottle EYEBOTH SCH ×4 (07:50→19:50)
[2021-08-07] MEDS: amLODIPine 5 MG Tab PO SCH (07:52)
[2021-08-07] MEDS: Metoprolol Tartrate 50 MG Tab PO SCH ×2 (07:52→17:05)
[2021-08-07] MEDS: TIMOLOL EYEBOTH SCH ×3 (07:53→19:50)
[2021-08-07] MEDS: BRIMONIDINE EYEBOTH SCH ×3 (07:53→19:50)
[2021-08-07 09:05] LABS: ANION GAP 8.7 meq/L (7-15)
[2021-08-07] MEDS: Warfarin 2 MG Tab PO SCH (17:04)
[2021-08-07] MEDS: Magnesium Oxide 400 MG Tab PO SCH (17:04)
[2021-08-07] MEDS: ROCKLATAN EYEBOTH SCH (19:50)
[2021-08-07] MEDS: Temazepam 15 MG Cap PO PRN (19:54)
[2021-08-08] MEDS: Lutein/Minerals/Vitamin C/Vitamin E Acetate Cap PO SCH (07:38)
[2021-08-08] MEDS: Estradiol 1 MG Tab PO SCH (07:38)
[2021-08-08] MEDS: Metoprolol Tartrate 50 MG Tab PO SCH ×2 (07:38→18:00)
[2021-08-08] MEDS: Sertraline 25 MG Tab PO SCH (07:38)
[2021-08-08] MEDS: Lactobacillus Rhamnosus GG (Probiotic) Cap PO SCH ×2 (07:38→18:00)
[2021-08-08] MEDS: Potassium Chloride 20 MEQ Tab.ER PO SCH ×3 (07:38→18:00)
[2021-08-08] MEDS: amLODIPine 5 MG Tab PO SCH (07:39)
[2021-08-08] MEDS: atorvaSTATin 10 MG Tab PO SCH (07:39)
[2021-08-08] MEDS: Levothyroxine 50 MCG Tab PO SCH (07:39)
[2021-08-08] MEDS: Cholecalciferol (Vitamin D3) 25 MCG Tab PO SCH (07:39)
[2021-08-08] MEDS: Polyvinyl Alcohol 1.4% Ophth Soln 15 ML Bottle EYEBOTH SCH ×4 (07:39→19:05)
[2021-08-08] MEDS: Furosemide 20 MG Tab PO SCH ×2 (07:39→11:33)
[2021-08-08] MEDS: BRINZOLAMIDE EYEBOTH SCH ×2 (07:40→18:00)
[2021-08-08] MEDS: BRIMONIDINE EYEBOTH SCH ×3 (07:40→19:04)
[2021-08-08] MEDS: Cyclosporine [Restasis Multidose] EYEBOTH SCH ×2 (07:40→18:01)
[2021-08-08] MEDS: TIMOLOL EYEBOTH SCH ×3 (07:40→19:04)
[2021-08-08] MEDS: Warfarin 2 MG Tab PO SCH (18:00)
[2021-08-08] MEDS: Magnesium Oxide 400 MG Tab PO SCH (18:00)
[2021-08-08] MEDS: ROCKLATAN EYEBOTH SCH (19:04)
[2021-08-08] MEDS: Temazepam 15 MG Cap PO PRN (20:34)
[2021-08-09] MEDS: Cholecalciferol (Vitamin D3) 25 MCG Tab PO SCH (07:46)
[2021-08-09] MEDS: amLODIPine 5 MG Tab PO SCH (07:46)
[2021-08-09] MEDS: Estradiol 1 MG Tab PO SCH (07:47)
[2021-08-09] MEDS: Lactobacillus Rhamnosus GG (Probiotic) Cap PO SCH ×2 (07:47→17:40)
[2021-08-09] MEDS: atorvaSTATin 10 MG Tab PO SCH (07:47)
[2021-08-09] MEDS: Potassium Chloride 20 MEQ Tab.ER PO SCH ×3 (07:47→17:40)
[2021-08-09] MEDS: Levothyroxine 50 MCG Tab PO SCH (07:47)
[2021-08-09] MEDS: Metoprolol Tartrate 50 MG Tab PO SCH ×2 (07:48→17:40)
[2021-08-09] MEDS: Furosemide 20 MG Tab PO SCH ×2 (07:48→11:23)
[2021-08-09] MEDS: Sertraline 25 MG Tab PO SCH (07:48)
[2021-08-09] MEDS: TIMOLOL EYEBOTH SCH ×3 (07:49→19:57)
[2021-08-09] MEDS: Polyvinyl Alcohol 1.4% Ophth Soln 15 ML Bottle EYEBOTH SCH ×4 (07:49→19:57)
[2021-08-09] MEDS: BRINZOLAMIDE EYEBOTH SCH ×2 (07:49→17:40)
[2021-08-09] MEDS: BRIMONIDINE EYEBOTH SCH ×3 (07:49→19:57)
[2021-08-09] MEDS: Lutein/Minerals/Vitamin C/Vitamin E Acetate Cap PO SCH (07:49)
[2021-08-09] MEDS: Cyclosporine [Restasis Multidose] EYEBOTH SCH ×2 (07:50→17:40)
[2021-08-09] MEDS: Magnesium Oxide 400 MG Tab PO SCH (17:40)
[2021-08-09] MEDS: Warfarin 2 MG Tab PO SCH (17:40)
[2021-08-09] MEDS: ROCKLATAN EYEBOTH SCH (19:58)
[2021-08-09] MEDS: Temazepam 15 MG Cap PO PRN (19:58)
[2021-08-09] MEDS: Acetaminophen 325 MG Tab PO PRN (21:16)
--- NOTE | 2021-08-10 08:31 | PCM.DCSUM1 ---
Discharge Summary - Hospital Course Free Text/Narrative:: The patient was admitted and then transferred into [facility] for further strengthening. She is unable to return to home due to lack of vision and limited weakness due to CHF and bilateral knee osteoarthritis. Diagnosis: Stroke: No - Discharge Data Discharge Date: 08/10/21 Discharge Disposition: Home, W Home Health Agency 06 Condition: Fair - Referral to Home Health Date of Face to Face Encounter: 08/10/21 Reason for Homebound Status: CHF, limited eye sight, homebound and impaired mobility due to OA of bilateral knees Primary Care Physician: Kenyatta Jimenez NP Skilled Need: independent living - Discharge Diagnosis/Problem(s) (1) Subtherapeutic international normalized ratio (INR) SNOMED Code(s): 645957291, 796435171 ICD Code: R79.1 - ABNORMAL COAGULATION PROFILE Status: Acute Priority: Medium Current Visit: No Problem Details: Subtherapeutic at this time, recheck INR tomorrow. Hold coumadin (2) Afib SNOMED Code(s): 40999922 ICD Code: I48.91 - UNSPECIFIED ATRIAL FIBRILLATION Status: Chronic Priority: Medium Current Visit: No Problem Details: INR checked, coumadin adjusted. Qualifiers: (3) Hypoxemia requiring supplemental oxygen SNOMED Code(s): 542540929 ICD Code: R09.02 - HYPOXEMIA; Z99.81 - DEPENDENCE ON SUPPLEMENTAL OXYGEN Status: Chronic Priority: Low Current Visit: No Problem Details: continue to use oxygen per nasal cannula to keep O2 sats above 90% (4) Mixed anxiety depressive disorder SNOMED Code(s): 928136083 ICD Code: F41.8 - OTHER SPECIFIED ANXIETY DISORDERS Status: Chronic Priority: Low Current Visit: No (5) Polymyalgia rheumatica SNOMED Code(s): 56815560 ICD Code: M35.3 - POLYMYALGIA RHEUMATICA Status: Chronic Priority: Low Current Visit: No Problem Details: Stable per history (6) Weakness SNOMED Code(s): 39954772 ICD Code: R53.1 - WEAKNESS Status: Chronic Priority: Medium Current Visit: No Problem Details: Suspect that hypoxemia may be contributing to her weakness and general malaise symptoms. Continue on oxygen as needed - Patient Summary/Data Consults: Consultations 08/02/21 15:51 Consult to Case Management/Maintenance Inspector [CONS] Routine Consult to Occupational Therapy [OT Evaluation and Treatment] [CONS] Routine PT Evaluation and Treatment [CONS] Routine - Patient Instructions Diet: Usual Diet as Tolerated Activity: As Tolerated Driving: Do Not Drive Showering/Bathing: May Shower Other/Special Instructions: INR in one week per Home health nursing, PT/OT consult. INR clinic to follow levels. Follow up in 2 weeks with Michael Jimenez ADMITTING CLERK - Discharge Plan *PRESCRIPTION DRUG MONITORING PROGRAM REVIEWED*: No *COPY OF PRESCRIPTION DRUG MONITORING REPORT IN PATIENT SEB: No Prescriptions/Med Rec: Warfarin [Coumadin] 2 mg PO DAILY@1800 #30 tablet Magnesium Oxide 400 mg PO QPM #90 tablet Home Medications: Home Meds Acetaminophen with Codeine [Acetaminophen-Cod #3] 1 tab PO Q6H PRN 02/10/20 [History] Brimonidine Tartrate/Timolol [Combigan 0.2%-0.5% Eye Drops] 1 drop EYEBOTH TID 02/10/20 [History] Cholecalciferol (Vitamin D3) [Vitamin D3] 2,000 unit PO DAILY 02/10/20 [History] Cyanocobalamin (Vitamin B12) [Vitamin B12] 1,000 mcg IJ Q30D 02/10/20 [History] Hyoscyamine [Levsin] 0.125 mg PO DAILY PRN 02/10/20 [History] Levothyroxine [Synthroid] 50 mcg PO DAILY 02/10/20 [History] Metoprolol Tartrate 50 mg PO BID 02/10/20 [History] Nitroglycerin 0.4 mg SL ASDIRECTED PRN 02/10/20 [History] Non-Formulary Medication [NF Drug] 1 applic TOP TU02/10/20 [History] amLODIPine [Norvasc] 10 mg PO DAILY 02/10/20 [History] atorvaSTATin [Lipitor] 10 mg PO DAILY 02/10/20 [History] cycloSPORINE [Restasis Multidose] 1 drop EYEBOTH BID 02/10/20 [History] estradioL [Estradiol] 1 mg PO DAILY 02/10/20 [History] methylPREDNISolone [Medrol] 12 mg PO Q48H 02/10/20 [History] Diphenoxylate HCl/Atropine [Lomotil] 2.5 mg PO QID PRN 02/23/21 [History] Lutein 20 mg PO DAILY 02/23/21 [History] Lutein/Minerals/Vit A,C & E [Ocuvite] 1 tab PO DAILY 02/23/21 [History] Meclizine HCl 25 mg PO QID PRN #30 tablet 02/23/21 [Rx] Brinzolamide [Azopt 1% Ophth Susp] 1 drop EYEBOTH BID 05/28/21 [History] Netarsudil Mesylat/Latanoprost [Rocklatan 0.02%-0.005% Eye Drp] 1 drop EYEBOTH BEDTIME 05/28/21 [History] Albuterol [Proventil Neb Soln] 2.5 mg NEB Q2H PRN neb 06/08/21 [Rx] Furosemide [Lasix] 20 mg PO BIDDIURETIC #180 tablet 06/08/21 [Rx] Lactobacillus Rhamnosus GG [Culturelle] 1 cap PO BID cap 06/08/21 [Rx] Magnesium Oxide 400 mg PO DAILY@1800 tablet 06/08/21 [Rx] Ondansetron [Zofran ODT] 4 mg PO Q4H PRN tab.dis 06/08/21 [Rx] Potassium Chloride [Klor-Con M20] 20 meq PO BID #180 tab.er 06/08/21 [Rx] Carboxymethylcellulose Sodium [Artificial Tears] 1 ml EYEBOTH QID 07/30/21 [History] Sertraline [Zoloft] 1 tab PO DAILY 07/30/21 [History] Warfarin Sodium [Jantoven] 2 mg PO Q2D 07/30/21 [History] Warfarin [Coumadin] 1 mg PO Q2D 07/30/21 [History] methylPREDNISolone [Methylprednisolone] 6 mg PO Q48H 07/30/21 [History] Fish Oil/[place]-3 Fatty Acids [Fish Oil 1,000 MG] 1 cap PO BID 07/31/21 [History] Magnesium Oxide 400 mg PO QPM #90 tablet 08/10/21 [Rx] Nitroglycerin [Nitrostat] 0.4 mg SL Q5M PRN tab.sl 08/10/21 [Rx] Non-Formulary Medication [NF Drug] 1 each EYEBOTH BEDTIME each 08/10/21 [Rx] Non-Formulary Medication [NF Drug] 1 each EYEBOTH TID@0800,1400,2000 each 08/10/21 [Rx] Polyvinyl Alcohol [LiquiTears 1.4% Ophth Soln] 1 ml EYEBOTH QID bottle 08/10/21 [Rx] Sertraline [Zoloft] 25 mg PO DAILY #0 tablet 08/10/21 [Rx] Warfarin [Coumadin] 2 mg PO DAILY@1800 #30 tablet 08/10/21 [Rx] methylPREDNISolone [Medrol] 6 mg PO Q2D tablet 08/10/21 [Rx] - Discharge Summary/Plan Comment DC Time >30 min.: No Total # of Minutes for Discharge Time: 30 minutes Discharge Summary/Plan Comment: 1. CHF: weight stable and continue on current medication therapy 2. Macular Degeneration: will continue to worsen, patient will need continual and lifelong services 3. Falls: continue with PT/OT services through home health care 4. Dehydration: resolved as inpatient 5. Hypertension: blood pressures controlled. 6. Atrial Fib: rate controlled, INR 2.0 from yesterday, continue coumadin 2mg daily 7 PMR: continue on alternating steroid, which controls her pain. The patient is discharged to [facility] with home health services and PT/OT consulted. INR in one week and INR clinic at [place] to follow. Patient will need daily medication set ups due to lack of vision. Follow up appointment in 2 weeks. Kenyatta Jimenez CNP 08/10/2021 - Patient Data Vitals - Most Recent: Last Vital Signs Temp 97.6 F 08/07/21 08:00 Pulse 0 L 08/09/21 17:40 Resp 18 08/07/21 08:00 BP 0/0 L 08/09/21 17:40 Pulse Ox 96 08/07/21 09:45 Weight - Most Recent: 174 lb 9.6 oz I&O - Last 24 hours: Intake & Output 08/09/21 08/10/21 08/10/21 22:59 06:59 14:59 Intake Total 220 Balance 220 Med Orders - Current: Current Medications Acetaminophen (Acetaminophen 325 Mg Tab) 650 mg PO Q4HR PRN PRN Reason: Pain Last Admin: 08/09/21 21:16 Dose: 650 mg Documented by: Acetaminophen/Codeine Phosphate (Acetaminophen/Codeine 300-30 Mg Tab) 1 tab PO Q4H PRN PRN Reason: Pain Last Admin: 08/05/21 09:45 Dose: 1 tab Documented by: Albuterol (Albuterol 0.083% 2.5 Mg/3 Ml Neb Soln) 2.5 mg INH Q2H PRN PRN Reason: Shortness of Breath Amlodipine Besylate (Amlodipine 5 Mg Tab) 10 mg PO DAILY [facility] Last Admin: 08/09/21 07:46 Dose: 10 mg Documented by: Artificial Tears (Polyvinyl Alcohol 1.4% Ophth Soln 15 Ml Bottle) 1 ml EYEBOTH QID [facility] Last Admin: 08/09/21 19:57 Dose: 1 drop Documented by: Atorvastatin Calcium (Atorvastatin 10 Mg Tab) 10 mg PO DAILY [facility] Last Admin: 08/09/21 07:47 Dose: 10 mg Documented by: Cholecalciferol (Cholecalciferol (Vitamin D3) 25 Mcg Tab) 50 mcg PO DAILY [facility] Last Admin: 08/09/21 07:46 Dose: 50 mcg Documented by: Estradiol (Estradiol 1 Mg Tab) 1 mg PO DAILY [facility] Last Admin: 08/09/21 07:47 Dose: 1 mg Documented by: Furosemide (Furosemide 20 Mg Tab) 20 mg PO BIDDIURETIC [facility] Last Admin: 08/09/21 11:23 Dose: 20 mg Documented by: Hyoscyamine (Hyoscyamine 0.125 Mg Tab.Sl) 0.125 mg SL DAILY PRN PRN Reason: IBS Lactobacillus Rhamnosus (Lactobacillus Rhamnosus Gg (Probiotic) Cap) 1 cap PO BID [facility] Last Admin: 08/09/21 17:40 Dose: 1 cap Documented by: Levothyroxine Sodium (Levothyroxine 50 Mcg Tab) 50 mcg PO DAILY [facility] Last Admin: 08/09/21 07:47 Dose: 50 mcg Documented by: Magnesium Oxide (Magnesium Oxide 400 Mg Tab) 400 mg PO QPM [facility] Last Admin: 08/09/21 17:40 Dose: 400 mg Documented by: Meclizine HCl (Meclizine 25 Mg Tab) 25 mg PO QID PRN PRN Reason: Dizziness Methylprednisolone (Methylprednisolone 4 Mg Tab) 12 mg PO Q2D [facility] Last Admin: 08/09/21 08:44 Dose: 12 mg Documented by: Methylprednisolone (Methylprednisolone 4 Mg Tab) 6 mg PO Q2D [facility] Last Admin: 08/08/21 07:49 Dose: 6 mg Documented by: Metoprolol Tartrate (Metoprolol Tartrate 50 Mg Tab) 50 mg PO BID [facility] Last Admin: 08/09/21 17:40 Dose: 50 mg Documented by: Nitroglycerin (Nitroglycerin 0.4 Mg Tab.Sl) 0.4 mg SL Q5M PRN PRN Reason: Chest Pain Brinzolamide [Azopt (1% Ophth Susp]) 1 drop EYEBOTH BID [facility] Last Admin: 08/09/21 17:40 Dose: 1 drop Documented by: Cyclosporine [ (Restasis Multidose]) 1 drop EYEBOTH BID [facility] Last Admin: 08/09/21 17:40 Dose: 1 drop Documented by: Non-Formulary Medication (Lutein [Lutein]) 20 mg PO DAILY [facility] Non-Formulary Medication (Non-Formulary Medication [Nf Drug]) 1 applic TOP TUSA [facility] Saravanan Ornelas 1 each EYEBOTH BEDTIME [facility] Last Admin: 08/09/21 19:58 Dose: 1 each Documented by: Nick Goel 1 each EYEBOTH TID@0800,1400,2000 [facility] Last Admin: 08/09/21 19:57 Dose: 1 each Documented by: Potassium Chloride (Potassium Chloride 20 Meq Tab.Er) 20 meq PO TID [facility] Last Admin: 08/09/21 17:40 Dose: 20 meq Documented by: Sertraline HCl (Sertraline 25 Mg Tab) 25 mg PO DAILY [facility] Last Admin: 08/09/21 07:48 Dose: 25 mg Documented by: Temazepam (Temazepam 15 Mg Cap) 15 mg PO BEDTIME PRN PRN Reason: Insomnia Last Admin: 08/09/21 19:58 Dose: 15 mg Documented by: Vit C/Vit E/Zinc/Copper/Lutein (Lutein/Minerals/Vitamin C/Vitamin E Acetate Cap) 1 each PO DAILY [facility] Last Admin: 08/09/21 07:49 Dose: 1 each Documented by: Warfarin Sodium (Warfarin 2 Mg Tab) 2 mg PO DAILY@1800 [facility] Last Admin: 08/09/21 17:40 Dose: 2 mg Documented by: Discontinued Medications Warfarin Sodium (Warfarin 1 Mg Tab) 3 mg PO DAILY@1800 [facility] Last Admin: 08/02/21 17:15 Dose: 3 mg Documented by:
[2021-08-10] MEDS: BRINZOLAMIDE EYEBOTH SCH (08:40)
[2021-08-10] MEDS: Polyvinyl Alcohol 1.4% Ophth Soln 15 ML Bottle EYEBOTH SCH ×2 (08:45→12:00)
[2021-08-10] MEDS: BRIMONIDINE EYEBOTH SCH (08:50)
[2021-08-10] MEDS: TIMOLOL EYEBOTH SCH (08:50)
[2021-08-10] MEDS: Cyclosporine [Restasis Multidose] EYEBOTH SCH (08:58)
[2021-08-10] MEDS: Furosemide 20 MG Tab PO SCH ×2 (08:58→12:00)
[2021-08-10] MEDS: amLODIPine 5 MG Tab PO SCH (08:59)
[2021-08-10] MEDS: Estradiol 1 MG Tab PO SCH (08:59)
[2021-08-10] MEDS: Potassium Chloride 20 MEQ Tab.ER PO SCH ×2 (08:59→12:00)
[2021-08-10] MEDS: Lactobacillus Rhamnosus GG (Probiotic) Cap PO SCH (08:59)
[2021-08-10] MEDS: Cholecalciferol (Vitamin D3) 25 MCG Tab PO SCH (09:00)
[2021-08-10] MEDS: Acetaminophen 325 MG Tab PO PRN (09:00)
[2021-08-10] MEDS: Lutein/Minerals/Vitamin C/Vitamin E Acetate Cap PO SCH (09:00)
[2021-08-10] MEDS: Levothyroxine 50 MCG Tab PO SCH (09:00)
[2021-08-10] MEDS: Metoprolol Tartrate 50 MG Tab PO SCH (09:00)
[2021-08-10] MEDS: atorvaSTATin 10 MG Tab PO SCH (09:00)
[2021-08-10] MEDS: Sertraline 25 MG Tab PO SCH (09:07)
== END 2021-08-10 13:55 | disposition home health service (06) | DRG 948 ==
LOC: LL.MS 16:00
PROVIDERS: ADMIT Emergency Medicine; ATTEND Nurse Practitioner Family
DX: R53.1 Weakness (principal); E86.0 Dehydration; I11.0 Hypertensive heart disease with heart failure; I50.9 Heart failure, unspecified; H35.30 Unspecified macular degeneration; M35.3 Polymyalgia rheumatica; I48.91 Unspecified atrial fibrillation; W18.30XA Fall on same level, unspecified, initial encounter; R79.1 Abnormal coagulation profile; R09.02 Hypoxemia; F41.8 Other specified anxiety disorders; D64.9 Anemia, unspecified; I25.10 Atherosclerotic heart disease of native coronary artery without angina pectoris; H40.9 Unspecified glaucoma; E78.5 Hyperlipidemia, unspecified; E03.9 Hypothyroidism, unspecified; M17.0 Bilateral primary osteoarthritis of knee; Y92.89 Other specified places as the place of occurrence of the external cause; Z99.81 Dependence on supplemental oxygen; Z79.01 Long term (current) use of anticoagulants
CPT/HCPCS: 36415; 36416; 80048; 85025; 85610; 97110-GP; 97162-GP; 97165-GO; 97530-GP; A9270-GY; J7509

== ENCOUNTER 2021-08-25 18:00 | Inpatient (IN) | payer MEDICARE, OTHER ==
[2021-08-25] MEDS ORDERED: Sodium Chloride 0.9% 10 ML Syringe FLUSH PRN (18:09)
--- NOTE | 2021-08-25 18:33 | EDM.PDOC ---
ED HPI GENERAL MEDICAL PROBLEM - General Chief Complaint: Neuro Symptoms/Deficits Stated Complaint: arm num Time Seen by Provider: 08/25/21 18:02 Source of Information: Reports: Patient History Limitations: Reports: No Limitations - History of Present Illness INITIAL COMMENTS - FREE TEXT/NARRATIVE: Patient comes to the emergency department today from home with complaints of rig ht shoulder arm pain coolness and numbness. This patient with a pretty impressive history of atrial fibrillation, hypertension valvular heart disease uncontrolled stage II hypertension left ventricular enlargement coronary arteriosclerosis in [place] artery who last week had 5 days of no Coumadin without any bridging of enoxaparin for procedure in her left eye. She was started back on her Coumadin on Friday. Today when she was sitting at home she suddenly felt the pain in her right shoulder and numbness and coolness to her right arm. She was started back on her Coumadin again on Friday. She has no headache visual acuity changes from her baseline following her procedure. No weakness dizziness lightheadedness. No chest pain no shortness of breath or difficulty breathing. No cough or congestion. She has had no recent falls trauma or injury to the right upper extremity. - Related Data Allergies Allergy/AdvReac Type Severity Reaction Status Date / Time dog dander Allergy Other Verified 08/25/21 18:31 grass pollen-perennial rye, Allergy Other Verified 08/25/21 18:31 standar tree and shrub pollen Allergy congestion Verified 08/25/21 18:31 amiodarone AdvReac Severe Hypotension, Verified 08/25/21 18:31 Shortness of breaath flecainide AdvReac Severe shortness Verified 08/25/21 18:31 of breath,severe hypotention Home Meds: Home Meds Brimonidine Tartrate/Timolol [Combigan 0.2%-0.5% Eye Drops] 1 drop EYEBOTH TID 02/10/20 [History] Cholecalciferol (Vitamin D3) [Vitamin D3] 2,000 unit PO DAILY 02/10/20 [History] Cyanocobalamin (Vitamin B12) [Vitamin B12] 1,000 mcg IJ Q30D 02/10/20 [History] Hyoscyamine [Levsin] 0.125 mg PO DAILY PRN 02/10/20 [History] Levothyroxine [Synthroid] 50 mcg PO DAILY 02/10/20 [History] Metoprolol Tartrate 50 mg PO BID 02/10/20 [History] amLODIPine [Norvasc] 10 mg PO DAILY 02/10/20 [History] atorvaSTATin [Lipitor] 10 mg PO DAILY 02/10/20 [History] cycloSPORINE [Restasis Multidose] 1 drop EYEBOTH BID 02/10/20 [History] estradioL [Estradiol] 1 mg PO DAILY 02/10/20 [History] methylPREDNISolone [Medrol] 12 mg PO Q48H 02/10/20 [History] Diphenoxylate HCl/Atropine [Lomotil] 2.5 mg PO QID PRN 02/23/21 [History] Lutein 20 mg PO DAILY 02/23/21 [History] Lutein/Minerals/Vit A,C & E [Ocuvite] 1 tab PO DAILY 02/23/21 [History] Meclizine HCl 25 mg PO QID PRN #30 tablet 02/23/21 [Rx] Brinzolamide [Azopt 1% Ophth Susp] 1 drop EYEBOTH BID 05/28/21 [History] Netarsudil Mesylat/Latanoprost [Rocklatan 0.02%-0.005% Eye Drp] 1 drop EYEBOTH BEDTIME 05/28/21 [History] Albuterol [Proventil Neb Soln] 2.5 mg NEB Q2H PRN neb 06/08/21 [Rx] Furosemide [Lasix] 20 mg PO BIDDIURETIC #180 tablet 06/08/21 [Rx] Lactobacillus Rhamnosus GG [Culturelle] 1 cap PO BID cap 06/08/21 [Rx] Magnesium Oxide 400 mg PO DAILY@1800 tablet 06/08/21 [Rx] Carboxymethylcellulose Sodium [Artificial Tears] 1 ml EYEBOTH QID 07/30/21 [History] Warfarin [Coumadin] 1 mg PO Q2D 07/30/21 [History] methylPREDNISolone [Methylprednisolone] 6 mg PO Q48H 07/30/21 [History] Fish Oil/[place]-3 Fatty Acids [Fish Oil 1,000 MG] 1 cap PO BID 07/31/21 [History] Nitroglycerin [Nitrostat] 0.4 mg SL Q5M PRN tab.sl 08/10/21 [Rx] Polyvinyl Alcohol [LiquiTears 1.4% Ophth Soln] 1 ml EYEBOTH QID bottle 08/10/21 [Rx] Sertraline [Zoloft] 25 mg PO DAILY #0 tablet 08/10/21 [Rx] Warfarin [Coumadin] 2 mg PO DAILY@1800 #30 tablet 08/10/21 [Rx] Acetaminophen [Tylenol] 650 mg PO Q4H 08/25/21 [History] Acetaminophen/Codeine [Tylenol with Codeine No.3 300MG/30MG] 1 tab PO Q4H PRN [History] Potassium Chloride [Klor-Con M20] 20 meq PO TID 08/25/21 [History] Temazepam [Restoril] 15 mg PO BEDTIME PRN 08/25/21 [History] Past Medical History HEENT History: Reports: Allergic Rhinitis, Cataract, Glaucoma, Impaired Vision, Other (See Below) Other HEENT History: Dry eye syndrome. Patient wears glasses. Cardiovascular History: Reports: Afib, CAD, High Cholesterol, Hypertension, PTCA, Other (See Below) Other Cardiovascular History: Patient denies previous stent with only PTCA performed as below. She is not certain whether she had an AZ. Respiratory History: Reports: Bronchitis, Recurrent, COPD, Intubation, Previous, Other (See Below) Other Respiratory History: recent bronchitis Gastrointestinal History: Reports: Cholelithiasis, Chronic Diarrhea, Colon Polyp, Diverticulosis, GI Bleed, Hemorrhoids, Irritable Bowel Syndrome, Other (See Below) Other Gastrointestinal History: Lower GI bleed of unknown etiology in 2019 with colonoscopy performed as below. Genitourinary History: Reports: Chronic Renal Insuffiency, Urinary Incontinence, Other (See Below) [employer] History: Reports: Dysfunctional Uterine Bleeding, , Spontaneous Other [employer] History: Surgical menopause as below. SAB during first trimester requiring D&C. Otherwise, full term without complications during pregnancies or deliveries Musculoskeletal History: Reports: Arthritis, Back Pain, Chronic, Fracture, Osteoarthritis, Osteoporosis, Other (See Below) Other Musculoskeletal History: Right foot fracture. Right thumb fracture in about 2018. Polymyalgia rheumatica with chronic prednisone therapy. Scoliosis. Kirt's syndrome. Neurological History: Reports: Headaches, Chronic, Vertigo Psychiatric History: Reports: Anxiety, Depression Endocrine/Metabolic History: Reports: Hypokalemia, Hypomagnesemia, Hypothyroidism, Obesity/BMI 30+, Osteopenia, Osteoporosis, Other (See Below) Other Endocrine/Metabolic History: Hypoalbuminemia. Hematologic History: Reports: Anemia, B12 Deficiency, Blood Transfusion(s), Other (See Below) Other Hematologic History: Anemia with first with transfusion in 1955. 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 Oncologic (Cancer) History: Reports: Basal Cell Carcinoma, Other (See Below) Other Oncologic History: Basal cell carcinoma of the nose in 2014. Dermatologic History: Reports: Venous Stasis Dermatitis, Other (See Below) Other Dermatologic History: Skin atrophy secondary to chronic prednisone therapy. - Infectious Disease History Infectious Disease History: Reports: Chicken Pox, Measles, Rubella - Past Surgical History Head Surgeries/Procedures: Reports: None HEENT Surgical History: Reports: Adenoidectomy, Cataract Surgery, Laser Surgery, Oral Surgery, Tonsillectomy, Other (See Below) Other HEENT Surgeries/Procedures: Tonsillectomy and adenoidectomy in 1950. Bilateral cataract surgery in 2003. [place] teeth extraction. Bilateral ocular laser treatments x6 secondary to her glaucoma. Right upper lid ptosis repair in September 2018 with bilateral repair in 2001. Cardiovascular Surgical History: Reports: Percutaneous Transluminal Angioplasty, Other (See Below) Other Cardiovascular Surgeries/Procedures: PTCA x1 in 1998 with patient denying previous stent placement at that time. Respiratory Surgical History: Reports: None GI Surgical History: Reports: Appendectomy, Cholecystectomy, Colonoscopy, Polypectomy, Other (See Below) Other GI Surgeries/Procedures: Laparoscopic cholecystectomy in 2000. Last colonoscopy on 02/05/2019 with polypectomy at that time. Incidental appendectomy at time of hysterectomy as below. Female Surgical History: Reports: Breast Implant, D&C, Dilitation & Evacuation, Hysterectomy, Other (See Below) Other Female Surgeries/Procedures: Bilateral breast implants in 1966. D&C secondary to SAB. Incomplete hysterectomy secondary to dysfunctional bleeding in 1970. Endocrine Surgical History: Reports: None Neurological Surgical History: Reports: None Musculoskeletal Surgical History: Reports: None, Carpal Tunnel, Other (See Below) Other Musculoskeletal Surgeries/Procedures:: Right carpal tunnel release in 1978. Oncologic Surgical History: Reports: None Dermatological Surgical History: Reports: Skin Biopsy, Other (See Below) - Past Imaging History Past Imaging History: Reports: Angiography (1998), Holter Monitor (March 2020) Social & Family History - Family History HEENT: Reports: Macular Degeneration, Other (See Below) Other HEENT Family History: Father, brother, and sisters x2 with macular degeneration. Cardiac: Reports: Aneurysm, Bypass, CAD, Heart Murmur, Heart Valve Replacement, High Cholesterol, Hypertension, AZ, Stent, Other (See Below) Other Cardiac Family History: Mother with 2 previous CABGs with history of recurrent MIs with fatal AZ at age 84. Father with history of CABG with history of recurrent MIs. Brother with several CABGs and MIs. Sister with valve replacement. Brother with CABG and aortic dissection in his 60s. Brother with AZ and PTCA/stent in his 50s. Hypertension hyperlipidemia and siblings x6. Respiratory: Reports: None GI: Reports: None : Reports: None OBGYN: Reports: None Musculoskeletal: Reports: None Neurological: Reports: CVA, Migraines, Parkinson's, Other (See Below) Other Neurological Family History: Sister with migraines. Father with fatal CVA at age 82. Brothers x2 with Parkinson's disease. Psychiatric: Reports: None Endocrine/Metabolic: Reports: Diabetes, type II, Obesity/MBI 30+, Other (See Below) Other Endocrine/Metabolic Family History: Brother with morbid obesity and AODM. Hematologic: Reports: None Immunologic: Reports: None Dermatologic: Reports: None Oncologic: Reports: Colon, Thyroid, Other (See Below) Other Oncologic Family History: Mother with rectal cancer. Sister with multiple myeloma. Sister with thyroid cancer at age 15. 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 ED EXAM, GENERAL - Physical Exam Exam: See Below Exam Limited By: No Limitations General Appearance: Alert, WD/WN, No Apparent Distress Eye Exam: Bilateral Eye: PERRL Ears: Normal External Exam Nose: Normal Inspection Throat/Mouth: Normal Inspection Head: Atraumatic, Normocephalic Neck: Normal Inspection Respiratory/Chest: No Respiratory Distress, Lungs Clear, Normal Breath Sounds, No Accessory Muscle Use, Chest Non-Tender Cardiovascular: Bradycardia, Irregularly Irregular Peripheral Pulses: 0: Radial (R), 2+: Carotid (L), Carotid (R), Brachial (L), Brachial (R), Radial (L), Femoral (L), Femoral (R) GI/Abdominal: Normal Bowel Sounds, Soft, Non-Tender Extremities: No: Normal Inspection (RUE is cooler to touch. No doppler radial pulse to the right arm. Brachial pulse mono-phasic dopplerable. ) Neurological: Alert, Oriented, CN II-XII Intact, Normal Cognition, No Motor/Sensory Deficits Psychiatric: Normal Affect, Normal Mood Skin Exam: Warm, Dry, Intact, Normal Color, No Rash Course - Vital Signs Last Recorded V/S: Last Vital Signs Temp 97.4 F 08/25/21 19:12 Pulse 83 08/25/21 19:12 Resp 20 08/25/21 19:12 BP 122/82 08/25/21 19:30 Pulse Ox 94 L 08/25/21 19:12 - Orders/Labs/Meds Orders: Active Orders 24 hr Category Date Time Status Peripheral IV Care [RC] . DIRECTED Care 08/25/21 18:09 Active Humerus w Cont Rt [CT] Routine Exams 08/25/21 19:22 Taken Lactated Ringers [Ringers, Lactated] 1,000 ml Med 08/25/21 19:15 Active IV ASDIRECTED Sodium Chloride 0.9% [Saline Flush] Med 08/25/21 18:09 Active 10 ml FLUSH ASDIRECTED PRN Peripheral IV Insertion Adult [OM.PC] Stat Oth 08/25/21 18:09 Ordered Medication Orders Acetaminophen (Acetaminophen 325 Mg Tab) 650 mg PO Q4H PRN PRN Reason: Pain (Mild 1-3)/fever Acetaminophen (Acetaminophen 325 Mg Tab) 650 mg PO Q4H NATHALIE Acetaminophen/Codeine Phosphate (Acetaminophen/Codeine 300-30 Mg Tab) 1 tab PO Q4H PRN PRN Reason: Pain (moderate 4-6) Acetaminophen/Codeine Phosphate (Acetaminophen/Codeine 300-30 Mg Tab) 1 tab PO Q4H PRN PRN Reason: Pain Albuterol (Albuterol 0.083% 2.5 Mg/3 Ml Neb Soln) 2.5 mg NEB Q2H PRN PRN Reason: Shortness of Breath Amlodipine Besylate (Amlodipine 5 Mg Tab) 10 mg PO DAILY NATHALIE Artificial Tears (Polyvinyl Alcohol 1.4% Ophth Soln 15 Ml Bottle) 1 ml EYEBOTH QID [facility] Atorvastatin Calcium (Atorvastatin 10 Mg Tab) 10 mg PO DAILY [facility] Diphenoxylate HCl/Atropine (Atropine/Diphenoxylate 0.025-2.5 Mg Tab) tab PO QID PRN PRN Reason: Diarrhea Enoxaparin Sodium (Enoxaparin 80 Mg/0.8 Ml Syringe) 70 mg SUBCUT Q12HR [facility] Estradiol (Estradiol 1 Mg Tab) 1 mg PO DAILY [facility] Fish Oil (Fish Oil/[place]-3 Fatty Acids 1 Gm Cap) gm PO BID NATHALIE Furosemide (Furosemide 20 Mg Tab) 20 mg PO BIDDIURETIC [facility] Lactated Ringer's (Ringers, Lactated) 1,000 mls @ 125 mls/hr IV ASDIRECTED [facility] Last Admin: 08/25/21 19:14 Dose: 125 mls/hr Documented by: GIO Lactobacillus Rhamnosus (Lactobacillus Rhamnosus Gg (Probiotic) Cap) 1 cap PO BID [facility] Levothyroxine Sodium (Levothyroxine 50 Mcg Tab) 50 mcg PO DAILY N[facility]ALIE Magnesium Oxide (Magnesium Oxide 400 Mg Tab) 400 mg PO DAILY@1800 [facility]IE Methylprednisolone (Methylprednisolone 4 Mg Tab) 12 mg PO Q48H NATHALIE Methylprednisolone (Methylprednisolone 4 Mg Tab) 6 mg PO Q48H NATHALIE Metoprolol Tartrate (Metoprolol Tartrate 50 Mg Tab) 50 mg PO BID [facility] Non-Formulary Medication (Brimonidine Tartrate/Timolol [Combigan 0.2%-0.5% Eye Drops]) 1 drop EYEBOTH TID [facility] Non-Formulary Medication (Brinzolamide [Azopt 1% Ophth Susp]) 1 drop EYEBOTH BID [facility] Non-Formulary Medication (Carboxymethylcellulose Sodium [Artificial Tears]) 1 ml EYEBOTH QID [facility] Non-Formulary Medication (Cholecalciferol (Vitamin D3) [Vitamin D3]) 2,000 unit PO DAILY [facility] Non-Formulary Medication (Cyclosporine [Restasis Multidose]) 1 drop EYEBOTH BID [facility] Non-Formulary Medication (Hyoscyamine [Levsin]) 0.125 mg PO DAILY PRN PRN Reason: IBS Non-Formulary Medication (Lutein [Lutein]) 20 mg PO DAILY [facility] Non-Formulary Medication (Lutein/Minerals/Vit A,C & E [Ocuvite]) 1 tab PO DAILY [facility] Non-Formulary Medication (Netarsudil Mesylat/Latanoprost [Rocklatan 0.02%-0.005% Eye Drp]) 1 drop EYEBOTH BEDTIME [facility]ATHALIE Polyethylene Glycol (Polyethylene Glycol 3350 Powder 17 Gm Packet) 17 gm PO DAILY [facility]ATH[facility]IE Potassium Chloride (Potassium Chloride 20 Meq Tab.Er) 20 meq PO TID NATHALIE Sertraline HCl (Sertraline 25 Mg Tab) 25 mg PO DAILY [facility] Sodium Chloride (Sodium Chloride 0.9% 10 Ml Syringe) 10 ml FLUSH ASDIRECTED PRN PRN Reason: Keep Vein Open Last Admin: 08/25/21 19:12 Dose: 10 ml Documented by: [id number] Temazepam (Temazepam 15 Mg Cap) 15 mg PO BEDTIME PRN PRN Reason: Sleep Warfarin Sodium (Warfarin 5 Mg Tab) 5 mg PO DAILY@1800 [facility] Labs: Laboratory Tests 08/25/21 08/25/21 08/25/21 Range/Units 18:28 18:28 18:28 WBC 9.0 (4.0-10.2) K/uL RBC 3.58 L (3.77-5.09) M/uL Hgb 11.8 (11.7-15.5) g/dL Hct 36.4 (34.0-46.0) % MCV 101.7 H (84.0-98.0) fL MCH 33.0 (28.2-33.3) pg MCHC 32.4 (31.7-36.0) g/dL RDW 16.0 H (11.2-14.1) % Plt Count 185 D (150-350) K/uL Neut % (Auto) 80.9 H (45.0-80.0) % Lymph % (Auto) 13.3 (10.0-50.0) % [place] % (Auto) 5.6 (2.0-14.0) % Eos % (Auto) 0.1 (0.0-5.0) % Baso % (Auto) 0.1 (0.0-2.0) % Neut # (Auto) 7.27 H (1.40-7.00) K/uL Lymph # (Auto) 1.19 (0.50-3.50) K/uL [place] # (Auto) 0.50 (0.00-1.00) K/uL Eos # (Auto) 0.01 (0.00-0.50) K/uL Baso # (Auto) 0.01 (0.00-0.20) K/uL PT 15.4 H (9.5-12.0) SEC INR 1.5 APTT 23.4 L (24.5-32.8) SEC D-Dimer, Quantitative (0-400) ng/mL Sodium 141 (136-145) mmol/L Potassium 5.0 (3.5-5.1) mmol/L Chloride 102 (98-107) mmol/L Carbon Dioxide 26.9 (21.0-32.0) mmol/L Anion Gap 12.1 (7-15) meq/L BUN 22 H (7-18) mg/dL Creatinine 1.21 H (0.51-1.17) mg/dL Est Cr Clr Drug Dosing TNP Estimated GFR (MDRD) 42 mL/min Glucose 137 H (70-99) mg/dL Lactic Acid (0.4-2.0) mmol/L Calcium 8.9 (8.5-10.1) mg/dL Total Bilirubin 0.3 (0.2-1.0) mg/dL AST 7 L (15-37) U/L ALT 15 (12-78) U/L Alkaline Phosphatase 55 (46-116) IU/L Troponin I High Sens 7 (<=51) ng/L C-Reactive Protein 2.9 H (<=0.9) mg/dL Total Protein 6.7 (6.4-8.2) g/dL Albumin 3.2 L (3.4-5.0) g/dL 08/25/21 08/25/21 Range/Units 18:28 18:28 WBC (4.0-10.2) K/uL RBC (3.77-5.09) M/uL Hgb (11.7-15.5) g/dL Hct (34.0-46.0) % MCV (84.0-98.0) fL MCH (28.2-33.3) pg MCHC (31.7-36.0) g/dL RDW (11.2-14.1) % Plt Count (150-350) K/uL Neut % (Auto) (45.0-80.0) % Lymph % (Auto) (10.0-50.0) % [place] % (Auto) (2.0-14.0) % Eos % (Auto) (0.0-5.0) % Baso % (Auto) (0.0-2.0) % Neut # (Auto) (1.40-7.00) K/uL Lymph # (Auto) (0.50-3.50) K/uL [place] # (Auto) (0.00-1.00) K/uL Eos # (Auto) (0.00-0.50) K/uL Baso # (Auto) (0.00-0.20) K/uL PT (9.5-12.0) SEC INR APTT (24.5-32.8) SEC D-Dimer, Quantitative 1120 H (0-400) ng/mL Sodium (136-145) mmol/L Potassium (3.5-5.1) mmol/L Chloride (98-107) mmol/L Carbon Dioxide (21.0-32.0) mmol/L Anion Gap (7-15) meq/L BUN (7-18) mg/dL Creatinine (0.51-1.17) mg/dL Est Cr Clr Drug Dosing Estimated GFR (MDRD) mL/min Glucose (70-99) mg/dL Lactic Acid 5.9 H (0.4-2.0) mmol/L Calcium (8.5-10.1) mg/dL Total Bilirubin (0.2-1.0) mg/dL AST (15-37) U/L ALT (12-78) U/L Alkaline Phosphatase (46-116) IU/L Troponin I High Sens (<=51) ng/L C-Reactive Protein (<=0.9) mg/dL Total Protein (6.4-8.2) g/dL Albumin (3.4-5.0) g/dL Meds: Medications Generic Name Dose Route Start Last Admin Trade Name Freq PRN Reason Stop Dose Admin Acetaminophen 650 mg 08/25/21 22:51 Acetaminophen 325 Mg Tab PO Q4H PRN Pain (Mild 1-3)/fever Acetaminophen 650 mg 08/25/21 23:15 Acetaminophen 325 Mg Tab PO Q4H NATHALIE Acetaminophen/Codeine Phosphate 1 tab 08/25/21 22:57 Acetaminophen/Codeine 300-30 Mg Tab PO Q4H PRN Pain (moderate 4-6) Acetaminophen/Codeine Phosphate 1 tab 08/25/21 23:01 Acetaminophen/Codeine 300-30 Mg Tab PO Q4H PRN Pain Albuterol 2.5 mg 08/25/21 23:01 Albuterol 0.083% 2.5 Mg/3 Ml Neb Soln NEB Q2H PRN Shortness of Breath Amlodipine Besylate 10 mg 08/26/21 08:00 Amlodipine 5 Mg Tab PO DAILY [facility] Artificial Tears 1 ml 08/26/21 08:00 Polyvinyl Alcohol 1.4% Ophth Soln 15 Ml Bottle EYEBOTH QID [facility] Atorvastatin Calcium 10 mg 08/26/21 08:00 Atorvastatin 10 Mg Tab PO DAILY [facility] Diphenoxylate HCl/Atropine tab 08/25/21 23:01 Atropine/Diphenoxylate 0.025-2.5 Mg Tab PO QID PRN Diarrhea Enoxaparin Sodium 70 mg 08/26/21 08:00 Enoxaparin 80 Mg/0.8 Ml Syringe SUBCUT Q12HR [facility] Estradiol 1 mg 08/26/21 08:00 Estradiol 1 Mg Tab PO DAILY [facility] Fish Oil gm 08/26/21 08:00 Fish Oil/[place]-3 Fatty Acids 1 Gm Cap PO BID [facility] Furosemide 20 mg 08/26/21 08:00 Furosemide 20 Mg Tab PO BIDDIURETIC [facility] Lactated Ringer's 1,000 mls @ 125 mls/hr 08/25/21 19:15 08/25/21 19:14 Ringers, Lactated IV 125 mls/hr ASDIRECTED [facility] Administration Lactobacillus Rhamnosus 1 cap 08/26/21 08:00 Lactobacillus Rhamnosus Gg (Probiotic) Cap PO BID [facility] Levothyroxine Sodium 50 mcg 08/26/21 08:00 Levothyroxine 50 Mcg Tab PO DAILY [facility] Magnesium Oxide 400 mg 08/26/21 18:00 Magnesium Oxide 400 Mg Tab PO DAILY@1800 [facility] Methylprednisolone 12 mg 08/25/21 23:15 Methylprednisolone 4 Mg Tab PO Q48H [facility] Methylprednisolone 6 mg 08/25/21 23:15 Methylprednisolone 4 Mg Tab PO Q48H [facility] Metoprolol Tartrate 50 mg 08/26/21 08:00 Metoprolol Tartrate 50 Mg Tab PO BID [facility] Non-Formulary Medication 1 drop 08/26/21 08:00 Brimonidine Tartrate/Timolol [Combigan 0.2%-0.5% Eye Drops] EYEBOTH TID [facility]ATHALIE Non-Formulary Medication 1 drop 08/26/21 08:00 Brinzolamide [Azopt 1% Ophth Susp] EYEBOTH BID [facility]IE Non-Formulary Medication 1 ml 08/26/21 08:00 Carboxymethylcellulose Sodium [Artificial Tears] EYEBOTH QID [facility]ALIE Non-Formulary Medication 2,000 unit 08/26/21 08:00 Cholecalciferol (Vitamin D3) [Vitamin D3] PO DAILY [facility]ATHALIE Non-Formulary Medication 1 drop 08/26/21 08:00 Cyclosporine [Restasis Multidose] EYEBOTH BID [facility] Non-Formulary Medication 0.125 mg 08/25/21 23:01 Hyoscyamine [Levsin] PO DAILY PRN IBS Non-Formulary Medication 20 mg 08/26/21 08:00 Lutein [Lutein] PO DAILY [facility] Non-Formulary Medication 1 tab 08/26/21 08:00 Lutein/Minerals/Vit A,C & E [Ocuvite] PO DAILY [facility] Non-Formulary Medication 1 drop 08/26/21 20:00 Netarsudil Mesylat/Latanoprost [Rocklatan 0.02%-0.005% Eye Drp] EYEBOTH BEDTIME [facility] Polyethylene Glycol 17 gm 08/26/21 08:00 Polyethylene Glycol 3350 Powder 17 Gm Packet PO DAILY [facility] Potassium Chloride 20 meq 08/26/21 08:00 Potassium Chloride 20 Meq Tab.Er PO TID [facility] Sertraline HCl 25 mg 08/26/21 08:00 Sertraline 25 Mg Tab PO DAILY [facility] Sodium Chloride 10 ml 08/25/21 18:09 08/25/21 19:12 Sodium Chloride 0.9% 10 Ml Syringe FLUSH 10 ml ASDIRECTED PRN Administration Keep Vein Open Temazepam 15 mg 08/25/21 23:01 Temazepam 15 Mg Cap PO BEDTIME PRN Sleep Warfarin Sodium 5 mg 08/26/21 17:00 Warfarin 5 Mg Tab PO DAILY@1800 [facility] Discontinued Medications Generic Name Dose Route Start Last Admin Trade Name Freq PRN Reason Stop Dose Admin Acetaminophen 1,000 mg 08/25/21 21:01 08/25/21 21:12 Acetaminophen 500 Mg Tab PO 08/25/21 21:02 1,000 mg ONETIME ONE Administration Enoxaparin Sodium 80 mg 08/25/21 22:30 08/25/21 22:43 Enoxaparin 80 Mg/0.8 Ml Syringe SUBCUT 08/25/21 22:31 80 mg ONETIME ONE Administration Iopamidol 100 ml 08/25/21 18:36 08/25/21 20:21 Iopamidol 755 Mg/Ml 100 Ml Bottle IVPUSH 08/25/21 18:37 100 ml ONETIME ONE Administration Warfarin Sodium 2 mg 08/25/21 22:49 Warfarin 2 Mg Tab PO 08/25/21 22:50 ONETIME ONE - Re-Assessments/Exams Free Text/Narrative Re-Assessment/Exam: 08/25/21 18:32 We are unable to get a radial pulse by Doppler. We can easily get a dopplerable pulse on the right brachial. Her right extremity is cool to touch. There is no edema or swelling to the right upper extremity. There is no venous congestion. Labs were drawn. 08/25/21 22:06 Laboratory evaluation CBC is unremarkable. PT 15.4, INR 1.5 which is subtherapeutic for atrial fibrillation. D-dimer is elevated at 1120. Creatinine 1.21 with a BUN of 22 which is at baseline. Lactic acid is 5.9 C-reactive protein 2.9. LR 250 mill bolus and 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 This is due to an underlying acute thrombus. Her lactic acid is most likely due to this acute thrombus and decreased perfusion of the right upper extremity. I see no other signs of infection at this time. Or other causes for this lactic acidosis and is most consistent with decreased perfusion of the right upper extremity which was the concern initially. Radiologist does not feel intervention is needed at this time and therapeutic anti-coagulation is primary therapy at this time. I discussed with Zhang from [employer] about anti-coagulation. Suggestion is lovenox bid until INR therapeutic with 5mg po coumadin most likely take three days. This patient is at high risk for bleeding as well as falls and injury. She is only at an assisted living center. She does not have anyone that is able to give her her Lovenox. Also this is over the weekend and I cannot get her Lovenox for her nor can I ensure daily INRs. They pharmacist feels that it will take most likely 3 days for us to get her INR to therapeutic level and appropriately monitor it. Therefore we will place her into the hospital under inpatient services as she is clearly going to need more than 48 hours to ensure that her INR is therapeutic and also ensure that she does not have worsening arterial perfusion issues of the right extremity. I discussed with this patient at length the concerns of the small thrombus that is causing her symptoms today. Her paresthesias have absolutely resolved while she is here but she still has some soreness in her right shoulder. She is comfortable with this plan and her questions were answered. Departure - Departure Time of Disposition: 22:31 Disposition: Admitted As Inpatient 65 Clinical Impression: Right subclavian artery occlusion, Subtherapeutic anticoagulation - Discharge Information Sepsis Event Note (ED) - Focused Exam Vital Signs: Vital Signs Temp Pulse Resp BP Pulse Ox 08/25/21 19:30 122/82 08/25/21 19:12 97.4 F 83 20 94 L - Problem List & Annotations (1) Right subclavian artery occlusion SNOMED Code(s): 7945852, 253445504 Code(s): I70.8 - ATHEROSCLEROSIS OF OTHER ARTERIES Status: Acute Current Visit: No Annotation/Comment:: The patient has an identified proximal right subclavian artery occlusion obscuring some of the flow. She is subtherapeutic following a break from it for a glaucoma procedure. She does have normal capillary refill but a pretty weak radial pulse. Treatment will be therapeutic anticoagulation at this time. We will monitor closely. 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 Her INR today is 1.5. This is most likely due to the recent surgery and the restart of her Coumadin and her normal dosage 5 days ago. We will bridge her with Lovenox and increase her Coumadin monitor INR daily. (3) Elevated lactic acid level SNOMED Code(s): 0324857 Code(s): R79.89 - OTHER SPECIFIED ABNORMAL FINDINGS OF BLOOD CHEMISTRY Status: Acute Priority: High Current Visit: No Onset Date: 11/24/20 Annotation/Comment:: Her lactic acid is 5.9. This is most likely due to the perfusion to her right upper extremity. Repeat in the morning. No signs of infection at this time. (4) Afib SNOMED Code(s): 46538244 Code(s): I48.91 - UNSPECIFIED ATRIAL FIBRILLATION Status: Chronic Priority: Medium Current Visit: No Annotation/Comment:: She is in a controlled rate in the 70s. She is subtherapeutic on her INR. Qualifiers: (5) CAD (coronary artery disease) SNOMED Code(s): 08607464 Code(s): I25.10 - ATHSCL HEART DISEASE OF [place] CORONARY ARTERY W/O ANG PCTRS Status: Chronic Priority: Low Current Visit: No Annotation/Comment:: No chest pain or anginal type symptoms. Qualifiers: Coronary Disease-Associated Artery/Lesion type: [place] artery [place] vs. transplanted heart: [place] heart Associated angina: without angina Qualified Code(s): I25.10 - Atherosclerotic heart disease of [place] coronary artery without angina pectoris (6) Glaucoma SNOMED Code(s): 61927828 Code(s): H40.9 - UNSPECIFIED GLAUCOMA Status: Chronic Priority: Low Current Visit: No Annotation/Comment:: Had a recent procedure at [facility] in [place] by ophthalmology She had a an express shunt with [facility] in the left eye. Qualifiers: Glaucoma type: unspecified Laterality: unspecified laterality Qualified Code(s): H40.9 - Unspecified glaucoma (7) Hypertension SNOMED Code(s): 70578384 Code(s): I10 - ESSENTIAL (PRIMARY) HYPERTENSION Status: Chronic Priority: Medium Current Visit: No Annotation/Comment:: Stable vitals, continue to monitor Blood pressure 122/82 Qualifiers: Hypertension type: primary hypertension Qualified Code(s): I10 - Essential (primary) hypertension (8) Hypoxemia requiring supplemental oxygen SNOMED Code(s): 659515688 Code(s): R09.02 - HYPOXEMIA; Z99.81 - DEPENDENCE ON SUPPLEMENTAL OXYGEN Status: Chronic Priority: Low Current Visit: No Annotation/Comment:: continue to use oxygen per nasal cannula to keep O2 sats above 90% as per home. primarily during the night. (9) Hyperlipidemia SNOMED Code(s): 41839331 Code(s): E78.5 - HYPERLIPIDEMIA, UNSPECIFIED Status: Chronic Priority: Low Current Visit: No Annotation/Comment:: Under therapy/stable per patient Qualifiers: Hyperlipidemia type: unspecified Qualified Code(s): E78.5 - Hyperlipidemia, unspecified (10) Hypothyroid SNOMED Code(s): 41082192 Code(s): E03.9 - HYPOTHYROIDISM, UNSPECIFIED Status: Chronic Priority: Low Current Visit: No Annotation/Comment:: Stable per patient with no current symptoms. Last TSH 3.29, 1 month ago. Qualifiers: Hypothyroidism type: acquired Qualified Code(s): E03.9 - Hypothyroidism, unspecified (11) Polymyalgia rheumatica SNOMED Code(s): 26074867 Code(s): M35.3 - POLYMYALGIA RHEUMATICA Status: Chronic Priority: Low Current Visit: No Annotation/Comment:: Stable per history (12) Centrilobular emphysema SNOMED Code(s): 81919566 Code(s): J43.2 - CENTRILOBULAR EMPHYSEMA Status: Chronic Current Visit: Yes Annotation/Comment:: Stable per patient no complaints no shortness of breath. - Problem List Review Problem List Initiated/Reviewed/Updated: Yes - My Orders Last 24 Hours: My Active Orders 08/25/21 18:09 Peripheral IV Care [RC] . DIRECTED Sodium Chloride 0.9% [Saline Flush] 10 ml FLUSH ASDIRECTED PRN Peripheral IV Insertion Adult [OM.PC] Stat 08/25/21 19:15 Lactated Ringers [Ringers, Lactated] 1,000 ml IV ASDIRECTED 08/25/21 19:22 Humerus w Cont Rt [CT] Routine - Assessment/Plan Admission H&P: Please use this note as an admission H&P Last 24 Hours: My Active Orders 08/25/21 18:09 Peripheral IV Care [RC] . DIRECTED Sodium Chloride 0.9% [Saline Flush] 10 ml FLUSH ASDIRECTED PRN Peripheral IV Insertion Adult [OM.PC] Stat 08/25/21 19:15 Lactated Ringers [Ringers, Lactated] 1,000 ml IV ASDIRECTED 08/25/21 19:22 Humerus w Cont Rt [CT] Routine Assessment:: Assessment/plan. Active Diagnoses 1. 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 Subtherapeutic INR. Lovenox 70 mg subcutaneously twice daily. Coumadin 5 mg daily until therapeutic INR. Then back to the patient's home therapy or otherwise guidance for Coumadin management. 2. subtherapeutic INR with noted acute thrombus per #1. Per #1 3. Elevated lactic acid. Most likely due to poor perfusion of the right upper extremity with the right subclavian arterial clot. Repeat labs. Chronic diagnosis Atrial fibrillation controlled. Metoprolol tartrate 50 mg p.o. twice daily Coronary artery disease Metoprolol Glaucoma with recent intervention Continue eyedrops from wheel aligner multiple Essential hypertension Lasix 40 mg p.o. daily, amlodipine 10 mg daily Hypoxemia primarily during the night. 2 L oxygen as needed bedtime Dyslipidemia Atorvastatin 10 mg daily Hypothyroidism Levothyroxine 50 mg daily Polymyalgia rheumatica Methylprednisolone 12 mg even, 6 mg of days. VTE: TEDs, lovenox and coumadin Sepsis: No signs of sepsis at this time. CODE Status: DNR/DNI This patient will need at least 2 nights in the hospital due to the concerns of the arterial occlusion and subtherapeutic INR levels. She is in a basic care assisted living and does not have access to Lovenox over the weekend nor would we be able to closely monitor her INR daily over the weekend to ensure appropriate therapy. As guided by the pharmacist through telepharmacy tonight she will need at least 2 days of close monitoring.
[2021-08-25] MEDS ORDERED: Iopamidol 755 Mg/ML 100 ML Bottle IVPUSH ONE (18:36)
[2021-08-25 18:57] LABS: ANION GAP 12.1 meq/L (7-15); CHLORIDE,CL 102 mmol/L (98-107); SODIUM,NA 141 mmol/L (136-145)
[2021-08-25 19:00] LABS: PTT,PARTIAL THROMBOPLSTIN TIME 23.4 SEC (24.5-32.8)
[2021-08-25] MEDS ORDERED: Lactated Ringers 1,000 ML IV SCH ×2 (19:15→23:45)
[2021-08-25] MEDS ORDERED: Acetaminophen 500 MG Tab PO ONE (21:01)
[2021-08-25] MEDS ORDERED: Enoxaparin 80 MG/0.8 ML Syringe SUBCUT ONE (22:30)
[2021-08-25] MEDS ORDERED: Warfarin 2 MG Tab PO ONE (22:49)
[2021-08-25] MEDS ORDERED: Acetaminophen 325 MG Tab PO PRN (22:51)
[2021-08-25] MEDS ORDERED: Acetaminophen/Codeine 300-30 MG Tab PO PRN (23:01)
[2021-08-25] MEDS ORDERED: Albuterol 0.083% 2.5 MG/3 ML Neb Soln NEB PRN (23:01)
[2021-08-25] MEDS ORDERED: Hyoscyamine 0.125 MG Tab.SL SL PRN (23:21)
[2021-08-26] MEDS: Acetaminophen 325 MG Tab PO SCH ×3 (00:48→08:59)
[2021-08-26] MEDS: Temazepam 15 MG Cap PO PRN ×2 (00:58→20:32)
[2021-08-26 07:57] LABS: CHLORIDE,CL 104 mmol/L (98-107); SODIUM,NA 143 mmol/L (136-145)
[2021-08-26 07:59] LABS: ANION GAP 16.2 meq/L (7-15)
[2021-08-26] MEDS ORDERED: Non-Formulary Medication 1 Each (Lutein/Minerals/Vit A,C & E [Ocuvite] 1 EACH Tablet) PO SCH (08:00)
[2021-08-26] MEDS ORDERED: Timolol Maleate 0.5% Ophth Soln 5 ML Bottle EYEBOTH SCH (08:00)
[2021-08-26] MEDS ORDERED: Brimonidine 0.2% Ophth Soln 5 ML Bottle EYEBOTH SCH (08:00)
[2021-08-26] MEDS ORDERED: Polyvinyl Alcohol 1.4% Ophth Soln 15 ML Bottle EYEBOTH SCH (08:00)
[2021-08-26] MEDS ORDERED: CYCLOSPORINE 0.05% EYEBOTH SCH (08:00)
[2021-08-26] MEDS ORDERED: Dorzolamide 2% Ophth Soln 10 ML Bottle EYEBOTH SCH (08:00)
[2021-08-26] MEDS: [UNRECOGNIZED DRUG - OTHER] EYEBOTH SCH ×3 (08:54→17:15)
[2021-08-26] MEDS: Polyethylene Glycol 3350 Powder 17 GM Packet PO SCH (08:55)
[2021-08-26] MEDS: Enoxaparin 80 MG/0.8 ML Syringe SUBCUT SCH ×2 (08:56→20:32)
[2021-08-26] MEDS: Cholecalciferol (Vitamin D3) 25 MCG Tab PO SCH (08:56)
[2021-08-26] MEDS: Polyvinyl Alcohol 1.4% Ophth Soln 15 ML Bottle EYEBOTH SCH ×4 (08:56→20:32)
[2021-08-26] MEDS: amLODIPine 5 MG Tab PO SCH (08:57)
[2021-08-26] MEDS: Lactobacillus Rhamnosus GG (Probiotic) Cap PO SCH ×2 (08:57→17:17)
[2021-08-26] MEDS: Fish Oil/Omega-3 Fatty Acids 1 Gm Cap PO SCH ×2 (08:57→17:15)
[2021-08-26] MEDS: Lutein/Minerals/Vitamin C/Vitamin E Acetate Cap PO SCH (08:58)
[2021-08-26] MEDS: Furosemide 20 MG Tab PO SCH ×2 (08:58→12:13)
[2021-08-26] MEDS: Estradiol 1 MG Tab PO SCH (08:58)
[2021-08-26] MEDS: Metoprolol Tartrate 50 MG Tab PO SCH ×2 (08:58→17:17)
[2021-08-26] MEDS: Sertraline 25 MG Tab PO SCH (08:59)
[2021-08-26] MEDS: atorvaSTATin 10 MG Tab PO SCH (09:00)
[2021-08-26] MEDS: Potassium Chloride 20 MEQ Tab.ER PO SCH ×3 (09:00→17:14)
[2021-08-26] MEDS: Levothyroxine 50 MCG Tab PO SCH (09:00)
[2021-08-26] MEDS: BRINZOLAMIDE 1% EYEBOTH SCH ×2 (09:47→17:26)
[2021-08-26] MEDS: OFLOXACIN 0.3% EYELF SCH (09:48)
[2021-08-26] MEDS: Atropine/Diphenoxylate 0.025-2.5 MG Tab PO PRN (09:49)
[2021-08-26] MEDS: Acetaminophen/Codeine 300-30 MG Tab PO PRN ×2 (12:13→17:16)
[2021-08-26] MEDS: Brimonidine 0.2% Ophth Soln 5 ML Bottle EYEBOTH SCH ×2 (12:13→17:18)
--- NOTE | 2021-08-26 16:57 | PCM.PN ---
- General Info Date of Service: 08/26/21 Admission Dx/Problem (Free Text): Subclavian arterial occlusion right Subtherapeutic Coumadin Atrial fibrillation Subjective Update: Patient rested well throughout the night. She is her symptoms of pain and paresthesia in the right arm are waxing and waning and becoming less frequent. She has no change in the functionality of her right hand. Her pain is been controlled with Tylenol and T3's. She has been eating and drinking appropriately. She does feel quite a bit better. Functional Status: Reports: Pain Controlled, Tolerating Diet, Ambulating - Review of Systems General: Reports: No Symptoms HEENT: Reports: No Symptoms Pulmonary: Reports: No Symptoms Cardiovascular: Reports: No Symptoms Gastrointestinal: Reports: No Symptoms Genitourinary: Reports: No Symptoms Musculoskeletal: Reports: Joint Pain (Right shoulder pain is improving) Skin: Reports: No Symptoms Neurological: Reports: Paresthesia (Paresthesias as above improving to the right arm. Does not feel is cool.) Psychiatric: Reports: No Symptoms - Patient Data Vitals - Most Recent: Last Vital Signs Temp 97.4 F 08/25/21 19:12 Pulse 0 L 08/26/21 08:58 Resp 20 08/25/21 19:12 BP 0/0 L 08/26/21 08:58 Pulse Ox 94 L 08/25/21 22:51 Weight - Most Recent: 170 lb I&O - Last 24 Hours: Intake & Output 08/26/21 08/26/21 08/26/21 06:59 14:59 22:59 Intake Total 320 Balance 320 Lab Results Last 24 Hours: Laboratory Results - last 24 hr 08/25/21 08/25/21 08/25/21 Range/Units 18:28 18:28 18:28 WBC 9.0 (4.0-10.2) K/uL RBC 3.58 L (3.77-5.09) M/uL Hgb 11.8 (11.7-15.5) g/dL Hct 36.4 (34.0-46.0) % MCV 101.7 H (84.0-98.0) fL MCH 33.0 (28.2-33.3) pg MCHC 32.4 (31.7-36.0) g/dL RDW 16.0 H (11.2-14.1) % Plt Count 185 D (150-350) K/uL Neut % (Auto) 80.9 H (45.0-80.0) % Lymph % (Auto) 13.3 (10.0-50.0) % [place] % (Auto) 5.6 (2.0-14.0) % Eos % (Auto) 0.1 (0.0-5.0) % Baso % (Auto) 0.1 (0.0-2.0) % Neut # (Auto) 7.27 H (1.40-7.00) K/uL Lymph # (Auto) 1.19 (0.50-3.50) K/uL [place] # (Auto) 0.50 (0.00-1.00) K/uL Eos # (Auto) 0.01 (0.00-0.50) K/uL Baso # (Auto) 0.01 (0.00-0.20) K/uL PT 15.4 H (9.5-12.0) SEC INR 1.5 APTT 23.4 L (24.5-32.8) SEC D-Dimer, Quantitative (0-400) ng/mL Sodium 141 (136-145) mmol/L Potassium 5.0 (3.5-5.1) mmol/L Chloride 102 (98-107) mmol/L Carbon Dioxide 26.9 (21.0-32.0) mmol/L Anion Gap 12.1 (7-15) meq/L BUN 22 H (7-18) mg/dL Creatinine 1.21 H (0.51-1.17) mg/dL Est Cr Clr Drug Dosing TNP Estimated GFR (MDRD) 42 mL/min Glucose 137 H (70-99) mg/dL Lactic Acid (0.4-2.0) mmol/L Calcium 8.9 (8.5-10.1) mg/dL Total Bilirubin 0.3 (0.2-1.0) mg/dL AST 7 L (15-37) U/L ALT 15 (12-78) U/L Alkaline Phosphatase 55 (46-116) IU/L Troponin I High Sens 7 (<=51) ng/L C-Reactive Protein 2.9 H (<=0.9) mg/dL Total Protein 6.7 (6.4-8.2) g/dL Albumin 3.2 L (3.4-5.0) g/dL 08/25/21 08/25/21 08/26/21 Range/Units 18:28 18:28 07:30 WBC 7.0 (4.0-10.2) K/uL RBC 3.54 L (3.77-5.09) M/uL Hgb 11.3 L (11.7-15.5) g/dL Hct 36.9 (34.0-46.0) % MCV 104.2 H (84.0-98.0) fL MCH 31.9 (28.2-33.3) pg MCHC 30.6 L (31.7-36.0) g/dL RDW 15.8 H (11.2-14.1) % Plt Count 183 (150-350) K/uL Neut % (Auto) 71.6 (45.0-80.0) % Lymph % (Auto) 18.0 (10.0-50.0) % [place] % (Auto) 9.3 (2.0-14.0) % Eos % (Auto) 0.7 (0.0-5.0) % Baso % (Auto) 0.4 (0.0-2.0) % Neut # (Auto) 5.01 (1.40-7.00) K/uL Lymph # (Auto) 1.26 (0.50-3.50) K/uL [place] # (Auto) 0.65 (0.00-1.00) K/uL Eos # (Auto) 0.05 (0.00-0.50) K/uL Baso # (Auto) 0.03 (0.00-0.20) K/uL PT (9.5-12.0) SEC INR APTT (24.5-32.8) SEC D-Dimer, Quantitative 1120 H (0-400) ng/mL Sodium (136-145) mmol/L Potassium (3.5-5.1) mmol/L Chloride (98-107) mmol/L Carbon Dioxide (21.0-32.0) mmol/L Anion Gap (7-15) meq/L BUN (7-18) mg/dL Creatinine (0.51-1.17) mg/dL Est Cr Clr Drug Dosing Estimated GFR (MDRD) mL/min Glucose (70-99) mg/dL Lactic Acid 5.9 H (0.4-2.0) mmol/L Calcium (8.5-10.1) mg/dL Total Bilirubin (0.2-1.0) mg/dL AST (15-37) U/L ALT (12-78) U/L Alkaline Phosphatase (46-116) IU/L Troponin I High Sens (<=51) ng/L C-Reactive Protein (<=0.9) mg/dL Total Protein (6.4-8.2) g/dL Albumin (3.4-5.0) g/dL 08/26/21 08/26/21 08/26/21 Range/Units 07:30 07:30 07:30 WBC (4.0-10.2) K/uL RBC (3.77-5.09) M/uL Hgb (11.7-15.5) g/dL Hct (34.0-46.0) % MCV (84.0-98.0) fL MCH (28.2-33.3) pg MCHC (31.7-36.0) g/dL RDW (11.2-14.1) % Plt Count (150-350) K/uL Neut % (Auto) (45.0-80.0) % Lymph % (Auto) (10.0-50.0) % [place] % (Auto) (2.0-14.0) % Eos % (Auto) (0.0-5.0) % Baso % (Auto) (0.0-2.0) % Neut # (Auto) (1.40-7.00) K/uL Lymph # (Auto) (0.50-3.50) K/uL [place] # (Auto) (0.00-1.00) K/uL Eos # (Auto) (0.00-0.50) K/uL Baso # (Auto) (0.00-0.20) K/uL PT 20.0 H (9.5-12.0) SEC INR 2.0 APTT 30.0 (24.5-32.8) SEC D-Dimer, Quantitative (0-400) ng/mL Sodium 143 (136-145) mmol/L Potassium 3.5 D (3.5-5.1) mmol/L Chloride 104 (98-107) mmol/L Carbon Dioxide 26.3 (21.0-32.0) mmol/L Anion Gap 16.2 H (7-15) meq/L BUN 13 (7-18) mg/dL Creatinine 0.89 (0.51-1.17) mg/dL Est Cr Clr Drug Dosing TNP Estimated GFR (MDRD) 60 mL/min Glucose 79 (70-99) mg/dL Lactic Acid 7.3 H (0.4-2.0) mmol/L Calcium 8.3 L (8.5-10.1) mg/dL Total Bilirubin (0.2-1.0) mg/dL AST (15-37) U/L ALT (12-78) U/L Alkaline Phosphatase (46-116) IU/L Troponin I High Sens (<=51) ng/L C-Reactive Protein (<=0.9) mg/dL Total Protein (6.4-8.2) g/dL Albumin (3.4-5.0) g/dL Med Orders - Current: Current Medications Acetaminophen (Acetaminophen 325 Mg Tab) 650 mg PO Q4H PRN PRN Reason: Pain (Mild 1-3)/fever Acetaminophen/Codeine Phosphate (Acetaminophen/Codeine 300-30 Mg Tab) 1 tab PO Q4H PRN PRN Reason: Pain (moderate 4-6) Last Admin: 08/26/21 12:13 Dose: 1 tab Documented by: Albuterol (Albuterol 0.083% 2.5 Mg/3 Ml Neb Soln) 2.5 mg NEB Q2H PRN PRN Reason: Shortness of Breath Amlodipine Besylate (Amlodipine 5 Mg Tab) 10 mg PO DAILY [facility] Last Admin: 08/26/21 08:57 Dose: 10 mg Documented by: Artificial Tears (Polyvinyl Alcohol 1.4% Ophth Soln 15 Ml Bottle) 1 ml EYEBOTH QID [facility] Last Admin: 08/26/21 12:14 Dose: 1 drop Documented by: Atorvastatin Calcium (Atorvastatin 10 Mg Tab) 10 mg PO DAILY [facility] Last Admin: 08/26/21 09:00 Dose: 10 mg Documented by: Brimonidine Tartrate (Brimonidine 0.2% Ophth Soln 5 Ml Bottle) 1 ml EYEBOTH BID [facility] Last Admin: 08/26/21 12:13 Dose: Not Given Documented by: Cholecalciferol (Cholecalciferol (Vitamin D3) 25 Mcg Tab) 50 mcg PO DAILY [facility] Last Admin: 08/26/21 08:56 Dose: 50 mcg Documented by: Diphenoxylate HCl/Atropine (Atropine/Diphenoxylate 0.025-2.5 Mg Tab) 1 tab PO QID PRN PRN Reason: Diarrhea Last Admin: 08/26/21 09:49 Dose: 1 tab Documented by: Enoxaparin Sodium (Enoxaparin 80 Mg/0.8 Ml Syringe) 70 mg SUBCUT Q12HR [facility] Last Admin: 08/26/21 08:56 Dose: 70 mg Documented by: Estradiol (Estradiol 1 Mg Tab) 1 mg PO DAILY [facility] Last Admin: 08/26/21 08:58 Dose: 1 mg Documented by: Fish Oil (Fish Oil/[place]-3 Fatty Acids 1 Gm Cap) 1 gm PO BID [facility] Last Admin: 08/26/21 08:57 Dose: 1 gm Documented by: Furosemide (Furosemide 20 Mg Tab) 20 mg PO BIDDIURETIC [facility] Last Admin: 08/26/21 12:13 Dose: 20 mg Documented by: Hyoscyamine (Hyoscyamine 0.125 Mg Tab.Sl) 0.125 mg SL DAILY PRN PRN Reason: IBS Lactobacillus Rhamnosus (Lactobacillus Rhamnosus Gg (Probiotic) Cap) 1 cap PO BID [facility] Last Admin: 08/26/21 08:57 Dose: 1 cap Documented by: Levothyroxine Sodium (Levothyroxine 50 Mcg Tab) 50 mcg PO DAILY [facility] Last Admin: 08/26/21 09:00 Dose: 50 mcg Documented by: Magnesium Oxide (Magnesium Oxide 400 Mg Tab) 400 mg PO DAILY@1800 [facility] Methylprednisolone (Methylprednisolone 4 Mg Tab) 12 mg PO Q48H [facility] Last Admin: 08/26/21 08:58 Dose: 12 mg Documented by: Methylprednisolone (Methylprednisolone 4 Mg Tab) 6 mg PO Q48H [facility] Metoprolol Tartrate (Metoprolol Tartrate 50 Mg Tab) 50 mg PO BID [facility] Last Admin: 08/26/21 08:58 Dose: 50 mg Documented by: Non-Formulary Medication (Cyclosporine [Restasis Multidose]) 1 drop EYEBOTH BID [facility] Rocklatan 0.02-0.005 (% Oph) 0 drop EYEBOTH BEDTIME [facility] Combigan D Own Med () 0 each EYEBOTH TID [facility] Last Admin: 08/26/21 12:19 Dose: 1 each Documented by: Brinzolamide 1% Ophth Soln Own Med 0 each EYEBOTH BID [facility] Last Admin: 08/26/21 09:47 Dose: 1 each Documented by: Ofloxacin (Ofloxacin 0.3% Ophth Soln 5 Ml Bottle Own Med) 0 ml EYELF DAILY [facility] Last Admin: 08/26/21 09:48 Dose: 1 drop Documented by: Polyethylene Glycol (Polyethylene Glycol 3350 Powder 17 Gm Packet) 17 gm PO DAILY [facility] Last Admin: 08/26/21 08:55 Dose: Not Given Documented by: Potassium Chloride (Potassium Chloride 20 Meq Tab.Er) 20 meq PO TID [facility] Last Admin: 08/26/21 12:13 Dose: 20 meq Documented by: Prednisolone Acetate (Prednisolone Acetate 1% Ophth Own Med) 0 ml EYELF TID [facility] Last Admin: 08/26/21 12:18 Dose: 1 drop Documented by: Sertraline HCl (Sertraline 25 Mg Tab) 25 mg PO DAILY [facility] Last Admin: 08/26/21 08:59 Dose: 25 mg Documented by: Sodium Chloride (Sodium Chloride 0.9% 10 Ml Syringe) 10 ml FLUSH ASDIRECTED PRN PRN Reason: Keep Vein Open Last Admin: 08/25/21 19:12 Dose: 10 ml Documented by: Temazepam (Temazepam 15 Mg Cap) 15 mg PO BEDTIME PRN PRN Reason: Sleep Last Admin: 08/26/21 00:58 Dose: 15 mg Documented by: Vit C/Vit E/Zinc/Copper/Lutein (Lutein/Minerals/Vitamin C/Vitamin E Acetate Cap) 1 each PO DAILY [facility] Last Admin: 08/26/21 08:58 Dose: 1 each Documented by: Warfarin Sodium (Warfarin 5 Mg Tab) 5 mg PO DAILY@1800 [facility] Discontinued Medications Acetaminophen (Acetaminophen 500 Mg Tab) 1,000 mg PO ONETIME ONE Stop: 08/25/21 21:02 Last Admin: 08/25/21 21:12 Dose: 1,000 mg Documented by: Acetaminophen (Acetaminophen 325 Mg Tab) 650 mg PO Q4H [facility] Last Admin: 08/26/21 08:59 Dose: 650 mg Documented by: Acetaminophen/Codeine Phosphate (Acetaminophen/Codeine 300-30 Mg Tab) 1 tab PO Q4H PRN PRN Reason: Pain Artificial Tears (Polyvinyl Alcohol 1.4% Ophth Soln 15 Ml Bottle) 1 ml EYEBOTH QID [facility] Brimonidine Tartrate (Brimonidine 0.2% Ophth Soln 5 Ml Bottle) 0 ml EYEBOTH TID [facility] Last Admin: 08/26/21 09:40 Dose: Not Given Documented by: Dorzolamide HCl (Dorzolamide 2% Ophth Soln 10 Ml Bottle) 0 ml EYEBOTH BID [facility] Last Admin: 08/26/21 09:40 Dose: Not Given Documented by: Enoxaparin Sodium (Enoxaparin 80 Mg/0.8 Ml Syringe) 80 mg SUBCUT ONETIME ONE Stop: 08/25/21 22:31 Last Admin: 08/25/21 22:43 Dose: 80 mg Documented by: Lactated Ringer's (Ringers, Lactated) 1,000 mls @ 125 mls/hr IV ASDIRECTED [facility] Last Admin: 08/25/21 19:14 Dose: 125 mls/hr Documented by: Lactated Ringer's (Ringers, Lactated) 1,000 mls @ 100 mls/hr IV ASDIRECTED [facility] Last Admin: 08/26/21 00:47 Dose: 100 mls/hr Documented by: Iopamidol (Iopamidol 755 Mg/Ml 100 Ml Bottle) 100 ml IVPUSH ONETIME ONE Stop: 08/25/21 18:37 Last Admin: 08/25/21 20:21 Dose: 100 ml Documented by: Non-Formulary Medication (Lutein/Minerals/Vit A,C & E [Ocuvite]) 1 tab PO DAILY [facility] Timolol Maleate (Timolol Maleate 0.5% Ophth Soln 5 Ml Bottle) 0 ml EYEBOTH TID [facility] Last Admin: 08/26/21 09:40 Dose: Not Given Documented by: Warfarin Sodium (Warfarin 2 Mg Tab) 2 mg PO ONETIME ONE Stop: 08/25/21 22:50 Last Admin: 08/26/21 00:48 Dose: 2 mg Documented by: - Exam Quality Assessment: DVT Prophylaxis (Coumadin Lovenox) General: Alert, Oriented HEENT: Pupils Equal, Pupils Reactive, EOMI, Mucous Membr. Moist/[place] Neck: Supple Lungs: Clear to Auscultation, Normal Respiratory Effort Cardiovascular: Irregular Rhythm GI/Abdominal Exam: Normal Bowel Sounds, Soft, Non-Tender Extremities: Normal Inspection (Right upper extremity is almost the same temperature as her left. I am able to Doppler a very weak distal radial pulse which I was unable to previously.), Normal Capillary Refill Peripheral Pulses: 1+: Radial (R), 2+: Brachial (L), Brachial (R), Radial (L) Skin: Warm, Dry, Intact Neurological: No New Focal Deficit Psy/Mental Status: Alert, Normal Affect, Normal Mood - Patient Data Lab Results Last 24 hrs: Laboratory Results - last 24 hr 08/25/21 08/25/21 08/25/21 Range/Units 18:28 18:28 18:28 WBC 9.0 (4.0-10.2) K/uL RBC 3.58 L (3.77-5.09) M/uL Hgb 11.8 (11.7-15.5) g/dL Hct 36.4 (34.0-46.0) % MCV 101.7 H (84.0-98.0) fL MCH 33.0 (28.2-33.3) pg MCHC 32.4 (31.7-36.0) g/dL RDW 16.0 H (11.2-14.1) % Plt Count 185 D (150-350) K/uL Neut % (Auto) 80.9 H (45.0-80.0) % Lymph % (Auto) 13.3 (10.0-50.0) % [place] % (Auto) 5.6 (2.0-14.0) % Eos % (Auto) 0.1 (0.0-5.0) % Baso % (Auto) 0.1 (0.0-2.0) % Neut # (Auto) 7.27 H (1.40-7.00) K/uL Lymph # (Auto) 1.19 (0.50-3.50) K/uL [place] # (Auto) 0.50 (0.00-1.00) K/uL Eos # (Auto) 0.01 (0.00-0.50) K/uL Baso # (Auto) 0.01 (0.00-0.20) K/uL PT 15.4 H (9.5-12.0) SEC INR 1.5 APTT 23.4 L (24.5-32.8) SEC D-Dimer, Quantitative (0-400) ng/mL Sodium 141 (136-145) mmol/L Potassium 5.0 (3.5-5.1) mmol/L Chloride 102 (98-107) mmol/L Carbon Dioxide 26.9 (21.0-32.0) mmol/L Anion Gap 12.1 (7-15) meq/L BUN 22 H (7-18) mg/dL Creatinine 1.21 H (0.51-1.17) mg/dL Est Cr Clr Drug Dosing TNP Estimated GFR (MDRD) 42 mL/min Glucose 137 H (70-99) mg/dL Lactic Acid (0.4-2.0) mmol/L Calcium 8.9 (8.5-10.1) mg/dL Total Bilirubin 0.3 (0.2-1.0) mg/dL AST 7 L (15-37) U/L ALT 15 (12-78) U/L Alkaline Phosphatase 55 (46-116) IU/L Troponin I High Sens 7 (<=51) ng/L C-Reactive Protein 2.9 H (<=0.9) mg/dL Total Protein 6.7 (6.4-8.2) g/dL Albumin 3.2 L (3.4-5.0) g/dL 08/25/21 08/25/21 08/26/21 Range/Units 18:28 18:28 07:30 WBC 7.0 (4.0-10.2) K/uL RBC 3.54 L (3.77-5.09) M/uL Hgb 11.3 L (11.7-15.5) g/dL Hct 36.9 (34.0-46.0) % MCV 104.2 H (84.0-98.0) fL MCH 31.9 (28.2-33.3) pg MCHC 30.6 L (31.7-36.0) g/dL RDW 15.8 H (11.2-14.1) % Plt Count 183 (150-350) K/uL Neut % (Auto) 71.6 (45.0-80.0) % Lymph % (Auto) 18.0 (10.0-50.0) % [place] % (Auto) 9.3 (2.0-14.0) % Eos % (Auto) 0.7 (0.0-5.0) % Baso % (Auto) 0.4 (0.0-2.0) % Neut # (Auto) 5.01 (1.40-7.00) K/uL Lymph # (Auto) 1.26 (0.50-3.50) K/uL [place] # (Auto) 0.65 (0.00-1.00) K/uL Eos # (Auto) 0.05 (0.00-0.50) K/uL Baso # (Auto) 0.03 (0.00-0.20) K/uL PT (9.5-12.0) SEC INR APTT (24.5-32.8) SEC D-Dimer, Quantitative 1120 H (0-400) ng/mL Sodium (136-145) mmol/L Potassium (3.5-5.1) mmol/L Chloride (98-107) mmol/L Carbon Dioxide (21.0-32.0) mmol/L Anion Gap (7-15) meq/L BUN (7-18) mg/dL Creatinine (0.51-1.17) mg/dL Est Cr Clr Drug Dosing Estimated GFR (MDRD) mL/min Glucose (70-99) mg/dL Lactic Acid 5.9 H (0.4-2.0) mmol/L Calcium (8.5-10.1) mg/dL Total Bilirubin (0.2-1.0) mg/dL AST (15-37) U/L ALT (12-78) U/L Alkaline Phosphatase (46-116) IU/L Troponin I High Sens (<=51) ng/L C-Reactive Protein (<=0.9) mg/dL Total Protein (6.4-8.2) g/dL Albumin (3.4-5.0) g/dL 08/26/21 08/26/21 08/26/21 Range/Units 07:30 07:30 07:30 WBC (4.0-10.2) K/uL RBC (3.77-5.09) M/uL Hgb (11.7-15.5) g/dL Hct (34.0-46.0) % MCV (84.0-98.0) fL MCH (28.2-33.3) pg MCHC (31.7-36.0) g/dL RDW (11.2-14.1) % Plt Count (150-350) K/uL Neut % (Auto) (45.0-80.0) % Lymph % (Auto) (10.0-50.0) % [place] % (Auto) (2.0-14.0) % Eos % (Auto) (0.0-5.0) % Baso % (Auto) (0.0-2.0) % Neut # (Auto) (1.40-7.00) K/uL Lymph # (Auto) (0.50-3.50) K/uL [place] # (Auto) (0.00-1.00) K/uL Eos # (Auto) (0.00-0.50) K/uL Baso # (Auto) (0.00-0.20) K/uL PT 20.0 H (9.5-12.0) SEC INR 2.0 APTT 30.0 (24.5-32.8) SEC D-Dimer, Quantitative (0-400) ng/mL Sodium 143 (136-145) mmol/L Potassium 3.5 D (3.5-5.1) mmol/L Chloride 104 (98-107) mmol/L Carbon Dioxide 26.3 (21.0-32.0) mmol/L Anion Gap 16.2 H (7-15) meq/L BUN 13 (7-18) mg/dL Creatinine 0.89 (0.51-1.17) mg/dL Est Cr Clr Drug Dosing TNP Estimated GFR (MDRD) 60 mL/min Glucose 79 (70-99) mg/dL Lactic Acid 7.3 H (0.4-2.0) mmol/L Calcium 8.3 L (8.5-10.1) mg/dL Total Bilirubin (0.2-1.0) mg/dL AST (15-37) U/L ALT (12-78) U/L Alkaline Phosphatase (46-116) IU/L Troponin I High Sens (<=51) ng/L C-Reactive Protein (<=0.9) mg/dL Total Protein (6.4-8.2) g/dL Albumin (3.4-5.0) g/dL Result Diagrams: 08/26/21 07:30 08/26/21 07:30 Sepsis Event Note - Evaluation Sepsis Screening Result: No Definite Risk - Focused Exam Vital Signs: Vital Signs Pulse BP 08/26/21 08:58 0 L 0/0 L 08/26/21 08:57 0/0 L - Problem List & Annotations (1) Right subclavian artery occlusion SNOMED Code(s): 6659812, 261194895 Code(s): I70.8 - ATHEROSCLEROSIS OF OTHER ARTERIES Status: Acute Current Visit: No Annotation/Comment:: The patient has an identified proximal right subclavian artery occlusion obscuring some of the flow. She is subtherapeutic f ollowing a break from it for a glaucoma procedure. She does have normal capillary refill but a pretty weak radial pulse. Treatment will be therapeutic anticoagulation at this time. We will monitor closely. (2) Subtherapeutic anticoagulation SNOMED Code(s): 458265404 Code(s): Z51.81 - ENCOUNTER FOR THERAPEUTIC DRUG LEVEL MONITORING; Z79.01 - DOG HANDLER (CURRENT) USE OF ANTICOAGULANTS Status: Acute Current Visit: No Annotation/Comment:: Patient is on long-term Coumadin due to atrial fibrillation. Her INR today is 1.5. This is most likely due to the recent surgery and the restart of her Coumadin and her normal dosage 5 days ago. We will bridge her with Lovenox and increase her Coumadin monitor INR daily. (3) Elevated lactic acid level SNOMED Code(s): 3245923 Code(s): R79.89 - OTHER SPECIFIED ABNORMAL FINDINGS OF BLOOD CHEMISTRY Status: Acute Priority: High Current Visit: No Onset Date: 11/24/20 Annotation/Comment:: Her lactic acid is 5.9. This is most likely due to the perfusion to her right upper extremity. Repeat in the morning. No signs of infection at this time. (4) Afib SNOMED Code(s): 69119479 Code(s): I48.91 - UNSPECIFIED ATRIAL FIBRILLATION Status: Chronic Priority: Medium Current Visit: No Qualifiers: Annotation/Comment:: She is in a controlled rate in the 70s. She is subtherapeutic on her INR. (5) CAD (coronary artery disease) SNOMED Code(s): 04510619 Code(s): I25.10 - ATHSCL HEART DISEASE OF [place] CORONARY ARTERY W/O ANG PCTRS Status: Chronic Priority: Low Current Visit: No Qualifiers: Coronary Disease-Associated Artery/Lesion type: [place] artery [place] vs. transplanted heart: [place] heart Associated angina: without angina Qualified Code(s): I25.10 - Atherosclerotic heart disease of [place] coronary artery without angina pectoris Annotation/Comment:: No chest pain or anginal type symptoms. 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 (7) Hypertension SNOMED Code(s): 66364303 Code(s): I10 - ESSENTIAL (PRIMARY) HYPERTENSION Status: Chronic Priority: Medium Current Visit: No Qualifiers: Hypertension type: primary hypertension Qualified Code(s): I10 - Essential (primary) hypertension Annotation/Comment:: Stable vitals, continue to monitor Blood pressure 122/82 (8) Hypoxemia requiring supplemental oxygen SNOMED Code(s): 400595786 Code(s): R09.02 - HYPOXEMIA; Z99.81 - DEPENDENCE ON SUPPLEMENTAL OXYGEN Status: Chronic Priority: Low Current Visit: No Annotation/Comment:: continue to use oxygen per nasal cannula to keep O2 sats above 90% as per home. primarily during the night. (9) Hyperlipidemia SNOMED Code(s): 20607671 Code(s): E78.5 - HYPERLIPIDEMIA, UNSPECIFIED Status: Chronic Priority: Low Current Visit: No Qualifiers: Hyperlipidemia type: unspecified Qualified Code(s): E78.5 - Hyperlipidemia, unspecified Annotation/Comment:: Under therapy/stable per patient (10) Hypothyroid SNOMED Code(s): 21281205 Code(s): E03.9 - HYPOTHYROIDISM, UNSPECIFIED Status: Chronic Priority: Low Current Visit: No Qualifiers: Hypothyroidism type: acquired Qualified Code(s): E03.9 - Hypothyroidism, unspecified Annotation/Comment:: Stable per patient with no current symptoms. Last TSH 3.29, 1 month ago. (11) Polymyalgia rheumatica SNOMED Code(s): 08040064 Code(s): M35.3 - POLYMYALGIA RHEUMATICA Status: Chronic Priority: Low Current Visit: No Annotation/Comment:: Stable per history (12) Centrilobular emphysema SNOMED Code(s): 41035256 Code(s): J43.2 - CENTRILOBULAR EMPHYSEMA Status: Chronic Current Visit: Yes Annotation/Comment:: Stable per patient no complaints no shortness of breath. - Problem List Review Problem List Initiated/Reviewed/Updated: Yes - My Orders Last 24 Hours: My Active Orders 08/25/21 18:09 Sodium Chloride 0.9% [Saline Flush] 10 ml FLUSH ASDIRECTED PRN Peripheral IV Insertion Adult [OM.PC] Stat 08/25/21 19:22 Humerus w Cont Rt [CT] Routine 08/25/21 22:18 Admission Status [Patient Status] [ADT] Routine 08/25/21 22:51 Ambulate [RC] QID Oxygen Therapy [RC] PRN Up With Assistance [RC] ASDIRECTED VTE/DVT Education [RC] PER UNIT ROUTINE Vital Signs [RC] 08,20 Acetaminophen [TylenoL] 650 mg PO Q4H PRN Resuscitation Status Routine 08/25/21 22:54 Antiembolic Devices [RC] 08,20 Notify Provider Vital Signs [RC] ASDIRECTED Antiembolic Hose [OM.PC] Per Unit Routine 08/25/21 22:57 Acetaminophen/Codeine [Tylenol with Codeine No.3 300MG/30MG] 1 tab PO Q4H PRN 08/25/21 23:01 Albuterol [Proventil Neb Soln] 2.5 mg NEB Q2H PRN Atropine/Diphenoxylate [Lomotil 0.025-2.5 MG] 1 tab PO QID PRN Temazepam [Restoril] 15 mg PO BEDTIME PRN 08/25/21 23:05 RT Aerosol Therapy [RC] .PRN 08/25/21 23:21 Hyoscyamine [Hyomax-SL] 0.125 mg SL DAILY PRN 08/26/21 Breakfast Heart Healthy Diet [DIET] 08/26/21 08:00 Brimonidine [Alphagan 0.2% Oph Soln] 1 ml EYEBOTH BID Cholecalciferol (Vitamin D3) [Vitamin D3] 50 mcg PO DAILY Enoxaparin [Lovenox] 70 mg SUBCUT Q12HR Fish Oil/[place]-3 Fatty Acids [Fish Oil] 1 gm PO BID Furosemide [Lasix] 20 mg PO BIDDIURETIC Lactobacillus Rhamnosus GG [Culturelle] 1 cap PO BID Levothyroxine [Synthroid] 50 mcg PO DAILY Lutein/Min/Vit C/Vit E Acetate [Ocuvite Lutein] 1 each PO DAILY Metoprolol Tartrate [Lopressor] 50 mg PO BID Ofloxacin [Ocuflox 0.3% Oph Soln] 0 ml EYELF DAILY Polyvinyl Alcohol [LiquiTears 1.4% Oph Soln] 1 ml EYEBOTH QID Potassium Chloride [Klor-Con M20] 20 meq PO TID Sertraline [Zoloft] 25 mg PO DAILY amLODIPine [Norvasc] 10 mg PO DAILY atorvaSTATin [Lipitor] 10 mg PO DAILY cycloSPORINE [Restasis Multidose] 1 drop EYEBOTH BID estradioL 1 mg PO DAILY polyethylene glycoL 3350 [MiraLAX] 17 gm PO DAILY prednisoLONE acetate [Pred Forte 1% Oph Susp] 0 ml EYELF TID 08/26/21 08:45 Non-Formulary Medication [NF Drug] 0 each EYEBOTH BID Non-Formulary Medication [NF Drug] 0 each EYEBOTH TID 08/26/21 09:00 methylPREDNISolone [Medrol] 12 mg PO Q48H 08/26/21 17:00 Warfarin [Coumadin] 5 mg PO DAILY@1800 08/26/21 18:00 Magnesium Oxide 400 mg PO DAILY@1800 08/26/21 20:00 Netarsudil Mesylat/Latanoprost [Rocklatan 0.02%-0.005% Eye Drp] 0 drop EYEBOTH BEDTIME 08/27/21 05:11 BASIC METABOLIC PANEL,BMP [CHEM] AM CBC WITH AUTO DIFF [HEME] AM INR,PT,PROTHROMBIN TIME [COAG] AM PTT,PARTIAL THROMBOPLSTIN TIME [COAG] AM 08/27/21 09:00 methylPREDNISolone [Medrol] 6 mg PO Q48H - Assessment Assessment:: Assessment/plan. Active Diagnoses 1. 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 INR 2.0 today. Lovenox 70 mg subcutaneously twice daily. Coumadin 5 mg daily until therapeutic INR. Then back to the patient's home therapy or otherwise guidance for Coumadin m anagement. 2. subtherapeutic INR with noted acute thrombus per #1. Per #1 3. Elevated lactic acid. Symptoms improving. Chronic diagnosis Atrial fibrillation controlled. Metoprolol tartrate 50 mg p.o. twice daily Coronary artery disease Metoprolol Glaucoma with recent intervention Continue eyedrops from financial foundations representative multiple Essential hypertension Lasix 40 mg p.o. daily, amlodipine 10 mg daily Hypoxemia primarily during the night. 2 L oxygen as needed bedtime Dyslipidemia Atorvastatin 10 mg daily Hypothyroidism Levothyroxine 50 mg daily Polymyalgia rheumatica Methylprednisolone 12 mg even, 6 mg of days. VTE: TEDs, lovenox and coumadin Sepsis: No signs of sepsis at this time. CODE Status: DNR/DNI Patient is still subtherapeutic on the INR. 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 We are unable to discharge her back as she would not have close follow-up with her INR or unable to inject her Lovenox. Hopefully we will be able to discharge her tomorrow.
[2021-08-26] MEDS: Warfarin 5 MG Tab PO SCH ×2 (17:26→17:27)
[2021-08-26] MEDS ORDERED: Magnesium Oxide 400 MG Tab PO SCH (18:00)
[2021-08-26] MEDS ORDERED: LATANOPROST EYEBOTH SCH (20:00)
[2021-08-26] MEDS ORDERED: NETARSUDIL EYEBOTH SCH (20:00)
[2021-08-27] MEDS: [UNRECOGNIZED DRUG - OTHER] EYEBOTH SCH (07:13)
[2021-08-27] MEDS: Brimonidine 0.2% Ophth Soln 5 ML Bottle EYEBOTH SCH (07:13)
[2021-08-27] MEDS: OFLOXACIN 0.3% EYELF SCH (07:14)
[2021-08-27] MEDS: BRINZOLAMIDE 1% EYEBOTH SCH (07:15)
[2021-08-27] MEDS: Enoxaparin 80 MG/0.8 ML Syringe SUBCUT SCH (07:15)
[2021-08-27] MEDS: Polyvinyl Alcohol 1.4% Ophth Soln 15 ML Bottle EYEBOTH SCH (07:16)
[2021-08-27] MEDS: Fish Oil/Omega-3 Fatty Acids 1 Gm Cap PO SCH (07:17)
[2021-08-27] MEDS: atorvaSTATin 10 MG Tab PO SCH (07:17)
[2021-08-27] MEDS: Potassium Chloride 20 MEQ Tab.ER PO SCH (07:17)
[2021-08-27] MEDS: Levothyroxine 50 MCG Tab PO SCH (07:17)
[2021-08-27] MEDS: Cholecalciferol (Vitamin D3) 25 MCG Tab PO SCH (07:18)
[2021-08-27] MEDS: Lutein/Minerals/Vitamin C/Vitamin E Acetate Cap PO SCH (07:18)
[2021-08-27] MEDS: Metoprolol Tartrate 50 MG Tab PO SCH (07:18)
[2021-08-27] MEDS: Lactobacillus Rhamnosus GG (Probiotic) Cap PO SCH (07:19)
[2021-08-27] MEDS: Furosemide 20 MG Tab PO SCH (07:19)
[2021-08-27] MEDS: Estradiol 1 MG Tab PO SCH (07:19)
[2021-08-27] MEDS: Atropine/Diphenoxylate 0.025-2.5 MG Tab PO PRN (07:19)
[2021-08-27] MEDS: Sertraline 25 MG Tab PO SCH (07:19)
[2021-08-27] MEDS: amLODIPine 5 MG Tab PO SCH (07:20)
[2021-08-27] MEDS: Polyethylene Glycol 3350 Powder 17 GM Packet PO SCH (07:21)
[2021-08-27 07:37] LABS: PTT,PARTIAL THROMBOPLSTIN TIME 33.3 SEC (24.5-32.8)
[2021-08-27 07:58] LABS: ANION GAP 9.7 meq/L (7-15); CHLORIDE,CL 104 mmol/L (98-107); SODIUM,NA 142 mmol/L (136-145)
--- NOTE | 2021-08-27 15:06 | PCM.DCSUM1 ---
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 Pt. had been on coumadin for a fib but this was discontinued as she was undergoing eye surgery. She subsequently started experiencing discomfort in the R upper extremity, as well as coolness and pallor. CT of the extremity was performed showing the occlusion. Vascular surgery did not suggest any need for surgical intervention and to undergo an ticoagulation instead. Pt. was bridged on lovenox and started on coumadin. INR was theraputic today (actually supratheraputic at 4.0). Pt. is not experiencing any other symptoms such as increased discomfort, chest pain, shortness of breath. Pt. is currently deemed stable to be discharged back to [facility]. Diagnosis: Stroke: No - Discharge Data Discharge Date: 08/27/21 Discharge Disposition: Home, Self-Care 01 Condition: Good - Referral to Home Health Primary Care Physician: Kenyatta Jimenez NP - Discharge Diagnosis/Problem(s) (1) Ischemia of right upper extremity SNOMED Code(s): [id number] ICD Code: I99.8 - OTHER DISORDER OF CIRCULATORY SYSTEM Status: Acute - Patient Instructions Other/Special Instructions: Home to rest. Hold coumadin today (08/27/21). INR is 4.0. Clinic pharmacy to dose coumadin based on INR tomorrow (08/28/21). Continue with current medications. Return if chest pain or shortness of breath. Follow-up with PCP regarding INR and coumadin dosaging. - Discharge Plan Home Medications: Home Meds Brimonidine Tartrate/Timolol [Combigan 0.2%-0.5% Eye Drops] 1 drop EYEBOTH TID 02/10/20 [History] Cholecalciferol (Vitamin D3) [Vitamin D3] 2,000 unit PO DAILY 02/10/20 [History] Cyanocobalamin (Vitamin B12) [Vitamin B12] 1,000 mcg IJ Q30D 02/10/20 [History] Hyoscyamine [Levsin] 0.125 mg PO DAILY PRN 02/10/20 [History] Levothyroxine [Synthroid] 50 mcg PO DAILY 02/10/20 [History] Metoprolol Tartrate 50 mg PO BID 02/10/20 [History] amLODIPine [Norvasc] 10 mg PO DAILY 02/10/20 [History] atorvaSTATin [Lipitor] 10 mg PO DAILY 02/10/20 [History] cycloSPORINE [Restasis Multidose] 1 drop EYEBOTH BID 02/10/20 [History] estradioL [Estradiol] 1 mg PO DAILY 02/10/20 [History] methylPREDNISolone [Medrol] 12 mg PO Q48H 02/10/20 [History] Diphenoxylate HCl/Atropine [Lomotil] 2.5 mg PO QID PRN 02/23/21 [History] Lutein 20 mg PO DAILY 02/23/21 [History] Lutein/Minerals/Vit A,C & E [Ocuvite] 1 tab PO DAILY 02/23/21 [History] Meclizine HCl 25 mg PO QID PRN #30 tablet 02/23/21 [Rx] Brinzolamide [Azopt 1% Ophth Susp] 1 drop EYEBOTH BID 05/28/21 [History] Netarsudil Mesylat/Latanoprost [Rocklatan 0.02%-0.005% Eye Drp] 1 drop EYEBOTH BEDTIME 05/28/21 [History] Albuterol [Proventil Neb Soln] 2.5 mg NEB Q2H PRN neb 06/08/21 [Rx] Furosemide [Lasix] 20 mg PO BIDDIURETIC #180 tablet 06/08/21 [Rx] Lactobacillus Rhamnosus GG [Culturelle] 1 cap PO BID cap 06/08/21 [Rx] Magnesium Oxide 400 mg PO DAILY@1800 tablet 06/08/21 [Rx] Carboxymethylcellulose Sodium [Artificial Tears] 1 ml EYEBOTH QID 07/30/21 [History] Warfarin [Coumadin] 1 mg PO Q2D 07/30/21 [History] methylPREDNISolone [Methylprednisolone] 6 mg PO Q48H 07/30/21 [History] Fish Oil/[place]-3 Fatty Acids [Fish Oil 1,000 MG] 1 cap PO BID 07/31/21 [History] Nitroglycerin [Nitrostat] 0.4 mg SL Q5M PRN tab.sl 08/10/21 [Rx] Polyvinyl Alcohol [LiquiTears 1.4% Ophth Soln] 1 ml EYEBOTH QID bottle 08/10/21 [Rx] Sertraline [Zoloft] 25 mg PO DAILY #0 tablet 08/10/21 [Rx] Warfarin [Coumadin] 2 mg PO DAILY@1800 #30 tablet 08/10/21 [Rx] Acetaminophen [Tylenol] 650 mg PO Q4H 08/25/21 [History] Acetaminophen/Codeine [Tylenol with Codeine No.3 300MG/30MG] 1 tab PO Q4H PRN 08/25/21 [History] Potassium Chloride [Klor-Con M20] 20 meq PO TID 08/25/21 [History] Temazepam [Restoril] 15 mg PO BEDTIME PRN 08/25/21 [History] Netarsudil Mesylat/Latanoprost [Rocklatan 0.02%-0.005% Eye Drp] 0 drop EYEBOTH BEDTIME 08/27/21 [Rx] Non-Formulary Medication [NF Drug] 0 each EYEBOTH BID each 08/27/21 [Rx] Ofloxacin [Ocuflox 0.3% Ophth Soln] 0 ml EYELF DAILY bottle 08/27/21 [Rx] Warfarin [Coumadin] 5 mg PO DAILY@1800 tablet 08/27/21 [Rx] prednisoLONE acetate [Pred Forte 1% Ophth Susp] 0 ml EYELF TID bottle 08/27/21 [Rx] Forms: ED Department Discharge Referrals: Kenyatta Jimenez NP [Primary Care Provider] - - Discharge Summary/Plan Comment DC Time >30 min.: Yes Total # of Minutes for Discharge Time: Pt. was discharged. Hold next dose of coumadin, as INR was 4.0. Recheck INR per home health with clinic coumadin clinic to dose. Advised patient to return if she has worsening discomfort, chest pain, shortness of breath or call as needed. Recheck in clinic in 7-10 days. - General Info Functional Status: Reports: Pain Controlled - Review of Systems General: Reports: No Symptoms HEENT: Reports: No Symptoms Pulmonary: Reports: No Symptoms Cardiovascular: Reports: No Symptoms Gastrointestinal: Reports: No Symptoms Genitourinary: Reports: No Symptoms Musculoskeletal: Reports: Other (states R arm feels cool, no paresthesia or pain to the extremity.) Neurological: Reports: No Symptoms Psychiatric: Reports: No Symptoms - Patient Data Vitals - Most Recent: Last Vital Signs Temp 36.3 C 11/06/21 19:12 Pulse 0 L 08/27/21 07:18 Resp 20 08/25/21 19:12 BP 0/0 L 08/27/21 07:20 Pulse Ox 94 L 08/25/21 22:51 Weight - Most Recent: 77.111 kg I&O - Last 24 hours: Intake & Output 08/27/21 08/27/21 08/27/21 06:59 14:59 22:59 Intake Total 360 Balance 360 Lab Results - Last 24 hrs: Laboratory Results - last 24 hr 08/27/21 08/27/21 08/27/21 Range/Units 07:10 07:10 07:10 WBC 8.0 (4.0-10.2) K/uL RBC 3.50 L (3.77-5.09) M/uL Hgb 11.4 L (11.7-15.5) g/dL Hct 35.6 (34.0-46.0) % MCV 101.7 H (84.0-98.0) fL MCH 32.6 (28.2-33.3) pg MCHC 32.0 (31.7-36.0) g/dL RDW 15.2 H (11.2-14.1) % Plt Count 174 (150-350) K/uL Neut % (Auto) 76.8 (45.0-80.0) % Lymph % (Auto) 12.3 (10.0-50.0) % [place] % (Auto) 10.1 (2.0-14.0) % Eos % (Auto) 0.5 (0.0-5.0) % Baso % (Auto) 0.3 (0.0-2.0) % Neut # (Auto) 6.12 (1.40-7.00) K/uL Lymph # (Auto) 0.98 (0.50-3.50) K/uL [place] # (Auto) 0.80 (0.00-1.00) K/uL Eos # (Auto) 0.04 (0.00-0.50) K/uL Baso # (Auto) 0.02 (0.00-0.20) K/uL PT 43.5 H D (9.5-12.0) SEC INR 4.5 APTT 33.3 H (24.5-32.8) SEC Sodium 142 (136-145) mmol/L Potassium 3.8 (3.5-5.1) mmol/L Chloride 104 (98-107) mmol/L Carbon Dioxide 28.3 (21.0-32.0) mmol/L Anion Gap 9.7 (7-15) meq/L BUN 13 (7-18) mg/dL Creatinine 0.92 (0.51-1.17) mg/dL Est Cr Clr Drug Dosing TNP Estimated GFR (MDRD) 58 mL/min Glucose 84 (70-99) mg/dL Calcium 8.4 L (8.5-10.1) mg/dL Med Orders - Current: Current Medications Discontinued Medications Acetaminophen (Acetaminophen 500 Mg Tab) 1,000 mg PO ONETIME ONE Stop: 08/25/21 21:02 Last Admin: 08/25/21 21:12 Dose: 1,000 mg Documented by: Acetaminophen (Acetaminophen 325 Mg Tab) 650 mg PO Q4H PRN PRN Reason: Pain (Mild 1-3)/fever Acetaminophen (Acetaminophen 325 Mg Tab) 650 mg PO Q4H [facility] Last Admin: 08/26/21 08:59 Dose: 650 mg Documented by: Acetaminophen/Codeine Phosphate (Acetaminophen/Codeine 300-30 Mg Tab) 1 tab PO Q4H PRN PRN Reason: Pain (moderate 4-6) Last Admin: 08/26/21 17:16 Dose: 1 tab Documented by: Acetaminophen/Codeine Phosphate (Acetaminophen/Codeine 300-30 Mg Tab) 1 tab PO Q4H PRN PRN Reason: Pain Albuterol (Albuterol 0.083% 2.5 Mg/3 Ml Neb Soln) 2.5 mg NEB Q2H PRN PRN Reason: Shortness of Breath Amlodipine Besylate (Amlodipine 5 Mg Tab) 10 mg PO DAILY [facility] Last Admin: 08/27/21 07:20 Dose: 10 mg Documented by: Artificial Tears (Polyvinyl Alcohol 1.4% Ophth Soln 15 Ml Bottle) 1 ml EYEBOTH QID [facility] Artificial Tears (Polyvinyl Alcohol 1.4% Ophth Soln 15 Ml Bottle) 1 ml EYEBOTH QID [facility] Last Admin: 08/27/21 07:16 Dose: 1 drop Documented by: Atorvastatin Calcium (Atorvastatin 10 Mg Tab) 10 mg PO DAILY [facility] Last Admin: 08/27/21 07:17 Dose: 10 mg Documented by: Brimonidine Tartrate (Brimonidine 0.2% Ophth Soln 5 Ml Bottle) 0 ml EYEBOTH TID [facility] Last Admin: 08/26/21 09:40 Dose: Not Given Documented by: Brimonidine Tartrate (Brimonidine 0.2% Ophth Soln 5 Ml Bottle) 1 ml EYEBOTH BID [facility] Last Admin: 08/27/21 07:13 Dose: Not Given Documented by: Cholecalciferol (Cholecalciferol (Vitamin D3) 25 Mcg Tab) 50 mcg PO DAILY [facility] Last Admin: 08/27/21 07:18 Dose: 50 mcg Documented by: Diphenoxylate HCl/Atropine (Atropine/Diphenoxylate 0.025-2.5 Mg Tab) 1 tab PO QID PRN PRN Reason: Diarrhea Last Admin: 08/27/21 07:19 Dose: 1 tab Documented by: Dorzolamide HCl (Dorzolamide 2% Ophth Soln 10 Ml Bottle) 0 ml EYEBOTH BID [facility] Last Admin: 08/26/21 09:40 Dose: Not Given Documented by: Enoxaparin Sodium (Enoxaparin 80 Mg/0.8 Ml Syringe) 80 mg SUBCUT ONETIME ONE Stop: 08/25/21 22:31 Last Admin: 08/25/21 22:43 Dose: 80 mg Documented by: Enoxaparin Sodium (Enoxaparin 80 Mg/0.8 Ml Syringe) 70 mg SUBCUT Q12HR [facility] Last Admin: 08/27/21 07:15 Dose: 70 mg Documented by: Estradiol (Estradiol 1 Mg Tab) 1 mg PO DAILY [facility] Last Admin: 08/27/21 07:19 Dose: 1 mg Documented by: Fish Oil (Fish Oil/[place]-3 Fatty Acids 1 Gm Cap) 1 gm PO BID [facility] Last Admin: 08/27/21 07:17 Dose: 1 gm Documented by: Furosemide (Furosemide 20 Mg Tab) 20 mg PO BIDDIURETIC [facility] Last Admin: 08/27/21 07:19 Dose: 20 mg Documented by: Hyoscyamine (Hyoscyamine 0.125 Mg Tab.Sl) 0.125 mg SL DAILY PRN PRN Reason: IBS Lactated Ringer's (Ringers, Lactated) 1,000 mls @ 125 mls/hr IV ASDIRECTED [facility] Last Admin: 08/25/21 19:14 Dose: 125 mls/hr Documented by: Lactated Ringer's (Ringers, Lactated) 1,000 mls @ 100 mls/hr IV ASDIRECTED [facility] Last Admin: 08/26/21 00:47 Dose: 100 mls/hr Documented by: Iopamidol (Iopamidol 755 Mg/Ml 100 Ml Bottle) 100 ml IVPUSH ONETIME ONE Stop: 08/25/21 18:37 Last Admin: 08/25/21 20:21 Dose: 100 ml Documented by: Lactobacillus Rhamnosus (Lactobacillus Rhamnosus Gg (Probiotic) Cap) 1 cap PO BID [facility] Last Admin: 08/27/21 07:19 Dose: 1 cap Documented by: Levothyroxine Sodium (Levothyroxine 50 Mcg Tab) 50 mcg PO DAILY [facility] Last Admin: 08/27/21 07:17 Dose: 50 mcg Documented by: Magnesium Oxide (Magnesium Oxide 400 Mg Tab) 400 mg PO DAILY@1800 [facility] Last Admin: 08/26/21 17:17 Dose: 400 mg Documented by: Methylprednisolone (Methylprednisolone 4 Mg Tab) 12 mg PO Q48H [facility] Last Admin: 08/26/21 08:58 Dose: 12 mg Documented by: Methylprednisolone (Methylprednisolone 4 Mg Tab) 6 mg PO Q48H [facility] Last Admin: 08/27/21 09:50 Dose: 6 mg Documented by: Metoprolol Tartrate (Metoprolol Tartrate 50 Mg Tab) 50 mg PO BID [facility] Last Admin: 08/27/21 07:18 Dose: 50 mg Documented by: Non-Formulary Medication (Cyclosporine [Restasis Multidose]) 1 drop EYEBOTH BID [facility] Non-Formulary Medication (Lutein/Minerals/Vit A,C & E [Ocuvite]) 1 tab PO DAILY [facility] Rocklatan 0.02-0.005 (% Oph) 0 drop EYEBOTH BEDTIME [facility] Last Admin: 08/26/21 20:31 Dose: 1 drop Documented by: Nick Samson Own Med () 0 each EYEBOTH TID [facility] Last Admin: 08/27/21 07:13 Dose: 1 each Documented by: Brinzolamide 1% Ophth Soln Own Med 0 each EYEBOTH BID [facility] Last Admin: 08/27/21 07:15 Dose: 1 each Documented by: Ofloxacin (Ofloxacin 0.3% Ophth Soln 5 Ml Bottle Own Med) 0 ml EYELF DAILY [facility] Last Admin: 08/27/21 07:14 Dose: 1 drop Documented by: Polyethylene Glycol (Polyethylene Glycol 3350 Powder 17 Gm Packet) 17 gm PO DAILY [facility] Last Admin: 08/27/21 07:21 Dose: Not Given Documented by: Potassium Chloride (Potassium Chloride 20 Meq Tab.Er) 20 meq PO TID [facility] Last Admin: 08/27/21 07:17 Dose: 20 meq Documented by: Prednisolone Acetate (Prednisolone Acetate 1% Ophth Own Med) 0 ml EYELF TID [facility] Last Admin: 08/27/21 07:13 Dose: 1 drop Documented by: Sertraline HCl (Sertraline 25 Mg Tab) 25 mg PO DAILY [facility] Last Admin: 08/27/21 07:19 Dose: 25 mg Documented by: Sodium Chloride (Sodium Chloride 0.9% 10 Ml Syringe) 10 ml FLUSH ASDIRECTED PRN PRN Reason: Keep Vein Open Last Admin: 08/25/21 19:12 Dose: 10 ml Documented by: Temazepam (Temazepam 15 Mg Cap) 15 mg PO BEDTIME PRN PRN Reason: Sleep Last Admin: 08/26/21 20:32 Dose: 15 mg Documented by: Timolol Maleate (Timolol Maleate 0.5% Ophth Soln 5 Ml Bottle) 0 ml EYEBOTH TID [facility] Last Admin: 08/26/21 09:40 Dose: Not Given Documented by: Vit C/Vit E/Zinc/Copper/Lutein (Lutein/Minerals/Vitamin C/Vitamin E Acetate Cap) 1 each PO DAILY [facility] Last Admin: 08/27/21 07:18 Dose: 1 each Documented by: Warfarin Sodium (Warfarin 2 Mg Tab) 2 mg PO ONETIME ONE Stop: 08/25/21 22:50 Last Admin: 08/26/21 00:48 Dose: 2 mg Documented by: Warfarin Sodium (Warfarin 5 Mg Tab) 5 mg PO DAILY@1800 [facility] Last Admin: 08/26/21 17:27 Dose: Not Given Documented by: - Exam General: Reports: Alert, Oriented HEENT: Reports: Pupils Equal, Pupils Reactive, EOMI, Mucous Membr. Moist/[place] Neck: Reports: Supple Lungs: Reports: Clear to Auscultation, Normal Respiratory Effort Cardiovascular: Reports: Regular Rate, Irregular Rhythm GI/Abdominal Exam: Normal Bowel Sounds, Soft, Non-Tender, No Distention, No Mass (Female) Exam: Deferred Rectal (Female) Exam: Deferred Back Exam: Reports: Normal Inspection, Full Range of Motion Extremities: Normal Inspection, Normal Range of Motion, Non-Tender, No Pedal Edema, Normal Capillary Refill, Pallor Skin: Reports: Warm, Dry, Intact Wound/Incisions: Reports: Healing Well Neurological: Reports: No New Focal Deficit Psy/Mental Status: Reports: Alert, Normal Affect, Normal Mood
--- NOTE | 2021-09-20 10:11 | PCM.EKG ---
#1 Interpretation EKG Date: 08/25/21 Time: 18:06 Rhythm: NSR Rate (Beats/Min): 85 [place]: Normal P-Wave: Present QRS: Normal ST-T: Normal QT: Normal Comparison: No Change
== END 2021-08-27 10:48 | disposition home or self-care (01) | DRG 300 ==
LOC: LL.ED 18:00 → LL.MS 22:00
PROVIDERS: ADMIT Nurse Practitioner Family; ATTEND Nurse Practitioner Family
DX: I74.2 Embolism and thrombosis of arteries of the upper extremities (principal); I48.20 Chronic atrial fibrillation, unspecified; D84.9 Immunodeficiency, unspecified; D68.8 Other specified coagulation defects; R79.89 Other specified abnormal findings of blood chemistry; I25.10 Atherosclerotic heart disease of native coronary artery without angina pectoris; I48.91 Unspecified atrial fibrillation; H40.9 Unspecified glaucoma; R09.02 Hypoxemia; E78.5 Hyperlipidemia, unspecified; J44.9 Chronic obstructive pulmonary disease, unspecified; M35.3 Polymyalgia rheumatica; J43.2 Centrilobular emphysema; Z66 Do not resuscitate; N18.32 Chronic kidney disease, stage 3b; N18.9 Chronic kidney disease, unspecified; I12.9 Hypertensive chronic kidney disease with stage 1 through stage 4 chronic kidney disease, or unspecified chronic kidney disease; H54.7 Unspecified visual loss; E78.00 Pure hypercholesterolemia, unspecified; K57.90 Diverticulosis of intestine, part unspecified, without perforation or abscess without bleeding; F32.9 Major depressive disorder, single episode, unspecified; E66.9 Obesity, unspecified; M81.0 Age-related osteoporosis without current pathological fracture; M85.80 Other specified disorders of bone density and structure, unspecified site; F41.9 Anxiety disorder, unspecified; F32.A Depression, unspecified; R32 Unspecified urinary incontinence; M19.90 Unspecified osteoarthritis, unspecified site; M54.9 Dorsalgia, unspecified; G89.29 Other chronic pain; K58.9 Irritable bowel syndrome, unspecified; H04.129 Dry eye syndrome of unspecified lacrimal gland; E53.8 Deficiency of other specified B group vitamins; D63.1 Anemia in chronic kidney disease; E88.09 Other disorders of plasma-protein metabolism, not elsewhere classified; J30.9 Allergic rhinitis, unspecified; E03.9 Hypothyroidism, unspecified; E87.6 Hypokalemia; E83.42 Hypomagnesemia; Z98.890 Other specified postprocedural states; Z88.8 Allergy status to other drugs, medicaments and biological substances; Z79.890 Hormone replacement therapy; Z79.52 Long term (current) use of systemic steroids; Z79.899 Other long term (current) drug therapy; Z79.01 Long term (current) use of anticoagulants; Z99.81 Dependence on supplemental oxygen; Z98.61 Coronary angioplasty status; I25.2 Old myocardial infarction; Z98.41 Cataract extraction status, right eye; Z98.42 Cataract extraction status, left eye; Z90.49 Acquired absence of other specified parts of digestive tract; Z87.19 Personal history of other diseases of the digestive system; Z91.048 Other nonmedicinal substance allergy status
CPT/HCPCS: 36415; 73201-RT; 80048; 80053; 83605; 84484; 85025; 85379; 85610; 85730; 86140; 93005; 93010; 96372; 99223; 99233; 99239; 99285-25; A9270-GY; J1650; J7120; J7509; Q9967

== ENCOUNTER 2022-02-16 15:16 | Observation (INO) | payer MEDICARE, OTHER ==
[2022-02-16 15:48] LABS: ANION GAP 12.6 meq/L (7-15); CHLORIDE,CL 102 mmol/L (98-107); SODIUM,NA 140 mmol/L (136-145)
[2022-02-16] MEDS ORDERED: Acetaminophen/Codeine 300-30 MG Tab PO ONE (19:39)
[2022-02-16] MEDS ORDERED: Albuterol 0.083% 2.5 MG/3 ML Neb Soln NEB PRN (20:54)
[2022-02-16] MEDS ORDERED: Temazepam 15 MG Cap PO PRN (20:54)
[2022-02-16] MEDS ORDERED: Nitroglycerin 0.4 MG Tab.SL SL PRN (20:54)
[2022-02-16] MEDS ORDERED: Promethazine 25 MG Tab PO PRN (20:54)
[2022-02-16] MEDS ORDERED: Hyoscyamine 0.125 MG Tab.SL PO PRN (20:54)
[2022-02-16] MEDS ORDERED: Meclizine 25 MG Tab PO PRN (21:00)
[2022-02-16] MEDS: Potassium Chloride 20 MEQ Tab.ER PO SCH (22:30)
[2022-02-16] MEDS: Magnesium Oxide 400 MG Tab PO SCH (22:30)
[2022-02-16] MEDS: Metoprolol Tartrate 50 MG Tab PO SCH (22:31)
[2022-02-16] MEDS: Lactobacillus Rhamnosus GG (Probiotic) Cap PO SCH (22:31)
[2022-02-16] MEDS: Warfarin 2 MG Tab PO SCH (22:32)
[2022-02-16] MEDS: Cyclobenzaprine 10 MG Tab PO PRN (22:33)
[2022-02-17] MEDS: Acetaminophen 325 MG Tab PO SCH ×4 (01:07→10:07)
[2022-02-17] MEDS ORDERED: Timolol Maleate 0.5% Ophth Soln 5 ML Bottle EYEBOTH SCH (08:00)
[2022-02-17] MEDS ORDERED: Meclizine 25 MG Tab PO PRN ×2 (08:00→08:52)
[2022-02-17] MEDS ORDERED: Brimonidine 0.2% Ophth Soln 5 ML Bottle EYEBOTH SCH (08:00)
[2022-02-17] MEDS ORDERED: Atropine/Diphenoxylate 0.025-2.5 MG Tab PO SCH (08:00)
[2022-02-17] MEDS ORDERED: Hyoscyamine 0.125 MG Tab.SL PO SCH (08:00)
[2022-02-17] MEDS ORDERED: Dorzolamide 2% Ophth Soln 10 ML Bottle EYEBOTH SCH (08:00)
[2022-02-17] MEDS ORDERED: Non-Formulary Medication 1 Each (Lutein [Lutein] 20 MG Tablet) PO SCH (08:00)
[2022-02-17] MEDS ORDERED: Loperamide 2 MG Tab PO SCH (08:00)
[2022-02-17] MEDS ORDERED: CYCLOSPORINE 0.05% EYEBOTH SCH (08:00)
[2022-02-17] MEDS ORDERED: prednisoLONE Acetate 1% Ophth Susp 5 ML Bottle EYEBOTH SCH (08:00)
[2022-02-17] MEDS ORDERED: Polyvinyl Alcohol 1.4% Ophth Soln 15 ML Bottle EYEBOTH SCH ×2 (08:00)
[2022-02-17 08:28] LABS: ANION GAP 8.6 meq/L (7-15)
[2022-02-17] MEDS: POLYVINYL ALCOHOL EYELF SCH ×4 (09:08→19:24)
[2022-02-17] MEDS: Acetaminophen/Codeine 300-30 MG Tab PO PRN ×2 (09:08→14:42)
[2022-02-17] MEDS: Potassium Chloride 20 MEQ Tab.ER PO SCH ×2 (09:09→17:54)
[2022-02-17] MEDS: Levothyroxine 50 MCG Tab PO SCH (09:10)
[2022-02-17] MEDS: Sertraline 25 MG Tab PO SCH (09:10)
[2022-02-17] MEDS: Lutein/Minerals/Vitamin C/Vitamin E Acetate Cap PO SCH (09:10)
[2022-02-17] MEDS: Furosemide 20 MG Tab PO SCH ×2 (09:11→11:42)
[2022-02-17] MEDS: Lactobacillus Rhamnosus GG (Probiotic) Cap PO SCH ×2 (09:11→17:53)
[2022-02-17] MEDS: Fish Oil/Omega-3 Fatty Acids 1 Gm Cap PO SCH ×2 (09:11→17:54)
[2022-02-17] MEDS: Meclizine 25 MG Tab PO SCH ×3 (09:12→17:54)
[2022-02-17] MEDS: Estradiol 1 MG Tab PO SCH (09:13)
[2022-02-17] MEDS: Metoprolol Tartrate 50 MG Tab PO SCH ×2 (09:14→17:54)
[2022-02-17] MEDS: amLODIPine 5 MG Tab PO SCH (09:16)
[2022-02-17] MEDS: atorvaSTATin 10 MG Tab PO SCH (09:16)
[2022-02-17] MEDS: Cholecalciferol (Vitamin D3) 25 MCG Tab PO SCH (09:17)
[2022-02-17] MEDS ORDERED: Hyoscyamine 0.125 MG Tab.SL PO PRN (10:35)
[2022-02-17] MEDS ORDERED: Loperamide 2 MG Tab PO PRN (10:35)
[2022-02-17] MEDS ORDERED: Atropine/Diphenoxylate 0.025-2.5 MG Tab PO PRN (10:35)
[2022-02-17] MEDS: Acetaminophen 325 MG Tab PO PRN ×2 (11:44→16:36)
[2022-02-17] MEDS: Cyclobenzaprine 10 MG Tab PO PRN ×2 (11:47→21:48)
[2022-02-17] MEDS: Warfarin 2 MG Tab PO SCH (17:54)
[2022-02-17] MEDS ORDERED: PREDNISOLONE ACETATE 1% EYERT SCH (18:00)
[2022-02-17] MEDS ORDERED: Warfarin 2 MG Tab PO SCH (18:00)
[2022-02-17] MEDS: PREDNISOLONE ACETATE 1% EYERT SCH (19:23)
[2022-02-17] MEDS: Temazepam 15 MG Cap PO SCH (19:24)
[2022-02-17] MEDS: Melatonin 3 MG Tab PO SCH (19:24)
[2022-02-17] MEDS ORDERED: Non-Formulary Medication 1 Each (Netarsudil Mesylat/Latanoprost [Rocklatan 0.02%-0.005% Ey EYEBOTH SCH (20:00)
[2022-02-17] MEDS: Magnesium Oxide 400 MG Tab PO SCH (21:48)
[2022-02-18] MEDS: Cyclobenzaprine 10 MG Tab PO PRN ×2 (04:11→13:34)
[2022-02-18] MEDS: Acetaminophen/Codeine 300-30 MG Tab PO PRN ×4 (04:12→20:48)
[2022-02-18] MEDS: Fish Oil/Omega-3 Fatty Acids 1 Gm Cap PO SCH (07:53)
[2022-02-18] MEDS: amLODIPine 5 MG Tab PO SCH (07:53)
[2022-02-18] MEDS: Cholecalciferol (Vitamin D3) 25 MCG Tab PO SCH (07:53)
[2022-02-18] MEDS: Lactobacillus Rhamnosus GG (Probiotic) Cap PO SCH ×2 (07:53→17:18)
[2022-02-18] MEDS: Levothyroxine 50 MCG Tab PO SCH (07:55)
[2022-02-18] MEDS: POLYVINYL ALCOHOL EYELF SCH ×4 (07:55→20:49)
[2022-02-18] MEDS: Lutein/Minerals/Vitamin C/Vitamin E Acetate Cap PO SCH (07:56)
[2022-02-18] MEDS: Meclizine 25 MG Tab PO SCH ×3 (07:56→17:18)
[2022-02-18] MEDS: Estradiol 1 MG Tab PO SCH (07:56)
[2022-02-18] MEDS: Sertraline 25 MG Tab PO SCH (07:56)
[2022-02-18] MEDS: Potassium Chloride 20 MEQ Tab.ER PO SCH ×2 (07:56→17:18)
[2022-02-18] MEDS: Metoprolol Tartrate 50 MG Tab PO SCH ×2 (07:56→17:18)
[2022-02-18] MEDS: Furosemide 20 MG Tab PO SCH ×2 (07:56→11:08)
[2022-02-18] MEDS: PREDNISOLONE ACETATE 1% EYERT SCH ×2 (07:57→20:49)
[2022-02-18] MEDS: atorvaSTATin 10 MG Tab PO SCH (07:57)
[2022-02-18] MEDS: Melatonin 3 MG Tab PO SCH (20:49)
[2022-02-18] MEDS: Temazepam 15 MG Cap PO SCH (20:49)
[2022-02-19] MEDS: Acetaminophen/Codeine 300-30 MG Tab PO PRN ×4 (05:48→20:19)
[2022-02-19] MEDS: Estradiol 1 MG Tab PO SCH (07:15)
[2022-02-19] MEDS: Potassium Chloride 20 MEQ Tab.ER PO SCH ×2 (07:15→17:16)
[2022-02-19] MEDS: Meclizine 25 MG Tab PO SCH ×3 (07:16→17:16)
[2022-02-19] MEDS: Lactobacillus Rhamnosus GG (Probiotic) Cap PO SCH ×2 (07:16→17:16)
[2022-02-19] MEDS: Lutein/Minerals/Vitamin C/Vitamin E Acetate Cap PO SCH (07:16)
[2022-02-19] MEDS: Furosemide 20 MG Tab PO SCH ×2 (07:16→11:06)
[2022-02-19] MEDS: Cyclobenzaprine 10 MG Tab PO PRN (07:16)
[2022-02-19] MEDS: Levothyroxine 50 MCG Tab PO SCH (07:17)
[2022-02-19] MEDS: Sertraline 25 MG Tab PO SCH (07:17)
[2022-02-19] MEDS: Metoprolol Tartrate 50 MG Tab PO SCH ×2 (07:17→17:17)
[2022-02-19] MEDS: amLODIPine 5 MG Tab PO SCH (07:17)
[2022-02-19] MEDS: PREDNISOLONE ACETATE 1% EYERT SCH ×2 (07:18→20:15)
[2022-02-19] MEDS: POLYVINYL ALCOHOL EYELF SCH ×4 (07:18→20:15)
[2022-02-19] MEDS: Cholecalciferol (Vitamin D3) 25 MCG Tab PO SCH (07:18)
[2022-02-19 07:46] LABS: ANION GAP 10.1 meq/L (7-15)
[2022-02-19] MEDS: Warfarin 2 MG Tab PO SCH (17:16)
[2022-02-19] MEDS: Temazepam 15 MG Cap PO SCH (20:19)
[2022-02-19] MEDS: Melatonin 3 MG Tab PO SCH (20:23)
[2022-02-20 07:48] LABS: ANION GAP 11.2 meq/L (7-15)
[2022-02-20] MEDS: Lutein/Minerals/Vitamin C/Vitamin E Acetate Cap PO SCH (08:18)
[2022-02-20] MEDS: Potassium Chloride 20 MEQ Tab.ER PO SCH (08:18)
[2022-02-20] MEDS: Lactobacillus Rhamnosus GG (Probiotic) Cap PO SCH (08:19)
[2022-02-20] MEDS: Acetaminophen/Codeine 300-30 MG Tab PO PRN ×2 (08:19→12:19)
[2022-02-20] MEDS: Cholecalciferol (Vitamin D3) 25 MCG Tab PO SCH (08:20)
[2022-02-20] MEDS: Furosemide 20 MG Tab PO SCH ×2 (08:21→11:49)
[2022-02-20] MEDS: Estradiol 1 MG Tab PO SCH (08:21)
[2022-02-20] MEDS: Levothyroxine 50 MCG Tab PO SCH (08:21)
[2022-02-20] MEDS: Metoprolol Tartrate 50 MG Tab PO SCH (08:22)
[2022-02-20] MEDS: amLODIPine 5 MG Tab PO SCH (08:22)
[2022-02-20] MEDS: Sertraline 25 MG Tab PO SCH (08:22)
[2022-02-20] MEDS: Meclizine 25 MG Tab PO SCH ×2 (08:23→11:49)
[2022-02-20] MEDS: POLYVINYL ALCOHOL EYELF SCH ×2 (08:27→11:51)
[2022-02-20] MEDS: PREDNISOLONE ACETATE 1% EYERT SCH (08:28)
[2022-02-20] MEDS: Cyclobenzaprine 10 MG Tab PO PRN (11:49)
[2022-02-20] MEDS: Acetaminophen 325 MG Tab PO PRN (11:50)
[2022-03-02] MEDS ORDERED: Cyanocobalamin (Vitamin B12) 1,000 MCG/ML SDV IM SCH (08:00)
== END 2022-02-20 14:10 ==
LOC: SUPCPDRO 15:16 → LL.ED 15:16 → LL.MS 20:00
PROVIDERS: ADMIT Emergency Medicine; ATTEND Emergency Medicine
DX: T07.XXXA Unspecified multiple injuries, initial encounter (principal); R53.1 Weakness; R42 Dizziness and giddiness; R53.83 Other fatigue; R09.02 Hypoxemia; H40.9 Unspecified glaucoma; I11.0 Hypertensive heart disease with heart failure; I48.91 Unspecified atrial fibrillation; I50.9 Heart failure, unspecified; M35.3 Polymyalgia rheumatica; K58.0 Irritable bowel syndrome with diarrhea; I25.10 Atherosclerotic heart disease of native coronary artery without angina pectoris; I73.00 Raynaud's syndrome without gangrene; E78.5 Hyperlipidemia, unspecified; E03.9 Hypothyroidism, unspecified; M15.9 Polyosteoarthritis, unspecified; F41.9 Anxiety disorder, unspecified; D64.9 Anemia, unspecified; Z78.9 Other specified health status; Z99.81 Dependence on supplemental oxygen; Z79.01 Long term (current) use of anticoagulants; Z79.890 Hormone replacement therapy; Z79.899 Other long term (current) drug therapy; W19.XXXA Unspecified fall, initial encounter
CPT/HCPCS: 36415; 36416; 71250; 73560-LT; 80048; 80053; 83735; 85025; 85027; 85610; 97163-GP; 97166-GO; 97530-GP; 99217; 99220; 99225; 99285-25; A9270-GY; G0378; J7509

== ENCOUNTER 2022-02-24 22:27 | Emergency (ER) | payer MEDICARE, OTHER ==
[2022-02-24] MEDS ORDERED: Lidocaine 2% with EPINEPHrine 1:100,000 20 ML MDV INJECT ONE (23:02)
[2022-02-24] MEDS ORDERED: Ondansetron 4 MG Tab.DIS PO ONE (23:04)
[2022-02-24] MEDS ORDERED: Morphine 2 MG/ML SYRINGE ONE (23:25)
[2022-02-24] MEDS ORDERED: Morphine 2 MG/ML SYRINGE IM ONE (23:25)
[2022-02-24] MEDS ORDERED: Bacitracin Oint 1 GM U/D Packet ONE (23:40)
== END 2022-02-25 00:10 ==
LOC: LL.ED 22:27
DX: S01.01XA Laceration without foreign body of scalp, initial encounter (principal); H31.40 Unspecified choroidal detachment; I48.91 Unspecified atrial fibrillation; I25.10 Atherosclerotic heart disease of native coronary artery without angina pectoris; E78.00 Pure hypercholesterolemia, unspecified; E11.22 Type 2 diabetes mellitus with diabetic chronic kidney disease; I12.9 Hypertensive chronic kidney disease with stage 1 through stage 4 chronic kidney disease, or unspecified chronic kidney disease; N18.9 Chronic kidney disease, unspecified; J44.9 Chronic obstructive pulmonary disease, unspecified; E66.9 Obesity, unspecified; Z68.30 Body mass index [BMI] 30.0-30.9, adult; Z91.09 Other allergy status, other than to drugs and biological substances; Z91.048 Other nonmedicinal substance allergy status; Z79.899 Other long term (current) drug therapy; Z79.01 Long term (current) use of anticoagulants; Z87.891 Personal history of nicotine dependence; W01.0XXA Fall on same level from slipping, tripping and stumbling without subsequent striking against object, initial encounter; Y92.002 Bathroom of unspecified non-institutional (private) residence as the place of occurrence of the external cause
CPT/HCPCS: 12002; 70450; 96372; 99283; 99285; A9270; J2270